=== PATIENT | male | born 1960 | race Caucasian/White ===

== ENCOUNTER 2020-09-06 15:07 | Outpatient (REF) | payer OTHER, SELFPAY ==
[2020-09-06 15:44] LABS: Imm Gran Abs Auto 0.02 X10*3/uL (0.00-0.03); MANUAL DIFF FLAG SCAN; PLT CLUMP 1; SCAN SMEAR FLAG 1
[2020-09-06 15:46] LABS: Basophils Absolute Auto 0.1 X10*3/uL (0.0-0.2); Eosinophils Absolute Auto 0.2 X10*3/uL (0.0-0.4); Eosinophils Percent Auto 3.1 % (0-4); Hematocrit 44.4 % (42-52); Imm Gran Pct Auto 0.3 % (0.0-0.4); Lymphocytes Absolute Auto 0.9 X10*3/uL (1.2-4.9); Lymphocytes Percent Auto 15.3 % (20-40); Mean Corpuscular HGB Conc 33.8 g/dl (31.0-36.0); Mean Corpuscular Hemoglobin 35.2 pg (27.0-33.0); Mean Corpuscular Volume 104.2 fL (80-98); Mean Platelet Volume 10.6 fL (9.4-12.4); Monocytes Absolute Auto 0.6 X10*3/uL (0.1-1.2); Monocytes Percent Auto 10.6 % (2-11); Neutrophils Percent Auto 69.7 % (45-73); Platelet Count 86 X10*3/uL (160-400); Red Blood Count 4.26 X10*6/uL (4.60-5.80); Red Cell Distribution Width 12.8 % (11.0-16.0); White Blood Count 5.8 X10*3/uL (4.8-10.8)
[2020-09-06 15:50] LABS: SLIDE REVIEW VERIFIED
[2020-09-06 15:51] LABS: Prothrombin Time 11.8 SEC (10.8-13.0)
[2020-09-06 16:16] LABS: Alanine Aminotransferase 42 U/L (0-40); Albumin Level 4.5 g/dL (3.5-5.0); Alkaline Phosphatase 78 U/L (39-117); Anion Gap 19 (12-20); Aspartate Amino Transferase 38 U/L (5-37); Bilirubin Total 2.2 mg/dL (0.0-1.0); Blood Urea Nitrogen 8 mg/dL (9-16); Calcium 9.1 mg/dL (8.4-10.2); Carbon Dioxide 27 mmol/L (22-29); Chloride 100 mmol/L (96-108); Estimated Glomerular Filt Rate > 60; Glucose Random 140 mg/dL (60-115); Potassium 4.8 mmol/l (3.3-5.1); Sodium 141 mmol/L (135-145); Total Protein 8.5 g/dL (6.5-8.0)
[2020-09-06 16:19] LABS: Gamma Glutamyl Transpeptidase 102 U/L (11-51)
[2020-09-07 03:27] LABS: Estimated Average Glucose 140 mg/dL; Hemoglobin A1c % 6.5 %
== END 2020-09-06 15:08 | disposition home or self-care (01) ==
LOC: HO.LAB 15:07
PROVIDERS: PCP Nurse Practitioner Family; Visit Provider Internal Medicine Gastroenterology
DX: K70.30 Alcoholic cirrhosis of liver without ascites (principal)
CPT/HCPCS: 36415; 80053; 82977; 83036; 85025; 85610

== ENCOUNTER → 2020-09-13 10:33 | Outpatient (BNVA) | payer OTHER, SELFPAY | PROVIDERS: PCP Nurse Practitioner Family; Referring Provider Nurse Practitioner Family; Visit Provider Internal Medicine Gastroenterology | DX: Z76.89 Persons encountering health services in other specified circumstances (principal) ==

== ENCOUNTER → 2020-09-15 09:55 | Outpatient (BNVA) | payer OTHER, SELFPAY | PROVIDERS: PCP Nurse Practitioner Family; Referring Provider Nurse Practitioner Family; Visit Provider Internal Medicine Gastroenterology | DX: K74.60 Unspecified cirrhosis of liver (principal); E13.9 Other specified diabetes mellitus without complications; D12.6 Benign neoplasm of colon, unspecified | CPT/HCPCS: 99212 ==

== ENCOUNTER 2020-09-29 10:22 | Outpatient (REF) | payer OTHER, SELFPAY ==
[2020-09-29 11:52] LABS: Estimated Average Glucose 131 mg/dL; Hemoglobin A1c % 6.2 %
[2020-09-29 11:59] LABS: Alanine Aminotransferase 61 U/L (0-40); Albumin Level 4.4 g/dL (3.5-5.0); Alkaline Phosphatase 83 U/L (39-117); Anion Gap 14 (12-20); Aspartate Amino Transferase 65 U/L (5-37); Bilirubin Total 1.2 mg/dL (0.0-1.0); Blood Urea Nitrogen 6 mg/dL (9-16); Calcium 9.6 mg/dL (8.4-10.2); Carbon Dioxide 30 mmol/L (22-29); Chloride 100 mmol/L (96-108); Cholesterol 193 mg/dL; Estimated Glomerular Filt Rate > 60; Glucose Fasting 133 mg/dL (60-99); HDL Cholesterol 92 mg/dL; LDL Cholesterol Calculated 90 mg/dl; Potassium 4.2 mmol/l (3.3-5.1); Sodium 140 mmol/L (135-145); Total Protein 8.2 g/dL (6.5-8.0); Triglycerides 56 mg/dL
[2020-09-29 14:30] LABS: Creatinine Urine 134.49 mg/dL; Microalbum/Creatinine Ratio Ur 32.7 ug/mg cr
== END 2020-09-29 10:23 | disposition home or self-care (01) ==
LOC: HO.HMGCLDS 10:22
PROVIDERS: PCP Nurse Practitioner Family; Visit Provider Nurse Practitioner Family
DX: E13.9 Other specified diabetes mellitus without complications (principal); L60.2 Onychogryphosis
CPT/HCPCS: 80053; 80061; 82043; 83036; 84443

== ENCOUNTER 2021-03-30 09:24 | Outpatient (REF) | payer OTHER, SELFPAY ==
[2021-03-30 12:01] LABS: Estimated Average Glucose 186 mg/dL; Hemoglobin A1c % 8.1 %
[2021-03-30 12:09] LABS: Alanine Aminotransferase 17 U/L (0-40); Alkaline Phosphatase 81 U/L (39-117); Anion Gap 16 (12-20); Aspartate Amino Transferase 15 U/L (5-37); Bilirubin Total 1.9 mg/dL (0.0-1.0); Blood Urea Nitrogen 10 mg/dL (9-16); Calcium 9.4 mg/dL (8.4-10.2); Carbon Dioxide 23 mmol/L (22-29); Chloride 103 mmol/L (96-108); Cholesterol 176 mg/dL; Estimated Glomerular Filt Rate > 60; Glucose Fasting 141 mg/dL (60-99); HDL Cholesterol 62 mg/dL; LDL Cholesterol Calculated 97 mg/dl; Potassium 3.8 mmol/L (3.3-5.1); Sodium 138 mmol/L (135-145); Total Protein 7.6 g/dL (6.5-8.0); Triglycerides 89 mg/dL
[2021-03-30 12:18] LABS: Prostate Specific Antigen Scr 3.15 ng/mL (<0.05-4.0); TSH reflex Free T4 2.57 uIU/mL (0.32-4.0)
[2021-03-30 12:48] LABS: Ferritin 239 ng/mL (20-250)
== END 2021-03-30 09:25 | disposition home or self-care (01) ==
LOC: HO.HMGCLDS 09:24
PROVIDERS: PCP Nurse Practitioner Family; Visit Provider Nurse Practitioner Family
DX: Z12.5 Encounter for screening for malignant neoplasm of prostate (principal); E13.9 Other specified diabetes mellitus without complications; R79.89 Other specified abnormal findings of blood chemistry
CPT/HCPCS: 36415; 80053; 80061; 82728; 83036; 84153; 84443

== ENCOUNTER 2021-05-30 09:28 | Outpatient (REF) | payer OTHER, SELFPAY ==
[2021-05-30 11:37] LABS: Creatinine Urine 90.91 mg/dL; Microalbumin Urine < 5.0 mg/L
[2021-05-30 11:38] LABS: Alanine Aminotransferase 23 U/L (0-40); Albumin Level 3.8 g/dL (3.5-5.0); Alkaline Phosphatase 95 U/L (39-117); Anion Gap 10 (12-20); Aspartate Amino Transferase 20 U/L (5-37); Bilirubin Total 1.6 mg/dL (0.0-1.0); Blood Urea Nitrogen 8 mg/dL (9-16); Calcium 9.6 mg/dL (8.4-10.2); Carbon Dioxide 26 mmol/L (22-29); Chloride 106 mmol/L (96-108); Cholesterol 150 mg/dL; Estimated Glomerular Filt Rate > 60; Glucose Fasting 169 mg/dL (60-99); HDL Cholesterol 57 mg/dL; LDL Cholesterol Calculated 82 mg/dl; Potassium 4.4 mmol/L (3.3-5.1); Sodium 138 mmol/L (135-145); Total Protein 7.2 g/dL (6.5-8.0); Triglycerides 55 mg/dL
[2021-05-30 11:46] LABS: Prostate Specific Antigen 3.05 ng/mL (<0.05-4.0)
== END 2021-05-30 09:29 | disposition home or self-care (01) ==
LOC: HO.HMGCLDS 09:28
PROVIDERS: PCP Nurse Practitioner Family; Visit Provider Nurse Practitioner Family
DX: Z12.5 Encounter for screening for malignant neoplasm of prostate (principal); E11.9 Type 2 diabetes mellitus without complications
CPT/HCPCS: 36415; 80053; 80061; 82043; 84153

== ENCOUNTER 2021-10-03 10:19 | Outpatient (REF) | payer MEDICARE, OTHER, SELFPAY ==
--- NOTE | ~2021-10-03 | XR_ITS ---
EXAMINATION: XR CERVICAL SPINE CLINICAL INFORMATION: Cervical disc disorder COMPARISON: None TECHNIQUE: 3 views of the cervical spine were obtained. FINDINGS: Bone alignment is normal. No fracture or dislocation is seen. There is degenerative spondylosis at C4-C5 and C5-C6. There is disc space narrowing at C5-C6. Prevertebral soft tissues are normal. There is bilateral carotid calcification. XR/XR cervical spine 3V IMPRESSION: Mild degenerative changes at C4-C5 and C5-C6.
[2021-10-03 12:12] LABS: Alanine Aminotransferase 36 U/L (0-40); Alkaline Phosphatase 94 U/L (39-117); Anion Gap 14 (12-20); Aspartate Amino Transferase 22 U/L (5-37); Bilirubin Total 2.3 mg/dL (0.0-1.0); Blood Urea Nitrogen 8 mg/dL (9-16); Calcium 9.7 mg/dL (8.4-10.2); Carbon Dioxide 24 mmol/L (22-29); Chloride 107 mmol/L (96-108); Cholesterol 144 mg/dL; Estimated Glomerular Filt Rate > 60; Glucose Fasting 161 mg/dL (60-99); HDL Cholesterol 59 mg/dL; LDL Cholesterol Calculated 75 mg/dl; Potassium 4.3 mmol/L (3.3-5.1); Sodium 141 mmol/L (135-145); Total Protein 7.6 g/dL (6.5-8.0); Triglycerides 54 mg/dL
[2021-10-03 12:50] LABS: Estimated Average Glucose 171 mg/dL; Hemoglobin A1c % 7.6 %
== END 2021-10-03 10:20 | disposition home or self-care (01) ==
LOC: HO.HMGCLDS 10:19
PROVIDERS: Visit Provider Nurse Practitioner Family
DX: M50.90 Cervical disc disorder, unspecified, unspecified cervical region (principal); E13.9 Other specified diabetes mellitus without complications
CPT/HCPCS: 36415; 72040; 80053; 80061; 83036

== ENCOUNTER 2021-10-21 10:38 | Outpatient (REF) | payer MEDICARE, OTHER, SELFPAY ==
[2021-10-21 14:36] LABS: Bilirubin Direct 0.5 mg/dL (0.0-0.5); Bilirubin Total 1.2 mg/dL (0.0-1.0)
== END 2021-10-21 10:39 | disposition home or self-care (01) ==
LOC: HO.HMGCLDS 10:38
PROVIDERS: PCP Nurse Practitioner Family; Visit Provider Nurse Practitioner Family
DX: R17 Unspecified jaundice (principal)
CPT/HCPCS: 36415; 82247; 82248

== ENCOUNTER 2022-01-02 10:32 | Outpatient (REF) | payer OTHER, SELFPAY ==
[2022-01-02 11:46] LABS: Estimated Average Glucose 180 mg/dL; Hemoglobin A1c % 7.9 %
[2022-01-02 12:14] LABS: Alanine Aminotransferase 40 U/L (0-40); Albumin Level 3.9 g/dL (3.5-5.0); Alkaline Phosphatase 105 U/L (39-117); Anion Gap 13 (12-20); Aspartate Amino Transferase 34 U/L (5-37); Blood Urea Nitrogen 6 mg/dL (9-16); Calcium 9.7 mg/dL (8.4-10.2); Carbon Dioxide 27 mmol/L (22-29); Chloride 104 mmol/L (96-108); Cholesterol 150 mg/dL; Estimated Glomerular Filt Rate > 60; Glucose Fasting 234 mg/dL (60-99); HDL Cholesterol 65 mg/dL; LDL Cholesterol Calculated 76 mg/dl; Potassium 3.6 mmol/L (3.3-5.1); Sodium 140 mmol/L (135-145); Total Protein 7.2 g/dL (6.5-8.0); Triglycerides 46 mg/dL
[2022-01-02 12:37] LABS: TSH reflex Free T4 1.54 uIU/mL (0.32-4.0)
[2022-01-02 14:04] LABS: Appearance Urine CLEAR; Color Urine YELLOW; Glucose Urine UA >=1000 MG/DL (NEG); Leukocyte Esterase Urine NEG (NEG); Nitrite Urine NEG (NEG); PH 5.5 (5.0-8.0); Urine Blood NEG (NEG); Urine Ketones NEG (NEG); Urine Protein NEG (NEG-TRACE)
[2022-01-02 14:34] LABS: RBC Urine 0 /HPF (0); Squamous Epithelial Cell Urine TRACE /LPF; WBC Urine 0-2 /HPF (0-4)
== END 2022-01-02 10:33 | disposition home or self-care (01) ==
LOC: HO.HMGCLDS 10:32
PROVIDERS: Visit Provider Nurse Practitioner Family
DX: E13.9 Other specified diabetes mellitus without complications (principal)
CPT/HCPCS: 36415; 80053; 80061; 81001; 81003; 83036; 84443

== ENCOUNTER 2022-02-24 11:21 | Outpatient (REF) | payer OTHER, SELFPAY ==
[2022-02-24 12:51] LABS: MANUAL DIFF FLAG NO
[2022-02-24 13:03] LABS: Prothrombin Time 11.8 SEC (9.9-13.0)
[2022-02-24 13:12] LABS: Alanine Aminotransferase 26 U/L (0-40); Alkaline Phosphatase 125 U/L (39-117); Anion Gap 12 (12-20); Aspartate Amino Transferase 23 U/L (5-37); Bilirubin Total 2.3 mg/dL (0.0-1.0); Blood Urea Nitrogen 8 mg/dL (9-16); Calcium 9.6 mg/dL (8.4-10.2); Carbon Dioxide 27 mmol/L (22-29); Chloride 102 mmol/L (96-108); Estimated Glomerular Filt Rate > 60; Glucose Random 185 mg/dL (60-115); Potassium 4.1 mmol/L (3.3-5.1); Sodium 137 mmol/L (135-145); Total Protein 7.7 g/dL (6.5-8.0)
[2022-02-24 13:21] LABS: Basophils Percent Auto 0.8 % (0-2); Eosinophils Absolute Auto 0.3 X10*3/uL (0.0-0.4); Eosinophils Percent Auto 6.1 % (0-4); Hematocrit 38.9 % (42.0-52.0); Imm Gran Abs Auto 0.02 X10*3/uL (0.00-0.03); Imm Gran Pct Auto 0.4 % (0.0-0.4); Lymphocytes Absolute Auto 0.9 X10*3/uL (1.2-4.9); Lymphocytes Percent Auto 17.1 % (20-40); Mean Corpuscular HGB Conc 33.4 g/dl (31.0-36.0); Mean Corpuscular Hemoglobin 33.7 pg (27.0-33.0); Mean Corpuscular Volume 100.8 fL (80.0-98.0); Mean Platelet Volume 9.8 fL (9.4-12.4); Monocytes Absolute Auto 0.5 X10*3/uL (0.1-1.2); Monocytes Percent Auto 8.8 % (2-11); Neutrophils Absolute Auto 3.4 x10*3/uL (2.0-8.3); Neutrophils Percent Auto 66.8 % (45-73); Red Blood Count 3.86 X10*6/uL (4.60-5.80); White Blood Count 5.1 X10*3/uL (4.8-10.8)
[2022-02-24 13:25] LABS: Platelet Count 68 X10*3/uL (160-400)
[2022-02-24 13:32] LABS: Ferritin 338 ng/mL (20-250); Vitamin D 25-OH Total 36.4 ng/mL (>30)
[2022-02-24 13:45] LABS: Folate 13.9 ng/mL (> or = 4.0); Vitamin B12 878 pg/mL (200-900)
[2022-02-27 04:54] LABS: HBS Num1 0.79 mIU/mL (0-7.99); HBc Num1 0.08 S/CO (0.00-0.79); HBsAGNum1 0.24 S/CO (0.00-0.99); Hepatitis B Core Antibody Nonreactive (Nonreactive); Hepatitis B Surface Antigen Negative (Negative); ~HepC Num1 0.13 S/CO (0.00-0.79); ~Hepatitis B Surface Antibody NONREACTIVE (Nonreactive); ~Hepatitis C Antibody Nonreactive (Nonreactive)
[2022-02-27 13:07] LABS: Anti Nuclear Antibody Screen NEGATIVE (NEGATIVE)
[2022-02-27 14:26] LABS: Alpha 1 Anti-trypsin 160 mg/dL (83-199)
[2022-02-28 15:02] LABS: Mitochondrial Antibodies NEGATIVE (NEGATIVE)
[2022-02-28 17:52] LABS: Zinc 55 mcg/dL (60-130)
[2022-03-01 00:07] LABS: Soluble Liver Ag Autoantibody <20.1 U (0.0-20.0)
[2022-03-01 00:35] LABS: Immunoglobulin G 1457 mg/dL (600-1540)
[2022-03-01 04:00] LABS: ~Hepatitis A Antibody IgM Nonreactive (Nonreactive)
[2022-03-01 16:06] LABS: Vitamin K1 754 pg/mL (130-1500)
[2022-03-01 23:12] LABS: Alpha-Tocopherol 7.9 mg/L (5.7-19.9); Beta-Gamma Tocopherol 2.8 mg/L (<=4.3)
[2022-03-02 00:32] LABS: Nicotinamide <20 ng/mL; Vit B3 - Nicotinic Acid <20 ng/mL
[2022-03-02 12:16] LABS: Vitamin C 0.6 mg/dL (0.2-2.1)
[2022-03-02 17:57] LABS: Vitamin B5 (Pantothenic Acid) 67 ng/mL (<275)
[2022-03-02 18:16] LABS: Transglutaminase Ab IgG <1.0 U/mL; Transglutaminase IgA <1.0 U/mL
[2022-03-03 01:21] LABS: Vitamin A 11 mcg/dL (38-98)
[2022-03-04 09:11] LABS: Vitamin B6 19.1 ng/mL (2.1-21.7)
[2022-03-05 13:57] LABS: Smooth Muscle Antibody <20 U (<20)
[2022-03-06 13:41] LABS: Liver Kidney Microsomal Ab <=20.0 U (<=20.0)
== END 2022-02-24 11:22 | disposition home or self-care (01) ==
LOC: HO.LAB 11:21
PROVIDERS: PCP Nurse Practitioner Family; Referring Provider Nurse Practitioner Family; Visit Provider Internal Medicine Gastroenterology
DX: D12.6 Benign neoplasm of colon, unspecified (principal); K74.60 Unspecified cirrhosis of liver; K75.81 Nonalcoholic steatohepatitis (NASH); R79.89 Other specified abnormal findings of blood chemistry; G89.29 Other chronic pain; R10.33 Periumbilical pain; K52.839 Microscopic colitis, unspecified; R79.82 Elevated C-reactive protein (CRP)
CPT/HCPCS: 36415; 80053; 82103; 82180; 82306; 82607; 82728; 82746; 82784; 83520; 84207; 84446; 84590; 84591; 84597; 84630; 85025; 85610; 86015; 86038; 86039; 86255; 86256; 86364; 86376; 86704; 86706; 86709; 86803; 87340; 99212

== ENCOUNTER 2022-03-27 10:31 | Outpatient (REF) | payer OTHER, SELFPAY ==
[2022-03-27 13:44] LABS: MANUAL DIFF FLAG NO
[2022-03-27 13:47] LABS: Basophils Absolute Auto 0.1 X10*3/uL (0.0-0.2); Basophils Percent Auto 0.9 % (0-2); Eosinophils Absolute Auto 0.4 X10*3/uL (0.0-0.4); Hematocrit 36.1 % (42.0-52.0); Hemoglobin 11.9 g/dl (14.0-18.0); Imm Gran Abs Auto 0.02 X10*3/uL (0.00-0.03); Imm Gran Pct Auto 0.4 % (0.0-0.4); Lymphocytes Absolute Auto 0.9 X10*3/uL (1.2-4.9); Mean Corpuscular Hemoglobin 33.2 pg (27.0-33.0); Mean Corpuscular Volume 100.8 fL (80.0-98.0); Mean Platelet Volume 10.9 fL (9.4-12.4); Monocytes Absolute Auto 0.5 X10*3/uL (0.1-1.2); Monocytes Percent Auto 8.5 % (2-11); Neutrophils Absolute Auto 3.7 x10*3/uL (2.0-8.3); Neutrophils Percent Auto 66.2 % (45-73); Red Blood Count 3.58 X10*6/uL (4.60-5.80); Red Cell Distribution Width 14.1 % (11.0-16.0); White Blood Count 5.5 X10*3/uL (4.8-10.8)
[2022-03-27 13:48] LABS: Platelet Count 78 X10*3/uL (160-400)
[2022-03-27 13:55] LABS: Appearance Urine CLOUDY; Color Urine YELLOW; Glucose Urine UA NEG (NEG); Leukocyte Esterase Urine NEG (NEG); Nitrite Urine NEG (NEG); PH 5.5 (5.0-8.0); Specific Gravity - Urine >= 1.030 (1.005-1.025); Urine Blood NEG (NEG); Urine Ketones NEG (NEG); Urine Protein NEG (NEG-TRACE)
[2022-03-27 13:59] LABS: Estimated Average Glucose 154 mg/dL
[2022-03-27 14:00] LABS: Alanine Aminotransferase 26 U/L (0-40); Albumin Level 3.6 g/dL (3.5-5.0); Alkaline Phosphatase 94 U/L (39-117); Anion Gap 13 (12-20); Aspartate Amino Transferase 21 U/L (5-37); Bilirubin Total 2.1 mg/dL (0.0-1.0); Blood Urea Nitrogen 10 mg/dL (9-16); Calcium 9.3 mg/dL (8.4-10.2); Carbon Dioxide 25 mmol/L (22-29); Chloride 105 mmol/L (96-108); Cholesterol 136 mg/dL; Estimated Glomerular Filt Rate > 60; Glucose Fasting 172 mg/dL (60-99); HDL Cholesterol 48 mg/dL; LDL Cholesterol Calculated 79 mg/dl; Potassium 3.8 mmol/L (3.3-5.1); Sodium 139 mmol/L (135-145); Total Protein 7.1 g/dL (6.5-8.0); Triglycerides 49 mg/dL
[2022-03-27 14:21] LABS: TSH reflex Free T4 1.79 uIU/mL (0.32-4.0)
== END 2022-03-27 10:32 | disposition home or self-care (01) ==
LOC: HO.HMGCLDS 10:31
PROVIDERS: Visit Provider Nurse Practitioner Family
DX: E13.9 Other specified diabetes mellitus without complications (principal)
CPT/HCPCS: 36415; 80053; 80061; 81003; 83036; 84443; 85025

== ENCOUNTER 2022-04-24 08:21 | Outpatient (REF) | payer OTHER, SELFPAY ==
--- NOTE | ~2022-04-24 | US_ITS ---
EXAMINATION: US COMPLETE ABDOMEN WITH LIVER ELASTOGRAPHY CLINICAL INFORMATION: Cirrhosis of liver. COMPARISON: MRI abdomen 05/29/2019. TECHNIQUE: Real-time imaging of the abdominal viscera. Noninvasive ultrasound liver fibrosis assessment is performed using Rama ElastPQ point quantification shear wave elastography (2D-SWE) with a C5-2 MHz transducer. Multiple elastography samples are obtained. FINDINGS: PANCREAS: Partially visualized pancreas is unremarkable. ABDOMINAL AORTA: The middle, and distal aortic segments are normal in caliber. The proximal abdominal aorta is not visualized. INFERIOR VENA CAVA: Visualized portions are normal. LIVER: There is a small amount of free fluid. The liver demonstrates normal size, contour and increased echogenicity. No focal lesion or intrahepatic biliary duct dilatation. The right lobe measures 14.3 cm in length. The left lobe measures 12.7 cm in length. Portal flow is hepatopedal. Shear wave liver elastography median stiffness is 1.78 m/s (reference: normal median stiffness is 1.3 m/s or less). IQR/median stiffness to assess sampling precision is 0.08 (reference: good quality data set is IQR/median stiffness of 0.15 or less). GALLBLADDER: Normal. The gallbladder is physiologically distended without evidence of stones, sludge, polyps, wall thickening or fluid. Previous exam the gallbladder was contracted. COMMON BILE DUCT: Normal in caliber measuring 0.4 cm in diameter. RIGHT KIDNEY: Normal. No hydronephrosis. No renal calculi or focal parenchymal lesions. The kidney measures 11.9 cm in maximum dimension. LEFT KIDNEY: There is an anechoic cyst in midpole measuring 1.2 x 1.4 x 1.7 cm. No hydronephrosis. No renal calculi or focal parenchymal lesions. The kidney measures 13.4 cm in maximum dimension. SPLEEN: Mildly enlarged. The spleen measures 16.2 cm in maximum dimension. FREE FLUID: None. US/US abdomen comp w elastography IMPRESSION: 1. Hepatic steatosis with heterogeneous texture and mild ascites. Left renal midpole 1.7 cm simple cyst. 2. Liver elastography: Median liver stiffness 1.78 m/s corresponds to cACLD (suggestive). REFERENCE: Society of Radiologists in Ultrasound Liver Stiffness Thresholds (2020): LIVER STIFFNESS THRESHOLDS: *Liver Stiffness equal or less than 1.3 m/s: High probability of being normal. *Liver Stiffness less than 1.7 m/s: In the absence of other known clinical signs, rules out compensated advanced chronic liver disease. *Liver Stiffness 1.7-2.1 m/s: Suggestive of compensated advanced chronic liver disease but need further test for confirmation. *Liver Stiffness over 2.1 m/s: Rules in compensated advanced chronic liver disease. *Liver Stiffness over 2.4 m/s: Suggestive of clinically significant portal hypertension. QUALITY OF DATA SET: *IQR/Median value equal or less than 0.15 implies a quality data set. *IQR/Median value over 0.15 implies a poor quality data set. SIGNIFICANT CHANGE FROM PRIOR EXAM: Significant change if liver stiffness measurement is 10% or greater from prior exam. OTHER CONSIDERATIONS: The stage of liver fibrosis may be overestimated in the setting of acute hepatitis, liver inflammation, elevated liver function tests, hepatic vascular congestion, obstructive cholestasis, non-fasting state, and infiltrative diseases such as amyloidosis and lymphoma. In some patients with NAFLD, the liver stiffness thresholds for compensated advanced chronic liver disease may be lower. In causes other than viral hepatitis and NAFLD, liver stiffness thresholds are not well established.
== END 2022-04-24 08:22 | disposition home or self-care (01) ==
LOC: HO.US 08:21
PROVIDERS: Visit Provider Internal Medicine Gastroenterology
DX: K74.60 Unspecified cirrhosis of liver (principal); D12.6 Benign neoplasm of colon, unspecified
CPT/HCPCS: 76705; 76981

== ENCOUNTER 2022-05-31 10:05 | Outpatient (REF) | payer OTHER, SELFPAY ==
[2022-05-31 11:10] LABS: MANUAL DIFF FLAG NO
[2022-05-31 11:45] LABS: Basophils Absolute Auto 0.1 X10*3/uL (0.0-0.2); Basophils Percent Auto 1.2 % (0-2); Eosinophils Absolute Auto 0.5 X10*3/uL (0.0-0.4); Hematocrit 36.9 % (42.0-52.0); Hemoglobin 12.3 g/dl (14.0-18.0); Imm Gran Abs Auto 0.02 X10*3/uL (0.00-0.03); Imm Gran Pct Auto 0.4 % (0.0-0.4); Immature Retic Fraction 13.7 % (2.3-13.4); Lymphocytes Absolute Auto 0.9 X10*3/uL (1.2-4.9); Lymphocytes Percent Auto 18.8 % (20-40); Mean Corpuscular HGB Conc 33.3 g/dl (31.0-36.0); Mean Corpuscular Hemoglobin 34.2 pg (27.0-33.0); Mean Corpuscular Volume 102.5 fL (80.0-98.0); Mean Platelet Volume 10.8 fL (9.4-12.4); Monocytes Absolute Auto 0.5 X10*3/uL (0.1-1.2); Monocytes Percent Auto 9.4 % (2-11); Neutrophils Percent Auto 60.2 % (45-73); Red Cell Distribution Width 15.2 % (11.0-16.0); Retic HGB Equivalent 38.9 pg (30.0-35.0); Reticulocyte Percent 1.8 % (0.5-1.8); Reticulocytes Absolute 0.064 X10*6/uL (0.026-0.095); White Blood Count 4.9 X10*3/uL (4.8-10.8)
[2022-05-31 11:50] LABS: Platelet Count 81 X10*3/uL (160-400)
[2022-05-31 12:20] LABS: Iron 66 mcg/dL (45-160); Percent Iron Saturation 25 % (15-50); Total Iron Binding Capacity 266 mcg/dL (228-428); Unsaturated Iron Binding 200 ug/dL
[2022-05-31 13:15] LABS: Folate > 20.0 ng/mL (> or = 4.0); Vitamin B12 943 pg/mL (200-900)
== END 2022-05-31 10:06 | disposition home or self-care (01) ==
LOC: HO.HMGCLDS 10:05
PROVIDERS: Visit Provider Nurse Practitioner Family
DX: D64.9 Anemia, unspecified (principal)
CPT/HCPCS: 36415; 82607; 82746; 83540; 85025; 85045

== ENCOUNTER → 2022-06-30 09:46 | Outpatient (BNVA) | payer OTHER, SELFPAY | PROVIDERS: PCP Nurse Practitioner Family; Visit Provider Internal Medicine Gastroenterology | DX: Z01.818 Encounter for other preprocedural examination (principal); Z23 Encounter for immunization; Z20.828 Contact with and (suspected) exposure to other viral communicable diseases | CPT/HCPCS: 90471; 90472; 90632; 90746; 99212 ==

== ENCOUNTER → 2022-07-27 09:22 | Outpatient (REF) | payer OTHER, SELFPAY ==
--- NOTE | 2022-07-27 09:26 | CA_ITS ---
Transthoracic Echocardiogram Patient (Last, First, Middle): Luther Alvares M Gender: Male Date of : 1960 Age: 62 Procedure Date: 07/27/2022 Procedure Type: Transthoracic Echocardiogram Location: OP Height: 170.18 cm Weight: 79.38 kg BSA: 1.91 m2 Heart Rate: 86 bpm BP: 134 / 61 mmHg Field Clerk: SB Referring MD: Mario Prince [facility] Symptoms: R01.1 - Cardiac murmur, unspecified Study Quality: Adequate ECG Rhythm: Sinus Conclusions: - The left ventricular systolic function is normal. The calculated ejection fraction is 63% by biplane method. - Evidence suggests grade II (moderate) diastolic dysfunction. - No obvious valvular pathology seen on this study. Findings Left Ventricle Normal left ventricular cavity size. There is mildly increased left ventricular wall thickness. The left ventricular systolic function is normal. The calculated ejection fraction is 63% by biplane method. There is no evidence of regional wall motion abnormalities. E/E prime ratio is >15, consistent with elevated filling pressures. Evidence suggests grade II (moderate) diastolic dysfunction. Diminished LV peak GLS at -14.8%. Right Ventricle Mildly increased right ventricular cavity size. There is normal right ventricular systolic function. Atria The left atrium is moderately dilated. The right atrium is mildly dilated. Aortic Valve There is a normal trileaflet aortic valve. There is no aortic valve stenosis. There is no aortic valve regurgitation. Mitral Valve There is mild anterior mitral leaflet thickening. There is no mitral valve regurgitation. There is no mitral valve stenosis. Pulmonic Valve The pulmonic valve is likely normal. Tricuspid Valve Normal tricuspid valve structure. There is trace tricuspid valve regurgitation. There is no evidence of pulmonary hypertension. Great Vessels The asc aorta is normal in size. Venous The inferior vena cava is normal in size and collapses greater than 50% with inspiration. Pericardium/Pleural There is a trivial pericardial effusion. Prior Study Comparison No prior study available for comparison. Recommendations, Care & Conclusions No obvious valvular pathology seen on this study. Measurements 2D Linear Measurements IVSd: 1.18 0.6-0.9/0.6-1.0 cm LVIDd: 4.99 3.9-5.3/4.2-5.9 cm LVIDd Index: 2.61 2.4-3.2/2.2-3.1 cm/m2 LVIDs: 3.38 2.0-3.6 cm LVPWd: 1.04 0.7-1.1 cm LA Diam: 4.30 2.7-3.8/3.0-4.0 cm LAIDs Index: 2.25 1.5-2.3 cm/m2 LV Mass: 260.58 67-162/88-224 g LV Mass Index: 136.43 43-95/49-115 g/m2 LVOT Diam: 2.30 3.0+(-)1.3 cm 2D Systolic Function EF 4C: 61.00 >55% EF 2C: 63.30 >55% EF BiP: 62.60 >55% Mitral Valve MV Pk E: 1.08 MV PK A: 0.78 MV Decel Time: 217.00 E/A: 1.40 E'Lateral: 6.81 E'Medial: 5.84 E/E' Med: 18.50 E/E' Lat: 15.90 PHT: 63.00 MVA PHT: 3.49 Decel Maury: 4.99 Aortic Valve AoV Pk Vinay: 1.66 AoV Mn Vinay: 1.12 AoV VTI: 0.36 AoV Pk Grad: 11.00 Aov Mn Grad: 6.00 GILDA Cont.VTI: 3.01 LVOT LVOT Pk Vinay: 1.13 LVOT Mn Vinay: 0.80 LVOT VTI: 0.26 LVOT Pk Grad: 5.00 LVOT Mn Grad: 3.00 LVOT Diam: 2.30 LVOT Area: 4.15 Diastolic Function MV Pk E: 1.08 MV Pk A: 0.78 E/A: 1.40 E'Medial: 5.84 E/E' Med: 18.50 E' Laterial: 6.81 E/E' Lat: 15.90 Right Ventricle TAPSE (mm): 24.40 TVS' Vinay: 12.70 Tricuspid Valve TR Pk Vinay: 2.45 TR Pk Grad: 24.00 RA Press: 3.00 RVSP: 27.00 Great Vessels Aorta Sinus of Valsalva: 3.40 2.0-3.5 cm Ao Asc: 3.80 2.1-3.4 cm Pulmonary Valve PV Pk Vinay: 1.21 Peak PV Grad: 6.00 Updated in Other Vendor System with Status of Final Manav Raza MD electronically signed on 07/28/2022 9:23:32 AM with status of Final
== END ==
LOC: HO.CARD 09:22
PROVIDERS: PCP Nurse Practitioner Family; Visit Provider Nurse Practitioner Family
DX: R01.1 Cardiac murmur, unspecified (principal)
CPT/HCPCS: 93306; 93356

== ENCOUNTER → 2022-07-28 10:02 | Outpatient (BNVA) | payer OTHER, SELFPAY | PROVIDERS: PCP Nurse Practitioner Family; Visit Provider Internal Medicine Gastroenterology | DX: Z23 Encounter for immunization (principal); K74.60 Unspecified cirrhosis of liver | CPT/HCPCS: 90471; 90746 ==

== ENCOUNTER 2022-09-04 11:06 | Outpatient (REF) | payer OTHER, SELFPAY ==
[2022-09-04 13:56] LABS: MANUAL DIFF FLAG NO
[2022-09-04 14:07] LABS: Basophils Absolute Auto 0.1 X10*3/uL (0.0-0.2); Basophils Percent Auto 1.2 % (0-2); Eosinophils Absolute Auto 0.4 X10*3/uL (0.0-0.4); Eosinophils Percent Auto 7.6 % (0-4); Hematocrit 36.5 % (42.0-52.0); Hemoglobin 12.3 g/dl (14.0-18.0); Imm Gran Abs Auto 0.01 X10*3/uL (0.00-0.03); Imm Gran Pct Auto 0.2 % (0.0-0.4); Lymphocytes Absolute Auto 0.9 X10*3/uL (1.2-4.9); Lymphocytes Percent Auto 18.9 % (20-40); Mean Corpuscular HGB Conc 33.7 g/dl (31.0-36.0); Mean Corpuscular Hemoglobin 34.5 pg (27.0-33.0); Mean Corpuscular Volume 102.2 fL (80.0-98.0); Mean Platelet Volume 11.8 fL (9.4-12.4); Monocytes Absolute Auto 0.4 X10*3/uL (0.1-1.2); Monocytes Percent Auto 8.2 % (2-11); Neutrophils Absolute Auto 3.1 x10*3/uL (2.0-8.3); Neutrophils Percent Auto 63.9 % (45-73); Red Blood Count 3.57 X10*6/uL (4.60-5.80); Red Cell Distribution Width 14.5 % (11.0-16.0); White Blood Count 4.9 X10*3/uL (4.8-10.8)
[2022-09-04 14:08] LABS: Platelet Count 66 X10*3/uL (160-400)
[2022-09-04 14:20] LABS: Estimated Average Glucose 157 mg/dL; Hemoglobin A1c % 7.1 %
[2022-09-04 14:20] LABS: Appearance Urine Clear; Color Urine Yellow; Glucose Urine UA 250 mg/dL (Negative); Leukocyte Esterase Urine Negative (Negative); Nitrite Urine Negative (Negative); Urine Blood Negative (Negative); Urine Ketones Negative (Negative); Urine Protein Negative (Neg-Trace)
[2022-09-04 14:23] LABS: Alanine Aminotransferase 32 U/L (0-40); Albumin Level 3.7 g/dL (3.5-5.0); Alkaline Phosphatase 141 U/L (39-117); Anion Gap 13 (12-20); Aspartate Amino Transferase 28 U/L (5-37); Bilirubin Total 2.1 mg/dL (0.0-1.0); Blood Urea Nitrogen 8 mg/dL (9-16); Calcium 9.7 mg/dL (8.4-10.2); Carbon Dioxide 26 mmol/L (22-29); Chloride 104 mmol/L (96-108); Estimated Glomerular Filt Rate > 60; Glucose Fasting 196 mg/dL (60-99); Sodium 139 mmol/L (135-145); Total Protein 7.1 g/dL (6.5-8.0)
[2022-09-04 14:45] LABS: Prostate Specific Antigen Scr 2.48 ng/mL (<0.05-4.0); TSH reflex Free T4 1.58 uIU/mL (0.32-4.0)
[2022-09-04 14:57] LABS: Creatinine Urine 118.15 mg/dL; Microalbum/Creatinine Ratio Ur 18.6 ug/mg cr
== END 2022-09-04 11:07 | disposition home or self-care (01) ==
LOC: HO.HMGCLDS 11:06
PROVIDERS: PCP Nurse Practitioner Family; Visit Provider Nurse Practitioner Family
DX: E13.9 Other specified diabetes mellitus without complications (principal); Z12.5 Encounter for screening for malignant neoplasm of prostate
CPT/HCPCS: 36415; 80053; 81003; 82043; 83036; 84153; 84443; 85025

== ENCOUNTER 2022-11-01 09:53 | Day surgery (SDC) | payer OTHER, SELFPAY ==
--- NOTE | 2022-11-01 10:03 | MHC.SHP ---
Pre-Procedural Eval Section A Date of Service: 11/01/22 Section B Chief Complaint: Benign neoplasm of colon,screening,benign neoplasm Details of Present Illness: hx of cirrhosis, needs variceal screening as well Relevant Family History (Specify if Yes): No Relevant Social History: Alcohol Use Present Medications: see Short Stay Collaborative assessment Medical History: Significant History (Alcoholism Anemia Cerebellar ataxia Cirrhosis of liver Compression fracture Diabetes 1.5, managed as type 2 Diabetic retinopathy Elevated ferritin Lung nodule Overgrown toenails Pancytopenia Peripheral polyneuropathy Venous insufficiency) History of Previous Operations: Relevant previous surgery/procedure and date(s) (History of umbilical hernia repair Hx of colonoscopy Hx of left knee surgery) Allergies: Allergies Allergy/AdvReac Type Severity Reaction Status Date / Time morphine [MORPHINE] Allergy Intermediate SEVERE Verified 10/25/22 14:50 VOMITING, vomiting, vomiting Review of Systems Sugical H&P ROS: Negative: Constitution, Cardiovascular, Respiratory, Neurological, Psychiatric, Hem-Onc, Allergic/Immunologic, Gastrointestinal, Genitourinary, Musculoskeletal, Integumentary, Endocrine and Eyes/Ears/Nose/Throat Exam Surgical H&P Exam: Normal: HEENT, Normal: Heart, Normal: Lungs, Normal: Extremities, Normal: Abdomen, Normal: Skin and Normal: Neurological Plan Diagnosis/Plan: Unchanged I have reviewed the history and physical and performed a pertinent physical examination on my patient. No changes have occurred unless specified. Time Spent With Patient Time: Total time managing care of this patient today ____ minutes.
--- NOTE | 2022-11-01 10:04 | HO.ANESPROP2 ---
[facility] Active Problems Active Problems: All Active Problems (Updated 06/27/22 @ 11:56 by Mario Prince, [facility]) Tubular adenoma of colon (Acute) Elevated ferritin (Acute) Cervical neck pain with evidence of disc disease (Acute) Elevated bilirubin (Acute) Low hemoglobin (Acute) Screening PSA (prostate specific antigen) (Acute) Systolic murmur (Acute) Screening for colon cancer (Acute) Overgrown toenails (Acute) Diabetes 1.5, managed as type 2 (Acute) Cirrhosis of liver (Acute) Past Medical History Medical History Alcoholism Anemia Cerebellar ataxia Cirrhosis of liver Compression fracture Diabetes 1.5, managed as type 2 Diabetic retinopathy Elevated ferritin Lung nodule Overgrown toenails Pancytopenia Peripheral polyneuropathy Venous insufficiency Family History Family History Father No problems noted. Mother Lung cancer Maternal Grandmother Cancer Paternal Uncle Diabetes Family history of problems with anesthesia: No Surgical History Surgical History (Updated 10/25/22 @ 15:02 by Delfina Garg RN) History of umbilical hernia repair Hx of colonoscopy Hx of left knee surgery History of Problems with Anesthesia: No Social History Social History Housing: House Alcohol intake: current Alcohol intake frequency: holidays/special occasions only Patient Tobacco Use Status: Never used Tobacco e-Cigarette/Vaping Use: Never Used Second Hand Smoke Exposure: No Substance Use Type: Marijuana Advance Directives: No Advance Directives Information Provided: Yes service: No Current occupational status: retired Cognitive needs: No Hearing needs: No Vision needs: No Meds Allergies Allergy/AdvReac Type Severity Reaction Status Date / Time morphine [MORPHINE] Allergy Intermediate SEVERE Verified 10/25/22 14:50 VOMITING, vomiting, vomiting Active Medications: Current Medications Lactated Ringer's (Lr) 1,000 mls @ 100 mls/hr IVCONT .Q10H [facility] Home Medications Medication Instructions Recorded Confirmed Last Taken Type cholecalciferol (vitamin D3) 10 10 mcg PO DAILY 09/15/20 10/25/22 Unknown History mcg (400 unit) capsule Exam Exam Date and Time: November 01, 2022 1004 Airway Mallampati Class: II TM Dist: >3cm Neck ROM: Full Assessment and Plan Assessment Anesthesia Assessment: Anesthesia Plan Discussed and Chart Reviewed Final Anesthetic Review Family History of Problems with Anesthesia: No History of Problems with Anesthesia: No NPO: Yes ASA Class: III Final Preanesthetic Review: No Changes in Pt Med Stat, Meds/Allgs Chart Reviewed, Consent Obtained/Reviewed and Anes Risks/Benef Reviewed Patient Risk: Intermediate Procedure Risk: Low Anesthetic Plan Anesthetic Plan: MAC: Disposition: Standard PACU
[2022-11-01 10:05] VITALS: BMI 26.9
[2022-11-01 10:40] VITALS: BP 138/63; PULSE 89; RESP 16; TEMP 36.8; O2SAT 99
[2022-11-01 10:41] LABS: Glucose, Whole Blood 153 mg/dL (60-115)
[2022-11-01] MEDS: Lactated Ringers 1,000 ML 100 ML IVCONT (10:42)
--- NOTE | 2022-11-01 10:46 | W.PM.OPN ---
Operative Note Operative Note Date of Service: 11/01/22 Narrative: Operative Information Procedure Description: EGD, Colonoscopy Indication: variceal screening, colon screening Anesthesia: MAC FLEXIBLE TRANSORAL UPPER GASTROINTESTINAL ENDOSCOPY AND COLONOSCOPY PROCEDURE NOTE UPPER ENDOSCOPY Consent: Indications for the procedure and potential complications of bleeding, perforation, reaction to medications and missed diagnosis were discussed with the patient and informed consent was obtained. Instrument: Olympus GIF H 190 J mid size upper endoscope Monitoring: Vital signs and clinical assessment, continuous EKG monitoring, Pulse oximetry, Carbon Dioxide monitoring and blood pressure monitoring were done throughout the procedure. Procedure: The patient was placed in the left lateral decubitis position and pre-procedure medications were administered and a bite block was placed. The endoscope was inserted into the mouth and advanced under direct vision to the third part of duodenum. A careful inspection was made as the upper endoscope was withdrawn including a retroflexed examination of the proximal stomach; Findings and interventions are described below. Findings: Larynx:normal Esophagus: GE junction at 40 cm, diaphragm hiatus at 40 cm, x 3 grade III esophageal varices seen without any high risk markings. x 3 variceal bands were applied with good collapse Stomach: diffuse mosaic pattern to mucosa consistent with portal hypertensive gastropathy. Grade 2 flap valve on retroflexed examination of the cardia. Duodenum: Normal bulb and descending duodenum, Intervention: Variceal banding COLONOSCOPY Instrument: Olympus variable stiffness ADULT scope 190L Colonoscopy Monitoring: Vital signs and clinical assessment, continuous EKG monitoring, Pulse oximetry, Carbon Dioxide monitoring and blood pressure monitoring were done throughout the procedure. Colon withdrawal time was 14 minutes. Procedure: The patient was placed in the left lateral decubitis position and pre-procedure medications were administered. After a digital rectal examination of the ano-rectum, the video colonoscope was inserted into the rectum and advanced through the colon to the cecum/TI. The colonoscope was slowly withdrawn in a retrograde panoramic fashion and the colon mucosa was carefully examined including a retroflexed view of the rectum. Findings and interventions are described below. Procedure Difficulty:moderate due to looping Findings: Terminal Ileum- unable to intubate due to looping mucosa diffusely edematous consistent with portal hypertensive colonopathy Cecum:normal Ascending Colon: 10 mm sessile polyp removed with cold snare and x 1 clip applied for hemostasis Transverse Colon -normal Descending Colon:normal Sigmoid Colon: 10 mm sessile polyp removed with cold snare, and x 1 clip applied for hemostasis. Rectum: Retroflexion with medium sized internal hemorrhoids, grade I Anorectum - normal Colon preparation: [place] Bowel Preparation Scale Right colon; 2 Transverse colon: 2 Left colon; 3 (0 = Unprepared colon segment with mucosa not seen due to solid stool that cannot be cleared. 1 = Portion of mucosa of the colon segment seen, but other areas of the colon segment not well seen due to staining, residual stool and/or opaque liquid. 2 = Minor amount of residual staining, small fragments of stool and/or opaque liquid, but mucosa of colon segment seen well. 3 = Entire mucosa of colon segment seen well with no residual staining, small fragments of stool or opaque liquid) Impression and Post Procedure Diagnosis: Endoscopy Findings: portal hypertensive gastropathy esophageal varices Colonoscopy Findings: portal hypertensive colonopathy polyps internal hemorrhoids Plan: Await Pathology results Repeat Colonoscopy in 3-5 years or earlier if clinically indicated High fiber diet leaflet avoid straining at stool, epsom salts and sitz bath, anusol supps or cream repeat EGD in about 4 weeks or so commence low dose carvedilol 3.125 mg Above findings were reviewed with the patient and relevant handouts were provided if indicated.
[2022-11-01 11:42] VITALS: BP 107/60; PULSE 84; RESP 18; TEMP 36.6; O2SAT 97
[2022-11-01 11:57] VITALS: BP 115/58; PULSE 78; RESP 18; TEMP 36.6; O2SAT 98
== END 2022-11-01 12:52 | disposition home or self-care (01) ==
PROVIDERS: PCP Nurse Practitioner Family; Visit Provider Internal Medicine Gastroenterology
PROC: (CPT 45380; principal; 2022-11-01 11:10)
DX: Z12.11 Encounter for screening for malignant neoplasm of colon (principal); Z86.010 Personal history of colon polyps; D12.2 Benign neoplasm of ascending colon; D12.5 Benign neoplasm of sigmoid colon; K64.0 First degree hemorrhoids; K76.6 Portal hypertension; K31.89 Other diseases of stomach and duodenum; I85.00 Esophageal varices without bleeding; K44.9 Diaphragmatic hernia without obstruction or gangrene
CPT/HCPCS: 45380; 43244; 82947; 88305

== ENCOUNTER 2022-11-13 10:35 | Outpatient (REF) | payer MEDICARE, SELFPAY ==
[2022-11-13 11:40] LABS: MANUAL DIFF FLAG NO
[2022-11-13 11:54] LABS: Hematocrit 39.9 % (42.0-52.0); Imm Gran Abs Auto 0.01 X10*3/uL (0.00-0.03); Imm Gran Pct Auto 0.2 % (0.0-0.4); Lymphocytes Percent Auto 15.2 % (20-40); Mean Corpuscular Volume 102.8 fL (80.0-98.0); PLT CLUMP 1; Red Blood Count 3.88 X10*6/uL (4.60-5.80); SCAN SMEAR FLAG 1
[2022-11-13 11:56] LABS: Basophils Absolute Auto 0.1 X10*3/uL (0.0-0.2); Basophils Percent Auto 1.3 % (0-2); Eosinophils Absolute Auto 0.5 X10*3/uL (0.0-0.4); Eosinophils Percent Auto 8.4 % (0-4); Hemoglobin 13.3 g/dl (14.0-18.0); Lymphocytes Absolute Auto 0.8 X10*3/uL (1.2-4.9); Mean Corpuscular HGB Conc 33.3 g/dl (31.0-36.0); Mean Corpuscular Hemoglobin 34.3 pg (27.0-33.0); Mean Platelet Volume 10.8 fL (9.4-12.4); Monocytes Absolute Auto 0.4 X10*3/uL (0.1-1.2); Monocytes Percent Auto 6.9 % (2-11); Neutrophils Absolute Auto 3.6 x10*3/uL (2.0-8.3)
[2022-11-13 11:58] LABS: White Blood Count 5.3 X10*3/uL (4.8-10.8)
[2022-11-13 12:17] LABS: INTERNATIONAL NORM RATIO 1.1 (0.9-1.1); Prothrombin Time 12.4 SEC (10.0-13.1)
[2022-11-13 12:22] LABS: Platelet Count 67 X10*3/uL (160-400)
[2022-11-13 12:27] LABS: Alanine Aminotransferase 32 U/L (0-40); Albumin Level 4.2 g/dL (3.5-5.0); Alkaline Phosphatase 138 U/L (39-117); Anion Gap 14 (12-20); Aspartate Amino Transferase 28 U/L (5-37); Bilirubin Total 2.9 mg/dL (0.0-1.0); Blood Urea Nitrogen 9 mg/dL (9-16); Carbon Dioxide 24 mmol/L (22-29); Chloride 106 mmol/L (96-108); Estimated Glomerular Filt Rate > 60; Glucose Random 177 mg/dL (60-115); Magnesium 1.9 mg/dL (1.6-2.6); Potassium 3.8 mmol/L (3.3-5.1); Sodium 140 mmol/L (135-145); Total Protein 8.3 g/dL (6.5-8.0)
[2022-11-13 12:43] LABS: Ferritin 385 ng/mL (20-250); Vitamin D 25-OH Total 29.5 ng/mL (>30)
[2022-11-13 13:02] LABS: Folate 15.8 ng/mL (> or = 4.0); Vitamin B12 1128 pg/mL (200-900)
[2022-11-17 17:43] LABS: Vitamin C 0.8 mg/dL (0.2-2.1)
[2022-11-17 20:29] LABS: Vitamin B5 (Pantothenic Acid) 90 ng/mL (<275)
[2022-11-17 20:39] LABS: Nicotinamide 25 ng/mL; Vit B3 - Nicotinic Acid <20 ng/mL
[2022-11-18 04:03] LABS: Zinc 78 mcg/dL (60-130)
[2022-11-18 13:09] LABS: Vitamin B1 18 nmol/L (8-30)
[2022-11-18 17:43] LABS: Alpha-Tocopherol 5.9 mg/L (5.7-19.9); Beta-Gamma Tocopherol 2.8 mg/L (<=4.3); Vitamin A 10 mcg/dL (38-98)
[2022-11-18 18:54] LABS: Vitamin K1 1460 pg/mL (130-1500)
== END 2022-11-13 10:36 | disposition home or self-care (01) ==
LOC: HO.LAB 10:35
PROVIDERS: PCP Nurse Practitioner Family; Visit Provider Internal Medicine Gastroenterology
DX: K74.60 Unspecified cirrhosis of liver (principal); K75.81 Nonalcoholic steatohepatitis (NASH)
CPT/HCPCS: 36415; 80053; 82180; 82306; 82607; 82728; 82746; 83735; 84207; 84425; 84446; 84590; 84591; 84597; 84630; 85025; 85610; 99212

== ENCOUNTER 2022-12-14 09:21 | Outpatient (REF) | payer MEDICARE, SELFPAY ==
--- NOTE | ~2022-12-14 | US_ITS ---
EXAMINATION: US ABDOMEN LIMITED WITH LIVER ELASTOGRAPHY CLINICAL INFORMATION: [place]. COMPARISON: None. TECHNIQUE: Real-time imaging of the abdominal viscera. Noninvasive ultrasound liver fibrosis assessment is performed using Rama ElastPQ point quantification shear wave elastography (2D-SWE) with a C5-2 MHz transducer. Multiple elastography samples are obtained. Patient return for an additional elastography images FINDINGS: PANCREAS: The head of the pancreas is normal. The body and tail are not well visualized. LIVER: Liver echotexture is slightly increased and heterogeneous. The contour of the liver is slightly irregular suggestive of mild cirrhotic change. There is a 1.9 x 2.2 x 1.5 cm hyperechoic lesion in the right lobe of the liver. This is not appreciated on prior exams. There is no intrahepatic or extrahepatic biliary duct dilatation. The right lobe measures 14 cm in length. The left lobe measures 11 cm in length. Portal flow is normal/hepatopedal. Shear wave liver elastography median stiffness is 2.18 m/s (reference: normal median stiffness is 1.3 m/s or less). IQR/median stiffness to assess sampling precision is 0.15 (reference: good quality data set is IQR/median stiffness of 0.15 or less). GALLBLADDER: Not seen COMMON BILE DUCT: Normal in caliber measuring 0.3 cm in diameter. RIGHT KIDNEY: Normal. No hydronephrosis. No renal calculi or focal parenchymal lesions. The kidney measures 11.5 cm in maximum dimension. FREE FLUID: None. US/US abdomen oropeza w elastography IMPRESSION: 1. Impression: Cirrhotic-appearing liver. Newly appreciated 2 cm hyperechoic lesion in the right lobe of liver. Follow-up liver MRI recommended. 2. Liver elastography: Increased liver stiffness suggestive of chronic liver disease. Adequate liver sampling. 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 REFERENCE: Society of Radiologists in Ultrasound Liver Stiffness Thresholds (2020): LIVER STIFFNESS THRESHOLDS: *Liver Stiffness equal or less than 1.3 m/s: High probability of being normal. *Liver Stiffness less than 1.7 m/s: In the absence of other known clinical signs, rules out compensated advanced chronic liver disease. *Liver Stiffness 1.7-2.1 m/s: Suggestive of compensated advanced chronic liver disease but need further test for confirmation. *Liver Stiffness over 2.1 m/s: Rules in compensated advanced chronic liver disease. *Liver Stiffness over 2.4 m/s: Suggestive of clinically significant portal hypertension. QUALITY OF DATA SET: *IQR/Median value equal or less than 0.15 implies a quality data set. *IQR/Median value over 0.15 implies a poor quality data set. SIGNIFICANT CHANGE FROM PRIOR EXAM: Significant change if liver stiffness measurement is 10% or greater from prior exam. OTHER CONSIDERATIONS: The stage of liver fibrosis may be overestimated in the setting of acute hepatitis, liver inflammation, elevated liver function tests, hepatic vascular congestion, obstructive cholestasis, non-fasting state, and infiltrative diseases such as amyloidosis and lymphoma. In some patients with NAFLD, the liver stiffness thresholds for compensated advanced chronic liver disease may be lower. In causes other than viral hepatitis and NAFLD, liver stiffness thresholds are not well established.
== END 2022-12-14 09:22 | disposition home or self-care (01) ==
LOC: HO.US 09:21
PROVIDERS: Visit Provider Internal Medicine Gastroenterology
DX: K75.81 Nonalcoholic steatohepatitis (NASH) (principal); K74.60 Unspecified cirrhosis of liver
CPT/HCPCS: 76705; 76981

== ENCOUNTER → 2022-12-15 11:50 | Outpatient (BNVA) | payer MEDICARE, SELFPAY | PROVIDERS: PCP Nurse Practitioner Family; Referring Provider Nurse Practitioner Family; Visit Provider Internal Medicine Gastroenterology | DX: K74.60 Unspecified cirrhosis of liver (principal); Z23 Encounter for immunization; Z20.828 Contact with and (suspected) exposure to other viral communicable diseases | CPT/HCPCS: 90471; 90632; 90746 ==

== ENCOUNTER 2022-12-20 09:24 | Day surgery (SDC) | payer MEDICARE, SELFPAY ==
[2022-12-15 16:15] VITALS: BMI 26.9
--- NOTE | 2022-12-20 08:58 | P.CONAN_ITS ---
[facility] Active Problems Active Problems: All Active Problems (Updated 06/27/22 @ 11:56 by Mario Prince, [facility]) Tubular adenoma of colon (Acute) Elevated ferritin (Acute) Cervical neck pain with evidence of disc disease (Acute) Elevated bilirubin (Acute) Low hemoglobin (Acute) Screening PSA (prostate specific antigen) (Acute) Systolic murmur (Acute) Screening for colon cancer (Acute) Overgrown toenails (Acute) Diabetes 1.5, managed as type 2 (Acute) Cirrhosis of liver (Acute) Past Medical History Medical History Alcoholism Anemia Cerebellar ataxia Cirrhosis of liver Compression fracture Diabetes 1.5, managed as type 2 Diabetic retinopathy Elevated ferritin Lung nodule Overgrown toenails Pancytopenia Peripheral polyneuropathy Venous insufficiency Family History Family History Father No problems noted. Mother Lung cancer Maternal Grandmother Cancer Paternal Uncle Diabetes Family history of problems with anesthesia: No Surgical History Surgical History (Updated 11/13/22 @ 10:40 by SERA Dickerson) History of esophagogastroduodenoscopy (EGD) History of umbilical hernia repair Hx of colonoscopy Hx of left knee surgery History of Problems with Anesthesia: No Social History Social History Housing: House Alcohol intake: current Alcohol intake frequency: does not drink Patient Tobacco Use Status: Never used Tobacco e-Cigarette/Vaping Use: Never Used Second Hand Smoke Exposure: No Use of substances other than those prescribed or required for medical reasons: Yes Substance Use Type: Marijuana Substance Use Type Other:: smokes Substance Use Frequency: Monthly Are you DNR?: No Advance Directives: No Advance Directives Information Provided: Yes service: No Current occupational status: retired Cognitive needs: No Hearing needs: No Vision needs: No Meds Allergies Allergy/AdvReac Type Severity Reaction Status Date / Time morphine [MORPHINE] Allergy Intermediate SEVERE Verified 12/15/22 11:54 VOMITING, vomiting, vomiting Home Medications Medication Instructions Recorded Confirmed Last Taken Type cholecalciferol (vitamin D3) 10 10 mcg PO DAILY 09/15/20 10/25/22 Unknown History mcg (400 unit) capsule Exam Exam Date and Time: December 20, 2022 0829 Height,Weight and Vital Signs: Height 5 ft 8 in Weight 80.286 kg Airway Mallampati Class: II TM Dist: >3cm Neck ROM: Full Heart: rrr Lungs: cta Assessment and Plan Assessment Anesthesia Assessment: Anesthesia Plan Discussed and Chart Reviewed Final Anesthetic Review Family History of Problems with Anesthesia: No History of Problems with Anesthesia: No NPO: Yes ASA Class: III Final Preanesthetic Review: No Changes in Pt Med Stat, Meds/Allgs Chart Reviewed and Consent Obtained/Reviewed Patient Risk: Intermediate Procedure Risk: Intermediate Anesthetic Plan Anesthetic Plan: MAC: Disposition: Standard PACU
[2022-12-20 10:27] LABS: Glucose, Whole Blood 149 mg/dL (60-115)
[2022-12-20 10:40] VITALS: BP 139/65; PULSE 77; RESP 16; TEMP 36.1; O2SAT 100
--- NOTE | 2022-12-20 11:04 | MHC.SHP ---
Pre-Procedural Eval Section A Date of Service: 12/20/22 Section B Chief Complaint: Esophageal varices without bleeding Relevant Family History (Specify if Yes): No Relevant Social History: None Present Medications: see Short Stay Collaborative assessment Medical History: Significant History (Alcoholism Anemia Cerebellar ataxia Cirrhosis of liver Compression fracture Diabetes 1.5, managed as type 2 Diabetic retinopathy Elevated ferritin Lung nodule Overgrown toenails Pancytopenia Peripheral polyneuropathy Venous insufficiency) History of Previous Operations: Relevant previous surgery/procedure and date(s) (History of esophagogastroduodenoscopy (EGD) History of umbilical hernia repair Hx of colonoscopy Hx of left knee surgery) Allergies: Allergies Allergy/AdvReac Type Severity Reaction Status Date / Time morphine [MORPHINE] Allergy Intermediate SEVERE Verified 12/15/22 11:54 VOMITING, vomiting, vomiting Review of Systems Sugical H&P ROS: Negative: Constitution, Cardiovascular, Respiratory, Neurological, Psychiatric, Hem-Onc, Allergic/Immunologic, Gastrointestinal, Genitourinary, Musculoskeletal, Integumentary, Endocrine and Eyes/Ears/Nose/Throat Exam Surgical H&P Exam: Normal: HEENT, Normal: Heart, Normal: Lungs, Normal: Extremities, Normal: Abdomen, Normal: Skin and Normal: Neurological Plan Diagnosis/Plan: Unchanged I have reviewed the history and physical and performed a pertinent physical examination on my patient. No changes have occurred unless specified. Time Spent With Patient Time: Total time managing care of this patient today ____ minutes.
--- NOTE | 2022-12-20 11:36 | W.PM.OPN ---
Operative Note Operative Note Date of Service: 12/20/22 Narrative: Procedure Description: EGD Indication: [] Anesthesia: MAC FLEXIBLE TRANSORAL UPPER GASTROINTESTINAL ENDOSCOPY UPPER ENDOSCOPY Consent: Indications for the procedure and potential complications of bleeding, perforation, reaction to medications and missed diagnosis were discussed with the patient and informed consent was obtained. Instrument: Olympus GIF H 190 J mid size upper endoscope Monitoring: Vital signs and clinical assessment, continuous EKG monitoring, Pulse oximetry, Carbon Dioxide monitoring and blood pressure monitoring were done throughout the procedure. Procedure: The patient was placed in the left lateral decubitis position and pre-procedure medications were administered and a bite block was placed. The endoscope was inserted into the mouth and advanced under direct vision to the third part of duodenum. A careful inspection was made as the upper endoscope was withdrawn including a retroflexed examination of the proximal stomach; Findings and interventions are described below. Findings: Findings: Larynx:normal Esophagus: GE junction at 40? cm, diaphragm hiatus at 40 cm, x 2 grade II esophageal varices seen without any high risk markings. x 3 variceal bands were applied with good collapse? Stomach: diffuse mosaic pattern to mucosa consistent with portal hypertensive gastropathy.? Grade 2 flap valve on retroflexed examination of the cardia. Duodenum: some congestion noted Intervention: Variceal banding Impression/Findings: portal hypertensive gastropathy and enteropathy esophageal varices PLAN: repeat EGD in about 4-8 weeks or so cont low dose carvedilol 3.125 mg bid, can increase as needed
[2022-12-20 11:44] VITALS: BP 130/70; PULSE 88; RESP 12; TEMP 36.6; O2SAT 98
[2022-12-20 11:59] VITALS: BP 148/77; PULSE 84; RESP 16; TEMP 36.6; O2SAT 98
== END 2022-12-20 13:01 | disposition home or self-care (01) ==
PROVIDERS: PCP Nurse Practitioner Family; Visit Provider Internal Medicine Gastroenterology
PROC: 0DJ08ZZ Inspection of Upper Intestinal Tract, Via Natural or Artificial Opening Endoscopic (ICD-10-PCS; CPT 43235; principal; 2022-12-20 12:00)
DX: I85.00 Esophageal varices without bleeding (principal); K44.9 Diaphragmatic hernia without obstruction or gangrene; K76.6 Portal hypertension; K31.89 Other diseases of stomach and duodenum; K63.9 Disease of intestine, unspecified; K70.30 Alcoholic cirrhosis of liver without ascites; K75.81 Nonalcoholic steatohepatitis (NASH); F10.20 Alcohol dependence, uncomplicated; E11.319 Type 2 diabetes mellitus with unspecified diabetic retinopathy without macular edema; Z79.84 Long term (current) use of oral hypoglycemic drugs; D61.818 Other pancytopenia; G62.9 Polyneuropathy, unspecified; I87.2 Venous insufficiency (chronic) (peripheral); F12.90 Cannabis use, unspecified, uncomplicated; Z88.8 Allergy status to other drugs, medicaments and biological substances
CPT/HCPCS: 43244; 82947

== ENCOUNTER 2023-01-12 09:09 | Outpatient (REF) | payer MEDICARE, SELFPAY ==
--- NOTE | ~2023-01-12 | MR_ITS ---
EXAMINATION: MR ABDOMEN WITHOUT AND WITH CONTRAST CLINICAL INFORMATION: Liver lesion on prior ultrasound. COMPARISON: Abdominal ultrasound 12/24/2022. Abdominal MRI 05/29/2019. TECHNIQUE: MR abdomen was performed without and with use of 8 mL intravenous Gadavist gadolinium contrast. Postcontrast images are performed in multiphase dynamic sequences. Imaging was performed in 3 planes. FINDINGS: LUNG BASES: No consolidation or pleural effusion. LIVER, GALLBLADDER, AND BILIARY TREE: Cirrhotic liver. Corresponding to the observation noted on the ultrasound, there is a 2.4 x 1.9 cm lesion with a somewhat targetoid appearance with peripheral arterial phase hyperenhancement that washes out and a central more T2 hyperintense less vascular component, possibly necrosis. The borders of the lesion are ill-defined and there is perilesional enhancement, for instance measuring 1.1 cm (100:29). In the out of phase dual echo images, there is loss of signal suggesting the presence of microscopic fat. There is a 0.9 cm arterially hyperenhancing observation in the posterior inferior right hepatic lobe (100:52), with no clear correlate in other sequences, no washout or pseudocapsule. PANCREAS: There is a new 2.2 x 2.3 cm mass inseparable from the anterior surface of the head of the pancreas (100:74). On T1 precontrast images, it demonstrates less signal intensity than when compared to the adjacent parenchyma, and on T2 images it is slightly brighter than the pancreatic parenchyma although predominantly T2 dark suggestive of some degree of desmoplastic reaction. On postcontrast images, there is heterogeneous hypoenhancement, predominantly along the periphery of the lesion, lesser than the pancreatic parenchyma. The main pancreatic duct is nondilated. SPLEEN: Splenomegaly measuring 15.7 cm craniocaudally. ADRENAL GLANDS: No nodule. KIDNEYS AND URETERS: Simple parapelvic cysts bilaterally, for which no imaging follow-up is recommended. GASTROINTESTINAL TRACT: Small volume of ascites. No abnormally dilated loops of bowel. ABDOMINAL WALL: Mild anasarca. No significant hernia. LYMPH NODES: A 2 x 2.1 cm periportal lymph node (100:59) is unchanged. VASCULAR: Abdominal aorta is normal in caliber. The main portal vein and SMV are patent. OSSEOUS STRUCTURES: Degenerative changes of the spine. No aggressive-appearing osseous findings. MR/MR abdomen wo/w con IMPRESSION: There is a 2.4 cm liver lesion in the periphery of segment 8 with imaging features suggestive of probably malignancy but not entirely specific for hepatocellular carcinoma, LR-M. Differential considerations include atypical HCC, combined tumor including cholangiocarcinoma and metastasis. There are high risk features associated with this lesion including ill-defined margins, peritumoral enhancement and central necrosis, suggestive of a more aggressive histologic type. There is a new hypoenhancing mass inseparable from the anterior surface of the head of the pancreas suspicious for a pancreatic neoplasm. There is a 0.9 cm arterially phased hyperenhancing only liver lesion in segment 6. An enlarged periportal lymph node is stable compared to 05/29/2019. The report will be called to the ordering clinician by a [facility] Physician Director [employer].
[2023-01-12 09:36] LABS: MANUAL DIFF FLAG NO
[2023-01-12 11:07] LABS: Appearance Urine Clear; Color Urine Yellow; Glucose Urine UA >=1000 mg/dL (Negative); Leukocyte Esterase Urine Negative (Negative); Nitrite Urine Negative (Negative); PH 6.5 (5.0-9.0); Specific Gravity - Urine >= 1.030 (1.005-1.025); UMIC TRIGGER UACC YES; Urine Blood Negative (Negative); Urine Ketones Trace mg/dL (Negative); Urine Protein Negative (Neg-Trace)
[2023-01-12 11:10] LABS: Basophils Absolute Auto 0.1 X10*3/uL (0.0-0.2); Basophils Percent Auto 1.3 % (0-2); Eosinophils Absolute Auto 0.5 X10*3/uL (0.0-0.4); Eosinophils Percent Auto 9.2 % (0-4); Hematocrit 36.1 % (42.0-52.0); Hemoglobin 12.1 g/dl (14.0-18.0); Imm Gran Abs Auto 0.04 X10*3/uL (0.00-0.03); Imm Gran Pct Auto 0.8 % (0.0-0.4); Lymphocytes Absolute Auto 0.8 X10*3/uL (1.2-4.9); Lymphocytes Percent Auto 14.7 % (20-40); Mean Corpuscular HGB Conc 33.5 g/dl (31.0-36.0); Mean Corpuscular Hemoglobin 34.7 pg (27.0-33.0); Mean Corpuscular Volume 103.4 fL (80.0-98.0); Mean Platelet Volume 10.6 fL (9.4-12.4); Monocytes Absolute Auto 0.5 X10*3/uL (0.1-1.2); Neutrophils Absolute Auto 3.4 x10*3/uL (2.0-8.3); Red Blood Count 3.49 X10*6/uL (4.60-5.80); Red Cell Distribution Width 14.8 % (11.0-16.0); White Blood Count 5.2 X10*3/uL (4.8-10.8)
[2023-01-12 11:11] LABS: Platelet Count 66 X10*3/uL (160-400)
[2023-01-12 11:12] LABS: Bacteria Urine None Seen (None Seen); Hyaline Casts Urine 0-2 /LPF (0-2); RBC Urine 0-2 /HPF (0-2); Squamous Epithelial Cell Urine 0-2 /HPF (0-2); WBC Urine 0-5 /HPF (0-5)
[2023-01-12 12:49] LABS: Anion Gap 14 (12-20); Blood Urea Nitrogen 8 mg/dL (9-16); Carbon Dioxide 24 mmol/L (22-29); Chloride 104 mmol/L (96-108); Estimated Glomerular Filt Rate > 60; Potassium 4.2 mmol/L (3.3-5.1); Sodium 138 mmol/L (135-145); TSH reflex Free T4 1.81 uIU/mL (0.32-4.0)
[2023-01-12 12:50] LABS: Alanine Aminotransferase 32 U/L (0-40); Albumin Level 3.4 g/dL (3.5-5.0); Alkaline Phosphatase 174 U/L (39-117); Aspartate Amino Transferase 33 U/L (5-37); Bilirubin Total 2.2 mg/dL (0.0-1.0); Calcium 8.8 mg/dL (8.4-10.2); Cholesterol 125 mg/dL; Glucose Fasting 172 mg/dL (60-99); HDL Cholesterol 57 mg/dL; LDL Cholesterol Calculated 57 mg/dl; Total Protein 6.8 g/dL (6.5-8.0); Triglycerides 57 mg/dL
== END 2023-01-12 09:10 | disposition home or self-care (01) ==
LOC: HO.MRI 09:09
PROVIDERS: Absent Provider Nurse Practitioner Family; PCP Nurse Practitioner Family; Visit Provider Internal Medicine Gastroenterology
DX: K74.60 Unspecified cirrhosis of liver (principal); K76.9 Liver disease, unspecified; E13.9 Other specified diabetes mellitus without complications
CPT/HCPCS: 36415; 74183; 80053; 80061; 81001; 84443; 85025; A9585

== ENCOUNTER 2023-03-08 07:05 | Day surgery (SDC) | payer MEDICARE, MEDICAID, SELFPAY ==
[2023-03-05 14:03] VITALS: BMI 27.2
--- NOTE | 2023-03-07 09:39 | HO.ANESPROP2 ---
HPI - Anesthesia Eval Consult details Narrative: 63yo M for Upper Endoscopy with banding s/p same 12/2022 with MAC ETOH cirrhosis. Low platelets. No ascites on imaging. PMFSH Active Problems Active Problems: All Active Problems (Updated 02/16/23 @ 14:10 by Karie Butt MD) Tubular adenoma of colon (Acute) Elevated ferritin (Acute) Cervical neck pain with evidence of disc disease (Acute) Elevated bilirubin (Acute) Low hemoglobin (Acute) Screening PSA (prostate specific antigen) (Acute) Systolic murmur (Acute) Screening for colon cancer (Acute) Liver lesion (Acute) Mass of head of pancreas (Acute) Pancreatic adenocarcinoma (Acute) Overgrown toenails (Acute) Diabetes 1.5, managed as type 2 (Acute) Cirrhosis of liver (Acute) Past Medical History Medical History Alcoholism Anemia Cerebellar ataxia Cirrhosis of liver Compression fracture Diabetes 1.5, managed as type 2 Diabetic retinopathy Elevated ferritin Lung nodule Overgrown toenails Pancreatic adenocarcinoma Pancytopenia Peripheral polyneuropathy Venous insufficiency Family History Family History Father No problems noted. Mother Lung cancer Maternal Grandmother Cancer Paternal Uncle Diabetes Family history of problems with anesthesia: No Surgical History Surgical History History of esophagogastroduodenoscopy (EGD) History of umbilical hernia repair Hx of colonoscopy Hx of left knee surgery History of Problems with Anesthesia: No Social History Social History Household Members: Friend(s) Housing: House Do you presently have visiting nurse or other home services: No Alcohol intake: former Patient Tobacco Use Status: Tobacco use Unknown Smoked in Last 30 Days: Yes e-Cigarette/Vaping Use: Never Used Second Hand Smoke Exposure: No Use of substances other than those prescribed or required for medical reasons: No Substance Use Type: Marijuana Substance Use Frequency: Occasionally Currently Displaying Signs/Symptoms of Drug Intoxication Withdrawal: No Have you been hit, kicked, punched, or otherwise hurt by someone within the past year? If so, by whom?: No Do you feel safe in your current relationship?: No Current Relationship Is there a partner from a previous relationship who is making you feel unsafe now?: No Are you made to feel afraid or neglected: No Advance Directives: No Advance Directives Information Provided: No Do you have thoughts of harming others: None Do you have a plan to hurt others: No Plan Recently lost weight without trying: No Nutrition Risks: No Nutritional Risk Poor oral hygiene: No service: No Current occupational status: retired Cognitive needs: No Hearing needs: No Vision needs: No Meds Allergies Allergy/AdvReac Type Severity Reaction Status Date / Time morphine [MORPHINE] Allergy Intermediate SEVERE Verified 03/13/23 05:16 VOMITING, vomiting, vomiting Home Medications Medication Instructions Recorded Confirmed Last Taken Type cholecalciferol (vitamin D3) 10 10 mcg PO DAILY 09/15/20 03/12/23 03/11/23 History mcg (400 unit) capsule Exam Exam Date and Time: March 07, 2023 0939 Height,Weight and Vital Signs: Height 5 ft 8 in Weight 81.193 kg Pertinent Lab Results Pertinent Lab Results: Laboratory Tests 02/16/23 02/16/23 12:21 12:21 WBC 6.3 Hgb 13.7 L Hct 40.8 L Plt Count 70 L Sodium 140 Potassium 4.2 Chloride 105 Carbon Dioxide 25 BUN 10 Creatinine 0.85 Narrative Narrative: ECHO 2021 Conclusions: - The left ventricular systolic function is normal.? The ? calculated ejection fraction is 63% by biplane method. ? - Evidence suggests grade II (moderate) diastolic dysfunction. ? - No obvious valvular pathology seen on this study.? ? MR/MR abdomen wo/w con 01/2023 IMPRESSION: ? There is a 2.4 cm liver lesion in the periphery of segment 8 with imaging features suggestive of probably malignancy but not entirely specific for hepatocellular carcinoma, LR-M. Differential considerations include atypical HCC, combined tumor including cholangiocarcinoma and metastasis. There are high risk features associated with this lesion including ill-defined margins, peritumoral enhancement and central necrosis, suggestive of a more aggressive histologic type. ? There is a new hypoenhancing mass inseparable from the anterior surface of the head of the pancreas suspicious for a pancreatic neoplasm. ? There is a 0.9 cm arterially phased hyperenhancing only liver lesion in segment 6. ? An enlarged periportal lymph node is stable compared to 05/29/2019. Assessment and Plan Assessment Anesthesia Assessment: Chart Reviewed Final Anesthetic Review Family History of Problems with Anesthesia: No History of Problems with Anesthesia: No
[2023-03-08 07:58] LABS: Glucose, Whole Blood 296 mg/dL (60-115)
[2023-03-08 07:59] VITALS: BMI 26.9
[2023-03-08 08:03] VITALS: BP 113/67; PULSE 88; RESP 18; TEMP 36.3; O2SAT 99
--- NOTE | 2023-03-08 08:05 | P.CONAN_ITS ---
[facility] Active Problems Active Problems: All Active Problems (Updated 02/16/23 @ 14:10 by Karie Butt MD) Tubular adenoma of colon (Acute) Elevated ferritin (Acute) Cervical neck pain with evidence of disc disease (Acute) Elevated bilirubin (Acute) Low hemoglobin (Acute) Screening PSA (prostate specific antigen) (Acute) Systolic murmur (Acute) Screening for colon cancer (Acute) Liver lesion (Acute) Mass of head of pancreas (Acute) Pancreatic adenocarcinoma (Acute) Overgrown toenails (Acute) Diabetes 1.5, managed as type 2 (Acute) Cirrhosis of liver (Acute) Past Medical History Medical History Alcoholism Anemia Cerebellar ataxia Cirrhosis of liver Compression fracture Diabetes 1.5, managed as type 2 Diabetic retinopathy Elevated ferritin Lung nodule Overgrown toenails Pancreatic adenocarcinoma Pancytopenia Peripheral polyneuropathy Venous insufficiency Family History Family History Father No problems noted. Mother Lung cancer Maternal Grandmother Cancer Paternal Uncle Diabetes Family history of problems with anesthesia: No Surgical History Surgical History History of esophagogastroduodenoscopy (EGD) History of umbilical hernia repair Hx of colonoscopy Hx of left knee surgery History of Problems with Anesthesia: No Social History Social History Household Members: Friend(s) Housing: House Alcohol intake: current Alcohol intake frequency: does not drink Patient Tobacco Use Status: Never used Tobacco e-Cigarette/Vaping Use: Never Used Second Hand Smoke Exposure: No Use of substances other than those prescribed or required for medical reasons: Yes Substance Use Type: Marijuana Substance Use Frequency: Occasionally Are you DNR?: No Advance Directives: No Advance Directives Information Provided: Yes service: No Current occupational status: retired Cognitive needs: No Hearing needs: No Vision needs: No Meds Allergies Allergy/AdvReac Type Severity Reaction Status Date / Time morphine [MORPHINE] Allergy Intermediate SEVERE Verified 01/08/23 13:29 VOMITING, vomiting, vomiting Active Medications: Current Medications Lactated Ringer's (Lr) 1,000 mls @ 100 mls/hr IVCONT .Q10H COUNT INCLUDES THE [facility] Home Medications Medication Instructions Recorded Confirmed Last Taken Type cholecalciferol (vitamin D3) 10 10 mcg PO DAILY 09/15/20 03/05/23 Unknown History mcg (400 unit) capsule Exam Exam Date and Time: March 08, 2023 0805 Height,Weight and Vital Signs: Height 5 ft 8 in Weight 80.286 kg Pertinent Lab Results Pertinent Lab Results: Laboratory Tests 03/08/23 07:54 POC Glucose 296 H Airway Mallampati Class: III TM Dist: >3cm Neck ROM: Full Heart: RRR Lungs: CTA Assessment and Plan Final Anesthetic Review Family History of Problems with Anesthesia: No History of Problems with Anesthesia: No ASA Class: III Final Preanesthetic Review: Meds/Allgs Chart Reviewed, Consent Obtained/Reviewed and Anes Risks/Benef Reviewed Patient Risk: Intermediate Procedure Risk: Low Anesthetic Plan Anesthetic Plan: MAC: Disposition: Standard PACU
[2023-03-08] MEDS: Lactated Ringers 1,000 ML 100 ML IVCONT (08:06)
--- NOTE | 2023-03-08 08:16 | MHC.SHP ---
Pre-Procedural Eval Section A Date of Service: 03/08/23 Section B Chief Complaint: Varicose veins of other specified sites Relevant Family History (Specify if Yes): No Relevant Social History: Other (specify) (THC) Present Medications: see Short Stay Collaborative assessment Medical History: Significant History (Alcoholism Anemia Cerebellar ataxia Cirrhosis of liver Compression fracture Diabetes 1.5, managed as type 2 Diabetic retinopathy Elevated ferritin Lung nodule Overgrown toenails Pancreatic adenocarcinoma Pancytopenia Peripheral polyneuropathy Venous insufficiency) History of Previous Operations: Relevant previous surgery/procedure and date(s) (History of esophagogastroduodenoscopy (EGD) History of umbilical hernia repair Hx of colonoscopy Hx of left knee surgery) Allergies: Allergies Allergy/AdvReac Type Severity Reaction Status Date / Time morphine [MORPHINE] Allergy Intermediate SEVERE Verified 01/08/23 13:29 VOMITING, vomiting, vomiting Review of Systems Sugical H&P ROS: Negative: Constitution, Cardiovascular, Respiratory, Neurological, Psychiatric, Hem-Onc, Allergic/Immunologic, Gastrointestinal, Genitourinary, Musculoskeletal, Integumentary, Endocrine and Eyes/Ears/Nose/Throat Exam Surgical H&P Exam: Normal: HEENT, Normal: Heart, Normal: Lungs, Normal: Extremities, Normal: Abdomen, Normal: Skin and Normal: Neurological Plan Diagnosis/Plan: Unchanged I have reviewed the history and physical and performed a pertinent physical examination on my patient. No changes have occurred unless specified. Time Spent With Patient Time: Total time managing care of this patient today ____ minutes.
--- NOTE | 2023-03-08 08:19 | W.PM.OPN ---
Operative Note Operative Note Date of Service: 03/08/23 Narrative: Procedure Description: EGD Indication: hx of varices Anesthesia: MAC FLEXIBLE TRANSORAL UPPER GASTROINTESTINAL ENDOSCOPY UPPER ENDOSCOPY Consent: Indications for the procedure and potential complications of bleeding, perforation, reaction to medications and missed diagnosis were discussed with the patient and informed consent was obtained. Instrument: Olympus GIF H 190 J mid size upper endoscope Monitoring: Vital signs and clinical assessment, continuous EKG monitoring, Pulse oximetry, Carbon Dioxide monitoring and blood pressure monitoring were done throughout the procedure. Procedure: The patient was placed in the left lateral decubitis position and pre-procedure medications were administered and a bite block was placed. The endoscope was inserted into the mouth and advanced under direct vision to the third part of duodenum. A careful inspection was made as the upper endoscope was withdrawn including a retroflexed examination of the proximal stomach; Findings and interventions are described below. Findings: Larynx:normal Esophagus: GE junction at 40? cm, diaphragm hiatus at 40 cm, x 1 grade II esophageal varix seen with some red markings. x 3 variceal bands were applied with good collapse? Stomach: diffuse mosaic pattern to mucosa consistent with portal hypertensive gastropathy.? Grade 2 flap valve on retroflexed examination of the cardia. Duodenum: some congestion noted, otherwise normal Intervention: Variceal banding Impression/Findings: portal hypertensive gastropathy esophageal varices PLAN: repeat EGD in about 4-8 weeks or so cont low dose carvedilol 3.125 mg bid, might add statin, will see at f/u
[2023-03-08] MEDS: Insulin Lispro 100 UNIT/ML 3 ML VIAL 8 UNIT SUBCUT (08:31)
[2023-03-08 08:54] VITALS: BP 114/65; PULSE 86; RESP 16; TEMP 37.2; O2SAT 99
[2023-03-08 09:08] VITALS: BP 120/62; PULSE 81; RESP 16; O2SAT 99
[2023-03-08] MEDS: Mag&Al/Sim/Diphenhyd/Lidocaine 10 ML ORAL.SUSP PO (09:15)
--- NOTE | 2023-03-08 09:18 | HO.ANESPROP2 ---
[facility] Active Problems Active Problems: All Active Problems (Updated 02/16/23 @ 14:10 by Karie uBtt MD) Tubular adenoma of colon (Acute) Elevated ferritin (Acute) Cervical neck pain with evidence of disc disease (Acute) Elevated bilirubin (Acute) Low hemoglobin (Acute) Screening PSA (prostate specific antigen) (Acute) Systolic murmur (Acute) Screening for colon cancer (Acute) Liver lesion (Acute) Mass of head of pancreas (Acute) Pancreatic adenocarcinoma (Acute) Overgrown toenails (Acute) Diabetes 1.5, managed as type 2 (Acute) Cirrhosis of liver (Acute) Past Medical History Medical History Alcoholism Anemia Cerebellar ataxia Cirrhosis of liver Compression fracture Diabetes 1.5, managed as type 2 Diabetic retinopathy Elevated ferritin Lung nodule Overgrown toenails Pancreatic adenocarcinoma Pancytopenia Peripheral polyneuropathy Venous insufficiency Family History Family History Father No problems noted. Mother Lung cancer Maternal Grandmother Cancer Paternal Uncle Diabetes Family history of problems with anesthesia: No Surgical History Surgical History History of esophagogastroduodenoscopy (EGD) History of umbilical hernia repair Hx of colonoscopy Hx of left knee surgery History of Problems with Anesthesia: No Social History Social History Household Members: Friend(s) Housing: House Alcohol intake: current Alcohol intake frequency: does not drink Patient Tobacco Use Status: Never used Tobacco e-Cigarette/Vaping Use: Never Used Second Hand Smoke Exposure: No Use of substances other than those prescribed or required for medical reasons: Yes Substance Use Type: Marijuana Substance Use Frequency: Occasionally Are you DNR?: No Advance Directives: No Advance Directives Information Provided: Yes service: No Current occupational status: retired Cognitive needs: No Hearing needs: No Vision needs: No Meds Allergies Allergy/AdvReac Type Severity Reaction Status Date / Time morphine [MORPHINE] Allergy Intermediate SEVERE Verified 01/08/23 13:29 VOMITING, vomiting, vomiting Active Medications: Current Medications Lactated Ringer's (Lr) 1,000 mls @ 100 mls/hr IVCONT .Q10H ENDY Last Admin: 03/08/23 08:06 Dose: 100 mls/hr Home Medications Medication Instructions Recorded Confirmed Last Taken Type cholecalciferol (vitamin D3) 10 10 mcg PO DAILY 09/15/20 03/05/23 Unknown History mcg (400 unit) capsule Exam Exam Date and Time: March 08, 2023 0918 Height,Weight and Vital Signs: Height 5 ft 8 in Weight 80.286 kg Last Vital Signs Temp 98.9 F 03/08/23 08:54 Pulse 81 03/08/23 09:08 Resp 16 03/08/23 09:08 BP 120/62 03/08/23 09:08 Pulse Ox 99 03/08/23 09:08 O2 Del Method Room Air 03/08/23 09:08 Pertinent Lab Results Pertinent Lab Results: Laboratory Tests 03/08/23 07:54 POC Glucose 296 H Assessment and Plan Final Anesthetic Review Family History of Problems with Anesthesia: No History of Problems with Anesthesia: No
--- NOTE | 2023-03-08 09:19 | HO.POSTANES ---
Post Anesthesia Evaluation Post Anesthesia Evaluation Vital Signs: Vital Signs Temp Pulse Resp BP Pulse Ox O2 Del Method 03/08/23 09:08 81 16 120/62 99 Room Air 03/08/23 08:54 98.9 F 86 16 114/65 99 Room Air 03/08/23 08:03 97.4 F 88 18 113/67 99 Room Air Anesthesia: Monitored Mental Status: Awake Pain Control: Satisfactory Nausea/Vomiting: None Hydration: Adequate Anesthesia-Related Issues: No Anes. Related Issues
[2023-03-08 09:23] VITALS: BP 120/66; PULSE 79; RESP 16; TEMP 36.6; O2SAT 97
== END 2023-03-08 10:34 | disposition home or self-care (01) ==
PROVIDERS: PCP Nurse Practitioner Family; Visit Provider Internal Medicine Gastroenterology
PROC: 0DJ08ZZ Inspection of Upper Intestinal Tract, Via Natural or Artificial Opening Endoscopic (ICD-10-PCS; CPT 43235; principal; 2023-03-08 08:30)
DX: I85.01 Esophageal varices with bleeding (principal); K76.6 Portal hypertension; K31.89 Other diseases of stomach and duodenum; K44.9 Diaphragmatic hernia without obstruction or gangrene; F10.20 Alcohol dependence, uncomplicated; K74.60 Unspecified cirrhosis of liver; C25.9 Malignant neoplasm of pancreas, unspecified; D64.9 Anemia, unspecified; G11.9 Hereditary ataxia, unspecified; I87.2 Venous insufficiency (chronic) (peripheral); G62.9 Polyneuropathy, unspecified; E13.319 Other specified diabetes mellitus with unspecified diabetic retinopathy without macular edema; D61.818 Other pancytopenia; R91.1 Solitary pulmonary nodule; R79.89 Other specified abnormal findings of blood chemistry; Z79.4 Long term (current) use of insulin; F12.90 Cannabis use, unspecified, uncomplicated; Z88.8 Allergy status to other drugs, medicaments and biological substances
CPT/HCPCS: 43244; 82947

== ENCOUNTER 2023-03-12 17:44 | Inpatient (IN) | payer MEDICARE, SELFPAY ==
--- NOTE | ~2023-03-12 | CT_ITS ---
EXAMINATION: CT ABDOMEN AND PELVIS WITH CONTRAST CLINICAL INFORMATION: Pancreatic cancer with worsening of LFT COMPARISON: 01/12/2023 MRI TECHNIQUE: Multidetector volumetric imaging was performed from the superior aspect of the liver through the pubic symphysis following administration of 85 mL Omnipaque 300 intravenous contrast. Sagittal and coronal reformatted images were obtained on the technologist workstation.. This CT examination was performed using dose optimization techniques as appropriate, variously including the following: *Automated exposure control *Adjustment of mA and/or kV according to patient size (this includes techniques or standardized protocols for targeted exams where dose is matched to indication/reason for exam; i.e. extremities or head) *Use of iterative reconstruction technique DLP: 508 mGy-cm FINDINGS: LUNG BASES: Minimal dependent atelectasis. PERITONEAL SPACE: Small volume of abdominal ascites is seen, similar to the prior MRI LIVER, GALLBLADDER, AND BILIARY TREE: There is diffuse heterogeneity within the liver. The known hepatic lesions were better demonstrated on the prior MRI. The lesion in the lateral segment 8 currently measures 1.5 cm in maximal diameter and previously measured 2.4 cm in similar orientation. There is ill-defined soft tissue hypodensity centrally within the liver in segments 4 and 8. This area was not as an abnormal-appearing on the prior MRI. I do not appreciate any significant intrahepatic biliary ductal dilatation. The gallbladder is presumably surgically absent PANCREAS: Hypovascular 3.2 cm mass lesion in the pancreatic head measured approximately 2.2 cm in size on the prior MRI. There is additional subtle hypoattenuation of the pancreatic neck which had a more normal appearance on the prior MRI as well. I do not appreciate any pancreatic ductal dilatation or peripancreatic inflammatory change at this time. There is new low attenuation seen within the superior mesenteric vein and portal confluence directly abutting the abnormal signal in the adjacent pancreas. The vein had a more normal appearance on the prior MRI. SPLEEN: Enlarged measuring 16 cm in length. ADRENAL GLANDS: Unremarkable. KIDNEYS AND URETERS: The kidneys are normal in size, shape, and attenuation. Parapelvic cysts in the left kidney. No hydronephrosis, hydroureter, or calculi seen. No perinephric stranding. BLADDER: Unremarkable. GASTROINTESTINAL TRACT: Scattered colonic diverticulosis. I do not appreciate any colonic wall thickening or pericolonic inflammatory change to suggest diverticulitis. Normal-appearing appendix in the right lower quadrant. Visualized small bowel grossly unremarkable ABDOMINAL WALL: No significant hernia is appreciated. LYMPHOVASCULAR STRUCTURES: Vascular calcification within the aorta iliac system. Again there is irregularity seen along the superior mesenteric vein and region of the portal confluence as described above. The vein had a more normal appearance on the prior MRI PELVIC VISCERA: Unremarkable. OSSEOUS STRUCTURES: Extensive multilevel degenerative changes in the spine with bridging osteophytosis. CT/CT abdomen pelvis w IV con IMPRESSION: 1. The known pancreatic head mass lesion has increased in size from the 01/12/2023 MRI study. There is new irregularity seen along the superior mesenteric vein and region of the portal confluence. The vein had a more normal appearance on the prior MRI as well. Uncertain if this is related to tumor thrombus or bland thrombus or mixture of both now present within the vein. The density is similar to the density in the adjacent pancreatic parenchyma. 2. The known hepatic lesions were better demonstrated on the prior MRI. The lesion in the lateral segment 8 appears to have decreased in size from the prior MRI. There is diffuse heterogeneity within the liver. There is ill-defined soft tissue hypodensity centrally within segments 4 and 8 of the liver which was not as abnormal on the prior MRI. Etiology of this is uncertain. I do not appreciate any intrahepatic biliary ductal dilatation. 3. Small volume of abdominal ascites is again seen. 4. Diverticulosis but no obvious diverticulitis. 5. Chronic appearing changes otherwise as described above.
--- NOTE | ~2023-03-12 | US_ITS ---
EXAMINATION: US ABDOMEN LIMITED CLINICAL INFORMATION: Hyperbilirubinemia. COMPARISON: MR abdomen 01/12/2023. CT abdomen pelvis 01/10/2023. Ultrasound abdomen 12/20/2022 TECHNIQUE: Real-time imaging of the right upper quadrant abdominal viscera. Color Doppler exam used. FINDINGS: PANCREAS: Obscured by bowel gas LIVER: Echotexture is heterogeneous. Lobular contour of liver surface consistent with cirrhosis. No intrahepatic bile duct dilatation. 1 x 1.5 x 0.7 cm echogenic lesion right lobe of liver. This measures 1.9 x 2.2 x 1.5 cm on abdominal ultrasound 12/14/2022. Lesion was further characterized on MR study of 01/12/2023. See separate report. Vascular flow in the portal vein is hepatopedal. GALLBLADDER: Nonvisualized COMMON BILE DUCT: Normal in caliber measuring 0.5 cm in diameter. RIGHT KIDNEY: Normal. No hydronephrosis. No renal calculi or focal parenchymal lesions. The kidney measures 12.5 cm in maximum dimension. FREE FLUID: None. US/US abdomen limited IMPRESSION: 1. Heterogeneous echotexture of liver with lobular contour of liver surface consistent with cirrhosis. 2. Echogenic lesion right lobe of liver. Lesion was characterized on MR study 01/12/2023. See separate report. 3. Gallbladder not visualized. No bile duct dilatation.
[2023-03-12 18:08] VITALS: BP 139/64; PULSE 92; RESP 18; TEMP 36.8; O2SAT 99; BMI 24.9
--- NOTE | 2023-03-12 18:15 | ED.GENADULT ---
HPI - General Adult General Chief complaint: Recheck/Abnormal Lab/Rx <Raghu Alford - Last Filed: 03/12/23 18:16> Stated complaint: abnormal labs <Raghu Alford - Last Filed: 03/12/23 18:16> Time Seen by Provider: 03/12/23 18:29 <Raghu Alford - Last Filed: 03/12/23 18:16> Source: patient <Blake Licona MD - Last Filed: 03/13/23 01:50> Mode of arrival: ambulatory <Blake Licona MD - Last Filed: 03/13/23 01:50> Limitations: no limitations <Blake Licona MD - Last Filed: 03/13/23 01:50> History of Present Illness HPI narrative: Patient history of alcoholic cirrhosis quit drinking 2-1/2 years ago, diagnosed with metastatic pancreatic cancer in 02/25 comes here for increased nausea unable to hold any liquids or solids down with frequent vomiting, increased weakness and diffuse abdominal discomfort since been diagnosed with pancreatic cancer patient had labs done earlier today which showed elevated total bilirubin of 5.8 from 2.5 last month. Patient was sent by oncologist for further evaluation patient has not been started treatment cancer <Blake Licona MD - Last Filed: 03/13/23 01:50> Related Data Home medications: Home Medications Medication Instructions Recorded Confirmed cholecalciferol (vitamin D3) 10 10 mcg PO DAILY 09/15/20 03/12/23 mcg (400 unit) capsule Previous Rx's Medication Instructions Recorded vitamin B complex 1 tab PO DAILY #90 tabs 05/13/21 blood-glucose meter (OneTouch #1 ea 01/06/22 Ultra2 Meter) lancets 30 gauge (OneTouch Delica #100 ea 01/06/22 Lancets) blood sugar diagnostic (OneTouch #100 ea 04/03/22 Ultra Test strips) metformin 1,000 mg tablet 1,000 mg PO BID #180 tabs 05/09/22 magnesium oxide 400 mg (241.3 mg 400 mg PO BID #180 tabs 06/30/22 magnesium) tablet atorvastatin 10 mg tablet 10 mg PO BEDTIME 90 days #90 tabs 12/25/22 pioglitazone 30 mg tablet (Actos) 30 mg PO DAILY 90 days #90 tabs 12/25/22 <Raghu Alford - Last Filed: 03/12/23 18:16> Allergies/adverse reactions: Allergies Allergy/AdvReac Type Severity Reaction Status Date / Time morphine [MORPHINE] Allergy Intermediate SEVERE Verified 01/08/23 13:29 VOMITING, vomiting, vomiting <Raghu Alford - Last Filed: 03/12/23 18:16> Review of Systems Review of Systems: Yes all other systems are reviewed and are negative <Blake Licona MD - Last Filed: 03/13/23 01:50> [facility] Past Medical History Medical History: Medical History Alcoholism Anemia Cerebellar ataxia Cirrhosis of liver Compression fracture Diabetes 1.5, managed as type 2 Diabetic retinopathy Elevated ferritin Lung nodule Overgrown toenails Pancreatic adenocarcinoma Pancytopenia Peripheral polyneuropathy Venous insufficiency <Raghu Alford - Last Filed: 03/12/23 18:16> Surgical History: Surgical History History of esophagogastroduodenoscopy (EGD) History of umbilical hernia repair Hx of colonoscopy Hx of left knee surgery <Raghu Alford - Last Filed: 03/12/23 18:16> Family History Family History: Family History Father No problems noted. Mother Lung cancer Maternal Grandmother Cancer Paternal Uncle Diabetes <Raghu Alford - Last Filed: 03/12/23 18:16> Social History Social History: Social History Household Members: Friend(s) Housing: House Alcohol intake: former Patient Tobacco Use Status: Tobacco use Unknown Smoked in Last 30 Days: Yes e-Cigarette/Vaping Use: Never Used Second Hand Smoke Exposure: No Use of substances other than those prescribed or required for medical reasons: Yes Substance Use Type: Marijuana Advance Directives: No Advance Directives Information Provided: No Nutrition Risks: Acute nausea or vomiting x1 week service: No Current occupational status: retired Cognitive needs: No Hearing needs: No Vision needs: No <Raghu Alford - Last Filed: 03/12/23 18:16> Physical Exam ED Vital Signs: Vital Signs - 24 hr 03/12/23 18:08 03/12/23 19:14 03/12/23 21:00 Temperature 98.3 F 97.9 F 98.4 F Pulse Rate 92 88 93 Respiratory Rate 18 15 16 Blood Pressure 139/64 144/59 H 165/81 H Pulse Oximetry 99 99 97 Oxygen Delivery Method Room Air Room Air 03/12/23 22:15 Temperature 98.1 F Pulse Rate 87 Respiratory Rate 16 Blood Pressure 162/85 H Pulse Oximetry 97 Oxygen Delivery Method BMI result Body Mass Index 24.9 <Raghu Alford - Last Filed: 03/12/23 18:16> Vital Signs - 24 hr 03/12/23 18:08 03/12/23 19:14 03/12/23 21:00 Temperature 98.3 F 97.9 F 98.4 F Pulse Rate 92 88 93 Respiratory Rate 18 15 16 Blood Pressure 139/64 144/59 H 165/81 H Pulse Oximetry 99 99 97 Oxygen Delivery Method Room Air Room Air 03/12/23 22:15 Temperature 98.1 F Pulse Rate 87 Respiratory Rate 16 Blood Pressure 162/85 H Pulse Oximetry 97 Oxygen Delivery Method BMI result Body Mass Index 24.9 <Blake Licona MD - Last Filed: 03/13/23 01:50> Appearance: Alert. Oriented X3. No acute distress. Eyes: PERRLA, No Nystagmus icterus+ ENT: Pharynx normal. Oral Mucosa moist Neck: Normal inspection. Neck supple. CVS: Normal heart rate and rhythm. Pulses normal. Respiratory: No respiratory distress. Equal air entry bilateral, no wheezing/rales/rhonchi Abdomen: Soft mild diffuse tenderness Bowel sounds are present, no mass palpable, no CVA tenderness Skin: Skin warm and dry. Normal skin color. Normal skin turgor. Extremities: No lower extremity edema. No calf tenderness Neuro: Oriented X 3. No motor deficit. No sensory deficit.No cerebellar signs , cranial nerves II-XII intact <Blake Licona MD - Last Filed: 03/13/23 01:50> Course Course Course Narrative: 63-year-old male with past medical history significant for pancreatic adenocarcinoma presents for evaluation from Oncology for ?abnormal liver labs. ? Per Dr. Dulula, the patient needs a CT scan of the abdomen pelvis with IV contrast. This was ordered. From labs at 315 p.m. today, the patient's renal function is within normal limits <Raghu Alford - Last Filed: 03/12/23 18:16> Medications Administered Generic Name Dose Route Start Last Admin Trade Name Freq PRN Reason Stop Dose Admin Enoxaparin Sodium 75 mg 03/12/23 22:00 03/12/23 22:59 Enoxaparin Sodium 80 Mg/0.8 Ml Syringe SUBCUT 75 mg Q12H ENDY Administration Lactated Ringer's 1,000 mls @ 80 mls/hr 03/12/23 22:00 03/12/23 22:59 Lr IVCONT 80 mls/hr .[id number] ENDY Administration Sodium Chloride 3 ml 03/13/23 00:00 03/13/23 00:36 0.9 % Sodium Chloride Flush 3 Ml Syringe IVFLUSH Not Given QSHIFT ENDY Discontinued Medications Generic Name Dose Route Start Last Admin Trade Name Freq PRN Reason Stop Dose Admin Sodium Chloride 1,000 mls @ 999 mls/hr 03/12/23 18:46 03/12/23 20:42 Ns IV 03/12/23 19:46 Infused .Q1H1M ONE Infusion Iohexol 100 ml 03/12/23 19:00 03/12/23 19:01 Iohexol 350 Mg/Ml 100 Ml Infus..Btl IV 03/12/23 19:01 85 ml ONCE ONE Administration <Raghu Alford - Last Filed: 03/12/23 18:16> Medications Administered Generic Name Dose Route Start Last Admin Trade Name Freq PRN Reason Stop Dose Admin Enoxaparin Sodium 75 mg 03/12/23 22:00 03/12/23 22:59 Enoxaparin Sodium 80 Mg/0.8 Ml Syringe SUBCUT 75 mg Q12H ENDY Administration Lactated Ringer's 1,000 mls @ 80 mls/hr 03/12/23 22:00 03/12/23 22:59 Lr IVCONT 80 mls/hr .[id number] ENDY Administration Sodium Chloride 3 ml 03/13/23 00:00 03/13/23 00:36 0.9 % Sodium Chloride Flush 3 Ml Syringe IVFLUSH Not Given QSHIFT ENDY Discontinued Medications Generic Name Dose Route Start Last Admin Trade Name Ezekiel PRN Reason Stop Dose Admin Sodium Chloride 1,000 mls @ 999 mls/hr 03/12/23 18:46 03/12/23 20:42 Ns IV 03/12/23 19:46 Infused .Q1H1M ONE Infusion Iohexol 100 ml 03/12/23 19:00 03/12/23 19:01 Iohexol 350 Mg/Ml 100 Ml Infus..Btl IV 03/12/23 19:01 85 ml ONCE ONE Administration <Blake Licona MD - Last Filed: 03/13/23 01:50> Medical Decision Making Medical Decision Making [facility] Narrative: Patient with pancreatic cancer with worsening of pain in LFTs as part of progression of the disease CT scan showed showed questionable with superior mesenteric vein thrombosis will start on Lovenox as patient high risk thrombosis with pancreatic cancer admit to hospitalist service <Blake Licona MD - Last Filed: 03/13/23 01:50> Consult Healthcare Provider Management of the patient was discussed with: Hospitalist <Blake Licona MD - Last Filed: 03/13/23 01:50> Lab Data [facility] Lab Attestation statement: I reviewed the patient's lab results. <Blake Licona MD - Last Filed: 03/13/23 01:50> Radiology Impression Discussion of test interpretation with radiology: I have reviewed the radiologist's reading. <Blake Licona MD - Last Filed: 03/13/23 01:50> Radiologist Impression: CT/CT abdomen pelvis w IV con IMPRESSION: 1.? The known pancreatic head mass lesion has increased in size from the 01/12/2023 MRI study. There is new irregularity seen along the superior mesenteric vein and region of the portal confluence. The vein had a more normal appearance on the prior MRI as well. Uncertain if this is related to tumor thrombus or bland thrombus or mixture of both now present within the vein. The density is similar to the density in the adjacent pancreatic parenchyma. 2.? The known hepatic lesions were better demonstrated on the prior MRI. The lesion in the lateral segment 8 appears to have decreased in size from the prior MRI. There is diffuse heterogeneity within the liver. There is ill-defined soft tissue hypodensity centrally within segments 4 and 8 of the liver which was not as abnormal on the prior MRI. Etiology of this is uncertain. I do not appreciate any intrahepatic biliary ductal dilatation. 3.? Small volume of abdominal ascites is again seen. 4.? Diverticulosis but no obvious diverticulitis. 5.? Chronic appearing changes otherwise as described above. <Blake Licona MD - Last Filed: 03/13/23 01:50> Discharge Plan Discharge Clinical Impression: Pancreatic adenocarcinoma, Portal vein thrombosis <Raghu Alford - Last Filed: 03/12/23 18:16> Patient Disposition: Admitted As Inpatient <Raghu Alford - Last Filed: 03/12/23 18:16>
[2023-03-12] MEDS: iohexoL 350 MG/ML 100 ML INFUS..BTL IV (19:01)
[2023-03-12] MEDS: 0.9 % Sodium Chloride 1,000 ML 999 ML IV (19:10)
--- NOTE | 2023-03-12 19:12 | PC.NURSE ---
assumed care of pt aox4 no apparent distress pt requests evan
--- NOTE | 2023-03-12 19:13 | PC.NURSE ---
pt denies pain at this time
[2023-03-12 19:14] VITALS: BP 144/59; PULSE 88; RESP 15; TEMP 36.6; O2SAT 99
--- NOTE | 2023-03-12 20:52 | MHC.EDTECH ---
i took over this assignment vitals taken and entered
[2023-03-12 21:00] VITALS: BP 165/81; PULSE 93; RESP 16; TEMP 36.9; O2SAT 97
--- NOTE | 2023-03-12 21:31 | PM.IMHP ---
History of Present Illness Date of Service: 03/12/23 Attending physician on admission: Mark Palumbo Chief Complaint: abd pain, nausea 63 year old male with history noninsulin dependent type 2 diabetes, alcoholic cirrhosis of the liver with hx alcoholism (quit 2+ years ago), diabetic polyneuropathy, venous insuffiency, and metastatic adenocarcinoma pancreas presenting to ED earlier today from oncology for evaluation of p.o. intolerance from oncology office. The patient has had longstanding abdominal pain, worst in the epigastric area, but has had worsening diffuse abdominal discomfort over the last few days associated with nausea and vomiting. Denies any anorexia but states any time he tries to eat or drink anything, he has been vomiting. Also has diarrhea but this has been longstanding and relates this to metformin use. Denies any fevers, chills, melena, hematochezia, constipation, lightheadedness, shortness of breath, cough, chest pain. On arrival, vital stable. Hematology studies performed earlier today at oncology visit were baseline and renal function and electrolyte levels were normal. There was an increase in LFTs with AST 63, ALT 85, total bilirubin 5.8 (was 2.5 on 02/16), alkaline phosphatase 228. CT of the abdomen/pelvis shows increase in size of the mass on the pancreatic head compared to MRI from 01/12/2023 with new irregularity along the superior mesenteric vein and region of the portal confluence which could possibly be related to tumor thrombosis or bland thrombosis or mixture of both now present within the vein. It is similar in density to the adjacent pancreatic parenchyma. There is also evidence of liver metastasis but no intrahepatic biliary ductal dilatation. In the ED, treated with IV NS. Review of Systems Review of Systems: General: No fevers, malaise, unintentional weight loss HEENT: No blurred vision, diplopia. No sore throat, nasal congestion, rhinorrhea, sinus pain, ear pain Cardiovascular: No chest pain, palpitations, or leg edema Respiratory: No shortness of breath, wheezing, cough GI: +abd pain, n/v, diarrhea. No constipation, melena, hematochezia : No dysuria, hematuria, increased urinary frequency, decreased urinary output MSK: No myalgia, back pain Neuro: No headaches, weakness, paresthesias Skin: No rashes or lesions [facility] Medical History Alcoholism Anemia Cerebellar ataxia Cirrhosis of liver Compression fracture Diabetes 1.5, managed as type 2 Diabetic retinopathy Elevated ferritin Lung nodule Overgrown toenails Pancreatic adenocarcinoma Pancytopenia Peripheral polyneuropathy Venous insufficiency Family History Father No problems noted. Mother Lung cancer Maternal Grandmother Cancer Paternal Uncle Diabetes Surgical History History of esophagogastroduodenoscopy (EGD) History of umbilical hernia repair Hx of colonoscopy Hx of left knee surgery Social History Household Members: Friend(s) Housing: House Alcohol intake: former Patient Tobacco Use Status: Never used Tobacco Smoked in Last 30 Days: Yes e-Cigarette/Vaping Use: Never Used Second Hand Smoke Exposure: No Use of substances other than those prescribed or required for medical reasons: Yes Substance Use Type: Marijuana Advance Directives: No Advance Directives Information Provided: No service: No Current occupational status: retired Cognitive needs: No Hearing needs: No Vision needs: No Meds Allergies Allergy/AdvReac Type Severity Reaction Status Date / Time morphine [MORPHINE] Allergy Intermediate SEVERE Verified 01/08/23 13:29 VOMITING, vomiting, vomiting Active Medications: Current Medications Pharmacy Consult (Consult Rx Perform Med Rec) 1 each MISCELLANE ONCE PRN PRN Reason: Consult order Home Medications Medication Instructions Recorded Confirmed Last Taken Type cholecalciferol (vitamin D3) 10 10 mcg PO DAILY 09/15/20 03/12/23 03/11/23 History mcg (400 unit) capsule Physical Exam Vital Signs and Narrative: Vital Signs: Last Vital Signs Temp 98.4 F 03/12/23 21:00 Pulse 93 03/12/23 21:00 Resp 16 03/12/23 21:00 BP 165/81 H 03/12/23 21:00 Pulse Ox 97 03/12/23 21:00 O2 Del Method Room Air 03/12/23 21:00 BMI result Body Mass Index 24.9 Constitutional - Awake and Alert, No apparent distress Eyes - PERRLA, EOMI. Mild scleral icterus Cardiovascular - S1S2, RRR, No edema Respiratory - Normal lung expansion, Normal respiratory effort, No respiratory distress, CTA bilaterally Gastrointestinal - mild diffuse ttp without guarding or rebound. ND; +BS Extremities - no calf tenderness bilaterally, no swelling Skin - Warm/Dry Neurological - Alert & oriented x3, CN II-XII in tact, 5/5 strength BUE and BLE Psychological - Appropriate affect Results Imaging Radiologist's Impressions: Impressions Abdomen/Pelvis CT 03/12/23 19:03 IMPRESSION: 1. The known pancreatic head mass lesion has increased in size from the 01/12/2023 MRI study. There is new irregularity seen along the superior mesenteric vein and region of the portal confluence. The vein had a more normal appearance on the prior MRI as well. Uncertain if this is related to tumor thrombus or bland thrombus or mixture of both now present within the vein. The density is similar to the density in the adjacent pancreatic parenchyma. 2. The known hepatic lesions were better demonstrated on the prior MRI. The lesion in the lateral segment 8 appears to have decreased in size from the prior MRI. There is diffuse heterogeneity within the liver. There is ill-defined soft tissue hypodensity centrally within segments 4 and 8 of the liver which was not as abnormal on the prior MRI. Etiology of this is uncertain. I do not appreciate any intrahepatic biliary ductal dilatation. 3. Small volume of abdominal ascites is again seen. 4. Diverticulosis but no obvious diverticulitis. 5. Chronic appearing changes otherwise as described above. 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 It is similar in density to the adjacent pancreatic parenchyma.? -MR angio abd ordered to further eval -Initiate therpeutic lovenox. Monitor platelets closely and adjust dose as appropriate -Appreciate oncology input #N/V/PO intolerance -Likely 2/2 pancreatic cancer -clear liquid diet, advanced as tolerated -ondansetron p.r.n. -continue gentle IVF -appreciate oncology input # hyperbilirubinemia -likely obstructive related to pancreatic cancer with increased size pancreatic mass -will evaluate for any additional obstruction with abdominal ultrasound # [id number] type 2 diabetes -hold metformin and Actos -POC glucose -advance to diabetic diet -Humalog on sliding scale DVT prophylaxis-on therapeutic Lovenox DNR/DNI Patient requires inpatient stay of at least 2 midnights for PO intolerance requiring diet advancement and management of superior mesenteric vein thrombosis requiring parental anticoagulation and further evaluation with MR angiogram as well as close monitoring an expert consultation which cannot be achieved in lower level of care Time Spent With Patient Time: Total time managing care of this patient today ____ minutes. Quality Stroke Does the patient have a stroke diagnosis?: No VTE Prior VTE?: No VTE Risk Level:: Medical - moderate - high VTE Device Contraindication: Treatment Not Indicated VTE Drug Contraindication: N/A - Med Ordered
--- NOTE | 2023-03-12 21:44 | PHA.MEDREC ---
Pharmacy Consult ? Medication Reconciliation Pharmacy has completed the medication reconciliation. Pt poor historian, getting frustrated when I questioned him about specific medications and he was trying to explain them to me by size. Used claim history
--- NOTE | 2023-03-12 22:12 | MHC.EDTECH ---
pt feels weak and nauseated
[2023-03-12 22:15] VITALS: BP 162/85; PULSE 87; RESP 16; TEMP 36.7; O2SAT 97
[2023-03-12] MEDS: Lactated Ringers 1,000 ML 80 ML IVCONT (22:59)
[2023-03-12] MEDS: Enoxaparin Sodium 80 MG/0.8 ML SYRINGE 75 MG SUBCUT (22:59)
--- NOTE | 2023-03-12 23:37 | PC.NURSE ---
med rec done by pharm- checked in summary
--- NOTE | 2023-03-13 00:16 | MHC.EDTECH ---
pt was incontinent, a [place] cath was applied
--- NOTE | 2023-03-13 00:37 | PC.NURSE ---
[place] cath fell off pt cleaned with bath wipes and dried linens changed, hospital attire changed pt resting comfortably at this time Christie, PCT aware and to reapply [place] cath
--- NOTE | 2023-03-13 02:06 | PC.NURSE ---
respirations even and unlabored no apparent distress pt sleeping
--- NOTE | 2023-03-13 04:17 | PC.NURSE ---
respirations even and unlabored no apparent distress pt sleeping
[2023-03-13 04:47] LABS: MANUAL DIFF FLAG NO
[2023-03-13 04:50] LABS: Mean Corpuscular Volume 100.3 fL (80.0-98.0); PLT CLUMP 1; SCAN SMEAR FLAG 1
[2023-03-13 04:51] LABS: Basophils Absolute Auto 0.1 X10*3/uL (0.0-0.2); Basophils Percent Auto 0.5 % (0-2); Eosinophils Absolute Auto 0.2 X10*3/uL (0.0-0.4); Eosinophils Percent Auto 1.7 % (0-4); Hematocrit 36.4 % (42.0-52.0); Hemoglobin 12.6 g/dl (14.0-18.0); Imm Gran Abs Auto 0.06 X10*3/uL (0.00-0.03); Imm Gran Pct Auto 0.6 % (0.0-0.4); Lymphocytes Absolute Auto 0.5 X10*3/uL (1.2-4.9); Lymphocytes Percent Auto 5.2 % (20-40); Mean Corpuscular HGB Conc 34.6 g/dl (31.0-36.0); Mean Corpuscular Hemoglobin 34.7 pg (27.0-33.0); Mean Platelet Volume 10.5 fL (9.4-12.4); Monocytes Absolute Auto 0.9 X10*3/uL (0.1-1.2); Monocytes Percent Auto 9.1 % (2-11); Neutrophils Absolute Auto 8.4 x10*3/uL (2.0-8.3); Neutrophils Percent Auto 82.9 % (45-73); Red Blood Count 3.63 X10*6/uL (4.60-5.80); Red Cell Distribution Width 13.8 % (11.0-16.0)
[2023-03-13 04:52] LABS: Platelet Count 71 X10*3/uL (160-400); White Blood Count 10.1 X10*3/uL (4.8-10.8)
[2023-03-13 05:05] LABS: Alanine Aminotransferase 76 U/L (0-40); Albumin Level 2.9 g/dL (3.5-5.0); Alkaline Phosphatase 184 U/L (39-117); Anion Gap 13 (12-20); Aspartate Amino Transferase 54 U/L (5-37); Blood Urea Nitrogen 8 mg/dL (9-16); Calcium 9.9 mg/dL (8.4-10.2); Carbon Dioxide 25 mmol/L (22-29); Chloride 103 mmol/L (96-108); Creatinine Clr Calc Pharmacy 116.8; Estimated Glomerular Filt Rate > 60; Glucose Random 237 mg/dL (60-115); Potassium 3.9 mmol/L (3.3-5.1); Sodium 137 mmol/L (135-145)
--- NOTE | 2023-03-13 05:20 | PC.NURSE ---
N2N report given to ARCENIO Chacon LR 1L running at 80 mls/hr transported via stretcher by MARCELA Cain No apparent distress alert and oriented
--- NOTE | 2023-03-13 05:29 | PC.NURSE ---
standby assist when ambulating to restroom incontinent of urine
[2023-03-13 07:16] VITALS: BP 159/75; PULSE 96; RESP 18; TEMP 36.8; O2SAT 97
[2023-03-13 07:23] LABS: Glucose, Whole Blood 225 mg/dL (60-115)
--- NOTE | 2023-03-13 07:34 | P.PNIM_ITS ---
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 Poor p.o. intake, nausea but no vomiting at this time. Physical Exam Vital Signs: Vital Signs: Last Vital Signs Temp 98.3 F 03/13/23 07:16 Pulse 96 03/13/23 07:16 Resp 18 03/13/23 07:16 BP 159/75 H 03/13/23 07:16 Pulse Ox 97 03/13/23 07:16 O2 Del Method Room Air 03/13/23 07:16 BMI result Body Mass Index 24.9 Const: Other: General: AO X 3, no acute distress Resp: CTA bilateral CVS: S1,S2,RRR GI: +BS, NT, mild tenderness, soft Skin: No rash Neuro: motor grossly intact Psych: appropriate affect Objective Data Active Medications Acetaminophen (Acetaminophen 325 Mg Tablet) 650 mg PO Q6H PRN PRN Reason: Pain, Mild (Pain Scale 1-3) Atorvastatin Calcium (Atorvastatin Calcium 10 Mg Tablet) 10 mg PO BEDTIME [facility] Docusate Sodium (Docusate Sodium 100 Mg Capsule) 100 mg PO DAILY PRN PRN Reason: Constipation Enoxaparin Sodium (Enoxaparin Sodium 80 Mg/0.8 Ml Syringe) 75 mg SUBCUT Q12H [facility] Last Admin: 03/12/23 22:59 Dose: 75 mg Documented By: SIN Glucose (Glucose Gel 15 Gm Gel..Gram.) 15 gm PO Q15M PRN; Protocol PRN Reason: per Hypoglycemia Standing Ord. Lactated Ringer's (Lr) 1,000 mls @ 80 mls/hr IVCONT .[id number] [facility] Last Admin: 03/12/23 22:59 Dose: 80 mls/hr Documented By: SIN Dextrose (D10) 250 mls @ 750 mls/hr IV Q15M PRN; Protocol PRN Reason: per Hypoglycemia Standing Ord. Insulin Human Lispro (Insulin Lispro 100 Unit/Ml 3 Ml Vial) 0 unit SUBCUT QIDACHS [facility]; Protocol Magnesium Oxide (Magnesium Oxide 400 Mg Tablet) 400 mg PO BID [facility] Multivitamins/Vitamin C (Multivitamin Tablet) 1 tab PO DAILY [facility] Ondansetron HCl (Ondansetron Hcl 4 Mg/2 Ml Vial) 4 mg IVPUSH Q8H PRN PRN Reason: Nausea and Vomiting Pharmacy Consult (Consult Rx Perform Med Rec) 1 each MISCELLANE ONCE PRN PRN Reason: Consult order Sodium Chloride (0.9 % Sodium Chloride Flush 3 Ml Syringe) 3 ml IVFLUSH QSHIFT [facility] Last Admin: 03/13/23 06:34 Dose: Not Given Documented By: ALISHA Non-Admin Reason: IV Running Vitamin D (Cholecalciferol (Vitamin D3) 10 Mcg Tablet) 10 mcg PO DAILY [facility] Labs 03/13/23 04:40 03/13/23 04:40 Labs: Laboratory Results - last 24 hr 03/13/23 03/13/23 03/13/23 04:40 04:40 07:15 MCV 100.3 H MCH 34.7 H MCHC 34.6 RDW 13.8 Plt Count 71 L MPV 10.5 Immature Gran % (Auto) 0.6 H Neut % (Auto) 82.9 H Lymph % (Auto) 5.2 L [place] % (Auto) 9.1 Eos % (Auto) 1.7 Baso % (Auto) 0.5 Lymph # (Auto) 0.5 L [place] # (Auto) 0.9 Eos # (Auto) 0.2 Baso # (Auto) 0.1 Abs Immat Gran (auto) 0.06 H Absolute Neuts (auto) 8.4 H Absolute Nucleated RBC 0.000 Nucleated RBC % (auto) 0.0 Anion Gap 13 Estim Creat Clear Calc 116.8 Estimated GFR > 60 POC Glucose 225 H Random Glucose 237 H Calcium 9.9 Total Bilirubin 5.0 H AST 54 H ALT 76 H Alkaline Phosphatase 184 H Total Protein 6.0 L Albumin 2.9 L Assessment and Plan (1) Portal vein thrombosis: Status: Acute (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 #Superior mesenteric vein thombosis- 2/2 pancreatic cancer as seen on CT, radiology does not think that MRI will offer any additional benefit. -continue anticoagulation with Lovenox and probably change to direct anti thrombin inhibitors before discharge. Oncology consult #N/V/PO intolerance -Likely 2/2 pancreatic cancer -clear liquid diet, advanced as tolerated -ondansetron p.r.n. -continue gentle IVF # hyperbilirubinemia -likely obstructive related to pancreatic cancer with increased size pancreatic mass -will evaluate for any additional obstruction with abdominal ultrasound # [id number] type 2 diabetes -hold metformin and Actos -POC glucose -advance to diabetic diet -Humalog on sliding scale DVT prophylaxis-on therapeutic Lovenox DNR/DNI Inpatient need: PO intolerance requiring diet advancement and management of superior mesenteric vein thrombosis requiring parental anticoagulation and further work up Time Spent With Patient Time: Total time managing care of this patient today ____ minutes. Quality Stroke Does the patient have a stroke diagnosis?: No VTE Prior VTE?: No VTE Risk Level:: Medical - moderate - high VTE Device Contraindication: Treatment Not Indicated VTE Drug Contraindication: N/A - Med Ordered
[2023-03-13] MEDS: Magnesium Oxide 400 MG TABLET PO (07:35)
[2023-03-13] MEDS: Insulin Lispro 100 UNIT/ML 3 ML VIAL SUBCUT ×4 (07:35→20:59)
[2023-03-13] MEDS: Cholecalciferol (Vitamin D3) 10 MCG TABLET PO (07:36)
[2023-03-13] MEDS: Multivitamin TABLET 1 TAB PO (07:36)
[2023-03-13] MEDS: Enoxaparin Sodium 80 MG/0.8 ML SYRINGE 75 MG SUBCUT ×2 (09:35→20:59)
--- NOTE | 2023-03-13 10:40 | P.CNHO_ITS ---
Subjective - Subjective Chief complaint: Abdominal pain Patient: known to practice within the last 3 years Consult date: 03/13/23 Primary Care Provider: YUSEF Larson Medical Summary: Diagnosis: Advanced pancreatic cancer HPI - Consult Narrative Reason for consult: Superior mesenteric vein/portal vein thrombosis Narrative: Luther Alvares is a 63 year old male with recently diagnosed pancreatic cancer presenting with abdominal pain, nausea and emesis. He has had poor appetite for the last 2 weeks and reports worsening abdominal pain. His past medical history significant for type 2 diabetes, liver cirrhosis secondary to alcoholism and polyneuropathy. There was an increase in LFTs with AST 63, ALT 85, total bilirubin 5.8 (was 2.5 on 02/16), alkaline phosphatase 228. CT of the abdomen/pelvis shows increase in size of the mass on the pancreatic head compared to MRI from 01/12/2023 with new irregularity along the superior mesenteric vein and region of the portal confluence which could possibly be related to tumor thrombosis or bland thrombosis or mixture of both now present within the vein. It is similar in density to the adjacent pancreatic parenchyma. There is also evidence of liver metastasis but no intrahepatic biliary ductal dilatation. Review of Systems - Constitutional Reports as per HPI, Reports lack of energy, Reports malaise, Reports weight loss - Cardiovascular Reports no additional cardiovascular complaints - Respiratory Reports no additional respiratory complaints - Gastrointestinal Reports no additional gastrointestinal complaints, Reports abdominal pain, Denies bright, red blood in stools PMFSH Medical History: Medical History (Last Reviewed 03/12/23 @ 22:01 by BRENT Medina) Alcoholism Anemia Cerebellar ataxia Cirrhosis of liver Compression fracture Diabetes 1.5, managed as type 2 Diabetic retinopathy Elevated ferritin Lung nodule Overgrown toenails Pancreatic adenocarcinoma Pancytopenia Peripheral polyneuropathy Venous insufficiency Family History: Family History (Last Reviewed 03/12/23 @ 22:01 by BRENT Medina) Father No problems noted. Mother Lung cancer Maternal Grandmother Cancer Paternal Uncle Diabetes Surgical History: Surgical History (Last Reviewed 03/12/23 @ 22:01 by BRENT Medina) History of esophagogastroduodenoscopy (EGD) History of umbilical hernia repair Hx of colonoscopy Hx of left knee surgery Social History: Social History (Last Reviewed 03/12/23 @ 22:01 by BRENT Medina) Living Situation History: Household Members: Friend(s) Housing: House Do you presently have visiting nurse or other home services: No Alcohol History Details: 1. How often do you have a drink containing alcohol?: a. Never AUDIT-C Alcohol total score: 0 Currently Displaying Signs/Symptoms of Alcohol Withdrawal: No Tobacco History: Patient Tobacco Use Status: Tobacco use Unknown Smoked in Last 30 Days: Yes e-Cigarette/Vaping Use: Never Used Second Hand Smoke Exposure: No Substance Use History: Use of substances other than those prescribed or required for medical reasons : No Substance Use Type: Marijuana Substance Use Frequency: Occasionally Currently Displaying Signs/Symptoms of Drug Intoxication Withdrawal: No Domestic Abuse History: Have you been hit, kicked, punched, or otherwise hurt by someone within the past year? If so, by whom?: No Do you feel safe in your current relationship?: No Current Relationship Is there a partner from a previous relationship who is making you feel unsafe now?: No Are you made to feel afraid or neglected: No Advance Directives: Advance Directives: No Advance Directives Information Provided: No Homicidal Assessment: Do you have thoughts of harming others: None Do you have a plan to hurt others: No Plan Nutrition Assessment: Recently lost weight without trying: No Nutrition Risks: No Nutritional Risk Poor oral hygiene: No Occupation Assessmet: service: No Current occupational status: retired Home Medications and Allergies Current Medications: Current Medications Acetaminophen (Acetaminophen 325 Mg Tablet) 650 mg PO Q6H PRN PRN Reason: Pain, Mild (Pain Scale 1-3) Atorvastatin Calcium (Atorvastatin Calcium 10 Mg Tablet) 10 mg PO BEDTIME [facility] Docusate Sodium (Docusate Sodium 100 Mg Capsule) 100 mg PO DAILY PRN PRN Reason: Constipation Enoxaparin Sodium (Enoxaparin Sodium 80 Mg/0.8 Ml Syringe) 75 mg SUBCUT Q12H [facility] Last Admin: 03/13/23 09:35 Dose: 75 mg Glucose (Glucose Gel 15 Gm Gel..Gram.) 15 gm PO Q15M PRN; Protocol PRN Reason: per Hypoglycemia Standing Ord. Lactated Ringer's (Lr) 1,000 mls @ 80 mls/hr IVCONT .[id number] [facility] Last Admin: 03/12/23 22:59 Dose: 80 mls/hr Dextrose (D10) 250 mls @ 750 mls/hr IV Q15M PRN; Protocol PRN Reason: per Hypoglycemia Standing Ord. Insulin Human Lispro (Insulin Lispro 100 Unit/Ml 3 Ml Vial) 0 unit SUBCUT QIDACHS [facility]; Protocol Last Admin: 03/13/23 07:35 Dose: 4 unit Magnesium Oxide (Magnesium Oxide 400 Mg Tablet) 400 mg PO BID [facility] Last Admin: 03/13/23 07:35 Dose: 400 mg Multivitamins/Vitamin C (Multivitamin Tablet) 1 tab PO DAILY [facility] Last Admin: 03/13/23 07:36 Dose: 1 tab Ondansetron HCl (Ondansetron Hcl 4 Mg/2 Ml Vial) 4 mg IVPUSH Q8H PRN PRN Reason: Nausea and Vomiting Pharmacy Consult (Consult Rx Perform Med Rec) 1 each MISCELLANE ONCE PRN PRN Reason: Consult order Sodium Chloride (0.9 % Sodium Chloride Flush 3 Ml Syringe) 3 ml IVFLUSH QSHIFT [facility] Last Admin: 03/13/23 06:34 Dose: Not Given Vitamin D (Cholecalciferol (Vitamin D3) 10 Mcg Tablet) 10 mcg PO DAILY [facility] Last Admin: 03/13/23 07:36 Dose: 10 mcg Home Medications Medication Instructions Recorded Confirmed Type cholecalciferol (vitamin D3) 10 10 mcg PO DAILY 09/15/20 03/12/23 History mcg (400 unit) capsule Allergies Allergy/AdvReac Type Severity Reaction Status Date / Time morphine [MORPHINE] Allergy Intermediate SEVERE Verified 03/13/23 05:16 VOMITING, vomiting, vomiting Physical Exam Vital signs: Vital Signs Temp 98.3 F 03/13/23 07:16 Pulse 96 03/13/23 07:16 Resp 18 03/13/23 07:16 BP 159/75 H 03/13/23 07:16 Pulse Ox 97 03/13/23 07:16 O2 Del Method Room Air 03/13/23 07:16 Intake & Output 03/12/23 03/13/23 03/13/23 18:59 06:59 18:59 Intake Total 1240 / 1240 Balance 1240 / 1240 Intake: Intake, Oral Amount 240 / 240 Intake, IV Amount 1000 / 1000 0.9 % Sodium Chloride 1,000 ml 1000 / 1000 @ 999 mls/hr IV .Q1H1M ONE Rx#: [id number] Other: Last Bowel Movement 03/12/23 Weight 74.389 kg Weight 74.389 kg - Constitutional Present: no acute distress - Routine HEENT Exam Head: Present: normal inspection - Routine Neck Exam Present: supple - Routine Respiratory Exam Present: CTAB - Routine Cardiovascular Exam Cardiovascular: Present: S1, S2 - Routine Abdominal Exam Present: soft Hem/Onc Consult Result - Labs CBC & Chem 7: 03/13/23 04:40 03/13/23 04:40 Labs: Short CBC 03/13/23 Range/Units 04:40 WBC 10.1 (4.8-10.8) X10*3/uL Hgb 12.6 L (14.0-18.0) g/dl Hct 36.4 L (42.0-52.0) % Plt Count 71 L (160-400) X10*3/uL BMP 03/13/23 04:40 Sodium 137 Potassium 3.9 Chloride 103 Carbon Dioxide 25 BUN 8 L Creatinine 0.61 Calcium 9.9 Liver Function 03/13/23 Range/Units 04:40 Total Bilirubin 5.0 H (0.0-1.0) mg/dL AST 54 H (5-37) U/L ALT 76 H (0-40) U/L Alkaline Phosphatase 184 H (39-117) U/L Albumin 2.9 L (3.5-5.0) g/dL Assessment and Plan Patient Active problem list reviewed?: Yes (1) Pancreatic adenocarcinoma Status: Acute Assessment and plan: 1. This is a 63-year-old male with pancreatic adenocarcinoma diagnosed in February 2023. He underwent MRI abdomen with and without contrast on 01/12/2023 which revealed a 2.4 X 1.9 cm lesion with ill-defined margins and peripheral enhancement in right lobe of liver which is suspicious for malignancy. Differential diagnosis includes atypical HCC, cholangiocarcinoma and metastasis. There was peritumoral enhancement in central necrosis suggestive of her more aggressive histologic type. There was also new hypoenhancing mass inseparable from anterior surface of head of pancreas suspicious for pancreatic neoplasm. There was a separate 0.9 cm lesion in the liver in segment 6 and an enlarged periportal lymph node which is stable compared to 2019. Patient underwent EUS/biopsy of pancreatic lesion at [facility], revealed abnormal echogenicity and nodularity of liver consistent with known cirrhosis. Liver lesion could not be visualized. Mass was seen in the pancreatic head, measuring 2.9 x 2.7cm.FNA, Pathology revealed adenocarcinoma. He presented with hyperbilirubinemia and worsening abdominal pain, nausea and emesis. Further evaluation with CT abdomen and pelvis with contrast showed increase in size of pancreatic head mass along with superior mesenteric vein/po rtal vein thrombosis. Ill-defined soft tissue hypodensity centrally within segments 4 and 8 of liver seem to have increased, unclear etiology. No intrahepatic biliary ductal dilatation. Small volume of abdominal ascites seen. Patient has been started on Lovenox 1 mg/kilos b.i.d.. His abdominal pain is somewhat better. Because of significant LFT abnormalities and underlying malignancy, it would be better to continue low-molecular weight heparin for anticoagulation. Depending on his performance status and liver functions, further recommendations about chemotherapy will be made upon discharge. I thank you for this consultation. - Time Spent With Patient Time Spent with Patient (in minutes): 15
[2023-03-13 11:14] LABS: Glucose, Whole Blood 292 mg/dL (60-115)
--- NOTE | 2023-03-13 12:35 | MHC.CM.PN ---
PATIENT IS IN FROM HOME. NO CANE OR WALKER RECENT PANCREATIC CANCER DX. [facility] IN CHART PATIENT STATES THAT HE WANTS TO BE A FULL-CODE. [facility] GIVEN FOR REVIEW PER HIS REQUEST NO PLAN FOR DC TODAY IMM 03/13 IN CHART
[2023-03-13] MEDS: 0.9 % Sodium Chloride Flush 3 ML SYRINGE IVFLUSH ×2 (14:47→19:18)
[2023-03-13 15:17] VITALS: BP 156/72; PULSE 89; RESP 20; TEMP 36.6; O2SAT 96
[2023-03-13] MEDS: Lactated Ringers 1,000 ML 80 ML IVCONT (15:36)
[2023-03-13 16:34] LABS: Glucose, Whole Blood 244 mg/dL (60-115)
[2023-03-13 19:16] VITALS: BP 154/80; PULSE 95; RESP 18; TEMP 36.4; O2SAT 95
[2023-03-13] MEDS: ondansetron HCL 4 MG/2 ML VIAL IVPUSH (19:18)
[2023-03-13 20:42] LABS: Glucose, Whole Blood 229 mg/dL (60-115)
--- NOTE | 2023-03-13 22:41 | PM.GICN ---
History of Present Illness Data of Consult Service Date: 03/13/23 Requesting physician: Radha Acosta Primary Care Provider: Mario Prince [facility] HPI Reason for consult: jaundice 63 year old male with history noninsulin dependent type 2 diabetes, alcoholic cirrhosis of the liver with hx alcoholism (quit 2+ years ago), diabetic polyneuropathy, venous insuffiency, and metastatic adenocarcinoma pancreas who i am seeing for worsening jaundice in setting of recent dx panc ca. Pt was sent to ED from the onc clinic due to poor PO intake and acute on chronic epigastric pain with nausea and vomiting. He has chronic diarrhea 2/2 metformin use. Denies any fevers, chills, melena, hematochezia, constipation, lightheadedness, shortness of breath, cough, chest pain. He had an EGD 03/08/23 with variceal banding and note made of congestion in duodenum and stomach. He had recent EUS at [facility] confirmed pancreatic ca in head of pancreas. Labs: LFTs with AST 63, ALT 85, total bilirubin 5.8 (was 2.5 on 02/16), alkaline phosphatase 228 Imaging: CT of the abdomen/pelvis: increase in size of the mass on the pancreatic head compared to MRI from 01/12/2023 with new irregularity along the superior mesenteric vein and region of the portal confluence? PVT? There is also evidence of liver metastasis but no intrahepatic biliary ductal dilatation. US: Liver lesion, no bile duct dilation Review of Systems Review of Systems: Constitutional : + Weight loss, No Fever, No Chills ENT/Mouth : No sore throat, No Rhinorrhea Eyes: No Swelling, No Redness Cardiovascular : No Chest Pain, No SOB, No Edema Respiratory : No Cough, No Sputum, No Wheezing Gastrointestinal : see HPI Genitourinary : NO Dysuria, No Urinary Frequency, No Hematuria, No Urgency Musculoskeletal : No joint pain, No Myalgias, No Joint Swelling Skin : No Skin Lesions, No rash Neuro : + Weakness, No Numbness, No Dizziness, No Headache Psych : No Anxiety/Panic, No Depression Heme/Lymph: No Bruising, No Lymphadenopathy Endocrine : No Polyuria, No Polydipsia All other systems reviewed and are negative. [facility] Past Medical History Medical History Alcoholism Anemia Cerebellar ataxia Cirrhosis of liver Compression fracture Diabetes 1.5, managed as type 2 Diabetic retinopathy Elevated ferritin Lung nodule Overgrown toenails Pancreatic adenocarcinoma Pancytopenia Peripheral polyneuropathy Venous insufficiency Family History Family History Father No problems noted. Mother Lung cancer Maternal Grandmother Cancer Paternal Uncle Diabetes Surgical History Surgical History History of esophagogastroduodenoscopy (EGD) History of umbilical hernia repair Hx of colonoscopy Hx of left knee surgery Social History Social History Household Members: Friend(s) Housing: House Do you presently have visiting nurse or other home services: No Alcohol intake: former Patient Tobacco Use Status: Tobacco use Unknown Smoked in Last 30 Days: Yes e-Cigarette/Vaping Use: Never Used Second Hand Smoke Exposure: No Use of substances other than those prescribed or required for medical reasons: No Substance Use Type: Marijuana Substance Use Frequency: Occasionally Currently Displaying Signs/Symptoms of Drug Intoxication Withdrawal: No Have you been hit, kicked, punched, or otherwise hurt by someone within the past year? If so, by whom?: No Do you feel safe in your current relationship?: No Current Relationship Is there a partner from a previous relationship who is making you feel unsafe now?: No Are you made to feel afraid or neglected: No Advance Directives: No Advance Directives Information Provided: No Do you have thoughts of harming others: None Do you have a plan to hurt others: No Plan Recently lost weight without trying: No Nutrition Risks: No Nutritional Risk Poor oral hygiene: No service: No Current occupational status: retired Cognitive needs: No Hearing needs: No Vision needs: No Meds Allergies Allergy/AdvReac Type Severity Reaction Status Date / Time morphine [MORPHINE] Allergy Intermediate SEVERE Verified 03/13/23 05:16 VOMITING, vomiting, vomiting Active Medications: Current Medications Acetaminophen (Acetaminophen 325 Mg Tablet) 650 mg PO Q6H PRN PRN Reason: Pain, Mild (Pain Scale 1-3) Atorvastatin Calcium (Atorvastatin Calcium 10 Mg Tablet) 10 mg PO BEDTIME ENDY Last Admin: 03/13/23 20:35 Dose: Not Given Docusate Sodium (Docusate Sodium 100 Mg Capsule) 100 mg PO DAILY PRN PRN Reason: Constipation Enoxaparin Sodium (Enoxaparin Sodium 80 Mg/0.8 Ml Syringe) 75 mg SUBCUT Q12H [facility] Last Admin: 03/13/23 20:59 Dose: 75 mg Glucose (Glucose Gel 15 Gm Gel..Gram.) 15 gm PO Q15M PRN; Protocol PRN Reason: per Hypoglycemia Standing Ord. Lactated Ringer's (Lr) 1,000 mls @ 80 mls/hr IVCONT .[id number] [facility] Last Admin: 03/13/23 15:36 Dose: 80 mls/hr Dextrose (D10) 250 mls @ 750 mls/hr IV Q15M PRN; Protocol PRN Reason: per Hypoglycemia Standing Ord. Insulin Human Lispro (Insulin Lispro 100 Unit/Ml 3 Ml Vial) 0 unit SUBCUT QIDACHS [facility]; Protocol Last Admin: 03/13/23 20:59 Dose: 4 unit Magnesium Oxide (Magnesium Oxide 400 Mg Tablet) 400 mg PO BID [facility] Last Admin: 03/13/23 20:35 Dose: Not Given Multivitamins/Vitamin C (Multivitamin Tablet) 1 tab PO DAILY [facility] Last Admin: 03/13/23 07:36 Dose: 1 tab Ondansetron HCl (Ondansetron Hcl 4 Mg/2 Ml Vial) 4 mg IVPUSH Q8H PRN PRN Reason: Nausea and Vomiting Last Admin: 03/13/23 19:18 Dose: 4 mg Pharmacy Consult (Consult Rx Perform Med Rec) 1 each MISCELLANE ONCE PRN PRN Reason: Consult order Sodium Chloride (0.9 % Sodium Chloride Flush 3 Ml Syringe) 3 ml IVFLUSH QSHIFT [facility] Last Admin: 03/13/23 19:18 Dose: 3 ml Vitamin D (Cholecalciferol (Vitamin D3) 10 Mcg Tablet) 10 mcg PO DAILY [facility] Last Admin: 03/13/23 07:36 Dose: 10 mcg Home Medications Medication Instructions Recorded Confirmed Last Taken Type cholecalciferol (vitamin D3) 10 10 mcg PO DAILY 09/15/20 03/12/23 03/11/23 History mcg (400 unit) capsule Physical Exam Vital Signs: Vital Signs: Last Vital Signs Temp 97.5 F 03/13/23 19:16 Pulse 95 03/13/23 19:16 Resp 18 03/13/23 19:16 BP 154/80 H 03/13/23 19:16 Pulse Ox 95 03/13/23 19:16 O2 Del Method Room Air 03/13/23 19:16 BMI result Body Mass Index 24.9 EXAM: GENERAL: The patient is frail and dishevelled, mild jaundice VITAL SIGNS:see workflow HEENT: +icteric sclerae, PERRLA, EOMI. Oropharynx clear. Moist mucous membranes. Conjunctivae appear well perfused. No thyroid mass. CHEST: Chest wall is nontender. HEART: Regular rate and rhythm without murmurs. LUNGS: Clear to auscultation bilaterally. ABDOMEN: Soft, positive bowel sounds, mildly tender epigastrium , no organomegaly.no flank tenderness SKIN: No rash, no excessive bruising, petechiae, or purpura. NEUROLOGIC: Cranial nerves II-XII intact without motor/sensory deficit. Psych: nml affect Results Labs 03/13/23 04:40 03/13/23 04:40 Labs: Short CBC 03/13/23 Range/Units 04:40 WBC 10.1 (4.8-10.8) X10*3/uL Hgb 12.6 L (14.0-18.0) g/dl Hct 36.4 L (42.0-52.0) % Plt Count 71 L (160-400) X10*3/uL BMP 03/13/23 04:40 Sodium 137 Potassium 3.9 Chloride 103 Carbon Dioxide 25 BUN 8 L Creatinine 0.61 Calcium 9.9 Liver Function 03/13/23 Range/Units 04:40 Total Bilirubin 5.0 H (0.0-1.0) mg/dL AST 54 H (5-37) U/L ALT 76 H (0-40) U/L Alkaline Phosphatase 184 H (39-117) U/L Albumin 2.9 L (3.5-5.0) g/dL Imaging CT scan - abdomen: Attestation: I personally reviewed and interpreted this imaging study as follows: (nodular liver, pancreatic mass, thickened bowel and stomach ) Assessment and Plan (1) Mass of head of pancreas: Status: Acute (2) Liver lesion: Status: Acute (3) Elevated bilirubin: Status: Acute (4) Portal vein thrombosis: Status: Acute Plan 1/ Worsening LFT with abdominal pain with suspicion of PVT, now just commenced anticoagulation. Imaging has not revealed CBd obstruction so the worsened LFt most likely due to the PVT PLAN: 1/ Continue with anticoagulation 2/ Would hold on ERCP at this time, as no obstruction --but if subsequent follow up imaging does confirm obstruction can reconsider ERCP Time Spent With Patient Time: Total time managing care of this patient today ____ minutes. Procedures Date of Service Date of Service: 03/14/23
[2023-03-14 03:38] VITALS: BP 164/77; PULSE 105; RESP 16; TEMP 36.8; O2SAT 96
[2023-03-14] MEDS: Lactated Ringers 1,000 ML 80 ML IVCONT (05:38)
[2023-03-14 07:15] VITALS: BP 158/75; PULSE 105; RESP 17; TEMP 36.7; O2SAT 95
[2023-03-14 07:26] LABS: Glucose, Whole Blood 229 mg/dL (60-115)
[2023-03-14] MEDS: Insulin Lispro 100 UNIT/ML 3 ML VIAL SUBCUT ×4 (07:44→20:58)
[2023-03-14] MEDS: Magnesium Oxide 400 MG TABLET PO ×2 (07:44→20:59)
[2023-03-14] MEDS: Cholecalciferol (Vitamin D3) 10 MCG TABLET PO (07:44)
[2023-03-14] MEDS: Multivitamin TABLET 1 TAB PO (07:44)
[2023-03-14] MEDS: Enoxaparin Sodium 80 MG/0.8 ML SYRINGE 75 MG SUBCUT ×2 (10:11→20:59)
--- NOTE | 2023-03-14 10:40 | P.PNIM_ITS ---
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 pain is generally well controlled, Physical Exam Vital Signs: Vital Signs: Last Vital Signs Temp 98.1 F 03/14/23 07:15 Pulse 105 H 03/14/23 07:15 Resp 17 03/14/23 07:15 BP 158/75 H 03/14/23 07:15 Pulse Ox 95 03/14/23 07:15 O2 Del Method Room Air 03/14/23 07:15 BMI result Body Mass Index 24.9 Const: Other: General: AO X 3, no acute distress Resp: CTA bilateral CVS: S1,S2,RRR GI: +BS, NT, mild tenderness, soft Skin: No rash Neuro: motor grossly intact Psych: appropriate affect Objective Data Active Medications Acetaminophen (Acetaminophen 325 Mg Tablet) 650 mg PO Q6H PRN PRN Reason: Pain, Mild (Pain Scale 1-3) Atorvastatin Calcium (Atorvastatin Calcium 10 Mg Tablet) 10 mg PO BEDTIME ON [facility] OF [facility] Last Admin: 03/13/23 20:35 Dose: Not Given Documented By: OSCAR Non-Admin Reason: Patient Refused Docusate Sodium (Docusate Sodium 100 Mg Capsule) 100 mg PO DAILY PRN PRN Reason: Constipation Enoxaparin Sodium (Enoxaparin Sodium 80 Mg/0.8 Ml Syringe) 75 mg SUBCUT Q12H ON [facility] OF [facility] Last Admin: 03/14/23 10:11 Dose: 75 mg Documented By: ALISHA Glucose (Glucose Gel 15 Gm Gel..Gram.) 15 gm PO Q15M PRN; Protocol PRN Reason: per Hypoglycemia Standing Ord. Lactated Ringer's (Lr) 1,000 mls @ 80 mls/hr IVCONT .[id number] ON [facility] OF [facility] Last Admin: 03/14/23 05:38 Dose: 80 mls/hr Documented By: OSCAR Dextrose (D10) 250 mls @ 750 mls/hr IV Q15M PRN; Protocol PRN Reason: per Hypoglycemia Standing Ord. Insulin Human Lispro (Insulin Lispro 100 Unit/Ml 3 Ml Vial) 0 unit SUBCUT QIDACHS ON LICENSE OF [facility]; Protocol Last Admin: 03/14/23 07:44 Dose: 4 unit Documented By: ALISHA Magnesium Oxide (Magnesium Oxide 400 Mg Tablet) 400 mg PO BID ON LICENSE OF [facility] Last Admin: 03/14/23 07:44 Dose: 400 mg Documented By: ALISHA Multivitamins/Vitamin C (Multivitamin Tablet) 1 tab PO DAILY ON LICENSE OF [facility] Last Admin: 03/14/23 07:44 Dose: 1 tab Documented By: ALISHA Ondansetron HCl (Ondansetron Hcl 4 Mg/2 Ml Vial) 4 mg IVPUSH Q8H PRN PRN Reason: Nausea and Vomiting Last Admin: 03/13/23 19:18 Dose: 4 mg Documented By: OSCAR Pharmacy Consult (Consult Rx Perform Med Rec) 1 each MISCELLANE ONCE PRN PRN Reason: Consult order Sodium Chloride (0.9 % Sodium Chloride Flush 3 Ml Syringe) 3 ml IVFLUSH QSHIFT ON LICENSE OF [facility] Last Admin: 03/14/23 07:45 Dose: Not Given Documented By: ALISHA Non-Admin Reason: IV Running Vitamin D (Cholecalciferol (Vitamin D3) 10 Mcg Tablet) 10 mcg PO DAILY ON LICENSE OF [facility] Last Admin: 03/14/23 07:44 Dose: 10 mcg Documented By: ALISHA Labs 03/13/23 04:40 03/13/23 04:40 Labs: Laboratory Results - last 24 hr 03/13/23 03/13/23 03/13/23 11:08 16:25 20:38 POC Glucose 292 H 244 H 229 H 03/14/23 07:19 POC Glucose 229 H Assessment and Plan (1) Portal vein thrombosis: Status: Acute Plan 63 year old male with history noninsulin dependent type 2 diabetes, alcoholic cirrhosis of the liver, hx alcoholism, diabetic polyneuropathy, venous insuffiency, and metastatic adenocarcinoma pancreas admitted for 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 Oncology recommending lovenox or coumadin #N/V/PO intolerance -Likely 2/2 pancreatic cancer -clear liquid diet, advanced as tolerated -ondansetron p.r.n. -continue gentle IVF # hyperbilirubinemia -likely obstructive related to pancreatic cancer with increased size pancreatic mass -will evaluate for any additional obstruction with abdominal ultrasound # [id number] type 2 diabetes -hold metformin and Actos -POC glucose -advance to diabetic diet -Humalog on sliding scale DVT prophylaxis-on therapeutic Lovenox DNR/DNI Inpatient need: PO intolerance requiring diet advancement and management of superior mesenteric vein thrombosis requiring parental anticoagulation and further work up Home once able to self inject lovenox safely Time Spent With Patient Time: Total time managing care of this patient today ____ minutes. Quality Stroke Does the patient have a stroke diagnosis?: No VTE Prior VTE?: No VTE Risk Level:: Medical - moderate - high VTE Device Contraindication: Treatment Not Indicated VTE Drug Contraindication: N/A - Med Ordered
[2023-03-14 11:37] LABS: Glucose, Whole Blood 230 mg/dL (60-115)
--- NOTE | 2023-03-14 12:04 | P.CDIM_ITS ---
PROVIDER RESPONSE TEXT: To clarify, the appropriate diagnosis supported by the clinical indicators: Other (explain): unable to further categorized QUERY TEXT: PHYSICIAN'S DOCUMENTATION REQUEST Date of Query: 03/14/2023 07:36 AM EDT Patient Name: Luther Alvares Admit Date: 03/13/2023 Dear Jorge De La Fuente, A review of the medical record indicates additional documentation may be needed. Please review below and update the documentation accordingly. 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 Based on the above, could you clarify the appropriate location of the mesenteric vein thrombosis that supports the above abnormalities and additional evaluation, monitoring, and/or treatment rendered: Small intestine Large intestine Other, please specify Other (explain) Clinically unable to determine (explain) Thank you, Tamiko Cleveland RN Use of terms such as suspected, likely, concern for, or probable (associated with a specific diagnosi s that is being evaluated, monitored, or treated as if it exists) are acceptable and can be coded in the inpatient se tting, when documented at the time of discharge. Please use your independent medical judgment in providing your response. THIS QUERY IS PART OF THE PERMANENT MEDICAL RECORD
--- NOTE | 2023-03-14 12:31 | MHC.CM.PN ---
PATIENT TO DC HOME ON LOVENOX. [facility] IS WILLING TO OFFER RN SERVICES. CASE MANAGEMENT FOLLOWING FOR DC
[2023-03-14 15:56] VITALS: BP 133/61; PULSE 105; RESP 18; TEMP 36.7; O2SAT 97
[2023-03-14 16:28] LABS: Glucose, Whole Blood 254 mg/dL (60-115)
[2023-03-14] MEDS: 0.9 % Sodium Chloride Flush 3 ML SYRINGE IVFLUSH ×2 (16:50→20:59)
[2023-03-14] MEDS: oxyCODONE HCl Immed Release 5 MG TABLET PO (17:28)
[2023-03-14 19:57] VITALS: BP 147/73; PULSE 111; RESP 18; TEMP 37.2; O2SAT 96
[2023-03-14 20:41] LABS: Glucose, Whole Blood 243 mg/dL (60-115)
[2023-03-14] MEDS: Atorvastatin Calcium 10 MG TABLET PO (20:59)
[2023-03-14] MEDS: ondansetron HCL 4 MG/2 ML VIAL IVPUSH (21:05)
[2023-03-15 03:17] VITALS: BP 160/77; PULSE 105; RESP 18; TEMP 36.9; O2SAT 96
[2023-03-15 07:04] LABS: Alanine Aminotransferase 100 U/L (0-40); Albumin Level 2.7 g/dL (3.5-5.0); Alkaline Phosphatase 183 U/L (39-117); Anion Gap 14 (12-20); Aspartate Amino Transferase 101 U/L (5-37); Bilirubin Total 4.8 mg/dL (0.0-1.0); Blood Urea Nitrogen 7 mg/dL (9-16); Calcium 9.3 mg/dL (8.4-10.2); Carbon Dioxide 26 mmol/L (22-29); Chloride 100 mmol/L (96-108); Creatinine Clr Calc Pharmacy 122.8; Estimated Glomerular Filt Rate > 60; Glucose Random 248 mg/dL (60-115); Potassium 3.8 mmol/L (3.3-5.1); Sodium 136 mmol/L (135-145); Total Protein 5.9 g/dL (6.5-8.0)
[2023-03-15 07:47] LABS: Glucose, Whole Blood 253 mg/dL (60-115)
[2023-03-15 08:00] VITALS: BP 144/68; PULSE 102; RESP 18; TEMP 36.9; O2SAT 96
[2023-03-15] MEDS: Insulin Lispro 100 UNIT/ML 3 ML VIAL SUBCUT ×2 (08:00→12:04)
[2023-03-15] MEDS: Magnesium Oxide 400 MG TABLET PO (08:01)
[2023-03-15] MEDS: Cholecalciferol (Vitamin D3) 10 MCG TABLET PO (08:01)
[2023-03-15] MEDS: Multivitamin TABLET 1 TAB PO (08:01)
[2023-03-15] MEDS: 0.9 % Sodium Chloride Flush 3 ML SYRINGE IVFLUSH (08:01)
--- NOTE | 2023-03-15 08:07 | P.PNHO-ONC_ITS ---
Medical Summary - Medical Summary Date of Service: 03/14/23 Chief complaint: Abdominal pain Primary Care Provider: Mario Prince [facility] Medical Summary: Diagnosis: Advanced pancreatic cancer Interval History Interval history: He is feeling somewhat better. He is aware that he is on blood thinner, Lovenox. [facility] Medical History: Medical History (Last Reviewed 03/12/23 @ 22:01 by BRENT Medina) Alcoholism Anemia Cerebellar ataxia Cirrhosis of liver Compression fracture Diabetes 1.5, managed as type 2 Diabetic retinopathy Elevated ferritin Lung nodule Overgrown toenails Pancreatic adenocarcinoma Pancytopenia Peripheral polyneuropathy Venous insufficiency Family History: Family History (Last Reviewed 03/12/23 @ 22:01 by BRENT Medina) Father No problems noted. Mother Lung cancer Maternal Grandmother Cancer Paternal Uncle Diabetes Surgical History: Surgical History (Last Reviewed 03/12/23 @ 22:01 by BRENT Medina) History of esophagogastroduodenoscopy (EGD) History of umbilical hernia repair Hx of colonoscopy Hx of left knee surgery Social History: Social History (Last Reviewed 03/12/23 @ 22:01 by BRENT Medina) Living Situation History: Household Members: Friend(s) Housing: House Do you presently have visiting nurse or other home services: No Tobacco History: Patient Tobacco Use Status: Tobacco use Unknown e-Cigarette/Vaping Use: Never Used Second Hand Smoke Exposure: No Substance Use History: Substance Use Type: Marijuana Occupation Assessmet: service: No Current occupational status: retired Home Medications and Allergies Current Medications: Current Medications Acetaminophen (Acetaminophen 325 Mg Tablet) 650 mg PO Q6H PRN PRN Reason: Pain, Mild (Pain Scale 1-3) Atorvastatin Calcium (Atorvastatin Calcium 10 Mg Tablet) 10 mg PO BEDTIME [facility] Last Admin: 03/14/23 20:59 Dose: 10 mg Docusate Sodium (Docusate Sodium 100 Mg Capsule) 100 mg PO DAILY PRN PRN Reason: Constipation Enoxaparin Sodium (Enoxaparin Sodium 80 Mg/0.8 Ml Syringe) 75 mg SUBCUT Q12H [facility] Last Admin: 03/14/23 20:59 Dose: 75 mg Glucose (Glucose Gel 15 Gm Gel..Gram.) 15 gm PO Q15M PRN; Protocol PRN Reason: per Hypoglycemia Standing Ord. Dextrose (D10) 250 mls @ 750 mls/hr IV Q15M PRN; Protocol PRN Reason: per Hypoglycemia Standing Ord. Insulin Human Lispro (Insulin Lispro 100 Unit/Ml 3 Ml Vial) 0 unit SUBCUT QIDACHS [facility]; Protocol Last Admin: 03/15/23 08:00 Dose: 6 unit Magnesium Oxide (Magnesium Oxide 400 Mg Tablet) 400 mg PO BID [facility] Last Admin: 03/15/23 08:01 Dose: 400 mg Multivitamins/Vitamin C (Multivitamin Tablet) 1 tab PO DAILY [facility] Last Admin: 03/15/23 08:01 Dose: 1 tab Ondansetron HCl (Ondansetron Hcl 4 Mg/2 Ml Vial) 4 mg IVPUSH Q8H PRN PRN Reason: Nausea and Vomiting Last Admin: 03/14/23 21:05 Dose: 4 mg Oxycodone HCl (Oxycodone Hcl Immed Release 5 Mg Tablet) 5 mg PO Q6H PRN PRN Reason: Pain, Severe (Pain Scale 7-10) Last Admin: 03/14/23 17:28 Dose: 5 mg Pharmacy Consult (Consult Rx Perform Med Rec) 1 each MISCELLANE ONCE PRN PRN Reason: Consult order Sodium Chloride (0.9 % Sodium Chloride Flush 3 Ml Syringe) 3 ml IVFLUSH QSHIFT [facility] Last Admin: 03/15/23 08:01 Dose: 3 ml Vitamin D (Cholecalciferol (Vitamin D3) 10 Mcg Tablet) 10 mcg PO DAILY [facility] Last Admin: 03/15/23 08:01 Dose: 10 mcg Home Medications Medication Instructions Recorded Confirmed Type cholecalciferol (vitamin D3) 10 10 mcg PO DAILY 09/15/20 03/12/23 History mcg (400 unit) capsule Allergies Allergy/AdvReac Type Severity Reaction Status Date / Time morphine [MORPHINE] Allergy Intermediate SEVERE Verified 03/13/23 05:16 VOMITING, vomiting, vomiting Exam Vital signs: Vital Signs Temp 98.4 F 03/15/23 08:00 Pulse 102 H 03/15/23 08:00 Resp 18 03/15/23 08:00 BP 144/68 H 03/15/23 08:00 Pulse Ox 96 03/15/23 08:00 O2 Del Method Room Air 03/15/23 08:00 Intake & Output 03/14/23 03/15/23 03/15/23 18:59 06:59 18:59 Intake Total 770.667 / 770.667 Output Total Balance 770.667 / 769.667 - 769.667 Intake: Intake, Oral Amount 240 / 240 Intake, IV Amount 530.667 / 530.667 Lactated Ringers 1,000 ml @ 80 530.667 / 530.667 mls/hr IVCONT .[id number] [facility] Rx#: [id number] Output: Output, Stool Amount Other: Meal Refused No NPO Yes Breakfast % Eaten NPO Lunch % Eaten <25 Dinner % Eaten <25 Number of Incontinent Voids 1 Number of Unmeasured Voids 2 4 Number of Bowel Movements 1 Urine Bathroom Bathroom Urine Color Yellow Yellow Last Bowel Movement 03/14/23 03/15/23 Stool Bathroom Bathroom Stool Amount Small Small Stool Color Brown Stool Consistency Soft Weight 74.389 kg BMI result Body Mass Index 24.9 - Constitutional Present: no acute distress - Routine HEENT Exam Head: Present: normal inspection - Routine Respiratory Exam Present: CTAB - Routine Cardiovascular Exam Cardiovascular: Present: S1, S2 - Routine Abdominal Exam Present: soft Data - Labs CBC & Chem 7: 03/15/23 11:32 03/15/23 06:00 Labs: 03/12/23 US abdomen limited Stat 03/12/23 18:46 CT abdomen pelvis w IV con Stat 0.9 % Sodium Chloride [Ns] 1,000 ml IV 999 mls/hr 03/12/23 19:00 iohexoL 350 MG/ML [Omnipaque 350 MG/ML] 100 ml IV ONCE ONE 03/12/23 21:51 Admission Assessment - Modified NOW Intake and Output Q8HR 03/12/23 21:53 Clear Liquid Diet 03/12/23 22:00 Lactated Ringers [Lr] 1,000 ml IVCONT 80 mls/hr 03/13/23 04:24 Admission Assessment - Modified NOW 03/13/23 04:40 CMP [Comprehensive Met. Panel] DAILY@0600 Complete Blood Count Auto Diff DAILY@0600 03/13/23 07:15 Glucose, Whole Blood Routine 03/13/23 11:08 Glucose, Whole Blood Routine 03/13/23 16:25 Glucose, Whole Blood Routine 03/13/23 20:38 Glucose, Whole Blood Routine 03/14/23 07:19 Glucose, Whole Blood Routine 03/14/23 11:32 Glucose, Whole Blood Routine 03/14/23 16:14 Glucose, Whole Blood Routine 03/14/23 20:32 Glucose, Whole Blood Routine 03/15/23 06:00 CMP [Comprehensive Met. Panel] Routine 03/15/23 07:22 Glucose, Whole Blood Routine Laboratory Last Values WBC 10.1 X10*3/uL (4.8-10.8) 03/13/23 04:40 RBC 3.63 X10*6/uL (4.60-5.80) L 03/13/23 04:40 Hgb 12.6 g/dl (14.0-18.0) L 03/13/23 04:40 Hct 36.4 % (42.0-52.0) L 03/13/23 04:40 MCV 100.3 fL (80.0-98.0) H 03/13/23 04:40 MCH 34.7 pg (27.0-33.0) H 03/13/23 04:40 MCHC 34.6 g/dl (31.0-36.0) 03/13/23 04:40 RDW 13.8 % (11.0-16.0) 03/13/23 04:40 Plt Count 71 X10*3/uL (160-400) L 03/13/23 04:40 MPV 10.5 fL (9.4-12.4) 03/13/23 04:40 Immature Gran % (Auto) 0.6 % (0.0-0.4) H 03/13/23 04:40 Neut % (Auto) 82.9 % (45-73) H 03/13/23 04:40 Lymph % (Auto) 5.2 % (20-40) L 03/13/23 04:40 [place] % (Auto) 9.1 % (2-11) 03/13/23 04:40 Eos % (Auto) 1.7 % (0-4) 03/13/23 04:40 Baso % (Auto) 0.5 % (0-2) 03/13/23 04:40 Lymph # (Auto) 0.5 X10*3/uL (1.2-4.9) L 03/13/23 04:40 [place] # (Auto) 0.9 X10*3/uL (0.1-1.2) 03/13/23 04:40 Eos # (Auto) 0.2 X10*3/uL (0.0-0.4) 03/13/23 04:40 Baso # (Auto) 0.1 X10*3/uL (0.0-0.2) 03/13/23 04:40 Abs Immat Gran (auto) 0.06 X10*3/uL (0.00-0.03) H 03/13/23 04:40 Absolute Neuts (auto) 8.4 x10*3/uL (2.0-8.3) H 03/13/23 04:40 Absolute Nucleated RBC 0.000 X10*3/uL (0.0-0.012) 03/13/23 04:40 Nucleated RBC % (auto) 0.0 /100WBC (0.0-0.2) 03/13/23 04:40 Sodium 136 mmol/L (135-145) 03/15/23 06:00 Potassium 3.8 mmol/L (3.3-5.1) 03/15/23 06:00 Chloride 100 mmol/L (96-108) 03/15/23 06:00 Carbon Dioxide 26 mmol/L (22-29) 03/15/23 06:00 Anion Gap 14 (12-20) 03/15/23 06:00 BUN 7 mg/dL (9-16) L 03/15/23 06:00 Creatinine 0.58 mg/dL (0.5-1.4) 03/15/23 06:00 Estim Creat Clear Calc 122.8 03/15/23 06:00 Estimated GFR > 60 03/15/23 06:00 POC Glucose 253 mg/dL (60-115) H 03/15/23 07:22 Random Glucose 248 mg/dL (60-115) H 03/15/23 06:00 Calcium 9.3 mg/dL (8.4-10.2) D 03/15/23 06:00 Total Bilirubin 4.8 mg/dL (0.0-1.0) H 03/15/23 06:00 AST 101 U/L (5-37) H 03/15/23 06:00 ALT 100 U/L (0-40) H 03/15/23 06:00 Alkaline Phosphatase 183 U/L (39-117) H 03/15/23 06:00 Total Protein 5.9 g/dL (6.5-8.0) L 03/15/23 06:00 Albumin 2.7 g/dL (3.5-5.0) L 03/15/23 06:00 - Imaging Radiologist's impression: ITS Impressions Abdomen/Pelvis CT 03/12/23 19:03 IMPRESSION: 1. The known pancreatic head mass lesion has increased in size from the 01/12/2023 MRI study. There is new irregularity seen along the superior mesenteric vein and region of the portal confluence. The vein had a more normal appearance on the prior MRI as well. Uncertain if this is related to tumor thrombus or bland thrombus or mixture of both now present within the vein. The density is similar to the density in the adjacent pancreatic parenchyma. 2. The known hepatic lesions were better demonstrated on the prior MRI. The lesion in the lateral segment 8 appears to have decreased in size from the prior MRI. There is diffuse heterogeneity within the liver. There is ill-defined soft tissue hypodensity centrally within segments 4 and 8 of the liver which was not as abnormal on the prior MRI. Etiology of this is uncertain. I do not appreciate any intrahepatic biliary ductal dilatation. 3. Small volume of abdominal ascites is again seen. 4. Diverticulosis but no obvious diverticulitis. 5. Chronic appearing changes otherwise as described above. Abdomen Ultrasound 03/12/23 22:40 IMPRESSION: 1. Heterogeneous echotexture of liver with lobular contour of liver surface consistent with cirrhosis. 2. Echogenic lesion right lobe of liver. Lesion was characterized on MR study 01/12/2023. See separate report. 3. Gallbladder not visualized. No bile duct dilatation. Assessment and Plan Patient Active problem list reviewed?: Yes (1) Pancreatic adenocarcinoma Status: Acute Assessment and plan: 1. This is a 63-year-old male with pancreatic adenocarcinoma diagnosed in February 2023. He underwent MRI abdomen with and without contrast on 01/12/2023 which revealed a 2.4 X 1.9 cm lesion with ill-defined margins and peripheral enhancement in right lobe of liver which is suspicious for malignancy. Differential diagnosis includes atypical HCC, cholangiocarcinoma and metastasis. There was peritumoral enhancement in central necrosis suggestive of her more aggressive histologic type. There was also new hypoenhancing mass inseparable from anterior surface of head of pancreas suspicious for pancreatic neoplasm. There was a separate 0.9 cm les ion in the liver in segment 6 and an enlarged periportal lymph node which is stable compared to 2019. Patient underwent EUS/biopsy of pancreatic lesion at [facility], revealed abnormal echogenicity and nodularity of liver consistent with known cirrhosis. Liver lesion could not be visualized. Mass was seen in the pancreatic head, measuring 2.9 x 2.7cm.FNA, Pathology revealed adenocarcinoma. He presented with hyperbilirubinemia and worsening abdominal pain, nausea and emesis. Further evaluation with CT abdomen and pelvis with contrast showed increase in size of pancreatic head mass along with superior mesenteric vein/portal vein thrombosis. Ill-defined soft tissue hypodensity centrally within segments 4 and 8 of liver seem to have increased, unclear etiology. No intrahepatic biliary ductal dilatation. Small volume of abdominal ascites seen. Patient has been started on Lovenox 1 mg/kilos b.i.d.. For ease of administration and convenience, he could be discharged on once a day dosing, 100 mg subQ daily. - Time Spent With Patient Time Spent with Patient (in minutes): 15
[2023-03-15] MEDS: oxyCODONE HCl Immed Release 5 MG TABLET PO (08:45)
[2023-03-15] MEDS: Enoxaparin Sodium 80 MG/0.8 ML SYRINGE 75 MG SUBCUT (08:46)
--- NOTE | 2023-03-15 09:09 | MHC.CM.PN ---
POSSIBLE DC TODAY HCP COPY UPLOADED INTO [facility] TODAY (03/15/23) CASE MANAGEMENT FOLLOWING FOR POTENTIAL DC
--- NOTE | 2023-03-15 10:44 | PM.DS ---
DS: Providers Provider Date of Service: 04/29/23 Date of admission: 03/12/23 21:51 Primary care physician: ZACHARY Larson Consults: 03/12/23 21:51 Consult to Hematology / Oncology Routine Consulting Provider: Karie Butt Reason for consultation: metastatic pancreatic cancer 03/13/23 10:34 Consult to Gastroenterology Routine Consulting Provider: Jenna Tucker Reason for consultation: Pancreatic mass, jaundice DS: Diagnosis Discharge Diagnosis (1) Mass of head of pancreas: Status: Acute (2) Liver lesion: Status: Acute (3) Elevated bilirubin: Status: Acute (4) Portal vein thrombosis: Status: Acute DS: Summary Hospital Course Hospital Course: Chief Complaint: abd pain, nausea 63 year old male with history noninsulin dependent type 2 diabetes, alcoholic cirrhosis of the liver with hx alcoholism (quit 2+ years ago), diabetic polyneuropathy, venous insuffiency, and metastatic adenocarcinoma pancreas presenting to ED earlier today from oncology for evaluation of p.o. intolerance from oncology office.? The patient has had longstanding abdominal pain, worst in the epigastric area, but has had worsening diffuse abdominal discomfort over the last few days associated with nausea and vomiting.? Denies any anorexia but states any time he tries to eat or drink anything, he has been vomiting.? Also has diarrhea but this has been longstanding and relates this to metformin use.? Denies any fevers, chills, melena, hematochezia, constipation, lightheadedness, shortness of breath, cough, chest pain.? On arrival, vital stable.? Hematology studies performed earlier today at oncology visit were baseline and renal function and electrolyte levels were normal.? There was an increase in LFTs with AST 63, ALT 85, total bilirubin 5.8 (was 2.5 on 02/16), alkaline phosphatase 228.? CT of the abdomen/pelvis shows increase in size of the mass on the pancreatic head compared to MRI from 01/12/2023 with new irregularity along the superior mesenteric vein and region of the portal confluence which could possibly be related to tumor thrombosis or bland thrombosis or mixture of both now present within the vein.? It is similar in density to the adjacent pancreatic parenchyma.? There is also evidence of liver metastasis but no intrahepatic biliary ductal dilatation.? In the ED, treated with IV NS. Hospital course: This patient with known adenocarcinoma of the pancreas presented with abdominal pain nausea and workup revealed increase in the size of the pancreatic mass and superior mesenteric and portal vein thrombosis. He has been initiated on Lovenox and is recommended to stay this by Oncology. Eliquis or Xarelto or other similar product is to be avoided given his high LFTs. Overall his abdominal pain is resolved all well controlled with oxycodone he, he has no nausea vomiting and is tolerating diet. Plan is for him to go home with the Lovenox family would assist him with the injection. The Lovenox doses been changed to once daily injection for ease of administration Elevated LFTs and bilirubin is likely related to a liver mass which is probably of metastatic in origin and cirrhotic cap p.r.n. liver. Overall LFTs are stable and the bilirubin is slightly lower currently at around 4.8. And has been as high as 5. As far as adenocarcinoma of the pancreas, he will follow up with Dr. 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 Nausea vomiting that has resolved Time Spent with Patient Time attestation: Total time managing care of this patient today ____ minutes. Discharge coordination time: Greater than 30 minutes Quality: Safe Use of Opioids Does Pt have an Active Cancer Diagnosis on the Problem List?: No Quality: Stroke Does the patient have a stroke diagnosis?: No Physical Exam Vital Signs: Vital Signs: Last Vital Signs Temp 98.4 F 03/15/23 08:00 Pulse 102 H 03/15/23 08:00 Resp 18 03/15/23 08:00 BP 144/68 H 03/15/23 08:00 Pulse Ox 96 03/15/23 08:00 O2 Del Method Room Air 03/15/23 08:00 BMI result Body Mass Index 24.9 DS: Data Data Completed and Pending Labs on day of discharge: Laboratory Results - last 24 hr 03/14/23 03/14/23 03/14/23 11:32 16:14 20:32 Sodium Potassium Chloride Carbon Dioxide Anion Gap BUN Creatinine Estim Creat Clear Calc Estimated GFR POC Glucose 230 H 254 H 243 H Random Glucose Calcium Total Bilirubin AST ALT Alkaline Phosphatase Total Protein Albumin 03/15/23 03/15/23 06:00 07:22 Sodium 136 Potassium 3.8 Chloride 100 Carbon Dioxide 26 Anion Gap 14 BUN 7 L Creatinine 0.58 Estim Creat Clear Calc 122.8 Estimated GFR > 60 POC Glucose 253 H Random Glucose 248 H Calcium 9.3 D Total Bilirubin 4.8 H AST 101 H ALT 100 H Alkaline Phosphatase 183 H Total Protein 5.9 L Albumin 2.7 L Discharge Plan Discharge Anticipated Discharge Date/Time: 03/15/23 10:40 Patient Disposition: Home Health Service Discharge Diagnosis: Portal vein and mesenteric and vein thrombosis. Referrals: [facility] [Outside] - 1 Week Karie Butt MD [Physician] - 1 Week Mario Prince FNP- [Primary Care Provider] - 1 Week Discharge Medications: No Action scopolamine base 1 mg over 3 days patch 3 day 1 patch transdermal Q72H 12 Days Qty: 4 0RF Rx Instructions: 1 patch behind ear Q72H for secretions lorazepam [Lorazepam Intensol] 2 mg/mL concentrate 0.5 mg PO Q4H PRN (Reason: anxiety/restlessness) Qty: 30 0RF hydromorphone [Dilaudid] 1 mg/mL liquid 2 mg PO Q2H PRN (Reason: pain and comffort) Qty: 473 0RF Rx Instructions: Partial Fill upon patient request. Discharge Orders: Discharge Order (Routine); Ordered 03/15/23 Ordered By: Jorge De La Fuente Diet: Advance to usual diet Activity on Discharge: As tolerated Stand Alone Forms: Patient Portal Discharge page Care Plan Goals: Treatment of a mesenteric and portal vein thrombosis Health Concerns: Pancreatic cancer Liver lesions likely from metastasis High bili rule Abdominal pain due to pancreatic cancer Plan of Treatment: To take Lovenox injection as recommended (90 mg ) Oxycodone for pain Follow-up with Dr. Butt Assessment: As above Discharge Date/Time: 03/15/23 14:40
[2023-03-15 11:24] LABS: Glucose, Whole Blood 236 mg/dL (60-115)
[2023-03-15 11:59] LABS: Hematocrit 35.7 % (42.0-52.0); Hemoglobin 12.2 g/dl (14.0-18.0); Mean Corpuscular HGB Conc 34.2 g/dl (31.0-36.0); Mean Corpuscular Hemoglobin 34.7 pg (27.0-33.0); Mean Corpuscular Volume 101.4 fL (80.0-98.0); Mean Platelet Volume 10.6 fL (9.4-12.4); Red Blood Count 3.52 X10*6/uL (4.60-5.80); Red Cell Distribution Width 14.3 % (11.0-16.0); White Blood Count 11.1 X10*3/uL (4.8-10.8)
[2023-03-15 12:01] LABS: Platelet Count 70 X10*3/uL (160-400)
[2023-03-15] MEDS: Enoxaparin Sodium 30 MG/0.3 ML SYRINGE SUBCUT (12:05)
--- NOTE | 2023-03-15 14:55 | MHC.CM.PN ---
PATIENT DC HOME WITH NEW [facility] SERVICES. F2F NOT IN YET. T/W REACHED OUT TO AGENCY TO ASK IF THEY CAN RETRIEVE IT, PATIENT IS DC FROM [facility]
== END 2023-03-15 14:40 | disposition home health service (06) | DRG 441 ==
LOC: HO.ED 03-13 01:49 → HO.EDOVER 03-13 04:28 → HO.S3 03-13 05:02
PROVIDERS: Internal Medicine; Admitting Provider Physician Assistant; Emergency Provider Internal Medicine; PCP Nurse Practitioner Family; Visit Provider Internal Medicine
DX: I81 Portal vein thrombosis (principal); K55.059 Acute (reversible) ischemia of intestine, part and extent unspecified; C25.0 Malignant neoplasm of head of pancreas; C78.7 Secondary malignant neoplasm of liver and intrahepatic bile duct; Z66 Do not resuscitate; F10.21 Alcohol dependence, in remission; K70.30 Alcoholic cirrhosis of liver without ascites; E11.42 Type 2 diabetes mellitus with diabetic polyneuropathy; Z88.0 Allergy status to penicillin; Z79.84 Long term (current) use of oral hypoglycemic drugs; Z79.899 Other long term (current) drug therapy
CPT/HCPCS: 36415; 49083; 71046; 74018; 74176; 74177; 74181; 76705; 80048; 80053; 80076; 82042; 82140; 82248; 82945; 82947; 83615; 83690; 83735; 84157; 85025; 85027; 85610; 85730; 86015; 86021; 86038; 86704; 86706; 86709; 86803; 86850; 86880; 86900; 86901; 87070; 87073; 87205; 87340; 88112; 88305; 88341; 88342; 89051; 94640; 99284; 99285; C1726; C1769; C2617; J0690; J0696; J1100; J1170; J1610; J1650; J2060; J2250; J2405; J2543; J3010; J3430; P9047; Q9967

== ENCOUNTER 2023-03-17 11:16 | Inpatient (IN) | payer MEDICARE, SELFPAY ==
--- NOTE | ~2023-03-17 | US_ITS ---
PROCEDURE: US-GUIDED PARACENTESIS CLINICAL INFORMATION: Ascites. COMPARISON: None available. TECHNIQUE: Following explaining ultrasound-guided paracentesis procedure, benefits and risk, a written consent was obtained. Patient was placed supine on ultrasound stretcher and preliminary ultrasound imaging was obtained. An optimal site was selected along the right lower quadrant and marked. The marked site was cleaned and draped in usual sterile manner with 2% chlorhexidine solution. Through a small skin incision, a 4-Italian Signix catheter was advanced into the peritoneal space. After observing fluid return, stylet was withdrawn and catheter connected to vacuum bottle via connecting cannula. After obtaining all fluid and observing normal fluid return, the catheter was withdrawn and complete hemostasis at puncture site. Sterile Band-Aid applied post procedure. Patient tolerated the procedure extremely well. FINDINGS: On pulmonary ultrasound imaging, there is [id number] amount of fluid most localized in the right lower quadrant. Approximately 4.4 L of howie color fluid was drained. Part of this fluid was sent to the lab. US/US paracentesis abd w/image IMPRESSION: Successful ultrasound-guided diagnostic and therapeutic paracentesis performed.
--- NOTE | ~2023-03-17 | CT_ITS ---
EXAMINATION: CT ABDOMEN AND PELVIS WITH CONTRAST CLINICAL INFORMATION: Biliary obstruction COMPARISON: Previous CT scans of the abdomen and pelvis and MRCP from earlier this month TECHNIQUE: Multidetector volumetric images were obtained from the superior aspect of the liver through the pubic symphysis following administration 85 mL of Omnipaque 350 intravenous contrast. Sagittal and coronal reformatted images were obtained on the technologist's workstation. Oral contrast: Yes This CT examination was performed using dose optimization techniques as appropriate, variously including the following: *Automated exposure control *Adjustment of mA and/or kV according to patient size (this includes techniques or standardized protocols for targeted exams where dose is matched to indication/reason for exam; i.e. extremities or head) *Use of iterative reconstruction technique DLP: 664 mGy-cm FINDINGS: LUNG BASES: There is bibasilar atelectasis/pneumonia. There also appear to be new small bilateral lower lobe pulmonary nodules. For example there is a new 3 mm right lower lobe nodule axial image 4 series. The heart is enlarged. LIVER, GALLBLADDER, AND BILIARY TREE: There are cirrhotic changes of the liver. There are increasing small low-attenuation lesion lesions seen throughout the liver. Largest measures 1.5 cm in the anterior segment of the right lobe. There is low-attenuation seen centrally in the liver. Appearance is questionable for a mass versus periportal edema versus postprocedural changes from ERCP. There is new linear branching high attenuation seen centrally in the liver questionable for retained contrast from the ERCP. There is a new plastic stent in the common bile duct. No other evidence of biliary duct dilatation is seen. The gallbladder is not seen. There is a large amount of ascites. PANCREAS: There is low attenuation seen in the head of the pancreas. This appears increased from previous exam measuring approximately 3.6 x 4.6 cm in AP and transverse dimension compared to 2.7 x 2.2 cm on prior contrast-enhanced CT 03/12/2023. There is thrombus seen in the SMV adjacent to the head of the pancreas.. SPLEEN: The spleen is enlarged. ADRENAL GLANDS: Unremarkable. KIDNEYS AND URETERS: The kidneys are normal in size, shape, and attenuation. No hydronephrosis, hydroureter, or calculi seen. No perinephric stranding. BLADDER: Not optimally distended. GASTROINTESTINAL TRACT: Diffuse wall thickening of the colon questionable for colitis. Small bowel is unremarkable. The stomach is unremarkable. There may be wall thickening of the distal thoracic esophagus. The appendix is normal. ABDOMINAL WALL: Left inguinal hernia containing fat. LYMPH NODES: There are prominent periportal peripancreatic upper abdominal retroperitoneal and cardiophrenic angle or anterior diaphragmatic lymph nodes. VASCULAR: Thrombus in the SMV. The splenic vein is patent. The main portal vein is patent. Right and left portal veins and hepatic veins are difficult to evaluate. There are varices. The aorta is normal in caliber. PELVIC VISCERA: Unremarkable. OSSEOUS STRUCTURES: Osteopenia. Severe degenerative spondylosis of the spine and ossification of the anterior longitudinal ligament. Degenerative disc disease at L5-S1. CT/CT abdomen pelvis w IV con IMPRESSION: Cirrhosis and evidence of portal hypertension with varices, enlarged spleen and large amount of ascites. New plastic internal biliary stent in the common bile duct. There is linear branching high attenuation seen centrally in the liver questionable for retained contrast in bile ducts from recent ERCP. No other evidence of biliary duct dilatation. Low-attenuation seen centrally in the liver, question representing mass periportal edema or postprocedure changes from ERCP. Increasing small low-attenuation lesions throughout the liver. Rapid change favors an infectious or inflammatory process/liver abscesses over neoplastic process. Continued interval increase in low-attenuation lesion in the head of the pancreas. Pseudocyst or infection versus neoplasm should be considered. Thrombus in the SMV. Diffuse wall thickening of the colon suggestive of colitis. Increasing bibasilar atelectasis/consolidation. New small pulmonary nodules. No significant abnormality. Fleischner guidelines were followed.
--- NOTE | ~2023-03-17 | FL_ITS ---
EXAMINATION: XR FLUOROSCOPY WITH IMAGES CLINICAL INFORMATION: ERCP. COMPARISON: None available. TECHNIQUE: Fluoroscopy Supervised By: Dr. Jenna Tucker. Fluoroscopy Time: 89.4 seconds. Cumulative Dose: 40.39 mGy. Images: 13. FINDINGS: Fluoroscopy and spot films provided during ERCP. Please see Dr. Jenna Tucker's report for full details. FL/FL guidance in OR IMPRESSION: Fluoroscopy and spot films provided during ERCP.
--- NOTE | ~2023-03-17 | FL_ITS ---
EXAMINATION: XR FLUOROSCOPY WITH IMAGES CLINICAL INFORMATION: ERCP. Ascites. COMPARISON: ERCP 03/20/2023. TECHNIQUE: Fluoroscopy Supervised By: Dr. Tucker. Fluoroscopy Time: 3.5 minutes. Cumulative Dose: 105 mGy-cm DAP: 25.8 uGy-cm2 Images: 13. FINDINGS: There are multiple images obtained during ERCP revealing contrast opacifying the CBD and intrahepatic ducts. The pancreatic duct is not visualized. A small filling defect is suspected in the proximal mid CBD. Subsequent images reveal a CBD stent in place. FL/FL guidance in OR IMPRESSION: Fluoroscopy guidance was provided to referring physician during ERCP. The last image reveals a CBD stent in place.
--- NOTE | ~2023-03-17 | XR_ITS ---
EXAMINATION: XR ABDOMEN KUB CLINICAL INDICATION: Evaluate position of biliary stent COMPARISON: Selected portions of endoscopic exam 03/20/23 TECHNIQUE: AP view of the abdomen. FINDINGS: There is a partially opaque stent in the right upper abdomen with flanges superiorly and inferiorly. This appears appropriately position 2 traverse the region of the extrahepatic biliary tree. This is a similar appearance at the conclusion of the endoscopic study 03/20/23. Moderate gaseous distention within small and large bowel. Relative paucity of rectal gas. There is extensive calcification of the vas deferens. There are osteophytes or bridging syndesmophytes in the visualized lower spine. XR/XR KUB IMPRESSION: There is a biliary stent which appears appropriately positioned. Nonspecific gaseous distention
--- NOTE | ~2023-03-17 | US_ITS ---
EXAMINATION: Ultrasound-guided paracentesis CLINICAL INFORMATION: Ascites COMPARISON: Previous CT from yesterday and paracentesis 03/22/2023 TECHNIQUE: Procedure and risks and benefits including bleeding, infection and low blood pressure were discussed with the patient's healthcare proxy, his daughter by telephone, and informed consent was obtained. The right lower quadrant was prepped and draped in the usual sterile fashion. The skin and soft tissues were anesthetized with 1% lidocaine plain. Using ultrasound guidance and a 5 [place] one-step system, access to the ascitic fluid was obtained. 3.6 L of serosanguineous fluid was removed. Specimen was sent for Gram stain and culture and cell count and cytology studies. FINDINGS: There is a moderate amount of ascites. US/US paracentesis abd w/image IMPRESSION: Ultrasound-guided paracentesis.
--- NOTE | ~2023-03-17 | MR_ITS ---
EXAMINATION: MR ABDOMEN WITHOUT CONTRAST CLINICAL INFORMATION: Obstructive jaundice. COMPARISON: Previous CT and ultrasound of the abdomen from earlier this month and MRI of the abdomen, most recent January 2023. Exam is significantly limited due to motion. TECHNIQUE: MR abdomen is performed without gadolinium contrast. MRCP sequences were also performed. FINDINGS: LUNG BASES: Small bilateral pleural effusions. LIVER, GALLBLADDER, AND BILIARY TREE: The liver appears cirrhotic. There is increased central increased T2 signal seen in the liver questionable for periportal edema. Previously identified liver lesion in the anterior segment of the right lobe of the liver not well appreciated without contrast. MRCP sequences are nondiagnostic. No intra or extrahepatic biliary duct dilatation. The gallbladder is not seen. Small amount of ascites. PANCREAS: Slightly bright T2 cystic area in the uncinate process of the head of the pancreas appears increased in size. This measures 2.9 x 3.3 cm compared to 2.2 x 2.3 cm 01/25/2010. There is question of a new cystic area in the more superior head of the pancreas measuring 1.6 x 1.9 cm. Rapid change in appearance raises the question of possible infectious or inflammatory process in the pancreas. The remainder the pancreas is unremarkable. The main pancreatic duct does not appear dilated. SPLEEN: The spleen is enlarged measuring 16 cm in length. ADRENAL GLANDS: Unremarkable. KIDNEYS AND URETERS: The kidneys are normal in size and shape. Small peripelvic cysts. No imaging follow-up recommended. No hydronephrosis. No perinephric stranding. GASTROINTESTINAL TRACT: No bowel obstruction. No ascites or fluid collection. ABDOMINAL WALL: No significant hernia is appreciated. LYMPH NODES: Previously identified enlarged periportal lymph node not appreciated. VASCULAR: Unremarkable. OSSEOUS STRUCTURES: Marrow signal normal. Degenerative changes of the spine. MR/MR MRCP IMPRESSION: Very limited exam. No biliary duct dilatation. Nondiagnostic MRCP. Cirrhotic-appearing liver. Increased central bright T2 signal in the liver, question representing periportal edema. Previously identified lesion in the anterior segment of the right lobe of the liver not appreciated. Suspect increase in size in the cystic lesion in the head of the pancreas now measuring 2.9 x 3 cm and question of a new more superior cystic area. Splenomegaly and ascites.
--- NOTE | ~2023-03-17 | CT_ITS ---
EXAMINATION: CT ABDOMEN AND PELVIS WITHOUT CONTRAST CLINICAL INFORMATION: Increased abdominal pain check for ascites. COMPARISON: Previous ultrasound and CT March 2023 and MR of the abdomen January 2023 TECHNIQUE: Multidetector volumetric imaging was performed from the superior aspect of the liver through the pubic symphysis. Sagittal and coronal reformatted images were obtained on the technologist's workstation. This CT examination was performed using dose optimization techniques as appropriate, variously including the following: *Automated exposure control *Adjustment of mA and/or kV according to patient size (this includes techniques or standardized protocols for targeted exams where dose is matched to indication/reason for exam; i.e. extremities or head) *Use of iterative reconstruction technique DLP: 551 mGy-cm FINDINGS: LUNG BASES: Left lower lobe nodules largest measuring 7 mm. Atelectasis in the inferior lingula. LIVER, GALLBLADDER, AND BILIARY TREE: Cirrhotic-appearing liver. Stable 1.5 cm low-attenuation lesion in the anterior segment of the right lobe of the liver. Other liver lesions not appreciated without IV contrast. Gallbladder not seen. No biliary duct dilatation. Small amount of ascites. PANCREAS: The head of the pancreas appears enlarged. No pancreatic mass is not well appreciated without IV contrast. SPLEEN: Enlarged measuring 16 cm in length. ADRENAL GLANDS: Unremarkable. KIDNEYS AND URETERS: The kidneys are normal in size, shape, and attenuation. No hydronephrosis, hydroureter, or calculi seen. No perinephric stranding. Bilateral small peripelvic cysts, left greater than right. No imaging follow-up recommended. BLADDER: Unremarkable. GASTROINTESTINAL TRACT: Diverticulosis of the colon. Stool throughout the colon questionable for constipation. No evidence of obstruction. Question mild wall thickening of the right colon and hepatic flexure. The stomach and duodenum are fluid-filled and is slightly dilated. Note transition zone to suggest mechanical obstruction.. There may be wall thickening of the distal esophagus. The appendix is unremarkable. ABDOMINAL WALL: No significant hernia is appreciated. LYMPH NODES: Prominent periportal lymph nodes. Small retroperitoneal lymph nodes. VASCULAR: Atherosclerotic disease. PELVIC VISCERA: Unremarkable. OSSEOUS STRUCTURES: Severe degenerative changes of the spine with bridging vertebral body bony osteophytes. Degenerative disc disease at L5 S1. CT/CT abdomen pelvis wo IV con IMPRESSION: Cirrhotic-appearing liver. Stable 1.5 cm liver lesion in the anterior segment of the right lobe. Splenomegaly. Small amount of ascites. Enlarged head of the pancreas. Known pancreatic mass is not identified without IV contrast. Left lower lobe pulmonary nodules. Mild wall thickening of the right colon and hepatic flexure. Appearance is questionable for colitis versus changes related to liver disease/low albumin. Distended fluid-filled stomach and proximal small bowel. No evidence of mechanical obstruction. There may be wall thickening of the distal thoracic esophagus as well. Severe atherosclerotic disease. Fleischner guidelines were followed.
--- NOTE | ~2023-03-17 | XR_ITS ---
EXAMINATION: XR CHEST CLINICAL INFORMATION: Elevated leukocytosis COMPARISON: CT chest 04/26/2017 TECHNIQUE: 2 views of the chest were obtained. FINDINGS: The lungs are hypoexpanded with dense opacity left lung base likely atelectasis/infiltrate. Linear strands are seen in the right middle lobe and the lingular segments likely platelike or heart size and progress clarities normal. XR/XR chest 2V IMPRESSION: Hypovolemia left lung base with dense opacity likely atelectasis/infiltrate. There is minimal atelectatic changes right middle lobe and lingula.
[2023-03-17 11:21] VITALS: BP 148/67; PULSE 118; RESP 18; TEMP 37; O2SAT 98; BMI 24.9
--- NOTE | 2023-03-17 11:21 | ED.GENADULT ---
HPI - General Adult General Chief complaint: Abdominal Pain Stated complaint: clots in liver Time Seen by Provider: 03/17/23 11:35 Source: patient Mode of arrival: ambulatory Limitations: no limitations History of Present Illness HPI narrative: A 63-year-old male with history of non insulin-dependent DM, alcoholics liver cirrhosis, former alcoholism, venous insufficiency, metastatic adenocarcinoma of the pancreas, patient also is on Lovenox for superior mesenteric/portal vein thrombosis the patient was instructed to return to the ED after found increased swelling of the abdomen and the scrotum. Also been having decreased p.o. intake and increases pain. Related Data Home Medications Medication Instructions Recorded Confirmed cholecalciferol (vitamin D3) 10 10 mcg PO DAILY 09/15/20 03/12/23 mcg (400 unit) capsule Previous Rx's Medication Instructions Recorded vitamin B complex 1 tab PO DAILY #90 tabs 05/13/21 blood-glucose meter (OneTouch #1 ea 01/06/22 Ultra2 Meter) lancets 30 gauge (OneTouch Delica #100 ea 01/06/22 Lancets) blood sugar diagnostic (OneTouch #100 ea 04/03/22 Ultra Test strips) metformin 1,000 mg tablet 1,000 mg PO BID #180 tabs 05/09/22 magnesium oxide 400 mg (241.3 mg 400 mg PO BID #180 tabs 06/30/22 magnesium) tablet atorvastatin 10 mg tablet 10 mg PO BEDTIME 90 days #90 tabs 12/25/22 pioglitazone 30 mg tablet (Actos) 30 mg PO DAILY 90 days #90 tabs 12/25/22 enoxaparin 100 mg/mL subcutaneous 90 mg (0.9 mL) subcut DAILY #90 mL 03/15/23 syringe (Lovenox) oxycodone 5 mg tablet 5 mg PO Q6H PRN Pain, Severe (Pain 03/15/23 Scale 7-10) #20 tabs Allergies Allergy/AdvReac Type Severity Reaction Status Date / Time morphine [MORPHINE] Allergy Intermediate SEVERE Verified 03/13/23 05:16 VOMITING, vomiting, vomiting Review of Systems Review of Systems: All other systems are reviewed and are negative Constitutional: Reports as per HPI and Reports no additional constitutional complaints Eyes: Reports as per HPI and Reports no additional eye complaints Reports system reviewed and no additional complaints, except as documented Cardiovascular: Reports as per HPI and Reports no additional cardiovascular complaints Respiratory: Reports as per HPI and Reports no additional respiratory complaints Gastrointestinal: Reports as per HPI and Reports no additional gastrointestinal complaints Genitourinary: Reports no additional female genitourinary complaints Musculoskeletal: Reports no additional musculoskeletal complaints Skin/Breast: Reports system reviewed and no additional complaints, except as docu Psychiatric: Reports no additional psychiatric complaints Endocrine: Reports no additional endocrine complaints Hematologic/Lymphatic: Reports no additional hematologic/lymphatic complaints Allergic/Immunologic: Reports no additional allergic/immunologic complaints Reports system reviewed and no additional complaints, except as documented and Reports Abnormal speech present [facility] Past Medical History Medical History Alcoholism Anemia Cerebellar ataxia Cirrhosis of liver Compression fracture Diabetes 1.5, managed as type 2 Diabetic retinopathy Elevated ferritin Lung nodule Overgrown toenails Pancreatic adenocarcinoma Pancytopenia Peripheral polyneuropathy Venous insufficiency Surgical History History of esophagogastroduodenoscopy (EGD) History of umbilical hernia repair Hx of colonoscopy Hx of left knee surgery Family History Family History Father No problems noted. Mother Lung cancer Maternal Grandmother Cancer Paternal Uncle Diabetes Social History Social History Household Members: Friend(s) Housing: House Do you presently have visiting nurse or other home services: No Alcohol intake: never Patient Tobacco Use Status: Tobacco use Unknown Smoked in Last 30 Days: No e-Cigarette/Vaping Use: Never Used Second Hand Smoke Exposure: No Use of substances other than those prescribed or required for medical reasons: No Substance Use Type: Marijuana Advance Directives: Yes Advance Directives on File: Yes Advance Directives Date on File: 03/13/23 service: No Current occupational status: retired Cognitive needs: No Hearing needs: No Vision needs: No Physical Exam ED Vital Signs: Vital Signs - 24 hr 03/17/23 11:21 03/17/23 13:27 03/17/23 14:45 Temperature 98.6 F 98.7 F 98.1 F Pulse Rate 118 H 111 H 101 H Respiratory Rate 18 17 15 Blood Pressure 148/67 H 151/69 H 142/63 H Pulse Oximetry 98 99 96 Oxygen Delivery Method Room Air Room Air Room Air BMI result Body Mass Index 24.9 Vital signs have been reviewed as appeared to be correct. Blood pressure normal. Heart rate elevated. Respiration rate normal. Temperature normal. Oxygen saturation normal. Appearance: Alert. Oriented X3. No acute distress. Head: Normal external exam. Normocephalic. Atraumatic. No Mann signs noted. No raccoon eyes noted Eyes: PERRLA. EOMI. Conjunctiva and sclera normal. Eyelids normal. ENT: TM's Normal. Pharynx normal. Uvula midline. Moist mucous membranes. No trismus noted. No drooling noted. No muffled voice noted. Neck: Normal inspection. Neck supple. FROM. No adenopathy. Thyroid Normal. No meningeal signs. No neck mass noted. CVS: Normal heart rate and rhythm. Heart sound normal. No murmurs noted. Pulses normal throughout. Respiratory: No respiratory distress. Painless inspiration. Breath sounds normal. No wheezes/rales/rhonchi noted. Chest nontender. No accessory muscle usage noted or decreased air movement noted. Abdomen: Distended diffusely tender, no rebound tenderness, no guarding. Bowel sounds normal in all 4 quadrants. No distention noted. No organomegaly noted. No visible injury noted. Back: No CVA tenderness. Full range of motion noted. Skin: Skin warm and dry. Normal skin color. Normal skin turgor. No rashes/lesions/lacerations noted. Extremities: No lower extremity edema. Extremities exhibit normal range of motion. Extremities nontender. Neuro: Oriented X 3. Cranial nerve exam: II-XII are grossly intact No motor deficit. No sensory deficit. Reflexes normal. Course Course Course Narrative: RME- 63-year-old male with past medical history significant for pancreatic adenocarcinoma was discharged here 2 days ago. He was found to have superior mesenteric and portal vein thrombosis. He was started on Lovenox which she has been taking per his report. He follows with Dr Butt who called the patient and advised him to return to the ER, but he does not know why. He reports his abdomen is distended and he feels constipated has not had a bowel movement in 5 days. Plan for labs including coags to start. Further workup including images will be deferred to primary provider Reevaluation(s) Reevaluation #1: metastatic adenocarcinoma of the pancreas, came in for intractable abdominal pain, will admit for pain control. Time: 15:00 Medications Administered Discontinued Medications Generic Name Dose Route Start Last Admin Trade Name Ezekiel PRN Reason Stop Dose Admin Hydromorphone HCl 1 mg 03/17/23 13:33 03/17/23 13:47 Hydromorphone Hcl 1 Mg/Ml Syringe IVPUSH 03/17/23 13:34 1 mg ONCE ONE Administration Protocol Hydromorphone HCl 1 mg 03/17/23 14:06 03/17/23 14:48 Hydromorphone Hcl 1 Mg/Ml Syringe IVPUSH 03/17/23 14:07 1 mg ONCE ONE Administration Protocol Medical Decision Making Differential Diagnosis Differential Diagnoses: The differential diagnosis associated with the presentation includes (Intractable abdominal pain secondary to metastatic adenocarcinoma of the pancreas, colitis, diverticulitis, perforated viscus, electrolyte abnormalities, severe anemia.) Admission/Observation Consideration of admission/observation: Escalation of care including admission/observation considered Consult Healthcare Provider Management of the patient was discussed with: Hospitalist (Dr. De La Fuente) Lab Data MDM Lab Attestation statement: I reviewed the patient's lab results. 03/17/23 12:29 03/17/23 12:29 Labs: Lab Results 03/17/23 03/17/23 03/17/23 Range/Units 12:29 12:29 12:29 WBC 11.3 H (4.8-10.8) X10*3/uL RBC 3.31 L (4.60-5.80) X10*6/uL Hgb 11.6 L (14.0-18.0) g/dl Hct 33.9 L (42.0-52.0) % MCV 102.4 H (80.0-98.0) fL MCH 35.0 H (27.0-33.0) pg MCHC 34.2 (31.0-36.0) g/dl RDW 14.6 (11.0-16.0) % Plt Count 81 L (160-400) X10*3/uL MPV 10.1 (9.4-12.4) fL Immature Gran % (Auto) 0.5 H (0.0-0.4) % Neut % (Auto) 83.5 H (45-73) % Lymph % (Auto) 4.6 L (20-40) % [place] % (Auto) 9.2 (2-11) % Eos % (Auto) 1.9 (0-4) % Baso % (Auto) 0.3 (0-2) % Lymph # (Auto) 0.5 L (1.2-4.9) X10*3/uL [place] # (Auto) 1.0 (0.1-1.2) X10*3/uL Eos # (Auto) 0.2 (0.0-0.4) X10*3/uL Baso # (Auto) 0.0 (0.0-0.2) X10*3/uL Abs Immat Gran (auto) 0.06 H (0.00-0.03) X10*3/uL Absolute Neuts (auto) 9.5 H (2.0-8.3) x10*3/uL Absolute Nucleated RBC 0.000 (0.0-0.012) X10*3/uL Nucleated RBC % (auto) 0.0 (0.0-0.2) /100WBC PT 13.9 H (10.0-13.1) SEC INR 1.2 H (0.9-1.1) APTT 32.0 (26.0-36.4) SEC Sodium 140 (135-145) mmol/L Potassium 3.7 (3.3-5.1) mmol/L Chloride 102 (96-108) mmol/L Carbon Dioxide 20 L (22-29) mmol/L Anion Gap 22 H (12-20) BUN 11 (9-16) mg/dL Creatinine 0.77 (0.5-1.4) mg/dL Estim Creat Clear Calc 92.5 Estimated GFR > 60 Random Glucose 233 H (60-115) mg/dL Calcium 9.4 (8.4-10.2) mg/dL Magnesium 2.0 (1.6-2.6) mg/dL Total Bilirubin 6.7 H (0.0-1.0) mg/dL AST 63 H (5-37) U/L ALT 87 H (0-40) U/L Alkaline Phosphatase 213 H (39-117) U/L Total Protein 5.9 L (6.5-8.0) g/dL Albumin 2.7 L (3.5-5.0) g/dL Lipase 100 H (8-78) U/L Independent Interpretation I performed an independent interpretation of an: CT Scan (Abdomen pelvis:Cirrhotic-appearing liver. Stable 1.5 cm liver lesion in the anterior segment of the right lobe. Splenomegaly. Small amount of ascites. Enlarged head of the pancreas. Known pancreatic mass is not identified without IV contrast. Left lower lobe pulmonary nodules. Mild wall thickening) Radiology Impression Discussion of test interpretation with radiology: I have reviewed the radiologist's reading. Discharge Plan Discharge Clinical Impression: Intractable abdominal pain, Pancreatic adenocarcinoma, Superior mesenteric vein thrombosis, Portal vein thrombosis Patient Disposition: Admitted As Inpatient
[2023-03-17 12:34] LABS: MANUAL DIFF FLAG NO
[2023-03-17 12:35] LABS: Basophils Percent Auto 0.3 % (0-2); Eosinophils Absolute Auto 0.2 X10*3/uL (0.0-0.4); Eosinophils Percent Auto 1.9 % (0-4); Hematocrit 33.9 % (42.0-52.0); Hemoglobin 11.6 g/dl (14.0-18.0); Imm Gran Abs Auto 0.06 X10*3/uL (0.00-0.03); Imm Gran Pct Auto 0.5 % (0.0-0.4); Lymphocytes Absolute Auto 0.5 X10*3/uL (1.2-4.9); Lymphocytes Percent Auto 4.6 % (20-40); Mean Corpuscular HGB Conc 34.2 g/dl (31.0-36.0); Mean Corpuscular Volume 102.4 fL (80.0-98.0); Mean Platelet Volume 10.1 fL (9.4-12.4); Monocytes Percent Auto 9.2 % (2-11); Neutrophils Absolute Auto 9.5 x10*3/uL (2.0-8.3); Neutrophils Percent Auto 83.5 % (45-73); Red Blood Count 3.31 X10*6/uL (4.60-5.80); Red Cell Distribution Width 14.6 % (11.0-16.0); White Blood Count 11.3 X10*3/uL (4.8-10.8)
[2023-03-17 12:36] LABS: Platelet Count 81 X10*3/uL (160-400)
[2023-03-17 12:42] LABS: INTERNATIONAL NORM RATIO 1.2 (0.9-1.1); Prothrombin Time 13.9 SEC (10.0-13.1)
[2023-03-17 13:03] LABS: Alanine Aminotransferase 87 U/L (0-40); Albumin Level 2.7 g/dL (3.5-5.0); Alkaline Phosphatase 213 U/L (39-117); Anion Gap 22 (12-20); Aspartate Amino Transferase 63 U/L (5-37); Bilirubin Total 6.7 mg/dL (0.0-1.0); Blood Urea Nitrogen 11 mg/dL (9-16); Calcium 9.4 mg/dL (8.4-10.2); Carbon Dioxide 20 mmol/L (22-29); Chloride 102 mmol/L (96-108); Creatinine Clr Calc Pharmacy 92.5; Estimated Glomerular Filt Rate > 60; Glucose Random 233 mg/dL (60-115); Lipase 100 U/L (8-78); Potassium 3.7 mmol/L (3.3-5.1); Sodium 140 mmol/L (135-145); Total Protein 5.9 g/dL (6.5-8.0)
[2023-03-17 13:27] VITALS: BP 151/69; PULSE 111; RESP 17; TEMP 37.1; O2SAT 99
[2023-03-17] MEDS: HYDROmorphone HCl 1 MG/ML SYRINGE IVPUSH ×2 (13:47→14:48)
--- NOTE | 2023-03-17 14:41 | P.HPHOSP_ITS ---
History of Present Illness Date of Service: 03/17/23 Chief Complaint: Abdominal pain 63 year old male with history noninsulin dependent type 2 diabetes, alcoholic cirrhosis of the liver with hx alcoholism (quit 2+ years ago), diabetic polyneuropathy, venous insuffiency, and metastatic adenocarcinoma pancreas pres ents with abdominal pain. He was recently admitted with similar from 03/12 to 03/15 and was found to have portal vein thrombosis and superior mesenteric vein thrombosis. He anticoagulated with lovenox. He comes back today with persistent pain abdominal and feels constipated. No nausea. Another CT of abdomen is done and shows Mild wall thickening of the right colon and hepatic flexure qu estionable for colitis and is being admitted for pain control. WBC is 11, Review of Systems Review of Systems: Gen: no fever Resp: no sob, no cough CV: no chest, no ABDALLA, no leg edema GI: No n/v, +abd pain, constipation Neuro: No confusion Yes all other systems are reviewed and are negative [facility] Medical History Alcoholism Anemia Cerebellar ataxia Cirrhosis of liver Compression fracture Diabetes 1.5, managed as type 2 Diabetic retinopathy Elevated ferritin Lung nodule Overgrown toenails Pancreatic adenocarcinoma Pancytopenia Peripheral polyneuropathy Venous insufficiency Family History Father No problems noted. 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 If so, by whom?: No Do you feel safe in your current relationship?: Yes Is there a partner from a previous relationship who is making you feel unsafe now?: No Are you made to feel afraid or neglected: No Advance Directives: Yes Advance Directives on File: Yes Advance Directives Date on File: 03/13/23 Do you have thoughts of harming others: None Do you have a plan to hurt others: No Plan Recently lost weight without trying: No Eating poorly because of decreased appetite: No Nutrition Risks: No Nutritional Risk Poor oral hygiene: No service: No Current occupational status: retired Cognitive needs: No Hearing needs: No Vision needs: No Meds Allergies Allergy/AdvReac Type Severity Reaction Status Date / Time morphine [MORPHINE] Allergy Intermediate SEVERE Verified 03/13/23 05:16 VOMITING, vomiting, vomiting Active Medications: Current Medications Pharmacy Consult (Consult Rx Perform Med Rec) 1 each MISCELLANE ONCE PRN PRN Reason: Consult order Home Medications Medication Instructions Recorded Confirmed Last Taken Type cholecalciferol (vitamin D3) 10 10 mcg PO DAILY 09/15/20 03/17/23 03/17/23 History mcg (400 unit) capsule sucralfate 100 mg/mL oral 10 ml PO BID 03/17/23 03/17/23 03/17/23 History suspension Physical Exam Vital Signs and Narrative: Vital Signs: Last Vital Signs Temp 98.7 F 03/17/23 13:27 Pulse 111 H 03/17/23 13:27 Resp 17 03/17/23 13:27 BP 151/69 H 03/17/23 13:27 Pulse Ox 99 03/17/23 13:27 O2 Del Method Room Air 03/17/23 13:27 BMI result Body Mass Index 24.9 Constitutional: Alert, in no distress Mental Status: Oriented to person, place and time. Eyes: Pupils are equal, round and reactive to light. Ear, Nose and Throat: Oropharynx clear, mucous membranes moist. Ears and nose without eformities. Trachea midline. Respiratory: Clear to auscultation. No wheezing, rales or rhonchi. Cardiovascular: S1 S2 regular. No murmurs, rubs or gallops. Gastrointestinal: Abdomen soft, non-tender, non-distended. Normal bowel sounds.? Neurologic: Cranial nerves II-XII grossly intact. No focal neurological deficits. Moves all extremities spontaneously.? Skin: No rashes or lesions.? Musculoskeletal: No cyanosis or clubbing. Psychiatric: Normal mood and affect? Results Labs 03/17/23 12:29 03/17/23 12:29 Labs: Laboratory Results - last 24 hr 03/17/23 03/17/23 03/17/23 12:29 12:29 12:29 MCV 102.4 H MCH 35.0 H MCHC 34.2 RDW 14.6 Plt Count 81 L MPV 10.1 Immature Gran % (Auto) 0.5 H Neut % (Auto) 83.5 H Lymph % (Auto) 4.6 L [place] % (Auto) 9.2 Eos % (Auto) 1.9 Baso % (Auto) 0.3 Lymph # (Auto) 0.5 L [place] # (Auto) 1.0 Eos # (Auto) 0.2 Baso # (Auto) 0.0 Abs Immat Gran (auto) 0.06 H Absolute Neuts (auto) 9.5 H Absolute Nucleated RBC 0.000 Nucleated RBC % (auto) 0.0 PT 13.9 H INR 1.2 H APTT 32.0 Anion Gap 22 H Estim Creat Clear Calc 92.5 Estimated GFR > 60 Random Glucose 233 H Calcium 9.4 Magnesium 2.0 Total Bilirubin 6.7 H AST 63 H ALT 87 H Alkaline Phosphatase 213 H Total Protein 5.9 L Albumin 2.7 L Lipase 100 H Imaging Radiologist's Impressions: Impressions Abdomen/Pelvis CT 03/17/23 12:03 IMPRESSION: Cirrhotic-appearing liver. Stable 1.5 cm liver lesion in the anterior segment of the right lobe. Splenomegaly. Small amount of ascites. Enlarged head of the pancreas. Known pancreatic mass is not identified without IV contrast. Left lower lobe pulmonary nodules. Mild wall thickening of the right colon and hepatic flexure. Appearance is questionable for colitis versus changes related to liver disease/low albumin. Distended fluid-filled stomach and proximal small bowel. No evidence of mechanical obstruction. There may be wall thickening of the distal thoracic esophagus as well. Severe atherosclerotic disease. Fleischner guidelines were followed. Assessment and Plan (1) Portal vein thrombosis: Status: Acute (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 (3) Pancreatic adenocarcinoma: Status: Acute Plan 63 year old male with history noninsulin dependent type 2 diabetes, alcoholic cirrhosis of the liver, hx alcoholism, diabetic polyneuropathy, venous insuffiency, and 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 here with peristent abd pain and questionable colitis #Abdominal pain--likely related to pancreatitic cancer, superior mesanteric veint thrombosis -pain control with morphine or Dilaudid, oxy codone #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 need for MR which did not think would change analyst the last time. # [id number] type 2 diabetes -hold metformin and Actos -POC glucose -advance to diabetic diet -Humalog on sliding scale DVT prophylaxis-on therapeutic Lovenox DNR/DNI Patient requires inpatient stay of at least 2 midnight d/t uncontrolled pain from pancreaticc cancer and colitis being treated with iv antibiotics Time Spent With Patient Time: Total time managing care of this patient today ____ minutes. Quality Stroke Does the patient have a stroke diagnosis?: No VTE Prior VTE?: Yes VTE Risk Level:: Medical - moderate - high VTE Device Contraindication: Treatment Not Indicated VTE Drug Contraindication: N/A - Med Ordered
[2023-03-17 14:45] VITALS: BP 142/63; PULSE 101; RESP 15; TEMP 36.7; O2SAT 96
--- NOTE | 2023-03-17 14:47 | PC.NURSE ---
pt states bm x 1 (in the er) first time in 5 days.
--- NOTE | 2023-03-17 15:14 | PHA.MEDREC ---
Pharmacy Consult ? Medication Reconciliation Pharmacy has completed the medication reconciliation.
[2023-03-17] MEDS: Sodium Chloride 0.45 % 1,000 ML 100 ML IVCONT (15:39)
[2023-03-17 18:23] VITALS: BMI 25.1
[2023-03-17 18:39] LABS: Glucose, Whole Blood 216 mg/dL (60-115)
[2023-03-17 18:44] VITALS: BP 144/64; PULSE 100; RESP 20; TEMP 36.9; O2SAT 96; BMI 25.1
[2023-03-17] MEDS: Insulin Lispro 100 UNIT/ML 3 ML VIAL SUBCUT (19:20)
[2023-03-17] MEDS: Sucralfate Oral Suspension 1 GM/10 ML ORAL.SUSP PO (19:20)
[2023-03-17] MEDS: Magnesium Oxide 400 MG TABLET PO (19:20)
[2023-03-17] MEDS: Melatonin 3 MG TABLET 6 MG PO (19:21)
[2023-03-18] MEDS: Sodium Chloride 0.45 % 1,000 ML 100 ML IVCONT ×3 (00:43→20:49)
[2023-03-18 03:28] VITALS: BP 144/65; PULSE 97; RESP 16; TEMP 36.1; O2SAT 97
[2023-03-18 07:04] LABS: Anion Gap 16 (12-20); Blood Urea Nitrogen 8 mg/dL (9-16); Calcium 8.8 mg/dL (8.4-10.2); Carbon Dioxide 24 mmol/L (22-29); Chloride 99 mmol/L (96-108); Estimated Glomerular Filt Rate > 60; Glucose Random 176 mg/dL (60-115); Potassium 3.4 mmol/L (3.3-5.1); Sodium 136 mmol/L (135-145)
[2023-03-18 07:34] LABS: Glucose, Whole Blood 191 mg/dL (60-115)
[2023-03-18] MEDS: Insulin Lispro 100 UNIT/ML 3 ML VIAL SUBCUT ×4 (07:52→20:45)
[2023-03-18] MEDS: Pioglitazone HCL 30 MG TABLET PO (07:53)
[2023-03-18] MEDS: Multivitamin TABLET 1 TAB PO (07:53)
[2023-03-18] MEDS: Cholecalciferol (Vitamin D3) 10 MCG TABLET PO (07:53)
[2023-03-18] MEDS: Sucralfate Oral Suspension 1 GM/10 ML ORAL.SUSP PO ×2 (07:53→20:45)
[2023-03-18] MEDS: Magnesium Oxide 400 MG TABLET PO ×2 (07:53→20:45)
[2023-03-18 08:06] VITALS: BP 122/60; PULSE 96; RESP 20; TEMP 36.6; O2SAT 96
--- NOTE | 2023-03-18 08:07 | HO.PM.IMPN ---
Subjective Subjective Date of Service: 03/18/23 Interval History: f/u on abdominal pain interval history: pain is better Physical Exam Vital Signs: Vital Signs: Last Vital Signs Temp 98 F 03/18/23 08:06 Pulse 96 03/18/23 08:06 Resp 20 03/18/23 08:06 BP 122/60 03/18/23 08:06 Pulse Ox 96 03/18/23 08:06 O2 Del Method Room Air 03/18/23 08:06 BMI result Body Mass Index 25.1 Const: Other: General: AO X 3, no acute distress Resp: CTA bilateral CVS: S1,S2,RRR GI: +mild tenderness, some distention, +BS Skin: No rash Neuro: motor grossly intact Psych: appropriate affect Objective Data Active Medications Enoxaparin Sodium (Enoxaparin Sodium 100 Mg/Ml Syringe) 100 mg SUBCUT DAILY [facility] Last Admin: 03/18/23 07:52 Dose: 100 mg Documented By: CELESTE Glucose (Glucose Gel 15 Gm Gel..Gram.) 15 gm PO Q15M PRN; Protocol PRN Reason: per Hypoglycemia Standing Ord. Hydromorphone HCl (Hydromorphone Hcl 0.5 Mg/0.5 Ml Syringe) 0.5 mg IVPUSH Q4H PRN; Protocol PRN Reason: Pain, Severe (Pain Scale 7-10) Sodium Chloride (Sodium Chloride 0.45 %) 1,000 mls @ 100 mls/hr IVCONT .Q10H [facility] Last Admin: 03/18/23 00:43 Dose: 100 mls/hr Documented By: OSCAR Dextrose (D10) 250 mls @ 750 mls/hr IV Q15M PRN; Protocol PRN Reason: per Hypoglycemia Standing Ord. Ceftriaxone Sodium 1 gm/ (Sodium Chloride) 50 mls @ 100 mls/hr IV Q24H [facility] Insulin Human Lispro (Insulin Lispro 100 Unit/Ml 3 Ml Vial) 0 unit SUBCUT QIDACHS [facility]; Protocol Last Admin: 03/18/23 07:52 Dose: 2 unit Documented By: CELESTE Magnesium Hydroxide (Milk Of Magnesia 30 Ml Oral.Susp) 30 ml PO DAILY PRN PRN Reason: Constipation Magnesium Oxide (Magnesium Oxide 400 Mg Tablet) 400 mg PO BID [facility] Last Admin: 03/18/23 07:53 Dose: 400 mg Documented By: CELESTE Melatonin (Melatonin 3 Mg Tablet) 6 mg PO BEDTIME PRN PRN Reason: Insomnia Last Admin: 03/17/23 19:21 Dose: 6 mg Documented By: OSCAR Metronidazole (Metronidazole 500 Mg Tablet) 500 mg PO Q12H [facility] Multivitamins/Vitamin C (Multivitamin Tablet) 1 tab PO DAILY [facility] Last Admin: 03/18/23 07:53 Dose: 1 tab Documented By: CELESTE Ondansetron HCl (Ondansetron Hcl 4 Mg/2 Ml Vial) 4 mg IVPUSH Q8H PRN PRN Reason: Nausea and Vomiting Pharmacy Consult (Consult Rx Perform Med Rec) 1 each MISCELLANE ONCE PRN PRN Reason: Consult order Pioglitazone HCl (Pioglitazone Hcl 30 Mg Tablet) 30 mg PO DAILY [facility] Last Admin: 03/18/23 07:53 Dose: 30 mg Documented By: CELESTE Sodium Chloride (0.9 % Sodium Chloride Flush 3 Ml Syringe) 3 ml IVFLUSH QSHIFT [facility] Last Admin: 03/18/23 06:52 Dose: Not Given Documented By: CELESTE Non-Admin Reason: IV Running Sucralfate (Sucralfate Oral Suspension 1 Gm/10 Ml Oral.Susp) 1 gm PO BID [facility] Last Admin: 03/18/23 07:53 Dose: 1 gm Documented By: CELESTE Vitamin D (Cholecalciferol (Vitamin D3) 10 Mcg Tablet) 10 mcg PO DAILY [facility] Last Admin: 03/18/23 07:53 Dose: 10 mcg Documented By: CELESTE Labs 03/17/23 12:29 03/18/23 05:53 Labs: Laboratory Results - last 24 hr 03/17/23 03/17/23 03/17/23 12:29 12:29 12:29 MCV 102.4 H MCH 35.0 H MCHC 34.2 RDW 14.6 Plt Count 81 L MPV 10.1 Immature Gran % (Auto) 0.5 H Neut % (Auto) 83.5 H Lymph % (Auto) 4.6 L Mills % (Auto) 9.2 Eos % (Auto) 1.9 Baso % (Auto) 0.3 Lymph # (Auto) 0.5 L Mills # (Auto) 1.0 Eos # (Auto) 0.2 Baso # (Auto) 0.0 Abs Immat Gran (auto) 0.06 H Absolute Neuts (auto) 9.5 H Absolute Nucleated RBC 0.000 Nucleated RBC % (auto) 0.0 PT 13.9 H INR 1.2 H APTT 32.0 Anion Gap 22 H Estim Creat Clear Calc 92.5 Estimated GFR > 60 POC Glucose Random Glucose 233 H Calcium 9.4 Magnesium 2.0 Total Bilirubin 6.7 H AST 63 H ALT 87 H Alkaline Phosphatase 213 H Total Protein 5.9 L Albumin 2.7 L Lipase 100 H 03/17/23 03/18/23 03/18/23 18:35 05:53 07:31 MCV MCH MCHC RDW Plt Count MPV Immature Gran % (Auto) Neut % (Auto) Lymph % (Auto) Mills % (Auto) Eos % (Auto) Baso % (Auto) Lymph # (Auto) Mills # (Auto) Eos # (Auto) Baso # (Auto) Abs Immat Gran (auto) Absolute Neuts (auto) Absolute Nucleated RBC Nucleated RBC % (auto) PT INR APTT Anion Gap 16 Estim Creat Clear Calc 113.0 Estimated GFR > 60 POC Glucose 216 H 191 H Random Glucose 176 H Calcium 8.8 D Magnesium Total Bilirubin AST ALT Alkaline Phosphatase Total Protein Albumin Lipase Assessment and Plan (1) Portal vein thrombosis: Status: Acute (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 (3) Mass of head of pancreas: Status: Acute (4) Colitis: Status: Acute Plan 63 year old male with history noninsulin dependent type 2 diabetes, alcoholic cirrhosis of the liver, hx alcoholism, diabetic polyneuropathy, venous insuffiency, and 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 here with peristent abd pain and questionable colitis #Abdominal pain--likely related to pancreatitic cancer, superior mesanteric veint thrombosis and portal vein thrombosis, and doubt colitis -pain control with morphine or Dilaudid, oxycodone #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 # [id number] type 2 diabetes -hold metformin and Actos -Lispor SSI, DVT prophylaxis-on therapeutic Lovenox DNR/DNI Need for inpatient: pain control from pancreatitic cancer, Abx for colitis Time Spent With Patient Time: Total time managing care of this patient today ____ minutes. Quality Stroke Does the patient have a stroke diagnosis?: No VTE Prior VTE?: Yes VTE Risk Level:: Medical - moderate - high VTE Device Contraindication: Treatment Not Indicated VTE Drug Contraindication: N/A - Med Ordered
[2023-03-18] MEDS: metroNIDAZOLE 500 MG TABLET PO ×2 (08:40→20:45)
[2023-03-18] MEDS: cefTRIAXone sodium 1 GM in 0.9 % Sodium Chloride 50 ML IV (08:41)
[2023-03-18] MEDS: Milk of Magnesia 30 ML ORAL.SUSP PO (09:01)
[2023-03-18] MEDS: Enoxaparin Sodium 100 MG/ML SYRINGE SUBCUT (10:30)
[2023-03-18 11:32] LABS: Glucose, Whole Blood 177 mg/dL (60-115)
[2023-03-18 12:47] LABS: Bilirubin Direct 4.3 mg/dL (0.0-0.5)
[2023-03-18] MEDS: HYDROmorphone HCl 0.5 MG/0.5 ML SYRINGE IVPUSH ×2 (15:15→21:57)
[2023-03-18] MEDS: 0.9 % Sodium Chloride Flush 3 ML SYRINGE IVFLUSH (15:15)
[2023-03-18 15:30] VITALS: BP 117/56; PULSE 90; RESP 20; TEMP 36.5; O2SAT 97
[2023-03-18 16:22] LABS: Glucose, Whole Blood 217 mg/dL (60-115)
[2023-03-18 19:26] VITALS: BP 135/62; PULSE 99; RESP 18; TEMP 36.6; O2SAT 96
[2023-03-18 20:37] LABS: Glucose, Whole Blood 237 mg/dL (60-115)
[2023-03-18] MEDS: Melatonin 3 MG TABLET 6 MG PO (20:45)
[2023-03-19 03:58] VITALS: BP 143/67; PULSE 98; RESP 18; TEMP 36.7; O2SAT 96
[2023-03-19] MEDS: HYDROmorphone HCl 0.5 MG/0.5 ML SYRINGE IVPUSH ×2 (05:56→20:08)
[2023-03-19] MEDS: Sodium Chloride 0.45 % 1,000 ML 100 ML IVCONT ×2 (05:57→19:50)
[2023-03-19 06:50] LABS: Alanine Aminotransferase 95 U/L (0-40); Albumin Level 2.4 g/dL (3.5-5.0); Alkaline Phosphatase 208 U/L (39-117); Anion Gap 10 (12-20); Aspartate Amino Transferase 100 U/L (5-37); Bilirubin Total 7.1 mg/dL (0.0-1.0); Blood Urea Nitrogen 6 mg/dL (9-16); Calcium 8.4 mg/dL (8.4-10.2); Carbon Dioxide 27 mmol/L (22-29); Chloride 98 mmol/L (96-108); Estimated Glomerular Filt Rate > 60; Glucose Random 225 mg/dL (60-115); Potassium 3.3 mmol/L (3.3-5.1); Sodium 132 mmol/L (135-145); Total Protein 5.4 g/dL (6.5-8.0)
--- NOTE | 2023-03-19 07:21 | P.PNIM_ITS ---
Subjective Subjective Date of Service: 03/19/23 Interval History: f/u on abdominal pain interval history: pain is better Physical Exam Vital Signs: Vital Signs: Last Vital Signs Temp 98.1 F 03/19/23 03:58 Pulse 98 03/19/23 03:58 Resp 18 03/19/23 03:58 BP 143/67 H 03/19/23 03:58 Pulse Ox 96 03/19/23 03:58 O2 Del Method Room Air 03/19/23 03:58 BMI result Body Mass Index 25.1 Const: Other: General: AO X 3, no acute distress Resp: CTA bilateral CVS: S1,S2,RRR GI: +BS, NT, no distention Skin: No rash Neuro: motor grossly intact Psych: appropriate affect Objective Data Active Medications Enoxaparin Sodium (Enoxaparin Sodium 100 Mg/Ml Syringe) 100 mg SUBCUT DAILY [facility] Last Admin: 03/18/23 10:30 Dose: 100 mg Documented By: CELESTE Glucose (Glucose Gel 15 Gm Gel..Gram.) 15 gm PO Q15M PRN; Protocol PRN Reason: per Hypoglycemia Standing Ord. Hydromorphone HCl (Hydromorphone Hcl 0.5 Mg/0.5 Ml Syringe) 0.5 mg IVPUSH Q4H PRN; Protocol PRN Reason: Pain, Severe (Pain Scale 7-10) Last Admin: 03/19/23 05:56 Dose: 0.5 mg Documented By: OSCAR Sodium Chloride (Sodium Chloride 0.45 %) 1,000 mls @ 100 mls/hr IVCONT .Q10H [facility] Last Admin: 03/19/23 05:57 Dose: 100 mls/hr Documented By: OSCAR Dextrose (D10) 250 mls @ 750 mls/hr IV Q15M PRN; Protocol PRN Reason: per Hypoglycemia Standing Ord. Ceftriaxone Sodium 1 gm/ (Sodium Chloride) 50 mls @ 100 mls/hr IV Q24H [facility] Last Infusion: 03/18/23 09:35 Dose: 0 mls/hr Documented By: CELESTE Insulin Human Lispro (Insulin Lispro 100 Unit/Ml 3 Ml Vial) 0 unit SUBCUT QIDACHS [facility]; Protocol Last Admin: 03/18/23 20:45 Dose: 4 unit Documented By: OSCAR Magnesium Hydroxide (Milk Of Magnesia 30 Ml Oral.Susp) 30 ml PO DAILY PRN PRN Reason: Constipation Last Admin: 03/18/23 09:01 Dose: 30 ml Documented By: CELESTE Magnesium Oxide (Magnesium Oxide 400 Mg Tablet) 400 mg PO BID [facility] Last Admin: 03/18/23 20:45 Dose: 400 mg Documented By: OSCAR Melatonin (Melatonin 3 Mg Tablet) 6 mg PO BEDTIME PRN PRN Reason: Insomnia Last Admin: 03/18/23 20:45 Dose: 6 mg Documented By: OSCAR Metronidazole (Metronidazole 500 Mg Tablet) 500 mg PO Q12H [facility] Last Admin: 03/18/23 20:45 Dose: 500 mg Documented By: OSCAR Multivitamins/Vitamin C (Multivitamin Tablet) 1 tab PO DAILY [facility] Last Admin: 03/18/23 07:53 Dose: 1 tab Documented By: CELESTE Ondansetron HCl (Ondansetron Hcl 4 Mg/2 Ml Vial) 4 mg IVPUSH Q8H PRN PRN Reason: Nausea and Vomiting Pharmacy Consult (Consult Rx Perform Med Rec) 1 each MISCELLANE ONCE PRN PRN Reason: Consult order Sodium Chloride (0.9 % Sodium Chloride Flush 3 Ml Syringe) 3 ml IVFLUSH QSHIFT [facility] Last Admin: 03/19/23 07:02 Dose: Not Given Documented By: ANGELES Non-Admin Reason: IV Running Sucralfate (Sucralfate Oral Suspension 1 Gm/10 Ml Oral.Susp) 1 gm PO BID [facility] Last Admin: 03/18/23 20:45 Dose: 1 gm Documented By: OSCAR Vitamin D (Cholecalciferol (Vitamin D3) 10 Mcg Tablet) 10 mcg PO DAILY [facility] Last Admin: 03/18/23 07:53 Dose: 10 mcg Documented By: CELESTE Labs 03/17/23 12:29 03/19/23 05:52 Labs: Laboratory Results - last 24 hr 03/18/23 03/18/23 03/18/23 05:53 07:31 11:29 Anion Gap Estim Creat Clear Calc Estimated GFR POC Glucose 191 H 177 H Random Glucose Calcium Total Bilirubin Direct Bilirubin 4.3 H AST ALT Alkaline Phosphatase Total Protein Albumin 03/18/23 03/18/23 03/19/23 16:16 20:19 05:52 Anion Gap 10 L Estim Creat Clear Calc 125.0 Estimated GFR > 60 POC Glucose 217 H 237 H Random Glucose 225 H Calcium 8.4 Total Bilirubin 7.1 H Direct Bilirubin AST 100 H ALT 95 H Alkaline Phosphatase 208 H Total Protein 5.4 L Albumin 2.4 L Assessment and Plan (1) Portal vein thrombosis: Status: Acute (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 (3) Mass of head of pancreas: Status: Acute (4) Colitis: Status: Acute Plan 63 year old male with history noninsulin dependent type 2 diabetes, alcoholic cirrhosis of the liver, hx alcoholism, diabetic polyneuropathy, venous insuffiency, and 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 here with peristent abd pain and questionable colitis #Abdominal pain--likely related to pancreatitic cancer, superior mesanteric vein thrombosis and portal vein thrombosis, and doubt colitis -pain control with morphine or Dilaudid, oxycodone #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 Quality Stroke Does the patient have a stroke diagnosis?: No VTE Prior VTE?: Yes VTE Risk Level:: Medical - moderate - high VTE Device Contraindication: Treatment Not Indicated VTE Drug Contraindication: N/A - Med Ordered
[2023-03-19 07:50] LABS: Glucose, Whole Blood 251 mg/dL (60-115)
[2023-03-19] MEDS: Enoxaparin Sodium 100 MG/ML SYRINGE SUBCUT (07:58)
[2023-03-19] MEDS: Sucralfate Oral Suspension 1 GM/10 ML ORAL.SUSP PO ×2 (07:58→20:08)
[2023-03-19] MEDS: metroNIDAZOLE 500 MG TABLET PO ×2 (07:58→20:06)
[2023-03-19] MEDS: Insulin Lispro 100 UNIT/ML 3 ML VIAL SUBCUT ×2 (07:58→21:26)
[2023-03-19] MEDS: Magnesium Oxide 400 MG TABLET PO ×2 (07:59→20:17)
[2023-03-19] MEDS: Multivitamin TABLET 1 TAB PO (07:59)
[2023-03-19] MEDS: Cholecalciferol (Vitamin D3) 10 MCG TABLET PO (07:59)
[2023-03-19 08:18] VITALS: BP 115/65; PULSE 94; RESP 20; TEMP 36.6; O2SAT 95
[2023-03-19] MEDS: cefTRIAXone sodium 1 GM in 0.9 % Sodium Chloride 50 ML IV (08:55)
[2023-03-19 11:07] LABS: Glucose, Whole Blood 202 mg/dL (60-115)
[2023-03-19 13:51] VITALS: BMI 25.1
--- NOTE | 2023-03-19 14:04 | MHC.CM.PN ---
Per discussion with provider at rounds: pt to have MRCP today and is not medically ready for d/c. D/C plan is for a return to home w/family and existing [facility] services - family to transport.
[2023-03-19 16:00] VITALS: BP 122/70; PULSE 98; RESP 20; TEMP 36.2; O2SAT 100
[2023-03-19 16:06] LABS: Glucose, Whole Blood 237 mg/dL (60-115)
[2023-03-19 19:28] VITALS: BP 136/69; PULSE 102; RESP 18; TEMP 36.3; O2SAT 98
[2023-03-19 20:35] LABS: Glucose, Whole Blood 239 mg/dL (60-115)
[2023-03-20] VITALS (10 sets, daily range): BP systolic 129–167; BP diastolic 61–82; PULSE 92–100; RESP 17–18; TEMP 36.1–36.9; O2SAT 94–99
[2023-03-20] MEDS: Sodium Chloride 0.45 % 1,000 ML 100 ML IVCONT ×2 (05:52→17:27)
--- NOTE | 2023-03-20 05:54 | P.CNGI_ITS ---
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 He was readmitted with persistent pain epigastric abdominal and constipation. Denies any nausea, fevers, chills, melena, hematochezia, lightheadedness, shortness of breath, cough, chest pain. He had an EGD 03/08/23 with variceal banding and note made of congestion in duodenum and stomach. He had recent EUS at [facility] confirmed pancreatic ca in head of pancreas. Labs: LFTs with AST 100, ALT 90, total bilirubin 7.1 (was 2.5 on 02/16), alkaline phosphatase 208 Imaging: CT of the abdomen/pelvis: w/o contrast--limited- atherosclerosis, degen spine disease, liver lesion, enlarged head of panc Review of Systems Review of Systems: Constitutional : + Weight loss, No Fever, No Chills ENT/Mouth : No sore throat, No Rhinorrhea Eyes: No Swelling, No Redness Cardiovascular : No Chest Pain, No SOB, No Edema Respiratory : No Cough, No Sputum, No Wheezing Gastrointestinal : see HPI Genitourinary : NO Dysuria, No Urinary Frequency, No Hematuria, No Urgency Musculoskeletal : No joint pain, No Myalgias, No Joint Swelling Skin : No Skin Lesions, No rash Neuro : No Weakness, + Numbness, No Dizziness, No Headache Psych : No Anxiety/Panic, No Depression Heme/Lymph: No Bruising, No Lymphadenopathy Endocrine : No Polyuria, No Polydipsia All other systems reviewed and are negative. [facility] Past Medical History Medical History Alcoholism Anemia Cerebellar ataxia Cirrhosis of liver Compression fracture Diabetes 1.5, managed as type 2 Diabetic retinopathy Elevated ferritin Lung nodule Overgrown toenails Pancreatic adenocarcinoma Pancytopenia Peripheral polyneuropathy Venous insufficiency Family History Family History Father No problems noted. 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 Housing: House Do you presently have visiting nurse or other home services: Yes Alcohol intake: never Patient Tobacco Use Status: Never used Tobacco e-Cigarette/Vaping Use: Never Used Second Hand Smoke Exposure: No Substance Use Type: Marijuana Advance Directives Date on File: 03/13/23 service: No Current occupational status: retired Cognitive needs: No Hearing needs: No Vision needs: No Meds Allergies Allergy/AdvReac Type Severity Reaction Status Date / Time morphine [MORPHINE] Allergy Intermediate SEVERE Verified 03/13/23 05:16 VOMITING, vomiting, vomiting Active Medications: Current Medications Enoxaparin Sodium (Enoxaparin Sodium 100 Mg/Ml Syringe) 100 mg SUBCUT DAILY [facility] Last Admin: 03/19/23 07:58 Dose: 100 mg Glucose (Glucose Gel 15 Gm Gel..Gram.) 15 gm PO Q15M PRN; Protocol PRN Reason: per Hypoglycemia Standing Ord. Hydromorphone HCl (Hydromorphone Hcl 0.5 Mg/0.5 Ml Syringe) 0.5 mg IVPUSH Q4H PRN; Protocol PRN Reason: Pain, Severe (Pain Scale 7-10) Last Admin: 03/19/23 20:08 Dose: 0.5 mg Dextrose (D10) 250 mls @ 750 mls/hr IV Q15M PRN; Protocol PRN Reason: per Hypoglycemia Standing Ord. Ceftriaxone Sodium 1 gm/ (Sodium Chloride) 50 mls @ 100 mls/hr IV Q24H [facility] Last Infusion: 03/19/23 09:46 Dose: Infused Sodium Chloride (Sodium Chloride 0.45 %) 1,000 mls @ 100 mls/hr IVCONT .Q10H [facility] Last Admin: 03/20/23 05:52 Dose: 100 mls/hr Insulin Human Lispro (Insulin Lispro 100 Unit/Ml 3 Ml Vial) 0 unit SUBCUT QIDACHS [facility]; Protocol Last Admin: 03/19/23 21:26 Dose: 4 unit Magnesium Hydroxide (Milk Of Magnesia 30 Ml Oral.Susp) 30 ml PO DAILY PRN PRN Reason: Constipation Last Admin: 03/18/23 09:01 Dose: 30 ml Magnesium Oxide (Magnesium Oxide 400 Mg Tablet) 400 mg PO BID [facility] Last Admin: 03/19/23 20:17 Dose: 400 mg Melatonin (Melatonin 3 Mg Tablet) 6 mg PO BEDTIME PRN PRN Reason: Insomnia Last Admin: 03/18/23 20:45 Dose: 6 mg Metronidazole (Metronidazole 500 Mg Tablet) 500 mg PO Q12H [facility] Last Admin: 03/19/23 20:06 Dose: 500 mg Multivitamins/Vitamin C (Multivitamin Tablet) 1 tab PO DAILY [facility] Last Admin: 03/19/23 07:59 Dose: 1 tab Ondansetron HCl (Ondansetron Hcl 4 Mg/2 Ml Vial) 4 mg IVPUSH Q8H PRN PRN Reason: Nausea and Vomiting Pharmacy Consult (Consult Rx Perform Med Rec) 1 each MISCELLANE ONCE PRN PRN Reason: Consult order Sodium Chloride (0.9 % Sodium Chloride Flush 3 Ml Syringe) 3 ml IVFLUSH QSHIFT [facility] Last Admin: 03/20/23 00:36 Dose: Not Given Sucralfate (Sucralfate Oral Suspension 1 Gm/10 Ml Oral.Susp) 1 gm PO BID [facility] Last Admin: 03/19/23 20:08 Dose: 1 gm Vitamin D (Cholecalciferol (Vitamin D3) 10 Mcg Tablet) 10 mcg PO DAILY [facility] Last Admin: 03/19/23 07:59 Dose: 10 mcg Home Medications Medication Instructions Recorded Confirmed Last Taken Type cholecalciferol (vitamin D3) 10 10 mcg PO DAILY 09/15/20 03/17/23 03/17/23 History mcg (400 unit) capsule sucralfate 100 mg/mL oral 10 ml PO BID 03/17/23 03/17/23 03/17/23 History suspension Physical Exam Vital Signs: Vital Signs: Last Vital Signs Temp 97 F 03/20/23 04:00 Pulse 100 03/20/23 04:00 Resp 17 03/20/23 04:00 BP 137/65 03/20/23 04:00 Pulse Ox 94 03/20/23 04:00 O2 Del Method Room Air 03/20/23 04:00 BMI result Body Mass Index 25.1 EXAM: GENERAL: The patient is jaundiced VITAL SIGNS:see workflow HEENT: +icteric sclerae, PERRLA, EOMI. Oropharynx clear. Moist mucous membranes. Conjunctivae appear well perfused. No thyroid mass. CHEST: Chest wall is nontender. HEART: Regular rate and rhythm without murmurs. LUNGS: Clear to auscultation bilaterally. ABDOMEN: Soft, positive bowel sounds, nontender, no organomegaly.no flank tenderness--mildly distended SKIN: No rash, no excessive bruising, petechiae, or purpura. NEUROLOGIC: Cranial nerves II-XII intact without motor/sensory deficit. psych--nml affect Results Labs 03/17/23 12:29 03/19/23 05:52 Labs: BMP 03/19/23 05:52 Sodium 132 L Potassium 3.3 Chloride 98 Carbon Dioxide 27 BUN 6 L Creatinine 0.57 Calcium 8.4 Liver Function 03/19/23 Range/Units 05:52 Total Bilirubin 7.1 H (0.0-1.0) mg/dL AST 100 H (5-37) U/L ALT 95 H (0-40) U/L Alkaline Phosphatase 208 H (39-117) U/L Albumin 2.4 L (3.5-5.0) g/dL Imaging CT scan - abdomen: Attestation: I personally reviewed and interpreted this imaging study as follows: (panc head swelling, small ascites, irregular liver, atherosclerosis, spinla degen) Assessment and Plan (1) Mass of head of pancreas: Status: Acute (2) Obstructive jaundice due to cancer: Status: Acute Plan 1/ rising bili, mostly direct --concern is for obstructive jaundice from panc head mass--less liekly ischemia from PVT-as already on lovenox and bili still going up PLAN: 1/ ERCP for further assessment and stent placement Time Spent With Patient Time: Total time managing care of this patient today ____ minutes. Procedures Date of Service Date of Service: 03/20/23
[2023-03-20 06:41] LABS: Hemoglobin 11.8 g/dl (14.0-18.0); PLT CLUMP 1
[2023-03-20 06:43] LABS: Hematocrit 32.7 % (42.0-52.0); Mean Corpuscular HGB Conc 36.1 g/dl (31.0-36.0); Mean Corpuscular Hemoglobin 35.2 pg (27.0-33.0); Mean Corpuscular Volume 97.6 fL (80.0-98.0); Mean Platelet Volume 10.2 fL (9.4-12.4); Red Blood Count 3.35 X10*6/uL (4.60-5.80); Red Cell Distribution Width 14.9 % (11.0-16.0)
[2023-03-20 06:47] LABS: Platelet Count 94 X10*3/uL (160-400); White Blood Count 11.7 X10*3/uL (4.8-10.8)
[2023-03-20 06:48] LABS: INTERNATIONAL NORM RATIO 1.4 (0.9-1.1); Prothrombin Time 15.7 SEC (10.0-13.1)
[2023-03-20 07:00] LABS: Alanine Aminotransferase 105 U/L (0-40); Albumin Level 2.4 g/dL (3.5-5.0); Alkaline Phosphatase 213 U/L (39-117); Anion Gap 13 (12-20); Aspartate Amino Transferase 119 U/L (5-37); Blood Urea Nitrogen 8 mg/dL (9-16); Calcium 8.3 mg/dL (8.4-10.2); Carbon Dioxide 24 mmol/L (22-29); Chloride 98 mmol/L (96-108); Creatinine Clr Calc Pharmacy 120.7; Estimated Glomerular Filt Rate > 60; Glucose Random 253 mg/dL (60-115); Potassium 3.5 mmol/L (3.3-5.1); Sodium 131 mmol/L (135-145); Total Protein 5.5 g/dL (6.5-8.0)
[2023-03-20 07:27] LABS: Glucose, Whole Blood 243 mg/dL (60-115)
[2023-03-20] MEDS: Sucralfate Oral Suspension 1 GM/10 ML ORAL.SUSP PO ×2 (08:38→20:55)
[2023-03-20] MEDS: metroNIDAZOLE 500 MG TABLET PO ×2 (08:38→20:54)
[2023-03-20] MEDS: Magnesium Oxide 400 MG TABLET PO ×2 (08:38→20:54)
[2023-03-20] MEDS: Multivitamin TABLET 1 TAB PO (08:38)
[2023-03-20] MEDS: Cholecalciferol (Vitamin D3) 10 MCG TABLET PO (08:38)
[2023-03-20] MEDS: cefTRIAXone sodium 1 GM in 0.9 % Sodium Chloride 50 ML IV (08:38)
[2023-03-20] MEDS: Phytonadione (Vit K1) 2.5 MG in 0.9 % Sodium Chloride 50 ML 50.25 MG IV (09:30)
--- NOTE | 2023-03-20 10:31 | MHC.SHP ---
Pre-Procedural Eval Section A Date of Service: 03/20/23 The patient is an INPATIENT: Yes The History & Physical has been completed within 30 days and I have reviewed it.: Yes Section B Chief Complaint: abdominal pain, colitis Allergies: Allergies Allergy/AdvReac Type Severity Reaction Status Date / Time morphine [MORPHINE] Allergy Intermediate SEVERE Verified 03/13/23 05:16 VOMITING, vomiting, vomiting Plan Diagnosis/Plan: Unchanged I have reviewed the history and physical and performed a pertinent physical examination on my patient. No changes have occurred unless specified. Time Spent With Patient Time: Total time managing care of this patient today ____ minutes.
[2023-03-20 11:20] LABS: Glucose, Whole Blood 239 mg/dL (60-115)
--- NOTE | 2023-03-20 12:33 | P.PNIM_ITS ---
Subjective Subjective Date of Service: 03/21/23 Interval History: f/u on abdominal pain Review of Systems still has abd pain , no nausea or vomiting Physical Exam Vital Signs: Vital Signs: Last Vital Signs Temp 97.6 F 03/20/23 07:44 Pulse 100 03/20/23 07:44 Resp 18 03/20/23 07:44 BP 142/70 H 03/20/23 07:44 Pulse Ox 97 03/20/23 07:44 O2 Del Method Room Air 03/20/23 07:44 BMI result Body Mass Index 25.1 General: AO X 3, no acute distress Resp:? CTA bilateral CVS: S1,S2,RRR GI: +BS, NT, no distention Skin: No rash Neuro:? motor grossly intact Psych: appropriate affect Objective Data Active Medications Enoxaparin Sodium (Enoxaparin Sodium 100 Mg/Ml Syringe) 100 mg SUBCUT DAILY [facility] Last Admin: 03/19/23 07:58 Dose: 100 mg Documented By: ANGELES Glucose (Glucose Gel 15 Gm Gel..Gram.) 15 gm PO Q15M PRN; Protocol PRN Reason: per Hypoglycemia Standing Ord. Hydromorphone HCl (Hydromorphone Hcl 0.5 Mg/0.5 Ml Syringe) 0.5 mg IVPUSH Q4H PRN; Protocol PRN Reason: Pain, Severe (Pain Scale 7-10) Last Admin: 03/19/23 20:08 Dose: 0.5 mg Documented By: JAVAD Dextrose (D10) 250 mls @ 750 mls/hr IV Q15M PRN; Protocol PRN Reason: per Hypoglycemia Standing Ord. Ceftriaxone Sodium 1 gm/ (Sodium Chloride) 50 mls @ 100 mls/hr IV Q24H [facility] Last Infusion: 03/20/23 09:36 Dose: 0 mls/hr Documented By: ANGELES Sodium Chloride (Sodium Chloride 0.45 %) 1,000 mls @ 100 mls/hr IVCONT .Q10H [facility] Last Infusion: 03/20/23 11:47 Dose: 100 mls/hr Documented By: ANGELES Insulin Human Lispro (Insulin Lispro 100 Unit/Ml 3 Ml Vial) 0 unit SUBCUT QIDACHS [facility]; Protocol Last Admin: 03/20/23 11:47 Dose: Not Given Documented By: ANGELES Non-Admin Reason: NPO Magnesium Hydroxide (Milk Of Magnesia 30 Ml Oral.Susp) 30 ml PO DAILY PRN PRN Reason: Constipation Last Admin: 03/18/23 09:01 Dose: 30 ml Documented By: CELESTE Magnesium Oxide (Magnesium Oxide 400 Mg Tablet) 400 mg PO BID [facility] Last Admin: 03/20/23 08:38 Dose: 400 mg Documented By: ANGELES Melatonin (Melatonin 3 Mg Tablet) 6 mg PO BEDTIME PRN PRN Reason: Insomnia Last Admin: 03/18/23 20:45 Dose: 6 mg Documented By: OSCAR Metronidazole (Metronidazole 500 Mg Tablet) 500 mg PO Q12H [facility] Last Admin: 03/20/23 08:38 Dose: 500 mg Documented By: ANGELES Multivitamins/Vitamin C (Multivitamin Tablet) 1 tab PO DAILY [facility] Last Admin: 03/20/23 08:38 Dose: 1 tab Documented By: ANGELES Ondansetron HCl (Ondansetron Hcl 4 Mg/2 Ml Vial) 4 mg IVPUSH Q8H PRN PRN Reason: Nausea and Vomiting Pharmacy Consult (Consult Rx Perform Med Rec) 1 each MISCELLANE ONCE PRN PRN Reason: Consult order Sodium Chloride (0.9 % Sodium Chloride Flush 3 Ml Syringe) 3 ml IVFLUSH QSHIFT [facility] Last Admin: 03/20/23 07:15 Dose: Not Given Documented By: ANGELES Non-Admin Reason: IV Running Sucralfate (Sucralfate Oral Suspension 1 Gm/10 Ml Oral.Susp) 1 gm PO BID [facility] Last Admin: 03/20/23 08:38 Dose: 1 gm Documented By: ANGELES Vitamin D (Cholecalciferol (Vitamin D3) 10 Mcg Tablet) 10 mcg PO DAILY [facility] Last Admin: 03/20/23 08:38 Dose: 10 mcg Documented By: ANGELES Labs 03/20/23 06:20 03/20/23 06:20 Labs: Laboratory Results - last 24 hr 03/19/23 03/19/23 03/20/23 16:02 20:32 06:20 MCV 97.6 MCH 35.2 H MCHC 36.1 H RDW 14.9 Plt Count 94 L MPV 10.2 Absolute Nucleated RBC 0.000 Nucleated RBC % (auto) 0.0 PT INR Anion Gap Estim Creat Clear Calc Estimated GFR POC Glucose 237 H 239 H Random Glucose Calcium Total Bilirubin AST ALT Alkaline Phosphatase Total Protein Albumin Blood Type Antibody Screen MASON, Polyspecific Positive MASON Work-up 03/20/23 03/20/23 03/20/23 06:20 06:20 06:20 MCV MCH MCHC RDW Plt Count MPV Absolute Nucleated RBC Nucleated RBC % (auto) PT 15.7 H INR 1.4 H Anion Gap 13 Estim Creat Clear Calc 120.7 Estimated GFR > 60 POC Glucose Random Glucose 253 H Calcium 8.3 L Total Bilirubin 9.0 H AST 119 H ALT 105 H Alkaline Phosphatase 213 H Total Protein 5.5 L Albumin 2.4 L Blood Type AB Positive Antibody Screen NEGATIVE MASON, Polyspecific NEGATIVE Positive MASON Work-up TNP 03/20/23 03/20/23 07:24 11:16 MCV MCH MCHC RDW Plt Count MPV Absolute Nucleated RBC Nucleated RBC % (auto) PT INR Anion Gap Estim Creat Clear Calc Estimated GFR POC Glucose 243 H 239 H Random Glucose Calcium Total Bilirubin AST ALT Alkaline Phosphatase Total Protein Albumin Blood Type Antibody Screen MASON, Polyspecific Positive MASON Work-up Assessment and Plan (1) Portal vein thrombosis: Status: Acute (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 (3) Mass of head of pancreas: Status: Acute (4) Colitis: Status: Acute Plan 63 year old male with history noninsulin dependent type 2 diabetes, alcoholic cirrhosis of the liver, hx alcoholism, diabetic polyneuropathy, venous insuffiency, and 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 here with peristent abd pain and questionable colitis #Abdominal pain--likely related to pancreatitic cancer, superior mesanteric vein thrombosis and portal vein thrombosis, and doubt colitis -pain control with morphine or Dilaudid, oxycodone #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 Time Spent With Patient Time: Total time managing care of this patient today ____ minutes. Quality Stroke Does the patient have a stroke diagnosis?: No VTE Prior VTE?: Yes VTE Risk Level:: Medical - moderate - high VTE Device Contraindication: Treatment Not Indicated VTE Drug Contraindication: N/A - Med Ordered
[2023-03-20 14:11] LABS: Glucose, Whole Blood 258 mg/dL (60-115)
--- NOTE | 2023-03-20 15:54 | HO.ANESPROP2 ---
HPI - Anesthesia Eval Consult details Narrative: ercp PMF Active Problems Active Problems: All Active Problems (Updated 03/20/23 @ 10:29 by Jenna Tucker MD) Obstructive jaundice due to cancer (Acute) Colitis (Acute) Portal vein thrombosis (Acute) Superior mesenteric vein thrombosis (Acute) Tubular adenoma of colon (Acute) Elevated ferritin (Acute) Cervical neck pain with evidence of disc disease (Acute) Elevated bilirubin (Acute) Low hemoglobin (Acute) Screening PSA (prostate specific antigen) (Acute) Systolic murmur (Acute) Screening for colon cancer (Acute) Liver lesion (Acute) Mass of head of pancreas (Acute) Pancreatic adenocarcinoma (Acute) Overgrown toenails (Acute) Diabetes 1.5, managed as type 2 (Acute) Cirrhosis of liver (Acute) Past Medical History Medical History Alcoholism Anemia Cerebellar ataxia Cirrhosis of liver Compression fracture Diabetes 1.5, managed as type 2 Diabetic retinopathy Elevated ferritin Lung nodule Overgrown toenails Pancreatic adenocarcinoma Pancytopenia Peripheral polyneuropathy Venous insufficiency Family History Family History Father No problems noted. 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 If so, by whom?: No Do you feel safe in your current relationship?: Yes Is there a partner from a previous relationship who is making you feel unsafe now?: No Are you made to feel afraid or neglected: No Are you DNR?: Yes Advance Directives: Yes Advance Directives on File: Yes Advance Directives Date on File: 03/13/23 Do you have thoughts of harming others: None Do you have a plan to hurt others: No Plan Recently lost weight without trying: No Eating poorly because of decreased appetite: No Nutrition Risks: No Nutritional Risk Poor oral hygiene: No service: No Current occupational status: retired Cognitive needs: No Hearing needs: No Vision needs: No Meds Allergies Allergy/AdvReac Type Severity Reaction Status Date / Time morphine [MORPHINE] Allergy Intermediate SEVERE Verified 03/13/23 05:16 VOMITING, vomiting, vomiting Active Medications: Current Medications Enoxaparin Sodium (Enoxaparin Sodium 100 Mg/Ml Syringe) 100 mg SUBCUT DAILY ON LICENSE OF [facility] Last Admin: 03/19/23 07:58 Dose: 100 mg Glucose (Glucose Gel 15 Gm Gel..Gram.) 15 gm PO Q15M PRN; Protocol PRN Reason: per Hypoglycemia Standing Ord. Hydromorphone HCl (Hydromorphone Hcl 0.5 Mg/0.5 Ml Syringe) 0.5 mg IVPUSH Q4H PRN; Protocol PRN Reason: Pain, Severe (Pain Scale 7-10) Last Admin: 03/19/23 20:08 Dose: 0.5 mg Dextrose (D10) 250 mls @ 750 mls/hr IV Q15M PRN; Protocol PRN Reason: per Hypoglycemia Standing Ord. Ceftriaxone Sodium 1 gm/ (Sodium Chloride) 50 mls @ 100 mls/hr IV Q24H ON LICENSE OF [facility] Last Infusion: 03/20/23 09:36 Dose: Infused Sodium Chloride (Sodium Chloride 0.45 %) 1,000 mls @ 100 mls/hr IVCONT .Q10H ON LICENSE OF [facility] Last Infusion: 03/20/23 15:00 Dose: 0 mls/hr Insulin Human Lispro (Insulin Lispro 100 Unit/Ml 3 Ml Vial) 0 unit SUBCUT QIDACHS ON LICENSE OF [facility]; Protocol Last Admin: 03/20/23 11:47 Dose: Not Given Magnesium Hydroxide (Milk Of Magnesia 30 Ml Oral.Susp) 30 ml PO DAILY PRN PRN Reason: Constipation Last Admin: 03/18/23 09:01 Dose: 30 ml Magnesium Oxide (Magnesium Oxide 400 Mg Tablet) 400 mg PO BID ON LICENSE OF [facility] Last Admin: 03/20/23 08:38 Dose: 400 mg Melatonin (Melatonin 3 Mg Tablet) 6 mg PO BEDTIME PRN PRN Reason: Insomnia Last Admin: 03/18/23 20:45 Dose: 6 mg Metronidazole (Metronidazole 500 Mg Tablet) 500 mg PO Q12H ON LICENSE OF [facility] Last Admin: 03/20/23 08:38 Dose: 500 mg Multivitamins/Vitamin C (Multivitamin Tablet) 1 tab PO DAILY ON LICENSE OF [facility] Last Admin: 03/20/23 08:38 Dose: 1 tab Ondansetron HCl (Ondansetron Hcl 4 Mg/2 Ml Vial) 4 mg IVPUSH Q8H PRN PRN Reason: Nausea and Vomiting Pharmacy Consult (Consult Rx Perform Med Rec) 1 each MISCELLANE ONCE PRN PRN Reason: Consult order Sodium Chloride (0.9 % Sodium Chloride Flush 3 Ml Syringe) 3 ml IVFLUSH QSHIFT ON LICENSE OF [facility] Last Admin: 03/20/23 07:15 Dose: Not Given Sucralfate (Sucralfate Oral Suspension 1 Gm/10 Ml Oral.Susp) 1 gm PO BID ON LICENSE OF [facility] Last Admin: 03/20/23 08:38 Dose: 1 gm Vitamin D (Cholecalciferol (Vitamin D3) 10 Mcg Tablet) 10 mcg PO DAILY ON LICENSE OF [facility] Last Admin: 03/20/23 08:38 Dose: 10 mcg Home Medications Medication Instructions Recorded Confirmed Last Taken Type cholecalciferol (vitamin D3) 10 10 mcg PO DAILY 09/15/20 03/17/23 03/17/23 History mcg (400 unit) capsule sucralfate 100 mg/mL oral 10 ml PO BID 03/17/23 03/17/23 03/17/23 History suspension Exam Exam Date and Time: March 20, 2023 [id number] Height,Weight and Vital Signs: Height 5 ft 8 in Weight 75 kg Last Vital Signs Temp 97.0 F 03/20/23 13:57 Pulse 98 03/20/23 13:57 Resp 18 03/20/23 13:57 BP 143/69 H 03/20/23 13:57 Pulse Ox 95 03/20/23 13:57 O2 Del Method Room Air 03/20/23 13:57 Pertinent Lab Results Pertinent Lab Results: Laboratory Tests 03/17/23 03/17/23 03/17/23 12:29 12:29 12:29 WBC 11.3 H RBC 3.31 L Hgb 11.6 L Hct 33.9 L MCV 102.4 H MCH 35.0 H MCHC 34.2 RDW 14.6 Plt Count 81 L MPV 10.1 Immature Gran % (Auto) 0.5 H Neut % (Auto) 83.5 H Lymph % (Auto) 4.6 L [place] % (Auto) 9.2 Eos % (Auto) 1.9 Baso % (Auto) 0.3 Lymph # (Auto) 0.5 L [place] # (Auto) 1.0 Eos # (Auto) 0.2 Baso # (Auto) 0.0 Abs Immat Gran (auto) 0.06 H Absolute Neuts (auto) 9.5 H Absolute Nucleated RBC 0.000 Nucleated RBC % (auto) 0.0 PT 13.9 H INR 1.2 H APTT 32.0 Sodium 140 Potassium 3.7 Chloride 102 Carbon Dioxide 20 L Anion Gap 22 H BUN 11 Creatinine 0.77 Estim Creat Clear Calc 92.5 Estimated GFR > 60 POC Glucose Random Glucose 233 H Calcium 9.4 Magnesium 2.0 Total Bilirubin 6.7 H Direct Bilirubin AST 63 H ALT 87 H Alkaline Phosphatase 213 H Total Protein 5.9 L Albumin 2.7 L Lipase 100 H Blood Type Antibody Screen MASON, Polyspecific Positive MASON Work-up 03/17/23 03/18/23 03/18/23 18:35 05:53 07:31 WBC RBC Hgb Hct MCV MCH MCHC RDW Plt Count MPV Immature Gran % (Auto) Neut % (Auto) Lymph % (Auto) [place] % (Auto) Eos % (Auto) Baso % (Auto) Lymph # (Auto) [place] # (Auto) Eos # (Auto) Baso # (Auto) Abs Immat Gran (auto) Absolute Neuts (auto) Absolute Nucleated RBC Nucleated RBC % (auto) PT INR APTT Sodium 136 Potassium 3.4 Chloride 99 Carbon Dioxide 24 Anion Gap 16 BUN 8 L Creatinine 0.63 Estim Creat Clear Calc 113.0 Estimated GFR > 60 POC Glucose 216 H 191 H Random Glucose 176 H Calcium 8.8 D Magnesium Total Bilirubin Direct Bilirubin 4.3 H AST ALT Alkaline Phosphatase Total Protein Albumin Lipase Blood Type Antibody Screen MASON, Polyspecific Positive MASON Work-up 03/18/23 03/18/23 03/18/23 11:29 16:16 20:19 WBC RBC Hgb Hct MCV MCH MCHC RDW Plt Count MPV Immature Gran % (Auto) Neut % (Auto) Lymph % (Auto) [place] % (Auto) Eos % (Auto) Baso % (Auto) Lymph # (Auto) [place] # (Auto) Eos # (Auto) Baso # (Auto) Abs Immat Gran (auto) Absolute Neuts (auto) Absolute Nucleated RBC Nucleated RBC % (auto) PT INR APTT Sodium Potassium Chloride Carbon Dioxide Anion Gap BUN Creatinine Estim Creat Clear Calc Estimated GFR POC Glucose 177 H 217 H 237 H Random Glucose Calcium Magnesium Total Bilirubin Direct Bilirubin AST ALT Alkaline Phosphatase Total Protein Albumin Lipase Blood Type Antibody Screen MASON, Polyspecific Positive MASON Work-up 03/19/23 03/19/23 03/19/23 05:52 07:47 11:03 WBC RBC Hgb Hct MCV MCH MCHC RDW Plt Count MPV Immature Gran % (Auto) Neut % (Auto) Lymph % (Auto) [place] % (Auto) Eos % (Auto) Baso % (Auto) Lymph # (Auto) [place] # (Auto) Eos # (Auto) Baso # (Auto) Abs Immat Gran (auto) Absolute Neuts (auto) Absolute Nucleated RBC Nucleated RBC % (auto) PT INR APTT Sodium 132 L Potassium 3.3 Chloride 98 Carbon Dioxide 27 Anion Gap 10 L BUN 6 L Creatinine 0.57 Estim Creat Clear Calc 125.0 Estimated GFR > 60 POC Glucose 251 H 202 H Random Glucose 225 H Calcium 8.4 Magnesium Total Bilirubin 7.1 H Direct Bilirubin AST 100 H ALT 95 H Alkaline Phosphatase 208 H Total Protein 5.4 L Albumin 2.4 L Lipase Blood Type Antibody Screen MASON, Polyspecific Positive MASON Work-up 03/19/23 03/19/23 03/20/23 16:02 20:32 06:20 WBC 11.7 H RBC 3.35 L Hgb 11.8 L Hct 32.7 L MCV 97.6 MCH 35.2 H MCHC 36.1 H RDW 14.9 Plt Count 94 L MPV 10.2 Immature Gran % (Auto) Neut % (Auto) Lymph % (Auto) [place] % (Auto) Eos % (Auto) Baso % (Auto) Lymph # (Auto) [place] # (Auto) Eos # (Auto) Baso # (Auto) Abs Immat Gran (auto) Absolute Neuts (auto) Absolute Nucleated RBC 0.000 Nucleated RBC % (auto) 0.0 PT INR APTT Sodium Potassium Chloride Carbon Dioxide Anion Gap BUN Creatinine Estim Creat Clear Calc Estimated GFR POC Glucose 237 H 239 H Random Glucose Calcium Magnesium Total Bilirubin Direct Bilirubin AST ALT Alkaline Phosphatase Total Protein Albumin Lipase Blood Type Antibody Screen MASON, Polyspecific Positive MASON Work-up 03/20/23 03/20/23 03/20/23 06:20 06:20 06:20 WBC RBC Hgb Hct MCV MCH MCHC RDW Plt Count MPV Immature Gran % (Auto) Neut % (Auto) Lymph % (Auto) [place] % (Auto) Eos % (Auto) Baso % (Auto) Lymph # (Auto) [place] # (Auto) Eos # (Auto) Baso # (Auto) Abs Immat Gran (auto) Absolute Neuts (auto) Absolute Nucleated RBC Nucleated RBC % (auto) PT 15.7 H INR 1.4 H APTT Sodium 131 L Potassium 3.5 Chloride 98 Carbon Dioxide 24 Anion Gap 13 BUN 8 L Creatinine 0.59 Estim Creat Clear Calc 120.7 Estimated GFR > 60 POC Glucose Random Glucose 253 H Calcium 8.3 L Magnesium Total Bilirubin 9.0 H Direct Bilirubin AST 119 H ALT 105 H Alkaline Phosphatase 213 H Total Protein 5.5 L Albumin 2.4 L Lipase Blood Type AB Positive Antibody Screen NEGATIVE MASON, Polyspecific NEGATIVE Positive MASON Work-up TNP 03/20/23 03/20/23 03/20/23 07:24 11:16 14:08 WBC RBC Hgb Hct MCV MCH MCHC RDW Plt Count MPV Immature Gran % (Auto) Neut % (Auto) Lymph % (Auto) [place] % (Auto) Eos % (Auto) Baso % (Auto) Lymph # (Auto) [place] # (Auto) Eos # (Auto) Baso # (Auto) Abs Immat Gran (auto) Absolute Neuts (auto) Absolute Nucleated RBC Nucleated RBC % (auto) PT INR APTT Sodium Potassium Chloride Carbon Dioxide Anion Gap BUN Creatinine Estim Creat Clear Calc Estimated GFR POC Glucose 243 H 239 H 258 H Random Glucose Calcium Magnesium Total Bilirubin Direct Bilirubin AST ALT Alkaline Phosphatase Total Protein Albumin Lipase Blood Type Antibody Screen MASON, Polyspecific Positive MASON Work-up Airway Mallampati Class: I TM Dist: >3cm Neck ROM: Full (ho cervical disease urt from and denies pain today) Loose/Missing/Broken Teeth: Yes (broken) Heart: rr Lungs: cta Assessment and Plan Assessment Anesthesia Assessment: Anesthesia Plan Discussed and Chart Reviewed Final Anesthetic Review Family History of Problems with Anesthesia: No History of Problems with Anesthesia: No ASA Class: III and Emergency Final Preanesthetic Review: No Changes in Pt Med Stat, Meds/Allgs Chart Reviewed, Consent Obtained/Reviewed and DNR Form (If Appl.) (Fll code in OR) Patient Risk: Intermediate Procedure Risk: Low Anesthetic Plan Anesthetic Plan: GA and MAC: Disposition: Standard PACU
--- NOTE | 2023-03-20 16:25 | W.PM.OPN ---
Operative Note Operative Note Date of Service: 03/20/23 Narrative: Description: Endoscopic retrograde cholangiopancreatography (ERCP) PROCEDURE: Endoscopic retrograde cholangiopancreatography with sphincterotomy, cholangiogram and interpretation, with balloon dilation and stent placement INDICATION FOR THE PROCEDURE: Patient with a history of pancreatic ca and increasingly abnormal LFT MEDICATIONS: General anesthesia, The risks of the procedure were made aware to the patient and consisted of medication reaction, bleeding, perforation, aspiration, and post ERCP pancreatitis. DESCRIPTION OF PROCEDURE: After informed consent and appropriate sedation, an EGD scope was first placed due to hx of varices, and no bleeding or high risk varices were noted, some superificially uclerated areas noted from prior banding recently The duodenoscope was then inserted into the oropharynx, down the esophagus, and into the stomach. The scope was then advanced through the pylorus to the ampulla. The ampulla was atrophied with a v small trickle of bile noted coming out. Positioning was difficult due to an unstable scope angle, but eventually the CBD was entered with wire guidance and confirmed with cholangiogram. The duct was small but there may have been possible extrinsic compression at the distal CBD. A sphincterotomy was performed and then the ampulla was dilated using a 10 Fr hurricane balloon. A 10Fr x 7 cm plastic stent was then advanced and put into position under fluorscopy and direct visualization. There was some minor oozing which had ceased by the end of the procedure. The stomach was then decompressed and the endoscope was withdrawn. FINDINGS: 1. atrophied papilla, possible extrinsic compression of the distal CBD with stent placement RECOMMENDATIONS: 1. NPO except ice chips for next 4-6 hrs then clears as tolerated, can advance diet tomorrow if feels well 2. Restart lovenox tomorrow. 3. Watch out for obstructed stent, if no issues beforehand then can replace in 3 months
[2023-03-20 16:43] LABS: Glucose, Whole Blood 235 mg/dL (60-115)
[2023-03-20 17:29] LABS: Glucose, Whole Blood 238 mg/dL (60-115)
[2023-03-20] MEDS: Insulin Lispro 100 UNIT/ML 3 ML VIAL SUBCUT ×2 (17:31→20:54)
[2023-03-20] MEDS: 0.9 % Sodium Chloride Flush 3 ML SYRINGE IVFLUSH (17:31)
[2023-03-20 20:44] LABS: Glucose, Whole Blood 227 mg/dL (60-115)
[2023-03-21] VITALS: RESP 20
[2023-03-21] MEDS: Sodium Chloride 0.45 % 1,000 ML 100 ML IVCONT (03:22)
[2023-03-21 04:00] VITALS: BP 132/69; PULSE 96; RESP 18; TEMP 36.7; O2SAT 97
[2023-03-21 07:14] VITALS: BP 152/70; PULSE 103; RESP 18; TEMP 36.8; O2SAT 92
[2023-03-21 07:36] LABS: Glucose, Whole Blood 239 mg/dL (60-115)
[2023-03-21 07:49] LABS: Hemoglobin 12.1 g/dl (14.0-18.0); Mean Corpuscular HGB Conc 35.6 g/dl (31.0-36.0); Mean Corpuscular Hemoglobin 34.9 pg (27.0-33.0); Mean Platelet Volume 10.2 fL (9.4-12.4); Platelet Count 100 X10*3/uL (160-400); Red Blood Count 3.47 X10*6/uL (4.60-5.80); Red Cell Distribution Width 15.3 % (11.0-16.0); White Blood Count 12.8 X10*3/uL (4.8-10.8)
[2023-03-21] MEDS: HYDROmorphone HCl 0.5 MG/0.5 ML SYRINGE IVPUSH ×2 (07:50→18:32)
[2023-03-21 07:51] LABS: Alanine Aminotransferase 99 U/L (0-40); Albumin Level 2.3 g/dL (3.5-5.0); Alkaline Phosphatase 221 U/L (39-117); Anion Gap 14 (12-20); Aspartate Amino Transferase 98 U/L (5-37); Blood Urea Nitrogen 8 mg/dL (9-16); Calcium 8.4 mg/dL (8.4-10.2); Carbon Dioxide 24 mmol/L (22-29); Chloride 100 mmol/L (96-108); Estimated Glomerular Filt Rate > 60; Glucose Random 244 mg/dL (60-115); Potassium 3.8 mmol/L (3.3-5.1); Sodium 134 mmol/L (135-145); Total Protein 5.4 g/dL (6.5-8.0)
[2023-03-21] MEDS: Sucralfate Oral Suspension 1 GM/10 ML ORAL.SUSP PO ×2 (07:51→22:25)
[2023-03-21] MEDS: Magnesium Oxide 400 MG TABLET PO ×2 (07:52→22:24)
[2023-03-21] MEDS: metroNIDAZOLE 500 MG TABLET PO ×2 (07:52→22:25)
[2023-03-21] MEDS: Multivitamin TABLET 1 TAB PO (07:52)
[2023-03-21] MEDS: Cholecalciferol (Vitamin D3) 10 MCG TABLET PO (07:52)
[2023-03-21] MEDS: Insulin Lispro 100 UNIT/ML 3 ML VIAL SUBCUT ×4 (07:55→22:24)
--- NOTE | 2023-03-21 07:57 | HO.POSTANES ---
Post Anesthesia Evaluation Post Anesthesia Evaluation Vital Signs: Vital Signs Temp Pulse Resp BP Pulse Ox O2 Del Method 03/21/23 07:14 98.2 F 103 H 18 152/70 H 92 Room Air 03/21/23 04:00 98.1 F 96 18 132/69 97 Room Air 03/21/23 00:00 20 Anesthesia: General Endotracheal-GETA Mental Status: Awake Pain Control: Satisfactory Nausea/Vomiting: None Hydration: Adequate Anesthesia-Related Issues: No Anes. Related Issues
[2023-03-21] MEDS: cefTRIAXone sodium 1 GM in 0.9 % Sodium Chloride 50 ML IV (08:00)
--- NOTE | 2023-03-21 09:18 | MHC.CLN ---
NUTRITION TODAY IS DAY 5 OF DIET=CLEAR LIQUIDS OR NPO. CURRENTLY WITH CLEAR LIQUID DIET. ADDING ENSURE CLEAR TID TO IMPROVE NUTRITIONAL INTAKE. SUPPLEMENT PROVIDES ADDITIONAL 720 KCALS, 40 G PROTEIN. FOLLOW FOR DIET ADVANCEMENT AND INTAKE.
[2023-03-21 11:29] LABS: Glucose, Whole Blood 240 mg/dL (60-115)
[2023-03-21 11:40] VITALS: BP 143/68; PULSE 104; RESP 18; TEMP 37.1; O2SAT 92
--- NOTE | 2023-03-21 11:54 | PC.NURSE ---
AP HR 106, no c/o chest pain, pressure or MD FALGUNI notified.
--- NOTE | 2023-03-21 12:00 | MHC.CM.PN ---
per rounds pts dante is going up pt is not ready for dc
[2023-03-21 15:27] VITALS: BP 143/69; PULSE 111; RESP 20; TEMP 36.7; O2SAT 95
[2023-03-21 16:13] LABS: Glucose, Whole Blood 242 mg/dL (60-115)
[2023-03-21] MEDS: 0.9 % Sodium Chloride Flush 3 ML SYRINGE IVFLUSH ×2 (16:20→22:25)
[2023-03-21 19:06] VITALS: BP 136/76; PULSE 114; RESP 18; TEMP 37.3; O2SAT 91
[2023-03-21 20:29] LABS: Glucose, Whole Blood 257 mg/dL (60-115)
[2023-03-22] VITALS: BP 137/64; PULSE 112; RESP 18; TEMP 37.4; O2SAT 93
[2023-03-22] MEDS: HYDROmorphone HCl 0.5 MG/0.5 ML SYRINGE IVPUSH ×2 (01:53→12:45)
[2023-03-22 03:57] VITALS: RESP 19; TEMP 36.4
[2023-03-22 07:03] LABS: Hematocrit 34.1 % (42.0-52.0); Hemoglobin 12.4 g/dl (14.0-18.0); INTERNATIONAL NORM RATIO 1.4 (0.9-1.1); Mean Corpuscular HGB Conc 36.4 g/dl (31.0-36.0); Mean Corpuscular Hemoglobin 35.1 pg (27.0-33.0); Mean Corpuscular Volume 96.6 fL (80.0-98.0); Mean Platelet Volume 10.3 fL (9.4-12.4); Platelet Count 110 X10*3/uL (160-400); Prothrombin Time 16.5 SEC (10.0-13.1); Red Blood Count 3.53 X10*6/uL (4.60-5.80); Red Cell Distribution Width 15.8 % (11.0-16.0); White Blood Count 15.4 X10*3/uL (4.8-10.8)
[2023-03-22 07:23] LABS: Alanine Aminotransferase 94 U/L (0-40); Albumin Level 2.3 g/dL (3.5-5.0); Alkaline Phosphatase 230 U/L (39-117); Anion Gap 12 (12-20); Aspartate Amino Transferase 84 U/L (5-37); Bilirubin Direct 8.9 mg/dL (0.0-0.5); Bilirubin Total 12.8 mg/dL (0.0-1.0); Blood Urea Nitrogen 9 mg/dL (9-16); Calcium 9.1 mg/dL (8.4-10.2); Carbon Dioxide 26 mmol/L (22-29); Chloride 100 mmol/L (96-108); Creatinine Clr Calc Pharmacy 111.3; Estimated Glomerular Filt Rate > 60; Glucose Random 277 mg/dL (60-115); Potassium 3.6 mmol/L (3.3-5.1); Sodium 134 mmol/L (135-145); Total Protein 5.6 g/dL (6.5-8.0)
[2023-03-22] MEDS: cefTRIAXone sodium 1 GM in 0.9 % Sodium Chloride 50 ML IV (07:23)
[2023-03-22] MEDS: Enoxaparin Sodium 100 MG/ML SYRINGE SUBCUT (07:24)
[2023-03-22] MEDS: Sucralfate Oral Suspension 1 GM/10 ML ORAL.SUSP PO ×2 (07:24→20:23)
[2023-03-22] MEDS: 0.9 % Sodium Chloride Flush 3 ML SYRINGE IVFLUSH ×2 (07:24→20:31)
[2023-03-22] MEDS: Multivitamin TABLET 1 TAB PO (07:24)
[2023-03-22] MEDS: Magnesium Oxide 400 MG TABLET PO ×2 (07:24→20:22)
[2023-03-22] MEDS: metroNIDAZOLE 500 MG TABLET PO (07:24)
[2023-03-22] MEDS: Cholecalciferol (Vitamin D3) 10 MCG TABLET PO (07:25)
[2023-03-22 07:28] VITALS: BP 132/70; PULSE 114; RESP 18; TEMP 36.6; O2SAT 92
[2023-03-22] MEDS: Insulin Lispro 100 UNIT/ML 3 ML VIAL SUBCUT ×4 (07:33→20:31)
[2023-03-22 07:40] LABS: Glucose, Whole Blood 275 mg/dL (60-115)
[2023-03-22 10:27] VITALS: BP 144/66; PULSE 114; RESP 18; TEMP 36.8; O2SAT 95
[2023-03-22] MEDS: Docusate Sodium 100 MG/10 ML LIQUID PO (10:42)
[2023-03-22] MEDS: polyethylene glycoL 3350 17 GM POWD.PACK PO (10:42)
[2023-03-22] MEDS: Piperacillin Sodium/Tazobactam 3.375 GM in 0.9 % Sodium Chloride 50 ML IV ×3 (10:49→22:08)
[2023-03-22 11:23] LABS: Alanine Aminotransferase 94 U/L (0-40); Albumin Level 2.4 g/dL (3.5-5.0); Alkaline Phosphatase 237 U/L (39-117); Aspartate Amino Transferase 84 U/L (5-37); Bilirubin Direct 9.3 mg/dL (0.0-0.5); Bilirubin Total 13.3 mg/dL (0.0-1.0); Lactate Dehydrogenase 208 U/L (118-273); Total Protein 5.8 g/dL (6.5-8.0)
--- NOTE | 2023-03-22 11:29 | PM.GIPN ---
Subjective Subjective Date of Service: 03/22/23 Interval History: he has noted worsening abdominal distention appetite is good, no nausea and eating food without issue urine is yellow lower abdominal pain, no pain in upper abdomen, he attributes this to the distention Critical Care Time (minutes): 0 Physical Exam Vital Signs: Vital Signs: Last Vital Signs Temp 98.2 F 03/22/23 10:27 Pulse 114 H 03/22/23 10:27 Resp 18 03/22/23 10:27 BP 144/66 H 03/22/23 10:27 Pulse Ox 95 03/22/23 10:27 O2 Del Method Room Air 03/22/23 10:27 O2 Flow Rate 2 03/20/23 17:07 BMI result Body Mass Index 25.1 EXAM: GENERAL: The patient is relaxed VITAL SIGNS:see workflow HEENT: icteric sclerae, PERRLA, EOMI. Oropharynx clear. Moist mucous membranes. Conjunctivae appear well perfused. No thyroid mass. CHEST: Chest wall is nontender. HEART: Regular rate and rhythm without murmurs. LUNGS: Clear to auscultation bilaterally. ABDOMEN: tense with pos shifting dullness, positive bowel sounds, mildly tender lower abdomen, no organomegaly.no flank tenderness SKIN: No rash, no excessive bruising, petechiae, or purpura. NEUROLOGIC: Cranial nerves II-XII intact without motor/sensory deficit. Psych--nml affect Objective Data Labs 03/22/23 06:10 03/22/23 06:10 Labs: Laboratory Results - last 24 hr 03/21/23 03/21/23 03/21/23 11:23 16:06 20:22 WBC RBC Hgb Hct MCV MCH MCHC RDW Plt Count MPV Absolute Nucleated RBC Nucleated RBC % (auto) PT INR Sodium Potassium Chloride Carbon Dioxide Anion Gap BUN Creatinine Estim Creat Clear Calc Estimated GFR POC Glucose 240 H 242 H 257 H Random Glucose Calcium Total Bilirubin Direct Bilirubin AST ALT Alkaline Phosphatase Lactate Dehydrogenase Total Protein Albumin 03/22/23 03/22/23 03/22/23 06:10 06:10 06:10 WBC 15.4 H RBC 3.53 L Hgb 12.4 L Hct 34.1 L MCV 96.6 MCH 35.1 H MCHC 36.4 H RDW 15.8 Plt Count 110 L MPV 10.3 Absolute Nucleated RBC 0.000 Nucleated RBC % (auto) 0.0 PT 16.5 H INR 1.4 H Sodium 134 L Potassium 3.6 Chloride 100 Carbon Dioxide 26 Anion Gap 12 BUN 9 Creatinine 0.64 Estim Creat Clear Calc 111.3 Estimated GFR > 60 POC Glucose Random Glucose 277 H Calcium 9.1 D Total Bilirubin 12.8 H Direct Bilirubin 8.9 H AST 84 H ALT 94 H Alkaline Phosphatase 230 H Lactate Dehydrogenase Total Protein 5.6 L Albumin 2.3 L 03/22/23 03/22/23 03/22/23 07:26 10:48 10:48 WBC RBC Hgb Hct MCV MCH MCHC RDW Plt Count MPV Absolute Nucleated RBC Nucleated RBC % (auto) PT INR Sodium Potassium Chloride Carbon Dioxide Anion Gap BUN Creatinine Estim Creat Clear Calc Estimated GFR POC Glucose 275 H Random Glucose Calcium Total Bilirubin 13.3 H Direct Bilirubin 9.3 H AST 84 H ALT 94 H Alkaline Phosphatase 237 H Lactate Dehydrogenase 208 Total Protein 5.8 L Albumin 2.4 L Procedures Date of Service Date of Service: 03/22/23 Progress Note: A&P Assessment and plan (1) Obstructive jaundice due to cancer: Status: Acute (2) Elevated bilirubin: Status: Acute Plan 1/ Rising bili and WCC with distended abdomen, need to r/o SBP and other sources of infection causing intrahepatic cholestasis, less likely to be an occluded stent as no upper abdo pain DDX: toxic or metabolic, infectious causes of rising bili, DILI, small duct PBC related to neoplasia, reduced blood and ischemia from PVT PLAN: 1/ tap ascites for diagnostic and therapeutic needs 2/ CXR and KUB to assess for penumonia and make sure stent still in place 3/ commence antibiotics e.g zosyn 4/ check hep serologies, RAAD, SMA, UA, 5/ might need repeat ERCP and replacement of stent will follow clinically. 6/ might need to repeat imaging to r/o budd chairi 7/ may have to consider liver bx Time Spent With Patient Time: Total time managing care of this patient today ____ minutes. Quality Stroke Does the patient have a stroke diagnosis?: No VTE Prior VTE?: Yes VTE Risk Level:: Medical - moderate - high VTE Device Contraindication: Treatment Not Indicated VTE Drug Contraindication: N/A - Med Ordered
[2023-03-22 11:31] LABS: Glucose, Whole Blood 288 mg/dL (60-115)
--- NOTE | 2023-03-22 12:24 | MHC.CM.PN ---
EMR REVIEWED AND PER MD ROUNDS, PT IS NOT MEDICALLY CLEARED FOR DC (ABDOMINAL DISTENTION, INCREASE IN BILI) [facility] WAS NOT ABLE TO SIGN ON AFTER LAST HOSPITAL ADMISSION PCP WOULD NOT SIGN THEIR ORDERS DUE TO PCP NOT FEELING HE WAS SAFE AT HOME PER [facility]. MD MADE AWARE. CM WILL CONTINUE TO FOLLOW
--- NOTE | 2023-03-22 13:56 | P.PNIM_ITS ---
Subjective Subjective Date of Service: 03/23/23 Interval History: more awake ,denies much and pain, but feels some what distended Review of Systems denies any nausea or vomting abd pain seems improving passing gases and passed bm this mornin Physical Exam Vital Signs: Vital Signs: Last Vital Signs Temp 98.2 F 03/22/23 10:27 Pulse 114 H 03/22/23 10:27 Resp 18 03/22/23 10:27 BP 144/66 H 03/22/23 10:27 Pulse Ox 95 03/22/23 10:27 O2 Del Method Room Air 03/22/23 10:27 O2 Flow Rate 2 03/20/23 17:07 BMI result Body Mass Index 25.1 General: AO X 3, no acute distress Resp:? CTA bilateral CVS: S1,S2,RRR GI: +BS, mild distention, minimum tenderness Skin: No rash Neuro:? motor grossly intact Psych: appropriate affect Objective Data Active Medications Enoxaparin Sodium (Enoxaparin Sodium 100 Mg/Ml Syringe) 100 mg SUBCUT DAILY [facility] Last Admin: 03/22/23 07:24 Dose: 100 mg Documented By: KLAUS Glucose (Glucose Gel 15 Gm Gel..Gram.) 15 gm PO Q15M PRN; Protocol PRN Reason: per Hypoglycemia Standing Ord. Hydromorphone HCl (Hydromorphone Hcl 0.5 Mg/0.5 Ml Syringe) 0.5 mg IVPUSH Q4H PRN; Protocol PRN Reason: Pain, Severe (Pain Scale 7-10) Last Admin: 03/22/23 12:45 Dose: 0.5 mg Documented By: KLAUS Hydromorphone HCl (Hydromorphone Hcl 0.5 Mg/0.5 Ml Syringe) 0.5 mg IVPUSH Q5M PRN; Protocol PRN Reason: Pain, Severe (Pain Scale 7-10) Dextrose (D10) 250 mls @ 750 mls/hr IV Q15M PRN; Protocol PRN Reason: per Hypoglycemia Standing Ord. Piperacillin Sod/Tazobactam (Sod 3.375 gm/ Sodium Chloride) 50 mls @ 100 mls/hr IV Q6H [facility] Last Infusion: 03/22/23 11:22 Dose: 0 mls/hr Documented By: KLAUS Insulin Human Lispro (Insulin Lispro 100 Unit/Ml 3 Ml Vial) 0 unit SUBCUT QIDACHS [facility]; Protocol Last Admin: 03/22/23 11:55 Dose: 6 unit Documented By: KLAUS Magnesium Hydroxide (Milk Of Magnesia 30 Ml Oral.Susp) 30 ml PO DAILY PRN PRN Reason: Constipation Last Admin: 03/18/23 09:01 Dose: 30 ml Documented By: CELESTE Magnesium Oxide (Magnesium Oxide 400 Mg Tablet) 400 mg PO BID [facility] Last Admin: 03/22/23 07:24 Dose: 400 mg Documented By: KLAUS Melatonin (Melatonin 3 Mg Tablet) 6 mg PO BEDTIME PRN PRN Reason: Insomnia Last Admin: 03/18/23 20:45 Dose: 6 mg Documented By: OSCAR Multivitamins/Vitamin C (Multivitamin Tablet) 1 tab PO DAILY [facility] Last Admin: 03/22/23 07:24 Dose: 1 tab Documented By: KLAUS Ondansetron HCl (Ondansetron Hcl 4 Mg/2 Ml Vial) 4 mg IVPUSH Q8H PRN PRN Reason: Nausea and Vomiting Pharmacy Consult (Consult Rx Perform Med Rec) 1 each MISCELLANE ONCE PRN PRN Reason: Consult order Sodium Chloride (0.9 % Sodium Chloride Flush 3 Ml Syringe) [facility] Admin: 03/22/23 13:22 Dose: Not Given Documented By: KLAUS Non-Admin Reason: flushed after pain meds Sucralfate (Sucralfate Oral Suspension 1 Gm/10 Ml Oral.Susp) 1 gm PO BID [facility] Last Admin: 03/22/23 07:24 Dose: 1 gm Documented By: KLAUS Vitamin D (Cholecalciferol (Vitamin D3) 10 Mcg Tablet) 10 mcg PO DAILY [facility] Last Admin: 03/22/23 07:25 Dose: 10 mcg Documented By: KLAUS Labs 03/22/23 06:10 03/22/23 06:10 Labs: Laboratory Results - last 24 hr 03/21/23 03/21/23 03/22/23 16:06 20:22 06:10 MCV 96.6 MCH 35.1 H MCHC 36.4 H RDW 15.8 Plt Count 110 L MPV 10.3 Absolute Nucleated RBC 0.000 Nucleated RBC % (auto) 0.0 PT INR Anion Gap Estim Creat Clear Calc Estimated GFR POC Glucose 242 H 257 H Random Glucose Calcium Total Bilirubin Direct Bilirubin AST ALT Alkaline Phosphatase Lactate Dehydrogenase Total Protein Albumin 03/22/23 03/22/23 03/22/23 06:10 06:10 07:26 MCV MCH MCHC RDW Plt Count MPV Absolute Nucleated RBC Nucleated RBC % (auto) PT 16.5 H INR 1.4 H Anion Gap 12 Estim Creat Clear Calc 111.3 Estimated GFR > 60 POC Glucose 275 H Random Glucose 277 H Calcium 9.1 D Total Bilirubin 12.8 H Direct Bilirubin 8.9 H AST 84 H ALT 94 H Alkaline Phosphatase 230 H Lactate Dehydrogenase Total Protein 5.6 L Albumin 2.3 L 03/22/23 03/22/23 03/22/23 10:48 10:48 11:27 MCV MCH MCHC RDW Plt Count MPV Absolute Nucleated RBC Nucleated RBC % (auto) PT INR Anion Gap Estim Creat Clear Calc Estimated GFR POC Glucose 288 H Random Glucose Calcium Total Bilirubin 13.3 H Direct Bilirubin 9.3 H AST 84 H ALT 94 H Alkaline Phosphatase 237 H Lactate Dehydrogenase 208 Total Protein 5.8 L Albumin 2.4 L Assessment and Plan (1) Obstructive jaundice due to cancer: Status: Acute (2) Colitis: Status: Acute (3) Ascitic fluid: Status: Acute Plan 63 year old male with history noninsulin dependent type 2 diabetes, alcoholic cirrhosis of the liver, hx alcoholism, diabetic polyneuropathy, venous insuffiency, and 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 possible infiltrate,abd us ,kub, may need us guided paracentesis added zosyn she now chest-to cover cxr? i there is for typingnfiltrat his chest xray added nebs, incentive spirometry and chest physiotherapy for question of atelectasis Says in addition added albumin since the patient is going to get abdominal paracentesis. 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 [id number] type 2 diabetes -hold metformin and Actos HLD--hold statin d/t high lfts hypontaremia : when corrected for hyperglycemia ,sodium around 133 mild low due to low po intake DVT prophylaxis-on therapeutic Lovenox DNR/DNI Need for inpatient: pain control from pancreatitic cancer, Abx for colitis, elevated Lft's . Time Spent With Patient Time: Total time managing care of this patient today ____ minutes. Quality Stroke Does the patient have a stroke diagnosis?: No VTE Prior VTE?: Yes VTE Risk Level:: Medical - moderate - high VTE Device Contraindication: Treatment Not Indicated VTE Drug Contraindication: N/A - Med Ordered
[2023-03-22] MEDS: Lactulose 20 GM/30 ML SOLUTION PO (14:23)
[2023-03-22] MEDS: Albumin Human 25 % 100 ML IV ×2 (14:33→15:28)
[2023-03-22] MEDS: Lidocaine HCl 1 % MPF 5 ML VIAL SUBCUT (16:38)
[2023-03-22 17:01] VITALS: BP 150/79; PULSE 114; RESP 20; TEMP 36.4; O2SAT 97
[2023-03-22 17:14] LABS: Glucose, Whole Blood 359 mg/dL (60-115)
[2023-03-22 17:16] LABS: RBC Peritoneal Fluid 0.002 X10*6/uL; WBC Peritoneal Fluid 0.234 X10*3/uL
[2023-03-22] MEDS: ondansetron HCL 4 MG/2 ML VIAL IVPUSH (17:19)
[2023-03-22 17:44] LABS: BF Shift QC OK YES; Lymphocyte Peritoneal Fl 32 %; Monocytes Peritoneal Fl 31 %; Neutrophils Peritoneal Fluid 25 %; Other Peritioneal Fl 12 %
[2023-03-22 19:11] VITALS: BP 135/63; PULSE 115; RESP 20; TEMP 36.6; O2SAT 93
[2023-03-22 20:19] LABS: Glucose, Whole Blood 289 mg/dL (60-115)
[2023-03-22 20:29] LABS: Albumin Peritoneal Fluid 0.3 GM/DL; Glucose Peritoneal Fluid 342 MG/DL; Total Protein Peritoneal Fluid 0.7 GM/DL
[2023-03-22] MEDS: oxyCODONE HCl Immed Release 5 MG TABLET PO (22:05)
[2023-03-22] MEDS: Melatonin 3 MG TABLET 6 MG PO (22:05)
[2023-03-23] VITALS (9 sets, daily range): BP systolic 124–151; BP diastolic 58–80; PULSE 81–113; RESP 16–20; TEMP 36.2–37; O2SAT 92–98
[2023-03-23 03:57] LABS: HBS Num1 315.99 mIU/mL (0-7.99); Hepatitis A Antibody IgM 0.21 Index (0-0.79); Hepatitis B Core Antibody Nonreactive (Nonreactive); ~HepC Num1 0.18 S/CO (0.00-0.79); ~Hepatitis A Antibody IgM Nonreactive (Nonreactive); ~Hepatitis B Surface Antibody REACTIVE (Nonreactive); ~Hepatitis C Antibody Nonreactive (Nonreactive)
[2023-03-23] MEDS: Piperacillin Sodium/Tazobactam 3.375 GM in 0.9 % Sodium Chloride 50 ML IV ×4 (04:20→22:08)
[2023-03-23 05:09] LABS: HBsAGNum1 0.27 S/CO (0.00-0.99)
[2023-03-23 07:31] LABS: Glucose, Whole Blood 276 mg/dL (60-115)
[2023-03-23] MEDS: Albuterol/Iprat 2.5/0.5MG 3 ML AMPUL.NEB INHALE ×2 (08:11→11:33)
[2023-03-23 08:20] LABS: Alanine Aminotransferase 89 U/L (0-40); Albumin Level 2.6 g/dL (3.5-5.0); Alkaline Phosphatase 194 U/L (39-117); Aspartate Amino Transferase 137 U/L (5-37); Bilirubin Direct 9.1 mg/dL (0.0-0.5); Bilirubin Total 14.3 mg/dL (0.0-1.0); Total Protein 5.3 g/dL (6.5-8.0)
[2023-03-23] MEDS: Multivitamin TABLET 1 TAB PO (08:20)
[2023-03-23] MEDS: 0.9 % Sodium Chloride Flush 3 ML SYRINGE IVFLUSH ×3 (08:20→19:44)
[2023-03-23] MEDS: Magnesium Oxide 400 MG TABLET PO ×2 (08:20→19:43)
[2023-03-23] MEDS: Cholecalciferol (Vitamin D3) 10 MCG TABLET PO (08:20)
[2023-03-23] MEDS: Sucralfate Oral Suspension 1 GM/10 ML ORAL.SUSP PO ×2 (08:20→19:43)
--- NOTE | 2023-03-23 08:54 | PM.GIPN ---
Subjective Subjective Date of Service: 03/23/23 Interval History: Patient feels better after ascites driained, no SBP CXR with possible infiltrate or atelectasis left lower lobe appetite fair stent still in place in CBD on KUB Critical Care Time (minutes): 0 Physical Exam Vital Signs: Vital Signs: Last Vital Signs Temp 98.6 F 03/23/23 08:44 Pulse 109 H 03/23/23 08:44 Resp 18 03/23/23 08:44 BP 147/68 H 03/23/23 08:44 Pulse Ox 93 03/23/23 08:44 O2 Del Method Room Air 03/23/23 08:44 O2 Flow Rate 2 03/20/23 17:07 BMI result Body Mass Index 25.1 EXAM: GENERAL: The patient is jaundiced VITAL SIGNS:see workflow HEENT: icteric sclerae, PERRLA, EOMI. Oropharynx clear. Moist mucous membranes. Conjunctivae appear well perfused. No thyroid mass. CHEST: Chest wall is nontender. HEART: Regular rate and rhythm without murmurs. LUNGS: Clear to auscultation bilaterally. ABDOMEN: Soft, positive bowel sounds, nontender, no organomegaly.no flank tenderness SKIN: No rash, no excessive bruising, petechiae, or purpura. NEUROLOGIC: Cranial nerves II-XII intact without motor/sensory deficit. Objective Data Labs 03/22/23 06:10 03/22/23 06:10 Labs: Laboratory Results - last 24 hr 03/22/23 03/22/23 03/22/23 10:48 10:48 11:27 POC Glucose 288 H Total Bilirubin 13.3 H Direct Bilirubin 9.3 H AST 84 H ALT 94 H Alkaline Phosphatase 237 H Lactate Dehydrogenase 208 Total Protein 5.8 L Albumin 2.4 L Peritoneal WBC Peritoneal RBC Periton Neutrophils Periton Lymphocytes Peritoneal Monocytes Peritoneal Other Cells Peritoneal Tot Protein Peritoneal Albumin Peritoneal Glucose Hepatitis A IgM Ab Hep Bs Antigen Hep Bs Antibody Hep B Core Total Ab Hepatitis C Ab (EIA) HCV RNA Genotype LiPA HCV RNA (PCR) IUs/ml HCV RNA PCR log IUs/ml Hepatitis C RNA Comment 03/22/23 03/22/23 03/22/23 12:51 12:51 15:58 POC Glucose Total Bilirubin Direct Bilirubin AST ALT Alkaline Phosphatase Lactate Dehydrogenase Total Protein Albumin Peritoneal WBC 0.234 Peritoneal RBC 0.002 Periton Neutrophils 25 Periton Lymphocytes 32 Peritoneal Monocytes 31 Peritoneal Other Cells 12 Peritoneal Tot Protein Peritoneal Albumin Peritoneal Glucose Hepatitis A IgM Ab Nonreactive Hep Bs Antigen Not Reportable Hep Bs Antibody REACTIVE Hep B Core Total Ab Nonreactive Hepatitis C Ab (EIA) Nonreactive HCV RNA Genotype LiPA Cancelled HCV RNA (PCR) IUs/ml Cancelled HCV RNA PCR log IUs/ml Cancelled Hepatitis C RNA Comment Cancelled 03/22/23 03/22/23 03/22/23 15:58 17:04 20:11 POC Glucose 359 H* 289 H Total Bilirubin Direct Bilirubin AST ALT Alkaline Phosphatase Lactate Dehydrogenase Total Protein Albumin Peritoneal WBC Peritoneal RBC Periton Neutrophils Periton Lymphocytes Peritoneal Monocytes Peritoneal Other Cells Peritoneal Tot Protein 0.7 Peritoneal Albumin 0.3 Peritoneal Glucose 342 Hepatitis A IgM Ab Hep Bs Antigen Hep Bs Antibody Hep B Core Total Ab Hepatitis C Ab (EIA) HCV RNA Genotype LiPA HCV RNA (PCR) IUs/ml HCV RNA PCR log IUs/ml Hepatitis C RNA Comment 03/23/23 03/23/23 07:17 07:55 POC Glucose 276 H Total Bilirubin 14.3 H Direct Bilirubin 9.1 H AST 137 H ALT 89 H Alkaline Phosphatase 194 H Lactate Dehydrogenase Total Protein 5.3 L Albumin 2.6 L Peritoneal WBC Peritoneal RBC Periton Neutrophils Periton Lymphocytes Peritoneal Monocytes Peritoneal Other Cells Peritoneal Tot Protein Peritoneal Albumin Peritoneal Glucose Hepatitis A IgM Ab Hep Bs Antigen Hep Bs Antibody Hep B Core Total Ab Hepatitis C Ab (EIA) HCV RNA Genotype LiPA HCV RNA (PCR) IUs/ml HCV RNA PCR log IUs/ml Hepatitis C RNA Comment Microbiology Microbiology Results: Microbiology 03/22/23 15:58 Abdominal Fluid Gram Stain - Final Procedures Date of Service Date of Service: 03/23/23 Progress Note: A&P Assessment and plan (1) Obstructive jaundice due to cancer: Status: Acute Plan 1/ Jaundice -maybe plateauing -no evidence of cholangitis at this time, maybe due to disruption and instrumentation with recent ERCP Plan 1 cont with abx for possile pneumonia 2/ if ongoing jaudince then repet ERCP sunday and change stent 3/ hep screen neg Time Spent With Patient Time: Total time managing care of this patient today ____ minutes. Quality Stroke Does the patient have a stroke diagnosis?: No VTE Prior VTE?: Yes VTE Risk Level:: Medical - moderate - high VTE Device Contraindication: Treatment Not Indicated VTE Drug Contraindication: N/A - Med Ordered
[2023-03-23] MEDS: Enoxaparin Sodium 100 MG/ML SYRINGE SUBCUT (10:47)
--- NOTE | 2023-03-23 11:17 | MHC.CLN ---
F/U DIET ADVANCED 03/23 TO DIABETIC 1800 [address]. ENSURE CLEAR SUPPLEMENT DISCONTINUED DUE TO ELEVATED BLOOD GLUCOSE. RECENT PARACENTESIS. FOLLOW FOR DIET TOLERANCE AND INTAKE.
[2023-03-23 11:36] LABS: Glucose, Whole Blood 298 mg/dL (60-115)
--- NOTE | 2023-03-23 12:00 | MHC.CM.PN ---
perr rounds pt to have an ercp sunday no plans for dc
[2023-03-23] MEDS: Insulin Lispro 100 UNIT/ML 3 ML VIAL SUBCUT ×3 (12:07→19:47)
--- NOTE | 2023-03-23 13:51 | P.PNIM_ITS ---
Subjective Subjective Date of Service: 03/24/23 Interval History: f/u on abdominal pain,Ascitis Review of Systems denies any nausea or vomting abd pain seems improving passing gases Physical Exam Vital Signs: Vital Signs: Last Vital Signs Temp 98.1 F 03/23/23 13:00 Pulse 108 H 03/23/23 13:00 Resp 18 03/23/23 13:00 BP 134/61 03/23/23 13:00 Pulse Ox 92 03/23/23 13:00 O2 Del Method Room Air 03/23/23 13:00 O2 Flow Rate 2 03/20/23 17:07 BMI result Body Mass Index 25.1 General: AO X 3, no acute distress Resp:? CTA bilateral CVS: S1,S2,RRR GI: +BS,? mild? distention, minimum tenderness Skin: No rash Neuro:? motor grossly intact Psych: appropriate affect Objective Data Active Medications Albuterol/Ipratropium (Albuterol/Iprat 2.5/0.5mg 3 Ml Ampul.Neb) 3 ml INHALE RQ4H WHILE AWAKE [facility] Last Admin: 03/23/23 11:33 Dose: 3 ml Documented By: NAT Enoxaparin Sodium (Enoxaparin Sodium 100 Mg/Ml Syringe) 100 mg SUBCUT DAILY [facility] Last Admin: 03/23/23 10:47 Dose: 100 mg Documented By: ANGELES Glucose (Glucose Gel 15 Gm Gel..Gram.) 15 gm PO Q15M PRN; Protocol PRN Reason: per Hypoglycemia Standing Ord. Dextrose (D10) 250 mls @ 750 mls/hr IV Q15M PRN; Protocol PRN Reason: per Hypoglycemia Standing Ord. Piperacillin Sod/Tazobactam (Sod 3.375 gm/ Sodium Chloride) 50 mls @ 100 mls/hr IV Q6H [facility] Last Infusion: 03/23/23 10:48 Dose: 0 mls/hr Documented By: ANGELES Insulin Human Lispro (Insulin Lispro 100 Unit/Ml 3 Ml Vial) 0 unit SUBCUT QIDACHS [facility]; Protocol Last Admin: 03/23/23 12:07 Dose: 6 unit Documented By: ANGELES Magnesium Hydroxide (Milk Of Magnesia 30 Ml Oral.Susp) 30 ml PO DAILY PRN PRN Reason: Constipation Last Admin: 03/18/23 09:01 Dose: 30 ml Documented By: CELESTE Magnesium Oxide (Magnesium Oxide 400 Mg Tablet) 400 mg PO BID [facility] Last Admin: 03/23/23 08:20 Dose: 400 mg Documented By: ANGELES Melatonin (Melatonin 3 Mg Tablet) 6 mg PO BEDTIME PRN PRN Reason: Insomnia Last Admin: 03/22/23 22:05 Dose: 6 mg Documented By: NOEL Multivitamins/Vitamin C (Multivitamin Tablet) 1 tab PO DAILY [facility] Last Admin: 03/23/23 08:20 Dose: 1 tab Documented By: ANGELES Ondansetron HCl (Ondansetron Hcl 4 Mg/2 Ml Vial) 4 mg IVPUSH Q8H PRN PRN Reason: Nausea and Vomiting Last Admin: 03/22/23 17:19 Dose: 4 mg Documented By: KLAUS Oxycodone HCl (Oxycodone Hcl Immed Release 5 Mg Tablet) 5 mg PO Q4H PRN PRN Reason: Pain, Severe (Pain Scale 7-10) Last Admin: 03/22/23 22:05 Dose: 5 mg Documented By: NOEL Pharmacy Consult (Consult Rx Perform Med Rec) 1 each MISCELLANE ONCE PRN PRN Reason: Consult order Sodium Chloride (0.9 % Sodium Chloride Flush 3 Ml Syringe) 3 ml IVFLUSH QSHIFT [facility] Last Admin: 03/23/23 08:20 Dose: 3 ml Documented By: ANGELES Sucralfate (Sucralfate Oral Suspension 1 Gm/10 Ml Oral.Susp) 1 gm PO BID [facility] Last Admin: 03/23/23 08:20 Dose: 1 gm Documented By: ANGELES Vitamin D (Cholecalciferol (Vitamin D3) 10 Mcg Tablet) 10 mcg PO DAILY [facility] Last Admin: 03/23/23 08:20 Dose: 10 mcg Documented By: ANGELES Labs 03/22/23 06:10 03/22/23 06:10 Labs: Laboratory Results - last 24 hr 03/22/23 03/22/23 03/22/23 12:51 12:51 15:58 POC Glucose Total Bilirubin Direct Bilirubin AST ALT Alkaline Phosphatase Total Protein Albumin Peritoneal WBC 0.234 Peritoneal RBC 0.002 Periton Neutrophils 25 Periton Lymphocytes 32 Peritoneal Monocytes 31 Peritoneal Other Cells 12 Peritoneal Tot Protein Peritoneal Albumin Peritoneal Glucose Hepatitis A IgM Ab Nonreactive Hep Bs Antigen Not Reportable Hep Bs Antibody REACTIVE Hep B Core Total Ab Nonreactive Hepatitis C Ab (EIA) Nonreactive HCV RNA Genotype LiPA Cancelled HCV RNA (PCR) IUs/ml Cancelled HCV RNA PCR log IUs/ml Cancelled Hepatitis C RNA Comment Cancelled 03/22/23 03/22/23 03/22/23 15:58 17:04 20:11 POC Glucose 359 H* 289 H Total Bilirubin Direct Bilirubin AST ALT Alkaline Phosphatase Total Protein Albumin Peritoneal WBC Peritoneal RBC Periton Neutrophils Periton Lymphocytes Peritoneal Monocytes Peritoneal Other Cells Peritoneal Tot Protein 0.7 Peritoneal Albumin 0.3 Peritoneal Glucose 342 Hepatitis A IgM Ab Hep Bs Antigen Hep Bs Antibody Hep B Core Total Ab Hepatitis C Ab (EIA) HCV RNA Genotype LiPA HCV RNA (PCR) IUs/ml HCV RNA PCR log IUs/ml Hepatitis C RNA Comment 03/23/23 03/23/23 03/23/23 07:17 07:55 11:28 POC Glucose 276 H 298 H Total Bilirubin 14.3 H Direct Bilirubin 9.1 H AST 137 H ALT 89 H Alkaline Phosphatase 194 H Total Protein 5.3 L Albumin 2.6 L Peritoneal WBC Peritoneal RBC Periton Neutrophils Periton Lymphocytes Peritoneal Monocytes Peritoneal Other Cells Peritoneal Tot Protein Peritoneal Albumin Peritoneal Glucose Hepatitis A IgM Ab Hep Bs Antigen Hep Bs Antibody Hep B Core Total Ab Hepatitis C Ab (EIA) HCV RNA Genotype LiPA HCV RNA (PCR) IUs/ml HCV RNA PCR log IUs/ml Hepatitis C RNA Comment Microbiology Microbiology Results: Microbiology 03/22/23 15:58 Gram Stain - Final Abdominal Fluid Routine Culture - Preliminary No growth to date. Anaerobic Culture - Preliminary No growth to date. 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 possible infiltrate,abd us ,kub, may need us guided paracentesis added zosyn she now chest-to cover cxr? i there is for typingnfiltrat his chest xray KUB -some stools /gas added nebs, incentive spirometry and chest physiotherapy for question of atelectasis Says in addition added albumin since the patient is going to get abdominal paracentesis. 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 ?[id number] type 2 diabetes -hold metformin and Actos HLD--hold statin d/t high lfts hypontaremia : when corrected for hyperglycemia ,sodium around 133 mild low due to low po intake DVT prophylaxis-on therapeutic Lovenox DNR/DNI Need for inpatient: pain control from pancreatitic cancer, Abx for colitis, elevated Lft's worsenin -need mrcp. Time Spent With Patient Time: Total time managing care of this patient today ____ minutes. Quality Stroke Does the patient have a stroke diagnosis?: No VTE Prior VTE?: Yes VTE Risk Level:: Medical - moderate - high VTE Device Contraindication: Treatment Not Indicated VTE Drug Contraindication: N/A - Med Ordered
[2023-03-23 16:10] LABS: Glucose, Whole Blood 285 mg/dL (60-115)
[2023-03-23] MEDS: ondansetron HCL 4 MG/2 ML VIAL IVPUSH (18:32)
[2023-03-23] MEDS: oxyCODONE HCl Immed Release 5 MG TABLET PO (19:43)
[2023-03-23] MEDS: Melatonin 3 MG TABLET 6 MG PO (19:48)
[2023-03-23 19:51] LABS: Glucose, Whole Blood 259 mg/dL (60-115)
[2023-03-24 03:00] VITALS: BP 133/76; PULSE 112; RESP 14; TEMP 36.9; O2SAT 93
[2023-03-24] MEDS: Piperacillin Sodium/Tazobactam 3.375 GM in 0.9 % Sodium Chloride 50 ML IV ×4 (04:33→21:42)
[2023-03-24 07:22] VITALS: BP 136/67; PULSE 105; RESP 20; TEMP 36.4; O2SAT 93
[2023-03-24 08:11] LABS: Glucose, Whole Blood 257 mg/dL (60-115)
[2023-03-24] MEDS: Lidocaine 4 % Patch ADH..PATCH 1 PATCH TRANSDERMA (08:17)
[2023-03-24] MEDS: Sucralfate Oral Suspension 1 GM/10 ML ORAL.SUSP PO ×2 (08:18→20:57)
[2023-03-24] MEDS: Enoxaparin Sodium 100 MG/ML SYRINGE SUBCUT (08:18)
[2023-03-24] MEDS: polyethylene glycoL 3350 17 GM POWD.PACK PO (08:18)
[2023-03-24] MEDS: Simethicone 80 MG TAB.CHEW PO (08:19)
[2023-03-24] MEDS: Magnesium Oxide 400 MG TABLET PO ×2 (08:19→20:56)
[2023-03-24] MEDS: Multivitamin TABLET 1 TAB PO (08:19)
[2023-03-24] MEDS: 0.9 % Sodium Chloride Flush 3 ML SYRINGE IVFLUSH ×3 (08:19→21:04)
[2023-03-24] MEDS: Insulin Lispro 100 UNIT/ML 3 ML VIAL SUBCUT ×4 (08:19→20:57)
[2023-03-24] MEDS: Docusate Sodium 100 MG CAPSULE PO ×2 (08:19→20:56)
[2023-03-24] MEDS: Cholecalciferol (Vitamin D3) 10 MCG TABLET PO (08:19)
[2023-03-24] MEDS: oxyCODONE HCl Immed Release 5 MG TABLET PO ×2 (10:19→20:56)
--- NOTE | 2023-03-24 10:21 | HO.PM.IMPN ---
Subjective Subjective Date of Service: 03/25/23 Interval History: f/u on abdominal pain,Ascitis Review of Systems denies any nausea or vomting abd pain seems improving passing gases Physical Exam Vital Signs: Vital Signs: Last Vital Signs Temp 97.6 F 03/24/23 07:22 Pulse 105 H 03/24/23 07:22 Resp 20 03/24/23 07:22 BP 136/67 03/24/23 07:22 Pulse Ox 93 03/24/23 07:22 O2 Del Method Room Air 03/24/23 07:22 O2 Flow Rate 2 03/20/23 17:07 BMI result Body Mass Index 25.1 General: AO X 3, no acute distress Resp:? CTA bilateral CVS: S1,S2,RRR GI: +BS,? mild? distention, minimum tenderness Skin: No rash Neuro:? motor grossly intact Psych: appropriate affect Objective Data Active Medications Albuterol/Ipratropium (Albuterol/Iprat 2.5/0.5mg 3 Ml Ampul.Neb) 3 ml INHALE RQ4H WHILE AWAKE [facility] Last Admin: 03/24/23 08:44 Dose: Not Given Documented By: QUINTEN Non-Admin Reason: Patient Refused Docusate Sodium (Docusate Sodium 100 Mg Capsule) 100 mg PO BID [facility] Last Admin: 03/24/23 08:19 Dose: 100 mg Documented By: MODESTO Enoxaparin Sodium (Enoxaparin Sodium 100 Mg/Ml Syringe) 100 mg SUBCUT DAILY [facility] Last Admin: 03/24/23 08:18 Dose: 100 mg Documented By: MODESTO Glucose (Glucose Gel 15 Gm Gel..Gram.) 15 gm PO Q15M PRN; Protocol PRN Reason: per Hypoglycemia Standing Ord. Dextrose (D10) 250 mls @ 750 mls/hr IV Q15M PRN; Protocol PRN Reason: per Hypoglycemia Standing Ord. Piperacillin Sod/Tazobactam (Sod 3.375 gm/ Sodium Chloride) 50 mls @ 100 mls/hr IV Q6H [facility] Last Admin: 03/24/23 10:19 Dose: 100 mls/hr Documented By: MODESTO Insulin Human Lispro (Insulin Lispro 100 Unit/Ml 3 Ml Vial) 0 unit SUBCUT QIDACHS [facility]; Protocol Last Admin: 03/24/23 08:19 Dose: 6 unit Documented By: MODESTO Lidocaine (Lidocaine 4 % Patch Adh..Patch) 1 patch TRANSDERMA DAILY [facility]; Protocol Last Admin: 03/24/23 08:17 Dose: 1 patch Documented By: MODESTO Magnesium Hydroxide (Milk Of Magnesia 30 Ml Oral.Susp) 30 ml PO DAILY PRN PRN Reason: Constipation Last Admin: 03/18/23 09:01 Dose: 30 ml Documented By: CELESTE Magnesium Oxide (Magnesium Oxide 400 Mg Tablet) 400 mg PO BID [facility] Last Admin: 03/24/23 08:19 Dose: 400 mg Documented By: MODESTO Melatonin (Melatonin 3 Mg Tablet) 6 mg PO BEDTIME PRN PRN Reason: Insomnia Last Admin: 03/23/23 19:48 Dose: 6 mg Documented By: ZHOU Multivitamins/Vitamin C (Multivitamin Tablet) 1 tab PO DAILY [facility] Last Admin: 03/24/23 08:19 Dose: 1 tab Documented By: MODESTO Ondansetron HCl (Ondansetron Hcl 4 Mg/2 Ml Vial) 4 mg IVPUSH Q8H PRN PRN Reason: Nausea and Vomiting Last Admin: 03/23/23 18:32 Dose: 4 mg Documented By: ANGELES Oxycodone HCl (Oxycodone Hcl Immed Release 5 Mg Tablet) 5 mg PO Q4H PRN PRN Reason: Pain, Severe (Pain Scale 7-10) Last Admin: 03/24/23 10:19 Dose: 5 mg Documented By: MODESTO Pharmacy Consult (Consult Rx Perform Med Rec) 1 each MISCELLANE ONCE PRN PRN Reason: Consult order Polyethylene Glycol (Polyethylene Glycol 3350 17 Gm Powd.Pack) 17 gm PO DAILY [facility] Last Admin: 03/24/23 08:18 Dose: 17 gm Documented By: MODESTO Sodium Chloride (0.9 % Sodium Chloride Flush 3 Ml Syringe) 3 ml IVFLUSH QSHIFT [facility] Last Admin: 03/24/23 08:19 Dose: 3 ml Documented By: MODESTO Sucralfate (Sucralfate Oral Suspension 1 Gm/10 Ml Oral.Susp) 1 gm PO BID [facility] Last Admin: 03/24/23 08:18 Dose: 1 gm Documented By: MODESTO Vitamin D (Cholecalciferol (Vitamin D3) 10 Mcg Tablet) 10 mcg PO DAILY [facility] Last Admin: 03/24/23 08:19 Dose: 10 mcg Documented By: MODESTO Labs 03/22/23 06:10 03/22/23 06:10 Labs: Laboratory Results - last 24 hr 03/23/23 03/23/23 03/23/23 11:28 16:06 19:42 POC Glucose 298 H 285 H 259 H 03/24/23 07:50 POC Glucose 257 H Microbiology Microbiology Results: Microbiology 03/22/23 15:58 Gram Stain - Final Abdominal Fluid Routine Culture - Preliminary No growth to date. Anaerobic Culture - Preliminary No growth to date. 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 possible infiltrate,abd us ,kub, may need us guided paracentesis KUB -some stools /gas. chest xray - possible mild pneumonia, no fevers incentive spirometry and chest physiotherapy ,oob Says in addition added albumin since the patient is going to get abdominal paracentesis. 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 has possible mild ascitis mental status at baseline also eating better Gi recomendation-moniter for any signs of cholangitis if develops -we will call Gi and patient may need transfer for emergent ercp, otherwise will repeat ercp on sunday continue zosyn ascitis /liver cirrosis : s/p 4.4 liter abd fluid removal on 03/22 , fluid analysis-no SBP, fluid cultures negative preliminaries. received albumin,added lasix, small dose lactulose, potassium due to boderline postassium ?zjp-zlnnfiu-mguqlqhet type 2 diabetes-hold metformin and Actos,fs sliding scale coverage . HLD--hold statin d/t high lfts hypontaremia : when corrected for hyperglycemia ,sodium improved. mild low due to low po intake DVT prophylaxis-on therapeutic Lovenox DNR/DNI Need for inpatient: pain control from pancreatitic cancer, Abx for colitis, elevated Lft's worsenin -needs repeat ercp to see if stent obstruction above management d/w patient and his brother odalys in detail. Time Spent With Patient Time: Total time managing care of this patient today ____ minutes. Quality Stroke Does the patient have a stroke diagnosis?: No VTE Prior VTE?: Yes VTE Risk Level:: Medical - moderate - high VTE Device Contraindication: Treatment Not Indicated VTE Drug Contraindication: N/A - Med Ordered
[2023-03-24 11:19] LABS: Glucose, Whole Blood 284 mg/dL (60-115)
[2023-03-24 11:31] LABS: Anion Gap 13 (12-20); Blood Urea Nitrogen 12 mg/dL (9-16); Calcium 9.1 mg/dL (8.4-10.2); Carbon Dioxide 25 mmol/L (22-29); Chloride 102 mmol/L (96-108); Creatinine Clr Calc Pharmacy 98.9; Estimated Glomerular Filt Rate > 60; Glucose Random 308 mg/dL (60-115); Potassium 3.5 mmol/L (3.3-5.1); Sodium 136 mmol/L (135-145)
[2023-03-24] MEDS: Albuterol/Iprat 2.5/0.5MG 3 ML AMPUL.NEB INHALE (11:32)
[2023-03-24 11:34] VITALS: PULSE 98; RESP 16; O2SAT 97
[2023-03-24] MEDS: Albumin Human 25 % 100 ML IV ×2 (11:45→12:58)
[2023-03-24 12:32] LABS: Alanine Aminotransferase 95 U/L (0-40); Albumin Level 2.6 g/dL (3.5-5.0); Alkaline Phosphatase 214 U/L (39-117); Aspartate Amino Transferase 117 U/L (5-37); Bilirubin Direct 11.4 mg/dL (0.0-0.5); Bilirubin Total 18.6 mg/dL (0.0-1.0); Total Protein 5.6 g/dL (6.5-8.0)
[2023-03-24] MEDS: Potassium Chloride Packet 20 MEQ PACKET PO (12:57)
[2023-03-24] MEDS: Furosemide 20 MG TABLET PO (12:57)
[2023-03-24] MEDS: Lactulose 20 GM/30 ML SOLUTION PO (13:36)
[2023-03-24 15:13] VITALS: BP 139/62; PULSE 100; RESP 20; TEMP 36.4; O2SAT 96
[2023-03-24 16:17] LABS: Glucose, Whole Blood 339 mg/dL (60-115)
[2023-03-24 19:36] VITALS: BP 122/60; PULSE 98; RESP 17; TEMP 36.7; O2SAT 97
[2023-03-24 20:19] LABS: Glucose, Whole Blood 300 mg/dL (60-115)
[2023-03-24] MEDS: Melatonin 3 MG TABLET 6 MG PO (20:56)
[2023-03-25 03:28] VITALS: BP 133/67; PULSE 102; RESP 16; TEMP 36.3; O2SAT 95
[2023-03-25] MEDS: Piperacillin Sodium/Tazobactam 3.375 GM in 0.9 % Sodium Chloride 50 ML IV ×4 (04:38→21:44)
[2023-03-25] MEDS: oxyCODONE HCl Immed Release 5 MG TABLET PO ×3 (05:17→21:38)
[2023-03-25 06:25] LABS: Alanine Aminotransferase 78 U/L (0-40); Albumin Level 2.8 g/dL (3.5-5.0); Alkaline Phosphatase 191 U/L (39-117); Anion Gap 10 (12-20); Aspartate Amino Transferase 74 U/L (5-37); Bilirubin Total 19.6 mg/dL (0.0-1.0); Blood Urea Nitrogen 11 mg/dL (9-16); Calcium 9.2 mg/dL (8.4-10.2); Carbon Dioxide 29 mmol/L (22-29); Chloride 100 mmol/L (96-108); Estimated Glomerular Filt Rate > 60; Glucose Random 287 mg/dL (60-115); Potassium 3.3 mmol/L (3.3-5.1); Sodium 136 mmol/L (135-145); Total Protein 5.6 g/dL (6.5-8.0)
[2023-03-25 07:18] VITALS: BP 146/70; PULSE 98; RESP 20; TEMP 36.6; O2SAT 92
[2023-03-25 07:40] LABS: Glucose, Whole Blood 288 mg/dL (60-115)
[2023-03-25] MEDS: Lidocaine 4 % Patch ADH..PATCH 1 PATCH TRANSDERMA (07:42)
[2023-03-25] MEDS: polyethylene glycoL 3350 17 GM POWD.PACK PO (07:42)
[2023-03-25] MEDS: Lactulose 20 GM/30 ML SOLUTION PO (07:43)
[2023-03-25] MEDS: Cholecalciferol (Vitamin D3) 10 MCG TABLET PO (07:43)
[2023-03-25] MEDS: Sucralfate Oral Suspension 1 GM/10 ML ORAL.SUSP PO ×2 (07:43→21:39)
[2023-03-25] MEDS: Furosemide 20 MG TABLET PO (07:43)
[2023-03-25] MEDS: Magnesium Oxide 400 MG TABLET PO ×2 (07:43→21:38)
[2023-03-25] MEDS: Enoxaparin Sodium 100 MG/ML SYRINGE SUBCUT (07:43)
[2023-03-25] MEDS: Docusate Sodium 100 MG CAPSULE PO (07:44)
[2023-03-25] MEDS: 0.9 % Sodium Chloride Flush 3 ML SYRINGE IVFLUSH ×3 (07:44→21:38)
[2023-03-25] MEDS: Insulin Lispro 100 UNIT/ML 3 ML VIAL SUBCUT ×4 (07:44→21:39)
[2023-03-25] MEDS: Multivitamin TABLET 1 TAB PO (07:44)
--- NOTE | 2023-03-25 11:04 | HO.PM.IMPN ---
Subjective Subjective Date of Service: 03/25/23 Interval History: f/u on abdominal pain,Ascitis Review of Systems abd pain seems improving in comparison to yesterday Denies any nausea vomiting or fever Passing bowels Physical Exam Vital Signs: Vital Signs: Last Vital Signs Temp 97.9 F 03/25/23 07:18 Pulse 98 03/25/23 07:18 Resp 20 03/25/23 07:18 BP 146/70 H 03/25/23 07:18 Pulse Ox 92 03/25/23 07:18 O2 Del Method Room Air 03/25/23 07:18 O2 Flow Rate 2 03/20/23 17:07 BMI result Body Mass Index 25.1 General: AO X 3, no acute distress Resp:? CTA bilateral CVS: S1,S2,RRR GI: +BS, minimum tenderness, still has mild ascitis Skin: No rash Neuro:? motor grossly intact Psych: appropriate affect Objective Data Active Medications Albuterol/Ipratropium (Albuterol/Iprat 2.5/0.5mg 3 Ml Ampul.Neb) 3 ml INHALE RQ4H WHILE AWAKE [facility] Last Admin: 03/25/23 07:45 Dose: Not Given Documented By: QUINTEN Non-Admin Reason: Patient Refused Docusate Sodium (Docusate Sodium 100 Mg Capsule) 100 mg PO BID [facility] BY [facility] Last Admin: 03/25/23 07:44 Dose: 100 mg Documented By: MODESTO Enoxaparin Sodium (Enoxaparin Sodium 100 Mg/Ml Syringe) 100 mg SUBCUT DAILY [facility] Last Admin: 03/25/23 07:43 Dose: 100 mg Documented By: MODESTO Furosemide (Furosemide 20 Mg Tablet) 20 mg PO DAILY [facility]; Protocol Last Admin: 03/25/23 07:43 Dose: 20 mg Documented By: MODESTO Glucose (Glucose Gel 15 Gm Gel..Gram.) 15 gm PO Q15M PRN; Protocol PRN Reason: per Hypoglycemia Standing Ord. Dextrose (D10) 250 mls @ 750 mls/hr IV Q15M PRN; Protocol PRN Reason: per Hypoglycemia Standing Ord. Piperacillin Sod/Tazobactam (Sod 3.375 gm/ Sodium Chloride) 50 mls @ 100 mls/hr IV Q6H [facility] BY [facility] Last Infusion: 03/25/23 10:38 Dose: 0 mls/hr Documented By: MODESTO Insulin Human Lispro (Insulin Lispro 100 Unit/Ml 3 Ml Vial) 0 unit SUBCUT QIDACHS [facility] BY [facility]; Protocol Last Admin: 03/25/23 07:44 Dose: 6 unit Documented By: MODESTO Lactulose (Lactulose 20 Gm/30 Ml Solution) 20 gm PO DAILY [facility] Last Admin: 03/25/23 07:43 Dose: 20 gm Documented By: MODESTO Lidocaine (Lidocaine 4 % Patch Adh..Patch) 1 patch TRANSDERMA DAILY [facility]; Protocol Last Admin: 03/25/23 07:42 Dose: 1 patch Documented By: MODESTO Magnesium Hydroxide (Milk Of Magnesia 30 Ml Oral.Susp) 30 ml PO DAILY PRN PRN Reason: Constipation Last Admin: 03/18/23 09:01 Dose: 30 ml Documented By: CELESTE Magnesium Oxide (Magnesium Oxide 400 Mg Tablet) 400 mg PO BID [facility]PLACED BY [facility] Last Admin: 03/25/23 07:43 Dose: 400 mg Documented By: MODESTO Melatonin (Melatonin 3 Mg Tablet) 6 mg PO BEDTIME PRN PRN Reason: Insomnia Last Admin: 03/24/23 20:56 Dose: 6 mg Documented By: ZHOU Multivitamins/Vitamin C (Multivitamin Tablet) 1 tab PO DAILY [facility] Last Admin: 03/25/23 07:44 Dose: 1 tab Documented By: MODESTO Ondansetron HCl (Ondansetron Hcl 4 Mg/2 Ml Vial) 4 mg IVPUSH Q8H PRN PRN Reason: Nausea and Vomiting Last Admin: 03/23/23 18:32 Dose: 4 mg Documented By: ANGELES Oxycodone HCl (Oxycodone Hcl Immed Release 5 Mg Tablet) 5 mg PO Q4H PRN PRN Reason: Pain, Severe (Pain Scale 7-10) Last Admin: 03/25/23 05:17 Dose: 5 mg Documented By: ZHOU Pharmacy Consult (Consult Rx Perform Med Rec) 1 each MISCELLANE ONCE PRN PRN Reason: Consult order Polyethylene Glycol (Polyethylene Glycol 3350 17 Gm Powd.Pack) 17 gm PO DAILY [facility] BY [facility] Last Admin: 03/25/23 07:42 Dose: 17 gm Documented By: MODESTO Sodium Chloride (0.9 % Sodium Chloride Flush 3 Ml Syringe) 3 ml IVFLUSH QSHIFT REPLACED BY [facility] Last Admin: 03/25/23 07:44 Dose: 3 ml Documented By: MODESTO Sucralfate (Sucralfate Oral Suspension 1 Gm/10 Ml Oral.Susp) 1 gm PO BID REPLACED BY [facility] Last Admin: 03/25/23 07:43 Dose: 1 gm Documented By: MODESTO Vitamin D (Cholecalciferol (Vitamin D3) 10 Mcg Tablet) 10 mcg PO DAILY [facility] Last Admin: 03/25/23 07:43 Dose: 10 mcg Documented By: MODESTO Labs 03/22/23 06:10 03/25/23 05:11 Labs: Laboratory Results - last 24 hr 03/24/23 03/24/23 03/24/23 10:34 11:05 15:58 Anion Gap 13 Estim Creat Clear Calc 98.9 Estimated GFR > 60 POC Glucose 284 H 339 H Random Glucose 308 H Calcium 9.1 Total Bilirubin 18.6 H Direct Bilirubin 11.4 H AST 117 H ALT 95 H Alkaline Phosphatase 214 H Total Protein 5.6 L Albumin 2.6 L 03/24/23 03/25/23 03/25/23 19:39 05:11 07:22 Anion Gap 10 L Estim Creat Clear Calc 113.0 Estimated GFR > 60 POC Glucose 300 H 288 H Random Glucose 287 H Calcium 9.2 Total Bilirubin 19.6 H Direct Bilirubin AST 74 H ALT 78 H Alkaline Phosphatase 191 H Total Protein 5.6 L Albumin 2.8 L Microbiology Microbiology Results: Microbiology 03/22/23 15:58 Gram Stain - Final Abdominal Fluid Routine Culture - Final No growth after 2 days Anaerobic Culture - Preliminary No growth to date. 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 possible infiltrate,abd us ,kub, may need us guided paracentesis KUB -some stools /gas. chest xray - possible mild pneumonia, no fevers incentive spirometry and chest physiotherapy ,oob Says in addition added albumin since the patient is going to get abdominal paracentesis. 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 has possible mild ascitis mental status at baseline also eating better Gi recomendation-moniter for any signs of cholangitis if develops -we will call Gi and patient may need transfer for emergent ercp, otherwise will repeat ercp on sunday continue zosyn ascitis /liver cirrosis : s/p 4.4 liter abd fluid removal on 03/22 , fluid analysis-no SBP, fluid cultures negative preliminaries. received albumin,added lasix, small dose lactulose, potassium due to boderline postassium ?gdl-uewshuc-udqotvewd type 2 diabetes-hold metformin and Actos,fs sliding scale coverage . HLD--hold statin d/t high lfts hypontaremia : when corrected for hyperglycemia ,sodium improved. mild low due to low po intake DVT prophylaxis-on therapeutic Lovenox DNR/DNI Need for inpatient: pain control from pancreatitic cancer, Abx for colitis, elevated Lft's worsenin -needs repeat ercp to see if stent obstruction above management d/w patient and his brother odalys in detail. Time Spent With Patient Time: Total time managing care of this patient today ____ minutes. Quality Stroke Does the patient have a stroke diagnosis?: No VTE Prior VTE?: Yes VTE Risk Level:: Medical - moderate - high VTE Device Contraindication: Treatment Not Indicated VTE Drug Contraindication: N/A - Med Ordered
[2023-03-25 11:15] LABS: Glucose, Whole Blood 278 mg/dL (60-115)
[2023-03-25] MEDS: Potassium Chloride Packet 20 MEQ PACKET PO (11:49)
[2023-03-25 11:54] LABS: Magnesium 2.1 mg/dL (1.6-2.6)
[2023-03-25 15:06] VITALS: BP 125/58; PULSE 100; RESP 20; TEMP 36.7; O2SAT 97
[2023-03-25 16:32] LABS: Glucose, Whole Blood 250 mg/dL (60-115)
[2023-03-25] MEDS: Spironolactone 25 MG TABLET 12.5 MG PO (16:57)
[2023-03-25 19:52] VITALS: BP 129/63; PULSE 97; RESP 15; TEMP 36.9; O2SAT 98
[2023-03-25 20:30] LABS: Glucose, Whole Blood 268 mg/dL (60-115)
[2023-03-26] VITALS (10 sets, daily range): BP systolic 124–152; BP diastolic 59–76; PULSE 100–118; RESP 16–22; TEMP 36.5–37.2; O2SAT 94–98
[2023-03-26] MEDS: Piperacillin Sodium/Tazobactam 3.375 GM in 0.9 % Sodium Chloride 50 ML IV ×4 (04:24→22:44)
[2023-03-26 05:59] LABS: Alanine Aminotransferase 78 U/L (0-40); Albumin Level 2.7 g/dL (3.5-5.0); Alkaline Phosphatase 189 U/L (39-117); Anion Gap 15 (12-20); Aspartate Amino Transferase 84 U/L (5-37); Blood Urea Nitrogen 17 mg/dL (9-16); Calcium 9.1 mg/dL (8.4-10.2); Carbon Dioxide 25 mmol/L (22-29); Chloride 100 mmol/L (96-108); Creatinine Clr Calc Pharmacy 100.3; Estimated Glomerular Filt Rate > 60; Glucose Random 268 mg/dL (60-115); Potassium 3.6 mmol/L (3.3-5.1); Sodium 136 mmol/L (135-145); Total Protein 5.6 g/dL (6.5-8.0)
[2023-03-26 07:25] LABS: Glucose, Whole Blood 285 mg/dL (60-115)
[2023-03-26] MEDS: Lactated Ringers 1,000 ML 80 ML IVCONT (08:16)
[2023-03-26] MEDS: 0.9 % Sodium Chloride Flush 3 ML SYRINGE IVFLUSH ×2 (08:17→16:28)
[2023-03-26] MEDS: Sucralfate Oral Suspension 1 GM/10 ML ORAL.SUSP PO ×2 (08:19→22:09)
[2023-03-26] MEDS: Lidocaine 4 % Patch ADH..PATCH 1 PATCH TRANSDERMA (08:19)
[2023-03-26] MEDS: Multivitamin TABLET 1 TAB PO (08:20)
[2023-03-26] MEDS: Cholecalciferol (Vitamin D3) 10 MCG TABLET PO (08:20)
[2023-03-26] MEDS: Docusate Sodium 100 MG CAPSULE PO ×2 (08:20→22:09)
[2023-03-26] MEDS: Magnesium Oxide 400 MG TABLET PO ×2 (08:20→22:09)
--- NOTE | 2023-03-26 10:27 | MHC.CLN ---
F/U CURRENTLY NPO FOR PROCEDURE. DIET 03/23-03/25 DIABETIC 1800 KCALS. GOOD INTAKE NOTED DURING THAT PERIOD. FOLLOW FOR DIET ADVANCEMENT/TOLERANCE AND INTAKE.
[2023-03-26 11:18] LABS: Ammonia 47 umol/L (13-55)
[2023-03-26 11:21] LABS: Glucose, Whole Blood 315 mg/dL (60-115)
[2023-03-26] MEDS: oxyCODONE HCl Immed Release 5 MG TABLET PO (11:45)
[2023-03-26 12:18] LABS: Glucose, Whole Blood 337 mg/dL (60-115)
--- NOTE | 2023-03-26 12:25 | HO.PM.IMPN ---
Subjective Subjective Date of Service: 03/26/23 Interval History: f/u on abdominal pain,Ascitis Review of Systems abd pain seems improving Denies any nausea vomiting or fever Passing bowel Physical Exam Vital Signs: Vital Signs: Last Vital Signs Temp 98.6 F 03/26/23 12:07 Pulse 111 H 03/26/23 12:07 Resp 16 03/26/23 12:07 BP 133/71 03/26/23 12:07 Pulse Ox 95 03/26/23 12:07 O2 Del Method Room Air 03/26/23 12:07 O2 Flow Rate 2 03/20/23 17:07 BMI result Body Mass Index 25.1 General: AO X 3, no acute distress Resp:? CTA bilateral CVS: S1,S2,RRR GI: +BS, minimum tenderness, still has mild ascitis Skin: No rash Neuro:? motor grossly intact Psych: appropriate affect Objective Data Active Medications Albuterol/Ipratropium (Albuterol/Iprat 2.5/0.5mg 3 Ml Ampul.Neb) 3 ml INHALE RQ4H WHILE AWAKE [facility] Last Admin: 03/26/23 11:31 Dose: Not Given Documented By: NAT Non-Admin Reason: Patient Asleep Docusate Sodium (Docusate Sodium 100 Mg Capsule) 100 mg PO BID [facility] Last Admin: 03/26/23 08:20 Dose: 100 mg Documented By: MODESTO Enoxaparin Sodium (Enoxaparin Sodium 100 Mg/Ml Syringe) 100 mg SUBCUT DAILY [facility] Last Admin: 03/25/23 07:43 Dose: 100 mg Documented By: MODESTO Furosemide (Furosemide 20 Mg Tablet) 20 mg PO DAILY [facility]; Protocol Last Admin: 03/25/23 07:43 Dose: 20 mg Documented By: MODESTO Glucose (Glucose Gel 15 Gm Gel..Gram.) 15 gm PO Q15M PRN; Protocol PRN Reason: per Hypoglycemia Standing Ord. Dextrose (D10) 250 mls @ 750 mls/hr IV Q15M PRN; Protocol PRN Reason: per Hypoglycemia Standing Ord. Piperacillin Sod/Tazobactam (Sod 3.375 gm/ Sodium Chloride) 50 mls @ 100 mls/hr IV Q6H [facility] Last Infusion: 03/26/23 11:34 Dose: 0 mls/hr Documented By: MODESTO Lactated Ringer's (Lr) 1,000 mls @ 80 mls/hr IVCONT .[id number] [facility] Last Infusion: 03/26/23 11:51 Dose: 0 mls/hr Documented By: MODESTO Potassium Chloride (Potassium Chloride/H20) 10 meq in 100 mls @ 100 mls/hr IV Q1H [facility] Stop: 03/26/23 12:59 Insulin Human Lispro (Insulin Lispro 100 Unit/Ml 3 Ml Vial) 0 unit SUBCUT QIDACHS [facility]; Protocol Last Admin: 03/26/23 11:51 Dose: Not Given Documented By: MODESTO Non-Admin Reason: NPO Lactulose (Lactulose 20 Gm/30 Ml Solution) 20 gm PO DAILY [facility] Last Admin: 03/25/23 07:43 Dose: 20 gm Documented By: MODESTO Lidocaine (Lidocaine 4 % Patch Adh..Patch) 1 patch TRANSDERMA DAILY [facility]; Protocol Last Admin: 03/26/23 08:19 Dose: 1 patch Documented By: MODESTO Magnesium Hydroxide (Milk Of Magnesia 30 Ml Oral.Susp) 30 ml PO DAILY PRN PRN Reason: Constipation Last Admin: 03/18/23 09:01 Dose: 30 ml Documented By: CELESTE Magnesium Oxide (Magnesium Oxide 400 Mg Tablet) 400 mg PO BID [facility] Last Admin: 03/26/23 08:20 Dose: 400 mg Documented By: MODESTO Melatonin (Melatonin 3 Mg Tablet) 6 mg PO BEDTIME PRN PRN Reason: Insomnia Last Admin: 03/24/23 20:56 Dose: 6 mg Documented By: ZHOU Multivitamins/Vitamin C (Multivitamin Tablet) 1 tab PO DAILY [facility] Last Admin: 03/26/23 08:20 Dose: 1 tab Documented By: MODESTO Ondansetron HCl (Ondansetron Hcl 4 Mg/2 Ml Vial) 4 mg IVPUSH Q8H PRN PRN Reason: Nausea and Vomiting Last Admin: 03/23/23 18:32 Dose: 4 mg Documented By: ANGELES Oxycodone HCl (Oxycodone Hcl Immed Release 5 Mg Tablet) 5 mg PO Q4H PRN PRN Reason: Pain, Severe (Pain Scale 7-10) Last Admin: 03/26/23 11:45 Dose: 5 mg Documented By: MODESTO Pharmacy Consult (Consult Rx Perform Med Rec) 1 each MISCELLANE ONCE PRN PRN Reason: Consult order Polyethylene Glycol (Polyethylene Glycol 3350 17 Gm Powd.Pack) 17 gm PO DAILY [facility] Last Admin: 03/26/23 08:13 Dose: Not Given Documented By: MODESTO Non-Admin Reason: NPO Sodium Chloride (0.9 % Sodium Chloride Flush 3 Ml Syringe) 3 ml IVFLUSH QSHIFT [facility] Last Admin: 03/26/23 08:17 Dose: 3 ml Documented By: MODESTO Spironolactone (Spironolactone 25 Mg Tablet) 12.5 mg PO BID@0900,1800 [facility]; Protocol Last Admin: 03/25/23 16:57 Dose: 12.5 mg Documented By: MODESTO Sucralfate (Sucralfate Oral Suspension 1 Gm/10 Ml Oral.Susp) 1 gm PO BID [facility] Last Admin: 03/26/23 08:19 Dose: 1 gm Documented By: MODESTO Vitamin D (Cholecalciferol (Vitamin D3) 10 Mcg Tablet) 10 mcg PO DAILY [facility] Last Admin: 03/26/23 08:20 Dose: 10 mcg Documented By: MODESTO Labs 03/22/23 06:10 03/26/23 05:12 Labs: Laboratory Results - last 24 hr 03/25/23 03/25/23 03/26/23 16:28 20:18 05:12 Anion Gap 15 Estim Creat Clear Calc 100.3 Estimated GFR > 60 POC Glucose 250 H 268 H Random Glucose 268 H Calcium 9.1 Total Bilirubin 22.0 H AST 84 H ALT 78 H Alkaline Phosphatase 189 H Ammonia Total Protein 5.6 L Albumin 2.7 L 03/26/23 03/26/23 03/26/23 07:06 11:06 11:11 Anion Gap Estim Creat Clear Calc Estimated GFR POC Glucose 285 H 315 H Random Glucose Calcium Total Bilirubin AST ALT Alkaline Phosphatase Ammonia 47 Total Protein Albumin 03/26/23 12:15 Anion Gap Estim Creat Clear Calc Estimated GFR POC Glucose 337 H Random Glucose Calcium Total Bilirubin AST ALT Alkaline Phosphatase Ammonia Total Protein Albumin Microbiology Microbiology Results: Microbiology 03/22/23 15:58 Gram Stain - Final Abdominal Fluid Routine Culture - Final No growth after 2 days Anaerobic Culture - Preliminary No growth to date. 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 possible PSC 2. Stent exchange RECOMMENDATIONS: 1.? Clears as tolerated, can advance diet tomorrow if feels well 2. If still has ongoing abn LFt then CT with IV contrast and possible liver biopsy. consider hold morning dose of lovenox if need liver biopsy in case lft's continue to worsen. incentive spirometry and chest physiotherapy ,oob continue trending lft's,ammonia added consider start back lasix/spironolactone/lactulose in am. 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 Colitis, I doubt this is dthe source of his pain, d/w Gi -antibiotics chnages to zosyn -advance diet slowly liver cirrosis hx ,hyperbilirubinemia and elevated LFTs, worsening has ercp 03/20 with stent placement further somewhat worseing of bilirubin no significant abd pain/fever . has possible mild ascitis mental status at baseline also eating better Gi recomendation-moniter for any signs of cholangitis if develops -we will call Gi and patient may need transfer for emergent ercp, otherwise will repeat ercp on sunday continue zosyn ascitis /liver cirrosis : s/p 4.4 liter abd fluid removal on 03/22 , fluid analysis-no SBP, fluid cultures negative preliminaries. received albumin,added lasix, small dose lactulose, potassium due to boderline postassium ?jzf-ucbolkz-gvevevpfd type 2 diabetes-hold metformin and Actos,fs sliding scale coverage . HLD--hold statin d/t high lfts hypontaremia : when corrected for hyperglycemia ,sodium improved. mild low due to low po intake DVT prophylaxis-hold Lovenox DNR/DNI Need for inpatient: pain control from pancreatitic cancer, Abx for colitis, elevated Lft's worsenin -if lft's continue to worse -need liver biopsy. Time Spent With Patient Time: Total time managing care of this patient today ____ minutes. Quality Stroke Does the patient have a stroke diagnosis?: No VTE Prior VTE?: Yes VTE Risk Level:: Medical - moderate - high VTE Device Contraindication: Treatment Not Indicated VTE Drug Contraindication: N/A - Med Ordered
--- NOTE | 2023-03-26 12:44 | MHC.SHP ---
Pre-Procedural Eval Section A Date of Service: 03/26/23 The patient is an INPATIENT: Yes The History & Physical has been completed within 30 days and I have reviewed it.: Yes Section B Chief Complaint: abdominal pain, colitis Allergies: Allergies Allergy/AdvReac Type Severity Reaction Status Date / Time morphine [MORPHINE] Allergy Intermediate SEVERE Verified 03/13/23 05:16 VOMITING, vomiting, vomiting Plan I have reviewed the history and physical and performed a pertinent physical examination on my patient. No changes have occurred unless specified. Worsening jaundice, ERCP to r/o occluded stent. Time Spent With Patient Time: Total time managing care of this patient today ____ minutes.
--- NOTE | 2023-03-26 13:00 | HO.ANESPROP2 ---
HPI - Anesthesia Eval Consult details Narrative: Ercp PMFSH Active Problems Active Problems: All Active Problems (Updated 03/23/23 @ 14:12 by Jose J Kulkarni MD) Pneumonia (Acute) Ascitic fluid (Acute) Obstructive jaundice due to cancer (Acute) Colitis (Acute) Portal vein thrombosis (Acute) Superior mesenteric vein thrombosis (Acute) Tubular adenoma of colon (Acute) Elevated ferritin (Acute) Cervical neck pain with evidence of disc disease (Acute) Elevated bilirubin (Acute) Low hemoglobin (Acute) Screening PSA (prostate specific antigen) (Acute) Systolic murmur (Acute) Screening for colon cancer (Acute) Liver lesion (Acute) Mass of head of pancreas (Acute) Pancreatic adenocarcinoma (Acute) Overgrown toenails (Acute) Diabetes 1.5, managed as type 2 (Acute) Cirrhosis of liver (Acute) Past Medical History Medical History Alcoholism Anemia Cerebellar ataxia Cirrhosis of liver Compression fracture Diabetes 1.5, managed as type 2 Diabetic retinopathy Elevated ferritin Lung nodule Overgrown toenails Pancreatic adenocarcinoma Pancytopenia Peripheral polyneuropathy Venous insufficiency Family History Family History Father No problems noted. 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 If so, by whom?: No Do you feel safe in your current relationship?: Yes Is there a partner from a previous relationship who is making you feel unsafe now?: No Are you made to feel afraid or neglected: No Are you DNR?: Yes Advance Directives: Yes Advance Directives on File: Yes Advance Directives Date on File: 03/13/23 Do you have thoughts of harming others: None Do you have a plan to hurt others: No Plan Recently lost weight without trying: No Eating poorly because of decreased appetite: No Nutrition Risks: No Nutritional Risk Poor oral hygiene: No service: No Current occupational status: retired Cognitive needs: No Hearing needs: No Vision needs: No Meds Allergies Allergy/AdvReac Type Severity Reaction Status Date / Time morphine [MORPHINE] Allergy Intermediate SEVERE Verified 03/13/23 05:16 VOMITING, vomiting, vomiting Active Medications: Current Medications Albuterol/Ipratropium (Albuterol/Iprat 2.5/0.5mg 3 Ml Ampul.Neb) 3 ml INHALE RQ4H WHILE AWAKE [facility] Last Admin: 03/26/23 11:31 Dose: Not Given Docusate Sodium (Docusate Sodium 100 Mg Capsule) 100 mg PO BID [facility] Last Admin: 03/26/23 08:20 Dose: 100 mg Enoxaparin Sodium (Enoxaparin Sodium 100 Mg/Ml Syringe) 100 mg SUBCUT DAILY [facility] Last Admin: 03/25/23 07:43 Dose: 100 mg Furosemide (Furosemide 20 Mg Tablet) 20 mg PO DAILY [facility]; Protocol Last Admin: 03/25/23 07:43 Dose: 20 mg Glucose (Glucose Gel 15 Gm Gel..Gram.) 15 gm PO Q15M PRN; Protocol PRN Reason: per Hypoglycemia Standing Ord. Dextrose (D10) 250 mls @ 750 mls/hr IV Q15M PRN; Protocol PRN Reason: per Hypoglycemia Standing Ord. Piperacillin Sod/Tazobactam (Sod 3.375 gm/ Sodium Chloride) 50 mls @ 100 mls/hr IV Q6H [facility] Last Infusion: 03/26/23 11:34 Dose: Infused Lactated Ringer's (Lr) 1,000 mls @ 80 mls/hr IVCONT .[id number] [facility] Last Infusion: 03/26/23 11:51 Dose: 0 mls/hr Insulin Human Lispro (Insulin Lispro 100 Unit/Ml 3 Ml Vial) 0 unit SUBCUT QIDACHS [facility]; Protocol Last Admin: 03/26/23 11:51 Dose: Not Given Lactulose (Lactulose 20 Gm/30 Ml Solution) 20 gm PO DAILY [facility] Last Admin: 03/25/23 07:43 Dose: 20 gm Lidocaine (Lidocaine 4 % Patch Adh..Patch) 1 patch TRANSDERMA DAILY [facility]; Protocol Last Admin: 03/26/23 08:19 Dose: 1 patch Magnesium Hydroxide (Milk Of Magnesia 30 Ml Oral.Susp) 30 ml PO DAILY PRN PRN Reason: Constipation Last Admin: 03/18/23 09:01 Dose: 30 ml Magnesium Oxide (Magnesium Oxide 400 Mg Tablet) 400 mg PO BID [facility] Last Admin: 03/26/23 08:20 Dose: 400 mg Melatonin (Melatonin 3 Mg Tablet) 6 mg PO BEDTIME PRN PRN Reason: Insomnia Last Admin: 03/24/23 20:56 Dose: 6 mg Multivitamins/Vitamin C (Multivitamin Tablet) 1 tab PO DAILY [facility] Last Admin: 03/26/23 08:20 Dose: 1 tab Ondansetron HCl (Ondansetron Hcl 4 Mg/2 Ml Vial) 4 mg IVPUSH Q8H PRN PRN Reason: Nausea and Vomiting Last Admin: 03/23/23 18:32 Dose: 4 mg Oxycodone HCl (Oxycodone Hcl Immed Release 5 Mg Tablet) 5 mg PO Q4H PRN PRN Reason: Pain, Severe (Pain Scale 7-10) Last Admin: 03/26/23 11:45 Dose: 5 mg Pharmacy Consult (Consult Rx Perform Med Rec) 1 each MISCELLANE ONCE PRN PRN Reason: Consult order Polyethylene Glycol (Polyethylene Glycol 3350 17 Gm Powd.Pack) 17 gm PO DAILY [facility] Last Admin: 03/26/23 08:13 Dose: Not Given Sodium Chloride (0.9 % Sodium Chloride Flush 3 Ml Syringe) [facility] Last Admin: 03/26/23 08:17 Dose: 3 ml Spironolactone (Spironolactone 25 Mg Tablet) 12.5 mg PO BID@0900,1800 [facility]; Protocol Last Admin: 03/25/23 16:57 Dose: 12.5 mg Sucralfate (Sucralfate Oral Suspension 1 Gm/10 Ml Oral.Susp) 1 gm PO BID [facility] Last Admin: 03/26/23 08:19 Dose: 1 gm Vitamin D (Cholecalciferol (Vitamin D3) 10 Mcg Tablet) 10 mcg PO DAILY [facility] Last Admin: 03/26/23 08:20 Dose: 10 mcg Home Medications Medication Instructions Recorded Confirmed Last Taken Type cholecalciferol (vitamin D3) 10 10 mcg PO DAILY 09/15/20 03/17/23 03/17/23 History mcg (400 unit) capsule sucralfate 100 mg/mL oral 10 ml PO BID 03/17/23 03/17/23 03/17/23 History suspension Exam Exam Date and Time: March 26, 2023 1300 Height,Weight and Vital Signs: Height 5 ft 8 in Weight 75 kg Last Vital Signs Temp 98.6 F 03/26/23 12:07 Pulse 111 H 03/26/23 12:07 Resp 16 03/26/23 12:07 BP 133/71 03/26/23 12:07 Pulse Ox 95 03/26/23 12:07 O2 Del Method Room Air 03/26/23 12:07 O2 Flow Rate 2 03/20/23 17:07 Pertinent Lab Results Pertinent Lab Results: Laboratory Tests 03/17/23 03/17/23 03/17/23 12:29 12:29 12:29 WBC 11.3 H RBC 3.31 L Hgb 11.6 L Hct 33.9 L MCV 102.4 H MCH 35.0 H MCHC 34.2 RDW 14.6 Plt Count 81 L MPV 10.1 Immature Gran % (Auto) 0.5 H Neut % (Auto) 83.5 H Lymph % (Auto) 4.6 L [place] % (Auto) 9.2 Eos % (Auto) 1.9 Baso % (Auto) 0.3 Lymph # (Auto) 0.5 L [place] # (Auto) 1.0 Eos # (Auto) 0.2 Baso # (Auto) 0.0 Abs Immat Gran (auto) 0.06 H Absolute Neuts (auto) 9.5 H Absolute Nucleated RBC 0.000 Nucleated RBC % (auto) 0.0 PT 13.9 H INR 1.2 H APTT 32.0 Sodium 140 Potassium 3.7 Chloride 102 Carbon Dioxide 20 L Anion Gap 22 H BUN 11 Creatinine 0.77 Estim Creat Clear Calc 92.5 Estimated GFR > 60 POC Glucose Random Glucose 233 H Calcium 9.4 Magnesium 2.0 Total Bilirubin 6.7 H Direct Bilirubin AST 63 H ALT 87 H Alkaline Phosphatase 213 H Ammonia Lactate Dehydrogenase Total Protein 5.9 L Albumin 2.7 L Lipase 100 H Peritoneal WBC Peritoneal RBC Periton Neutrophils Periton Lymphocytes Peritoneal Monocytes Peritoneal Other Cells Peritoneal Tot Protein Peritoneal Albumin Peritoneal Glucose Hepatitis A IgM Ab Hep Bs Antigen Hep Bs Antibody Hep B Core Total Ab Hepatitis C Ab (EIA) HCV RNA Genotype LiPA HCV RNA (PCR) IUs/ml HCV RNA PCR log IUs/ml Hepatitis C RNA Comment Blood Type Antibody Screen MASON, Polyspecific Positive MASON Work-up 03/17/23 03/18/23 03/18/23 18:35 05:53 07:31 WBC RBC Hgb Hct MCV MCH MCHC RDW Plt Count MPV Immature Gran % (Auto) Neut % (Auto) Lymph % (Auto) [place] % (Auto) Eos % (Auto) Baso % (Auto) Lymph # (Auto) [place] # (Auto) Eos # (Auto) Baso # (Auto) Abs Immat Gran (auto) Absolute Neuts (auto) Absolute Nucleated RBC Nucleated RBC % (auto) PT INR APTT Sodium 136 Potassium 3.4 Chloride 99 Carbon Dioxide 24 Anion Gap 16 BUN 8 L Creatinine 0.63 Estim Creat Clear Calc 113.0 Estimated GFR > 60 POC Glucose 216 H 191 H Random Glucose 176 H Calcium 8.8 D Magnesium Total Bilirubin Direct Bilirubin 4.3 H AST ALT Alkaline Phosphatase Ammonia Lactate Dehydrogenase Total Protein Albumin Lipase Peritoneal WBC Peritoneal RBC Periton Neutrophils Periton Lymphocytes Peritoneal Monocytes Peritoneal Other Cells Peritoneal Tot Protein Peritoneal Albumin Peritoneal Glucose Hepatitis A IgM Ab Hep Bs Antigen Hep Bs Antibody Hep B Core Total Ab Hepatitis C Ab (EIA) HCV RNA Genotype LiPA HCV RNA (PCR) IUs/ml HCV RNA PCR log IUs/ml Hepatitis C RNA Comment Blood Type Antibody Screen MASON, Polyspecific Positive MASON Work-up 03/18/23 03/18/23 03/18/23 11:29 16:16 20:19 WBC RBC Hgb Hct MCV MCH MCHC RDW Plt Count MPV Immature Gran % (Auto) Neut % (Auto) Lymph % (Auto) [place] % (Auto) Eos % (Auto) Baso % (Auto) Lymph # (Auto) [place] # (Auto) Eos # (Auto) Baso # (Auto) Abs Immat Gran (auto) Absolute Neuts (auto) Absolute Nucleated RBC Nucleated RBC % (auto) PT INR APTT Sodium Potassium Chloride Carbon Dioxide Anion Gap BUN Creatinine Estim Creat Clear Calc Estimated GFR POC Glucose 177 H 217 H 237 H Random Glucose Calcium Magnesium Total Bilirubin Direct Bilirubin AST ALT Alkaline Phosphatase Ammonia Lactate Dehydrogenase Total Protein Albumin Lipase Peritoneal WBC Peritoneal RBC Periton Neutrophils Periton Lymphocytes Peritoneal Monocytes Peritoneal Other Cells Peritoneal Tot Protein Peritoneal Albumin Peritoneal Glucose Hepatitis A IgM Ab Hep Bs Antigen Hep Bs Antibody Hep B Core Total Ab Hepatitis C Ab (EIA) HCV RNA Genotype LiPA HCV RNA (PCR) IUs/ml HCV RNA PCR log IUs/ml Hepatitis C RNA Comment Blood Type Antibody Screen MASON, Polyspecific Positive MASON Work-up 03/19/23 03/19/23 03/19/23 05:52 07:47 11:03 WBC RBC Hgb Hct MCV MCH MCHC RDW Plt Count MPV Immature Gran % (Auto) Neut % (Auto) Lymph % (Auto) [place] % (Auto) Eos % (Auto) Baso % (Auto) Lymph # (Auto) [place] # (Auto) Eos # (Auto) Baso # (Auto) Abs Immat Gran (auto) Absolute Neuts (auto) Absolute Nucleated RBC Nucleated RBC % (auto) PT INR APTT Sodium 132 L Potassium 3.3 Chloride 98 Carbon Dioxide 27 Anion Gap 10 L BUN 6 L Creatinine 0.57 Estim Creat Clear Calc 125.0 Estimated GFR > 60 POC Glucose 251 H 202 H Random Glucose 225 H Calcium 8.4 Magnesium Total Bilirubin 7.1 H Direct Bilirubin AST 100 H ALT 95 H Alkaline Phosphatase 208 H Ammonia Lactate Dehydrogenase Total Protein 5.4 L Albumin 2.4 L Lipase Peritoneal WBC Peritoneal RBC Periton Neutrophils Periton Lymphocytes Peritoneal Monocytes Peritoneal Other Cells Peritoneal Tot Protein Peritoneal Albumin Peritoneal Glucose Hepatitis A IgM Ab Hep Bs Antigen Hep Bs Antibody Hep B Core Total Ab Hepatitis C Ab (EIA) HCV RNA Genotype LiPA HCV RNA (PCR) IUs/ml HCV RNA PCR log IUs/ml Hepatitis C RNA Comment Blood Type Antibody Screen MASON, Polyspecific Positive MASON Work-up 03/19/23 03/19/23 03/20/23 16:02 20:32 06:20 WBC 11.7 H RBC 3.35 L Hgb 11.8 L Hct 32.7 L MCV 97.6 MCH 35.2 H MCHC 36.1 H RDW 14.9 Plt Count 94 L MPV 10.2 Immature Gran % (Auto) Neut % (Auto) Lymph % (Auto) [place] % (Auto) Eos % (Auto) Baso % (Auto) Lymph # (Auto) [place] # (Auto) Eos # (Auto) Baso # (Auto) Abs Immat Gran (auto) Absolute Neuts (auto) Absolute Nucleated RBC 0.000 Nucleated RBC % (auto) 0.0 PT INR APTT Sodium Potassium Chloride Carbon Dioxide Anion Gap BUN Creatinine Estim Creat Clear Calc Estimated GFR POC Glucose 237 H 239 H Random Glucose Calcium Magnesium Total Bilirubin Direct Bilirubin AST ALT Alkaline Phosphatase Ammonia Lactate Dehydrogenase Total Protein Albumin Lipase Peritoneal WBC Peritoneal RBC Periton Neutrophils Periton Lymphocytes Peritoneal Monocytes Peritoneal Other Cells Peritoneal Tot Protein Peritoneal Albumin Peritoneal Glucose Hepatitis A IgM Ab Hep Bs Antigen Hep Bs Antibody Hep B Core Total Ab Hepatitis C Ab (EIA) HCV RNA Genotype LiPA HCV RNA (PCR) IUs/ml HCV RNA PCR log IUs/ml Hepatitis C RNA Comment Blood Type Antibody Screen MASON, Polyspecific Positive MASON Work-up 03/20/23 03/20/23 03/20/23 06:20 06:20 06:20 WBC RBC Hgb Hct MCV MCH MCHC RDW Plt Count MPV Immature Gran % (Auto) Neut % (Auto) Lymph % (Auto) [place] % (Auto) Eos % (Auto) Baso % (Auto) Lymph # (Auto) [place] # (Auto) Eos # (Auto) Baso # (Auto) Abs Immat Gran (auto) Absolute Neuts (auto) Absolute Nucleated RBC Nucleated RBC % (auto) PT 15.7 H INR 1.4 H APTT Sodium 131 L Potassium 3.5 Chloride 98 Carbon Dioxide 24 Anion Gap 13 BUN 8 L Creatinine 0.59 Estim Creat Clear Calc 120.7 Estimated GFR > 60 POC Glucose Random Glucose 253 H Calcium 8.3 L Magnesium Total Bilirubin 9.0 H Direct Bilirubin AST 119 H ALT 105 H Alkaline Phosphatase 213 H Ammonia Lactate Dehydrogenase Total Protein 5.5 L Albumin 2.4 L Lipase Peritoneal WBC Peritoneal RBC Periton Neutrophils Periton Lymphocytes Peritoneal Monocytes Peritoneal Other Cells Peritoneal Tot Protein Peritoneal Albumin Peritoneal Glucose Hepatitis A IgM Ab Hep Bs Antigen Hep Bs Antibody Hep B Core Total Ab Hepatitis C Ab (EIA) HCV RNA Genotype LiPA HCV RNA (PCR) IUs/ml HCV RNA PCR log IUs/ml Hepatitis C RNA Comment Blood Type AB Positive Antibody Screen NEGATIVE MASON, Polyspecific NEGATIVE Positive MASON Work-up TNP 03/20/23 03/20/23 03/20/23 07:24 11:16 14:08 WBC RBC Hgb Hct MCV MCH MCHC RDW Plt Count MPV Immature Gran % (Auto) Neut % (Auto) Lymph % (Auto) [place] % (Auto) Eos % (Auto) Baso % (Auto) Lymph # (Auto) [place] # (Auto) Eos # (Auto) Baso # (Auto) Abs Immat Gran (auto) Absolute Neuts (auto) Absolute Nucleated RBC Nucleated RBC % (auto) PT INR APTT Sodium Potassium Chloride Carbon Dioxide Anion Gap BUN Creatinine Estim Creat Clear Calc Estimated GFR POC Glucose 243 H 239 H 258 H Random Glucose Calcium Magnesium Total Bilirubin Direct Bilirubin AST ALT Alkaline Phosphatase Ammonia Lactate Dehydrogenase Total Protein Albumin Lipase Peritoneal WBC Peritoneal RBC Periton Neutrophils Periton Lymphocytes Peritoneal Monocytes Peritoneal Other Cells Peritoneal Tot Protein Peritoneal Albumin Peritoneal Glucose Hepatitis A IgM Ab Hep Bs Antigen Hep Bs Antibody Hep B Core Total Ab Hepatitis C Ab (EIA) HCV RNA Genotype LiPA HCV RNA (PCR) IUs/ml HCV RNA PCR log IUs/ml Hepatitis C RNA Comment Blood Type Antibody Screen MASON, Polyspecific Positive MASON Work-up 03/20/23 03/20/23 03/20/23 16:39 17:24 20:40 WBC RBC Hgb Hct MCV MCH MCHC RDW Plt Count MPV Immature Gran % (Auto) Neut % (Auto) Lymph % (Auto) [place] % (Auto) Eos % (Auto) Baso % (Auto) Lymph # (Auto) [place] # (Auto) Eos # (Auto) Baso # (Auto) Abs Immat Gran (auto) Absolute Neuts (auto) Absolute Nucleated RBC Nucleated RBC % (auto) PT INR APTT Sodium Potassium Chloride Carbon Dioxide Anion Gap BUN Creatinine Estim Creat Clear Calc Estimated GFR POC Glucose 235 H 238 H 227 H Random Glucose Calcium Magnesium Total Bilirubin Direct Bilirubin AST ALT Alkaline Phosphatase Ammonia Lactate Dehydrogenase Total Protein Albumin Lipase Peritoneal WBC Peritoneal RBC Periton Neutrophils Periton Lymphocytes Peritoneal Monocytes Peritoneal Other Cells Peritoneal Tot Protein Peritoneal Albumin Peritoneal Glucose Hepatitis A IgM Ab Hep Bs Antigen Hep Bs Antibody Hep B Core Total Ab Hepatitis C Ab (EIA) HCV RNA Genotype LiPA HCV RNA (PCR) IUs/ml HCV RNA PCR log IUs/ml Hepatitis C RNA Comment Blood Type Antibody Screen MASON, Polyspecific Positive MASON Work-up 03/21/23 03/21/23 03/21/23 06:59 06:59 07:12 WBC 12.8 H RBC 3.47 L Hgb 12.1 L Hct 34.0 L MCV 98.0 MCH 34.9 H MCHC 35.6 RDW 15.3 Plt Count 100 L MPV 10.2 Immature Gran % (Auto) Neut % (Auto) Lymph % (Auto) [place] % (Auto) Eos % (Auto) Baso % (Auto) Lymph # (Auto) [place] # (Auto) Eos # (Auto) Baso # (Auto) Abs Immat Gran (auto) Absolute Neuts (auto) Absolute Nucleated RBC 0.000 Nucleated RBC % (auto) 0.0 PT INR APTT Sodium 134 L Potassium 3.8 Chloride 100 Carbon Dioxide 24 Anion Gap 14 BUN 8 L Creatinine 0.57 Estim Creat Clear Calc 125.0 Estimated GFR > 60 POC Glucose 239 H Random Glucose 244 H Calcium 8.4 Magnesium Total Bilirubin 11.0 H Direct Bilirubin AST 98 H ALT 99 H Alkaline Phosphatase 221 H Ammonia Lactate Dehydrogenase Total Protein 5.4 L Albumin 2.3 L Lipase Peritoneal WBC Peritoneal RBC Periton Neutrophils Periton Lymphocytes Peritoneal Monocytes Peritoneal Other Cells Peritoneal Tot Protein Peritoneal Albumin Peritoneal Glucose Hepatitis A IgM Ab Hep Bs Antigen Hep Bs Antibody Hep B Core Total Ab Hepatitis C Ab (EIA) HCV RNA Genotype LiPA HCV RNA (PCR) IUs/ml HCV RNA PCR log IUs/ml Hepatitis C RNA Comment Blood Type Antibody Screen MASON, Polyspecific Positive MASON Work-up 03/21/23 03/21/23 03/21/23 11:23 16:06 20:22 WBC RBC Hgb Hct MCV MCH MCHC RDW Plt Count MPV Immature Gran % (Auto) Neut % (Auto) Lymph % (Auto) [place] % (Auto) Eos % (Auto) Baso % (Auto) Lymph # (Auto) [place] # (Auto) Eos # (Auto) Baso # (Auto) Abs Immat Gran (auto) Absolute Neuts (auto) Absolute Nucleated RBC Nucleated RBC % (auto) PT INR APTT Sodium Potassium Chloride Carbon Dioxide Anion Gap BUN Creatinine Estim Creat Clear Calc Estimated GFR POC Glucose 240 H 242 H 257 H Random Glucose Calcium Magnesium Total Bilirubin Direct Bilirubin AST ALT Alkaline Phosphatase Ammonia Lactate Dehydrogenase Total Protein Albumin Lipase Peritoneal WBC Peritoneal RBC Periton Neutrophils Periton Lymphocytes Peritoneal Monocytes Peritoneal Other Cells Peritoneal Tot Protein Peritoneal Albumin Peritoneal Glucose Hepatitis A IgM Ab Hep Bs Antigen Hep Bs Antibody Hep B Core Total Ab Hepatitis C Ab (EIA) HCV RNA Genotype LiPA HCV RNA (PCR) IUs/ml HCV RNA PCR log IUs/ml Hepatitis C RNA Comment Blood Type Antibody Screen MASON, Polyspecific Positive MASON Work-up 03/22/23 03/22/23 03/22/23 06:10 06:10 06:10 WBC 15.4 H RBC 3.53 L Hgb 12.4 L Hct 34.1 L MCV 96.6 MCH 35.1 H MCHC 36.4 H RDW 15.8 Plt Count 110 L MPV 10.3 Immature Gran % (Auto) Neut % (Auto) Lymph % (Auto) [place] % (Auto) Eos % (Auto) Baso % (Auto) Lymph # (Auto) [place] # (Auto) Eos # (Auto) Baso # (Auto) Abs Immat Gran (auto) Absolute Neuts (auto) Absolute Nucleated RBC 0.000 Nucleated RBC % (auto) 0.0 PT 16.5 H INR 1.4 H APTT Sodium 134 L Potassium 3.6 Chloride 100 Carbon Dioxide 26 Anion Gap 12 BUN 9 Creatinine 0.64 Estim Creat Clear Calc 111.3 Estimated GFR > 60 POC Glucose Random Glucose 277 H Calcium 9.1 D Magnesium Total Bilirubin 12.8 H Direct Bilirubin 8.9 H AST 84 H ALT 94 H Alkaline Phosphatase 230 H Ammonia Lactate Dehydrogenase Total Protein 5.6 L Albumin 2.3 L Lipase Peritoneal WBC Peritoneal RBC Periton Neutrophils Periton Lymphocytes Peritoneal Monocytes Peritoneal Other Cells Peritoneal Tot Protein Peritoneal Albumin Peritoneal Glucose Hepatitis A IgM Ab Hep Bs Antigen Hep Bs Antibody Hep B Core Total Ab Hepatitis C Ab (EIA) HCV RNA Genotype LiPA HCV RNA (PCR) IUs/ml HCV RNA PCR log IUs/ml Hepatitis C RNA Comment Blood Type Antibody Screen MASON, Polyspecific Positive MASON Work-up 03/22/23 03/22/23 03/22/23 07:26 10:48 10:48 WBC RBC Hgb Hct MCV MCH MCHC RDW Plt Count MPV Immature Gran % (Auto) Neut % (Auto) Lymph % (Auto) [place] % (Auto) Eos % (Auto) Baso % (Auto) Lymph # (Auto) [place] # (Auto) Eos # (Auto) Baso # (Auto) Abs Immat Gran (auto) Absolute Neuts (auto) Absolute Nucleated RBC Nucleated RBC % (auto) PT INR APTT Sodium Potassium Chloride Carbon Dioxide Anion Gap BUN Creatinine Estim Creat Clear Calc Estimated GFR POC Glucose 275 H Random Glucose Calcium Magnesium Total Bilirubin 13.3 H Direct Bilirubin 9.3 H AST 84 H ALT 94 H Alkaline Phosphatase 237 H Ammonia Lactate Dehydrogenase 208 Total Protein 5.8 L Albumin 2.4 L Lipase Peritoneal WBC Peritoneal RBC Periton Neutrophils Periton Lymphocytes Peritoneal Monocytes Peritoneal Other Cells Peritoneal Tot Protein Peritoneal Albumin Peritoneal Glucose Hepatitis A IgM Ab Hep Bs Antigen Hep Bs Antibody Hep B Core Total Ab Hepatitis C Ab (EIA) HCV RNA Genotype LiPA HCV RNA (PCR) IUs/ml HCV RNA PCR log IUs/ml Hepatitis C RNA Comment Blood Type Antibody Screen MASON, Polyspecific Positive MASON Work-up 03/22/23 03/22/23 03/22/23 11:27 12:51 12:51 WBC RBC Hgb Hct MCV MCH MCHC RDW Plt Count MPV Immature Gran % (Auto) Neut % (Auto) Lymph % (Auto) [place] % (Auto) Eos % (Auto) Baso % (Auto) Lymph # (Auto) [place] # (Auto) Eos # (Auto) Baso # (Auto) Abs Immat Gran (auto) Absolute Neuts (auto) Absolute Nucleated RBC Nucleated RBC % (auto) PT INR APTT Sodium Potassium Chloride Carbon Dioxide Anion Gap BUN Creatinine Estim Creat Clear Calc Estimated GFR POC Glucose 288 H Random Glucose Calcium Magnesium Total Bilirubin Direct Bilirubin AST ALT Alkaline Phosphatase Ammonia Lactate Dehydrogenase Total Protein Albumin Lipase Peritoneal WBC Peritoneal RBC Periton Neutrophils Periton Lymphocytes Peritoneal Monocytes Peritoneal Other Cells Peritoneal Tot Protein Peritoneal Albumin Peritoneal Glucose Hepatitis A IgM Ab Nonreactive Hep Bs Antigen Not Reportable Hep Bs Antibody REACTIVE Hep B Core Total Ab Nonreactive Hepatitis C Ab (EIA) Nonreactive HCV RNA Genotype LiPA Cancelled HCV RNA (PCR) IUs/ml Cancelled HCV RNA PCR log IUs/ml Cancelled Hepatitis C RNA Comment Cancelled Blood Type Antibody Screen MASON, Polyspecific Positive MASON Work-up 03/22/23 03/22/23 03/22/23 15:58 15:58 17:04 WBC RBC Hgb Hct MCV MCH MCHC RDW Plt Count MPV Immature Gran % (Auto) Neut % (Auto) Lymph % (Auto) [place] % (Auto) Eos % (Auto) Baso % (Auto) Lymph # (Auto) [place] # (Auto) Eos # (Auto) Baso # (Auto) Abs Immat Gran (auto) Absolute Neuts (auto) Absolute Nucleated RBC Nucleated RBC % (auto) PT INR APTT Sodium Potassium Chloride Carbon Dioxide Anion Gap BUN Creatinine Estim Creat Clear Calc Estimated GFR POC Glucose 359 H* Random Glucose Calcium Magnesium Total Bilirubin Direct Bilirubin AST ALT Alkaline Phosphatase Ammonia Lactate Dehydrogenase Total Protein Albumin Lipase Peritoneal WBC 0.234 Peritoneal RBC 0.002 Periton Neutrophils 25 Periton Lymphocytes 32 Peritoneal Monocytes 31 Peritoneal Other Cells 12 Peritoneal Tot Protein 0.7 Peritoneal Albumin 0.3 Peritoneal Glucose 342 Hepatitis A IgM Ab Hep Bs Antigen Hep Bs Antibody Hep B Core Total Ab Hepatitis C Ab (EIA) HCV RNA Genotype LiPA HCV RNA (PCR) IUs/ml HCV RNA PCR log IUs/ml Hepatitis C RNA Comment Blood Type Antibody Screen MASON, Polyspecific Positive MASON Work-up 03/22/23 03/23/23 03/23/23 20:11 07:17 07:55 WBC RBC Hgb Hct MCV MCH MCHC RDW Plt Count MPV Immature Gran % (Auto) Neut % (Auto) Lymph % (Auto) [place] % (Auto) Eos % (Auto) Baso % (Auto) Lymph # (Auto) [place] # (Auto) Eos # (Auto) Baso # (Auto) Abs Immat Gran (auto) Absolute Neuts (auto) Absolute Nucleated RBC Nucleated RBC % (auto) PT INR APTT Sodium Potassium Chloride Carbon Dioxide Anion Gap BUN Creatinine Estim Creat Clear Calc Estimated GFR POC Glucose 289 H 276 H Random Glucose Calcium Magnesium Total Bilirubin 14.3 H Direct Bilirubin 9.1 H AST 137 H ALT 89 H Alkaline Phosphatase 194 H Ammonia Lactate Dehydrogenase Total Protein 5.3 L Albumin 2.6 L Lipase Peritoneal WBC Peritoneal RBC Periton Neutrophils Periton Lymphocytes Peritoneal Monocytes Peritoneal Other Cells Peritoneal Tot Protein Peritoneal Albumin Peritoneal Glucose Hepatitis A IgM Ab Hep Bs Antigen Hep Bs Antibody Hep B Core Total Ab Hepatitis C Ab (EIA) HCV RNA Genotype LiPA HCV RNA (PCR) IUs/ml HCV RNA PCR log IUs/ml Hepatitis C RNA Comment Blood Type Antibody Screen MASON, Polyspecific Positive MASON Work-up 03/23/23 03/23/23 03/23/23 11:28 16:06 19:42 WBC RBC Hgb Hct MCV MCH MCHC RDW Plt Count MPV Immature Gran % (Auto) Neut % (Auto) Lymph % (Auto) [place] % (Auto) Eos % (Auto) Baso % (Auto) Lymph # (Auto) [place] # (Auto) Eos # (Auto) Baso # (Auto) Abs Immat Gran (auto) Absolute Neuts (auto) Absolute Nucleated RBC Nucleated RBC % (auto) PT INR APTT Sodium Potassium Chloride Carbon Dioxide Anion Gap BUN Creatinine Estim Creat Clear Calc Estimated GFR POC Glucose 298 H 285 H 259 H Random Glucose Calcium Magnesium Total Bilirubin Direct Bilirubin AST ALT Alkaline Phosphatase Ammonia Lactate Dehydrogenase Total Protein Albumin Lipase Peritoneal WBC Peritoneal RBC Periton Neutrophils Periton Lymphocytes Peritoneal Monocytes Peritoneal Other Cells Peritoneal Tot Protein Peritoneal Albumin Peritoneal Glucose Hepatitis A IgM Ab Hep Bs Antigen Hep Bs Antibody Hep B Core Total Ab Hepatitis C Ab (EIA) HCV RNA Genotype LiPA HCV RNA (PCR) IUs/ml HCV RNA PCR log IUs/ml Hepatitis C RNA Comment Blood Type Antibody Screen MASON, Polyspecific Positive MASON Work-up 03/24/23 03/24/23 03/24/23 07:50 10:34 11:05 WBC RBC Hgb Hct MCV MCH MCHC RDW Plt Count MPV Immature Gran % (Auto) Neut % (Auto) Lymph % (Auto) [place] % (Auto) Eos % (Auto) Baso % (Auto) Lymph # (Auto) [place] # (Auto) Eos # (Auto) Baso # (Auto) Abs Immat Gran (auto) Absolute Neuts (auto) Absolute Nucleated RBC Nucleated RBC % (auto) PT INR APTT Sodium 136 Potassium 3.5 Chloride 102 Carbon Dioxide 25 Anion Gap 13 BUN 12 Creatinine 0.72 Estim Creat Clear Calc 98.9 Estimated GFR > 60 POC Glucose 257 H 284 H Random Glucose 308 H Calcium 9.1 Magnesium Total Bilirubin 18.6 H Direct Bilirubin 11.4 H AST 117 H ALT 95 H Alkaline Phosphatase 214 H Ammonia Lactate Dehydrogenase Total Protein 5.6 L Albumin 2.6 L Lipase Peritoneal WBC Peritoneal RBC Periton Neutrophils Periton Lymphocytes Peritoneal Monocytes Peritoneal Other Cells Peritoneal Tot Protein Peritoneal Albumin Peritoneal Glucose Hepatitis A IgM Ab Hep Bs Antigen Hep Bs Antibody Hep B Core Total Ab Hepatitis C Ab (EIA) HCV RNA Genotype LiPA HCV RNA (PCR) IUs/ml HCV RNA PCR log IUs/ml Hepatitis C RNA Comment Blood Type Antibody Screen MASON, Polyspecific Positive MASON Work-up 03/24/23 03/24/23 03/25/23 15:58 19:39 05:11 WBC RBC Hgb Hct MCV MCH MCHC RDW Plt Count MPV Immature Gran % (Auto) Neut % (Auto) Lymph % (Auto) [place] % (Auto) Eos % (Auto) Baso % (Auto) Lymph # (Auto) [place] # (Auto) Eos # (Auto) Baso # (Auto) Abs Immat Gran (auto) Absolute Neuts (auto) Absolute Nucleated RBC Nucleated RBC % (auto) PT INR APTT Sodium 136 Potassium 3.3 Chloride 100 Carbon Dioxide 29 Anion Gap 10 L BUN 11 Creatinine 0.63 Estim Creat Clear Calc 113.0 Estimated GFR > 60 POC Glucose 339 H 300 H Random Glucose 287 H Calcium 9.2 Magnesium 2.1 Total Bilirubin 19.6 H Direct Bilirubin AST 74 H ALT 78 H Alkaline Phosphatase 191 H Ammonia Lactate Dehydrogenase Total Protein 5.6 L Albumin 2.8 L Lipase Peritoneal WBC Peritoneal RBC Periton Neutrophils Periton Lymphocytes Peritoneal Monocytes Peritoneal Other Cells Peritoneal Tot Protein Peritoneal Albumin Peritoneal Glucose Hepatitis A IgM Ab Hep Bs Antigen Hep Bs Antibody Hep B Core Total Ab Hepatitis C Ab (EIA) HCV RNA Genotype LiPA HCV RNA (PCR) IUs/ml HCV RNA PCR log IUs/ml Hepatitis C RNA Comment Blood Type Antibody Screen MASON, Polyspecific Positive MASON Work-up 03/25/23 03/25/23 03/25/23 07:22 10:58 16:28 WBC RBC Hgb Hct MCV MCH MCHC RDW Plt Count MPV Immature Gran % (Auto) Neut % (Auto) Lymph % (Auto) [place] % (Auto) Eos % (Auto) Baso % (Auto) Lymph # (Auto) [place] # (Auto) Eos # (Auto) Baso # (Auto) Abs Immat Gran (auto) Absolute Neuts (auto) Absolute Nucleated RBC Nucleated RBC % (auto) PT INR APTT Sodium Potassium Chloride Carbon Dioxide Anion Gap BUN Creatinine Estim Creat Clear Calc Estimated GFR POC Glucose 288 H 278 H 250 H Random Glucose Calcium Magnesium Total Bilirubin Direct Bilirubin AST ALT Alkaline Phosphatase Ammonia Lactate Dehydrogenase Total Protein Albumin Lipase Peritoneal WBC Peritoneal RBC Periton Neutrophils Periton Lymphocytes Peritoneal Monocytes Peritoneal Other Cells Peritoneal Tot Protein Peritoneal Albumin Peritoneal Glucose Hepatitis A IgM Ab Hep Bs Antigen Hep Bs Antibody Hep B Core Total Ab Hepatitis C Ab (EIA) HCV RNA Genotype LiPA HCV RNA (PCR) IUs/ml HCV RNA PCR log IUs/ml Hepatitis C RNA Comment Blood Type Antibody Screen MASON, Polyspecific Positive MASON Work-up 03/25/23 03/26/23 03/26/23 20:18 05:12 07:06 WBC RBC Hgb Hct MCV MCH MCHC RDW Plt Count MPV Immature Gran % (Auto) Neut % (Auto) Lymph % (Auto) [place] % (Auto) Eos % (Auto) Baso % (Auto) Lymph # (Auto) [place] # (Auto) Eos # (Auto) Baso # (Auto) Abs Immat Gran (auto) Absolute Neuts (auto) Absolute Nucleated RBC Nucleated RBC % (auto) PT INR APTT Sodium 136 Potassium 3.6 Chloride 100 Carbon Dioxide 25 Anion Gap 15 BUN 17 H Creatinine 0.71 Estim Creat Clear Calc 100.3 Estimated GFR > 60 POC Glucose 268 H 285 H Random Glucose 268 H Calcium 9.1 Magnesium Total Bilirubin 22.0 H Direct Bilirubin AST 84 H ALT 78 H Alkaline Phosphatase 189 H Ammonia Lactate Dehydrogenase Total Protein 5.6 L Albumin 2.7 L Lipase Peritoneal WBC Peritoneal RBC Periton Neutrophils Periton Lymphocytes Peritoneal Monocytes Peritoneal Other Cells Peritoneal Tot Protein Peritoneal Albumin Peritoneal Glucose Hepatitis A IgM Ab Hep Bs Antigen Hep Bs Antibody Hep B Core Total Ab Hepatitis C Ab (EIA) HCV RNA Genotype LiPA HCV RNA (PCR) IUs/ml HCV RNA PCR log IUs/ml Hepatitis C RNA Comment Blood Type Antibody Screen MASON, Polyspecific Positive MASON Work-up 03/26/23 03/26/23 03/26/23 11:06 11:11 12:15 WBC RBC Hgb Hct MCV MCH MCHC RDW Plt Count MPV Immature Gran % (Auto) Neut % (Auto) Lymph % (Auto) [place] % (Auto) Eos % (Auto) Baso % (Auto) Lymph # (Auto) [place] # (Auto) Eos # (Auto) Baso # (Auto) Abs Immat Gran (auto) Absolute Neuts (auto) Absolute Nucleated RBC Nucleated RBC % (auto) PT INR APTT Sodium Potassium Chloride Carbon Dioxide Anion Gap BUN Creatinine Estim Creat Clear Calc Estimated GFR POC Glucose 315 H 337 H Random Glucose Calcium Magnesium Total Bilirubin Direct Bilirubin AST ALT Alkaline Phosphatase Ammonia 47 Lactate Dehydrogenase Total Protein Albumin Lipase Peritoneal WBC Peritoneal RBC Periton Neutrophils Periton Lymphocytes Peritoneal Monocytes Peritoneal Other Cells Peritoneal Tot Protein Peritoneal Albumin Peritoneal Glucose Hepatitis A IgM Ab Hep Bs Antigen Hep Bs Antibody Hep B Core Total Ab Hepatitis C Ab (EIA) HCV RNA Genotype LiPA HCV RNA (PCR) IUs/ml HCV RNA PCR log IUs/ml Hepatitis C RNA Comment Blood Type Antibody Screen MASON, Polyspecific Positive MASON Work-up Airway Mallampati Class: II TM Dist: >3cm Neck ROM: Limited Heart: rrr Lungs: cct Assessment and Plan Assessment Anesthesia Assessment: Anesthesia Plan Discussed and Chart Reviewed Final Anesthetic Review Family History of Problems with Anesthesia: No History of Problems with Anesthesia: No NPO: Yes ASA Class: IV Final Preanesthetic Review: No Changes in Pt Med Stat, Meds/Allgs Chart Reviewed, Consent Obtained/Reviewed and Anes Risks/Benef Reviewed Patient Risk: High Procedure Risk: Intermediate Anesthetic Plan Anesthetic Plan: GA Disposition: Standard PACU
--- NOTE | 2023-03-26 13:40 | MHC.CM.PN ---
per rounds pt to have an ercp tomorrow no ready for dc
--- NOTE | 2023-03-26 14:01 | PC.NURSE ---
Dr. An and Dr. Otero made aware of patients blood sugar of 337 in preop. No new orders at this time. May proceed with procedure.
--- NOTE | 2023-03-26 15:08 | W.PM.OPN ---
Operative Note Operative Note Date of Service: 03/26/23 Narrative: Description: Endoscopic retrograde cholangiopancreatography (ERCP) PROCEDURE: Endoscopic retrograde cholangiopancreatography with stent exchange and cholangiogram INDICATION FOR THE PROCEDURE: Patient with a history of prior stent placement and rising LFT, concern for stent occlusion MEDICATIONS: General anesthesia, The risks of the procedure were made aware to the patient and consisted of medication reaction, bleeding, perforation, aspiration, and post ERCP pancreatitis. DESCRIPTION OF PROCEDURE: After informed consent and appropriate sedation, the duodenoscope was inserted into the oropharynx, down the esophagus, and into the stomach. The scope was then advanced through the pylorus to the ampulla. The prior placed stent was noted. It was removed with a snare with a small amount of purulent material noted thereafter. The duct was irrigated with no clots or stones coming out and then sweeped with occlusion cholangiogram performed. there was a suspicion of a filling defect and a basket was used but no material was seen. Upon flushing again with saline and repeat cholangiogram no filling defect was seen. No focal stricture was seen but there did appear to be some beading of the intrahepatic ducts. A 10Fr by 9 cm stent was then placed with radiographic and endoscopic guidance in good position. There was some minor oozing which had ceased by the end of the procedure. The stomach was then decompressed and the endoscope was withdrawn. FINDINGS: 1. possible PSC 2. Stent exchange RECOMMENDATIONS: 1. Clears as tolerated, can advance diet tomorrow if feels well 2. If still has ongoing abn LFt then CT with IV contrast and possible liver biopsy.
[2023-03-26 16:28] LABS: Glucose, Whole Blood 334 mg/dL (60-115)
[2023-03-26] MEDS: Insulin Lispro 100 UNIT/ML 3 ML VIAL SUBCUT ×2 (16:40→22:11)
[2023-03-26] MEDS: Spironolactone 25 MG TABLET 12.5 MG PO (18:28)
[2023-03-26] MEDS: Potassium Chloride/H20 10 MEQ/100 ML PIGGYBACK 100 MEQ IV ×2 (18:28→20:05)
[2023-03-26] MEDS: Albuterol/Iprat 2.5/0.5MG 3 ML AMPUL.NEB INHALE (19:20)
[2023-03-26 20:52] LABS: Glucose, Whole Blood 284 mg/dL (60-115)
[2023-03-26 21:28] LABS: Myeloperoxidase Antibody <1.0 AI; Proteinase 3 PR3 Antibodies <1.0 AI
[2023-03-26] MEDS: Albumin Human 25 % 50 ML 100 ML IV ×2 (22:03→23:34)
[2023-03-26] MEDS: Enoxaparin Sodium 100 MG/ML SYRINGE SUBCUT (22:09)
[2023-03-27 04:00] VITALS: BP 120/62; PULSE 65; RESP 17; TEMP 36.4; O2SAT 93
[2023-03-27] MEDS: Piperacillin Sodium/Tazobactam 3.375 GM in 0.9 % Sodium Chloride 50 ML IV ×4 (04:34→21:37)
[2023-03-27 06:29] LABS: Hematocrit 29.3 % (42.0-52.0); Hemoglobin 10.7 g/dl (14.0-18.0); Mean Corpuscular HGB Conc 36.5 g/dl (31.0-36.0); Mean Corpuscular Hemoglobin 35.1 pg (27.0-33.0); Mean Corpuscular Volume 96.1 fL (80.0-98.0); Mean Platelet Volume 10.8 fL (9.4-12.4); NRBC Pct Auto 0.1 /100WBC (0.0-0.2); Red Blood Count 3.05 X10*6/uL (4.60-5.80); Red Cell Distribution Width 19.2 % (11.0-16.0); White Blood Count 17.3 X10*3/uL (4.8-10.8)
[2023-03-27 06:31] LABS: Platelet Count 91 X10*3/uL (160-400)
[2023-03-27 06:35] LABS: INTERNATIONAL NORM RATIO 1.8 (0.9-1.1); Prothrombin Time 20.9 SEC (10.0-13.1)
[2023-03-27 06:40] LABS: Alanine Aminotransferase 71 U/L (0-40); Albumin Level 2.8 g/dL (3.5-5.0); Alkaline Phosphatase 178 U/L (39-117); Anion Gap 17 (12-20); Aspartate Amino Transferase 71 U/L (5-37); Bilirubin Total 24.3 mg/dL (0.0-1.0); Blood Urea Nitrogen 24 mg/dL (9-16); Calcium 9.5 mg/dL (8.4-10.2); Carbon Dioxide 24 mmol/L (22-29); Chloride 98 mmol/L (96-108); Creatinine Clr Calc Pharmacy 72.7; Estimated Glomerular Filt Rate > 60; Glucose Random 322 mg/dL (60-115); Potassium 3.7 mmol/L (3.3-5.1); Sodium 135 mmol/L (135-145); Total Protein 5.6 g/dL (6.5-8.0)
[2023-03-27 07:20] LABS: Glucose, Whole Blood 338 mg/dL (60-115)
[2023-03-27 07:39] VITALS: BP 127/61; PULSE 100; RESP 18; TEMP 36.7; O2SAT 99
[2023-03-27] MEDS: Multivitamin TABLET 1 TAB PO (08:27)
[2023-03-27] MEDS: Magnesium Oxide 400 MG TABLET PO ×2 (08:27→21:36)
[2023-03-27] MEDS: Docusate Sodium 100 MG CAPSULE PO (08:27)
[2023-03-27] MEDS: Spironolactone 25 MG TABLET 12.5 MG PO ×2 (08:27→16:52)
[2023-03-27] MEDS: Sucralfate Oral Suspension 1 GM/10 ML ORAL.SUSP PO ×2 (08:28→21:42)
[2023-03-27] MEDS: 0.9 % Sodium Chloride Flush 3 ML SYRINGE IVFLUSH ×3 (08:28→21:37)
[2023-03-27] MEDS: Lactulose 20 GM/30 ML SOLUTION PO (08:28)
[2023-03-27] MEDS: Insulin Lispro 100 UNIT/ML 3 ML VIAL SUBCUT ×4 (08:28→21:36)
[2023-03-27] MEDS: Cholecalciferol (Vitamin D3) 10 MCG TABLET PO (08:28)
[2023-03-27] MEDS: polyethylene glycoL 3350 17 GM POWD.PACK PO (08:28)
[2023-03-27] MEDS: Lidocaine 4 % Patch ADH..PATCH 1 PATCH TRANSDERMA (08:29)
--- NOTE | 2023-03-27 09:29 | P.PNIM_ITS ---
Subjective Subjective Date of Service: 03/27/23 Interval History: f/u on abdominal pain, pancreatitic, cancer, biliary obstruction, s/p ercp with stent exchange 03/26 pain level ok, not ecephalopathy, no sings of symptoms of cholangitis Physical Exam Vital Signs: Vital Signs: Last Vital Signs Temp 98.1 F 03/27/23 07:39 Pulse 100 03/27/23 07:39 Resp 18 03/27/23 07:39 BP 127/61 03/27/23 07:39 Pulse Ox 99 03/27/23 07:39 O2 Del Method Nasal Cannula 03/27/23 07:39 O2 Flow Rate 1 03/27/23 07:39 BMI result Body Mass Index 25.1 Const: Other: General: AO X 3, no acute distress heent: scleara icteris Resp: CTA bilateral CVS: S1,S2,RRR GI: +BS, mild tenderness, distended d/t ascietes Skin: No rash, yellow Neuro: motor grossly intact Psych: appropriate affect Objective Data Active Medications Albuterol/Ipratropium (Albuterol/Iprat 2.5/0.5mg 3 Ml Ampul.Neb) 3 ml INHALE RQ4H WHILE AWAKE [facility] Last Admin: 03/27/23 07:33 Dose: Not Given Documented By: NAT Non-Admin Reason: Patient Asleep Docusate Sodium (Docusate Sodium 100 Mg Capsule) 100 mg PO BID [facility] Last Admin: 03/27/23 08:27 Dose: 100 mg Documented By: CYN Enoxaparin Sodium (Enoxaparin Sodium 100 Mg/Ml Syringe) 100 mg SUBCUT DAILY [facility] Last Admin: 03/25/23 07:43 Dose: 100 mg Documented By: MODESTO Fentanyl (Fentanyl Citrate/Pf 100 Mcg/2 Ml Vial) 25 mcg IVPUSH Q5M PRN; Pr otocol PRN Reason: Pain, Moderate(Pain Scale 4-6) Furosemide (Furosemide 20 Mg Tablet) 20 mg PO DAILY [facility]; Protocol Last Admin: 03/25/23 07:43 Dose: 20 mg Documented By: MODESTO Glucose (Glucose Gel 15 Gm Gel..Gram.) 15 gm PO Q15M PRN; Protocol PRN Reason: per Hypoglycemia Standing Ord. Dextrose (D10) 250 mls @ 750 mls/hr IV Q15M PRN; Protocol PRN Reason: per Hypoglycemia Standing Ord. Piperacillin Sod/Tazobactam (Sod 3.375 gm/ Sodium Chloride) 50 mls @ 100 mls/hr IV Q6H [facility] Last Infusion: 03/27/23 05:06 Dose: 0 mls/hr Documented By: CHRISTELLE Insulin Human Lispro (Insulin Lispro 100 Unit/Ml 3 Ml Vial) 0 unit SUBCUT QID ACHS [facility]; Protocol Last Admin: 03/27/23 08:28 Dose: 8 unit Documented By: CYN Lactulose (Lactulose 20 Gm/30 Ml Solution) 20 gm PO DAILY [facility] Last Admin: 03/27/23 08:28 Dose: 20 gm Documented By: CYN Lidocaine (Lidocaine 4 % Patch Adh..Patch) 1 patch TRANSDERMA DAILY [facility]; Protocol Last Admin: 03/27/23 08:29 Dose: 1 patch Documented By: CYN Magnesium Hydroxide (Milk Of Magnesia 30 Ml Oral.Susp) 30 ml PO DAILY PRN PRN Reason: Constipation Last Admin: 03/18/23 09:01 Dose: 30 ml Documented By: CELESTE Magnesium Oxide (Magnesium Oxide 400 Mg Tablet) 400 mg PO BID [facility] Last Admin: 03/27/23 08:27 Dose: 400 mg Documented By: CYN Melatonin (Melatonin 3 Mg Tablet) 6 mg PO BEDTIME PRN PRN Reason: Insomnia Last Admin: 03/24/23 20:56 Dose: 6 mg Documented By: ZHOU Multivitamins/Vitamin C (Multivitamin Tablet) 1 tab PO DAILY [facility] Last Admin: 03/27/23 08:27 Dose: 1 tab Documented By: CYN Ondansetron HCl (Ondansetron Hcl 4 Mg/2 Ml Vial) 4 mg IVPUSH Q8H PRN PRN Reason: Nausea and Vomiting Last Admin: 03/23/23 18:32 Dose: 4 mg Documented By: ANGELES Oxycodone HCl (Oxycodone Hcl Immed Release 5 Mg Tablet) 5 mg PO Q4H PRN PRN Reason: Pain, Severe (Pain Scale 7-10) Last Admin: 03/26/23 11:45 Dose: 5 mg Documented By: MODESTO Pharmacy Consult (Consult Rx Perform Med Rec) 1 each MISCELLANE ONCE PRN PRN Reason: Consult order Polyethylene Glycol (Polyethylene Glycol 3350 17 Gm Powd.Pack) 17 gm PO DAILY [facility] Last Admin: 03/27/23 08:28 Dose: 17 gm Documented By: CYN Sodium Chloride (0.9 % Sodium Chloride Flush 3 Ml Syringe) 3 ml IVFLUSH QSHIFT [facility] Last Admin: 03/27/23 08:28 Dose: 3 ml Documented By: CYN Spironolactone (Spironolactone 25 Mg Tablet) 12.5 mg PO BID@0900,1800 [facility]; Protocol Last Admin: 03/27/23 08:27 Dose: 12.5 mg Documented By: CYN Sucralfate (Sucralfate Oral Suspension 1 Gm/10 Ml Oral.Susp) 1 gm PO BID [facility] Last Admin: 03/27/23 08:28 Dose: 1 gm Documented By: CYN Vitamin D (Cholecalciferol (Vitamin D3) 10 Mcg Tablet) 10 mcg PO DAILY [facility] Last Admin: 03/27/23 08:28 Dose: 10 mcg Documented By: CYN Labs 03/27/23 05:18 03/27/23 05:17 Labs: Laboratory Results - last 24 hr 03/22/23 03/26/23 03/26/23 12:51 11:06 11:11 MCV MCH MCHC RDW Plt Count MPV Absolute Nucleated RBC Nucleated RBC % (auto) PT INR Anion Gap Estim Creat Clear Calc Estimated GFR POC Glucose 315 H Random Glucose Calcium Total Bilirubin AST ALT Alkaline Phosphatase Ammonia 47 Total Protein Albumin Proteinase 3 (PR3) Ab <1.0 Myeloperoxidase Ab <1.0 03/26/23 03/26/23 03/26/23 12:15 16:03 20:41 MCV MCH MCHC RDW Plt Count MPV Absolute Nucleated RBC Nucleated RBC % (auto) PT INR Anion Gap Estim Creat Clear Calc Estimated GFR POC Glucose 337 H 334 H 284 H Random Glucose Calcium Total Bilirubin AST ALT Alkaline Phosphatase Ammonia Total Protein Albumin Proteinase 3 (PR3) Ab Myeloperoxidase Ab 03/27/23 03/27/23 03/27/23 05:17 05:18 05:18 MCV 96.1 MCH 35.1 H MCHC 36.5 H RDW 19.2 H Plt Count 91 L MPV 10.8 Absolute Nucleated RBC 0.020 H Nucleated RBC % (auto) 0.1 PT 20.9 H INR 1.8 H Anion Gap 17 Estim Creat Clear Calc 72.7 Estimated GFR > 60 POC Glucose Random Glucose 322 H Calcium 9.5 Total Bilirubin 24.3 H AST 71 H ALT 71 H Alkaline Phosphatase 178 H Ammonia Total Protein 5.6 L Albumin 2.8 L Proteinase 3 (PR3) Ab Myeloperoxidase Ab 03/27/23 07:15 MCV MCH MCHC RDW Plt Count MPV Absolute Nucleated RBC Nucleated RBC % (auto) PT INR Anion Gap Estim Creat Clear Calc Estimated GFR POC Glucose 338 H Random Glucose Calcium Total Bilirubin AST ALT Alkaline Phosphatase Ammonia Total Protein Albumin Proteinase 3 (PR3) Ab Myeloperoxidase Ab Microbiology Microbiology Results: Microbiology 03/22/23 15:58 Gram Stain - Final Abdominal Fluid Routine Culture - Final No growth after 2 days Anaerobic Culture - Preliminary No growth to date. 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 possible PSC 2. Stent exchange -Bili rising -? need for liver biopsy -advance diet - will discuss with dr. 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 Pancreatic cancer--outpatient management with Dr. Butt DVT prophylaxis-hold Lovenox DNR/DNI Need for inpatient: pain control from pancreatitic cancer, Abx for colitis, elevated Lft's worsenin -if lft's continue to worse -need liver biopsy. Time Spent With Patient Time: Total time managing care of this patient today ____ minutes. Quality Stroke Does the patient have a stroke diagnosis?: No VTE Prior VTE?: Yes VTE Risk Level:: Medical - moderate - high VTE Device Contraindication: Treatment Not Indicated VTE Drug Contraindication: N/A - Med Ordered
[2023-03-27 11:21] LABS: Glucose, Whole Blood 264 mg/dL (60-115)
[2023-03-27 14:18] VITALS: BP 136/72; PULSE 78; RESP 18; TEMP 36.9; O2SAT 96; O2SAT 97
[2023-03-27 16:00] VITALS: BP 150/72; PULSE 105; RESP 17; TEMP 36.6; O2SAT 97
[2023-03-27] MEDS: iohexoL 350 MG/ML 100 ML INFUS..BTL IV (16:02)
--- NOTE | 2023-03-27 16:34 | HO.POSTANES ---
Post Anesthesia Evaluation Post Anesthesia Evaluation Date of Service: 03/27/23 Vital Signs: Vital Signs Temp Pulse Resp BP Pulse Ox O2 Del Method O2 Flow Rate 03/27/23 16:00 97.9 F 105 H 17 150/72 H 97 Nasal Cannula 1 03/27/23 14:18 98.4 F 78 18 136/72 97 Room Air 03/27/23 14:18 96 Room Air 03/27/23 07:39 98.1 F 100 18 127/61 99 Nasal Cannula 1 Anesthesia: Monitored Mental Status: Awake Pain Control: Satisfactory Nausea/Vomiting: None Hydration: Adequate Anesthesia-Related Issues: No Anes. Related Issues
--- NOTE | 2023-03-27 16:36 | HO.POSTANES ---
Post Anesthesia Evaluation Post Anesthesia Evaluation Date of Service: 03/27/23 Vital Signs: Vital Signs Temp Pulse Resp BP Pulse Ox O2 Del Method O2 Flow Rate 03/27/23 16:00 97.9 F 105 H 17 150/72 H 97 Nasal Cannula 1 03/27/23 14:18 98.4 F 78 18 136/72 97 Room Air 03/27/23 14:18 96 Room Air 03/27/23 07:39 98.1 F 100 18 127/61 99 Nasal Cannula 1 Anesthesia: General Endotracheal-GETA Mental Status: Awake Pain Control: Satisfactory Nausea/Vomiting: None Hydration: Adequate Anesthesia-Related Issues: No Anes. Related Issues
[2023-03-27 16:37] LABS: Glucose, Whole Blood 269 mg/dL (60-115)
--- NOTE | 2023-03-27 18:19 | PM.GIPN ---
Subjective Subjective Date of Service: 03/27/23 Interval History: LFT specifically Bili conts to worsen, inspite of ERCP with clean out of cbd and stent placement He has abdo distention and discomfort from ascites appetite is fair no fever no melena Critical Care Time (minutes): 0 Physical Exam Vital Signs: Vital Signs: Last Vital Signs Temp 97.9 F 03/27/23 16:00 Pulse 105 H 03/27/23 16:00 Resp 17 03/27/23 16:00 BP 150/72 H 03/27/23 16:00 Pulse Ox 97 03/27/23 16:00 O2 Del Method Nasal Cannula 03/27/23 16:00 O2 Flow Rate 1 03/27/23 16:00 BMI result Body Mass Index 25.1 EXAM: GENERAL: The patient is frail, jaundiced VITAL SIGNS:see workflow HEENT: icteric sclerae, PERRLA, EOMI. Oropharynx clear. Moist mucous membranes. Conjunctivae appear well perfused. No thyroid mass. CHEST: Chest wall is nontender. HEART: Regular rate and rhythm without murmurs. LUNGS: Clear to auscultation bilaterally. ABDOMEN: Soft, positive bowel sounds, nontender, no organomegaly.no flank tenderness--distended with pos fluid thrill SKIN: No rash, no excessive bruising, petechiae, or purpura. NEUROLOGIC: Cranial nerves II-XII intact without motor/sensory deficit. Objective Data Labs 03/27/23 05:18 03/27/23 05:17 Labs: Laboratory Results - last 24 hr 03/22/23 03/26/23 03/27/23 12:51 20:41 05:17 WBC RBC Hgb Hct MCV MCH MCHC RDW Plt Count MPV Absolute Nucleated RBC Nucleated RBC % (auto) PT INR Sodium 135 Potassium 3.7 Chloride 98 Carbon Dioxide 24 Anion Gap 17 BUN 24 H Creatinine 0.98 Estim Creat Clear Calc 72.7 Estimated GFR > 60 POC Glucose 284 H Random Glucose 322 H Calcium 9.5 Total Bilirubin 24.3 H AST 71 H ALT 71 H Alkaline Phosphatase 178 H Total Protein 5.6 L Albumin 2.8 L Proteinase 3 (PR3) Ab <1.0 Myeloperoxidase Ab <1.0 03/27/23 03/27/23 03/27/23 05:18 05:18 07:15 WBC 17.3 H RBC 3.05 L Hgb 10.7 L Hct 29.3 L MCV 96.1 MCH 35.1 H MCHC 36.5 H RDW 19.2 H Plt Count 91 L MPV 10.8 Absolute Nucleated RBC 0.020 H Nucleated RBC % (auto) 0.1 PT 20.9 H INR 1.8 H Sodium Potassium Chloride Carbon Dioxide Anion Gap BUN Creatinine Estim Creat Clear Calc Estimated GFR POC Glucose 338 H Random Glucose Calcium Total Bilirubin AST ALT Alkaline Phosphatase Total Protein Albumin Proteinase 3 (PR3) Ab Myeloperoxidase Ab 03/27/23 03/27/23 11:08 16:34 WBC RBC Hgb Hct MCV MCH MCHC RDW Plt Count MPV Absolute Nucleated RBC Nucleated RBC % (auto) PT INR Sodium Potassium Chloride Carbon Dioxide Anion Gap BUN Creatinine Estim Creat Clear Calc Estimated GFR POC Glucose 264 H 269 H Random Glucose Calcium Total Bilirubin AST ALT Alkaline Phosphatase Total Protein Albumin Proteinase 3 (PR3) Ab Myeloperoxidase Ab Microbiology Microbiology Results: Microbiology 03/22/23 15:58 Abdominal Fluid Gram Stain - Final 03/22/23 15:58 Abdominal Fluid Routine Culture - Final No growth after 2 days 03/22/23 15:58 Abdominal Fluid Anaerobic Culture - Preliminary No growth to date. Procedures Date of Service Date of Service: 03/27/23 Progress Note: A&P Assessment and plan (1) Obstructive jaundice due to cancer: Status: Acute (2) Elevated bilirubin: Status: Acute (3) Pancreatic adenocarcinoma: Status: Acute Plan 1/ Worsening LFT mostly bili, other numbers have been stable, could be due to interstitial biliary disease possible DILI, paraneoplastic effect or mets/carcinomatosis,AIH PLAN: 1/ Ct A/P with IV contrast 2/ if neg then liver bx 3/ prognosis guarded consider d/w family abt goals of care 4/ tap ascites and send for cytology Time Spent With Patient Time: Total time managing care of this patient today ____ minutes. Quality Stroke Does the patient have a stroke diagnosis?: No VTE Prior VTE?: Yes VTE Risk Level:: Medical - moderate - high VTE Device Contraindication: Treatment Not Indicated VTE Drug Contraindication: N/A - Med Ordered
[2023-03-27 19:37] VITALS: BP 125/60; PULSE 100; RESP 17; TEMP 36.9; O2SAT 96
[2023-03-27 21:10] LABS: Glucose, Whole Blood 204 mg/dL (60-115)
[2023-03-27] MEDS: Melatonin 3 MG TABLET 6 MG PO (21:36)
[2023-03-28] VITALS (8 sets, daily range): BP systolic 119–142; BP diastolic 55–67; PULSE 94–110; RESP 18–20; TEMP 36.4–36.9; O2SAT 91–98
[2023-03-28] MEDS: Piperacillin Sodium/Tazobactam 3.375 GM in 0.9 % Sodium Chloride 50 ML IV ×4 (03:38→22:45)
[2023-03-28 07:26] LABS: Alanine Aminotransferase 79 U/L (0-40); Albumin Level 2.7 g/dL (3.5-5.0); Alkaline Phosphatase 183 U/L (39-117); Aspartate Amino Transferase 122 U/L (5-37); Bilirubin Direct 16.9 mg/dL (0.0-0.5); Total Protein 5.5 g/dL (6.5-8.0)
[2023-03-28 08:00] LABS: Glucose, Whole Blood 260 mg/dL (60-115)
[2023-03-28] MEDS: Insulin Lispro 100 UNIT/ML 3 ML VIAL SUBCUT ×4 (08:50→20:28)
[2023-03-28] MEDS: Sucralfate Oral Suspension 1 GM/10 ML ORAL.SUSP PO ×2 (08:51→20:28)
[2023-03-28] MEDS: Lactulose 20 GM/30 ML SOLUTION PO (08:51)
[2023-03-28] MEDS: Lidocaine 4 % Patch ADH..PATCH 1 PATCH TRANSDERMA (08:52)
[2023-03-28] MEDS: Multivitamin TABLET 1 TAB PO (08:54)
[2023-03-28] MEDS: Magnesium Oxide 400 MG TABLET PO ×2 (08:54→20:29)
[2023-03-28] MEDS: Spironolactone 25 MG TABLET 12.5 MG PO ×2 (08:54→17:45)
[2023-03-28] MEDS: Cholecalciferol (Vitamin D3) 10 MCG TABLET PO (08:55)
[2023-03-28] MEDS: 0.9 % Sodium Chloride Flush 3 ML SYRINGE IVFLUSH ×3 (08:59→22:46)
--- NOTE | 2023-03-28 09:57 | HO.PM.IMPN ---
Subjective Subjective Date of Service: 03/28/23 Interval History: f/u on abdominal pain, pancreatitic, cancer, biliary obstruction, s/p ercp with stent exchange 03/26 Pain is controlled, abdominal distention and worsening jaundice Review of Systems Gen: no fever Resp: no sob, no cough CV: no chest, no ABDALAL, no leg edema GI: No n/v, +abd pain, constipation Neuro: No confusion Physical Exam Vital Signs: Vital Signs: Last Vital Signs Temp 97.8 F 03/28/23 07:28 Pulse 106 H 03/28/23 07:28 Resp 18 03/28/23 07:28 BP 119/55 L 03/28/23 07:28 Pulse Ox 96 03/28/23 07:28 O2 Del Method Room Air 03/28/23 07:28 O2 Flow Rate 1 03/27/23 19:37 BMI result Body Mass Index 25.1 Const: Other: General: AO X 3, no acute distress heent: scleara icteris Resp: CTA bilateral CVS: S1,S2,RRR GI: +BS, mild tenderness, distended d/t ascietes Skin: No rash, yellow Neuro: motor grossly intact Psych: appropriate affect Objective Data Active Medications Albuterol/Ipratropium (Albuterol/Iprat 2.5/0.5mg 3 Ml Ampul.Neb) 3 ml INHALE RQ4H WHILE AWAKE [facility] Last Admin: 03/28/23 07:21 Dose: Not Given Documented By: QUINTEN Non-Admin Reason: Patient Refused Docusate Sodium (Docusate Sodium 100 Mg Capsule) 100 mg PO BID [facility] Last Admin: 03/28/23 08:59 Dose: Not Given Documented By: SNEHAL Non-Admin Reason: loose stool Enoxaparin Sodium (Enoxaparin Sodium 100 Mg/Ml Syringe) 100 mg SUBCUT DAILY [facility] Last Admin: 03/25/23 07:43 Dose: 100 mg Documented By: MODESTO Fentanyl (Fentanyl Citrate/Pf 100 Mcg/2 Ml Vial) 25 mcg IVPUSH Q5M PRN; Protocol PRN Reason: Pain, Moderate(Pain Scale 4-6) Furosemide (Furosemide 20 Mg Tablet) 20 mg PO DAILY [facility]; Protocol Last Admin: 03/25/23 07:43 Dose: 20 mg Documented By: HO.PARROWA Glucose (Glucose Gel 15 Gm Gel..Gram.) 15 gm PO Q15M PRN; Protocol PRN Reason: per Hypoglycemia Standing Ord. Dextrose (D10) 250 mls @ 750 mls/hr IV Q15M PRN; Protocol PRN Reason: per Hypoglycemia Standing Ord. Piperacillin Sod/Tazobactam (Sod 3.375 gm/ Sodium Chloride) 50 mls @ 100 mls/hr IV Q6H [facility] Last Infusion: 03/28/23 04:16 Dose: 0 mls/hr Documented By: OSCAR Insulin Human Lispro (Insulin Lispro 100 Unit/Ml 3 Ml Vial) 0 unit SUBCUT QIDACHS [facility]; Protocol Last Admin: 03/28/23 08:50 Dose: 6 unit Documented By: SNEHAL Lactulose (Lactulose 20 Gm/30 Ml Solution) 20 gm PO DAILY [facility] Last Admin: 03/28/23 08:51 Dose: 20 gm Documented By: SNEHAL Lidocaine (Lidocaine 4 % Patch Adh..Patch) 1 patch TRANSDERMA DAILY [facility]; Protocol Last Admin: 03/28/23 08:52 Dose: 1 patch Documented By: SNEHAL Magnesium Hydroxide (Milk Of Magnesia 30 Ml Oral.Susp) 30 ml PO DAILY PRN PRN Reason: Constipation Last Admin: 03/18/23 09:01 Dose: 30 ml Documented By: CELESTE Magnesium Oxide (Magnesium Oxide 400 Mg Tablet) 400 mg PO BID [facility] Last Admin: 03/28/23 08:54 Dose: 400 mg Documented By: SNEHAL Melatonin (Melatonin 3 Mg Tablet) 6 mg PO BEDTIME PRN PRN Reason: Insomnia Last Admin: 03/27/23 21:36 Dose: 6 mg Documented By: OSCAR Multivitamins/Vitamin C (Multivitamin Tablet) 1 tab PO DAILY [facility] Last Admin: 03/28/23 08:54 Dose: 1 tab Documented By: SNEHAL Ondansetron HCl (Ondansetron Hcl 4 Mg/2 Ml Vial) 4 mg IVPUSH Q8H PRN PRN Reason: Nausea and Vomiting Last Admin: 03/23/23 18:32 Dose: 4 mg Documented By: ANGELES Pharmacy Consult (Consult Rx Perform Med Rec) 1 each MISCELLANE ONCE PRN PRN Reason: Consult order Polyethylene Glycol (Polyethylene Glycol 3350 17 Gm Powd.Pack) 17 gm PO DAILY [facility] Last Admin: 03/28/23 09:00 Dose: Not Given Documented By: SNEHAL Non-Admin Reason: loose stool Sodium Chloride (0.9 % Sodium Chloride Flush 3 Ml Syringe) 3 ml IVFLUSH QSHIFT [facility] Last Admin: 03/28/23 08:59 Dose: 3 ml Documented By: SNEHAL Spironolactone (Spironolactone 25 Mg Tablet) 12.5 mg PO BID@0900,1800 [facility]; Protocol Last Admin: 03/28/23 08:54 Dose: 12.5 mg Documented By: SNEHAL Sucralfate (Sucralfate Oral Suspension 1 Gm/10 Ml Oral.Susp) 1 gm PO BID [facility] Last Admin: 03/28/23 08:51 Dose: 1 gm Documented By: SNEHAL Vitamin D (Cholecalciferol (Vitamin D3) 10 Mcg Tablet) 10 mcg PO DAILY [facility] Last Admin: 03/28/23 08:55 Dose: 10 mcg Documented By: SNEHAL Labs 03/27/23 05:18 03/27/23 05:17 Labs: Laboratory Results - last 24 hr 03/27/23 03/27/23 03/27/23 11:08 16:34 21:07 POC Glucose 264 H 269 H 204 H Total Bilirubin Direct Bilirubin AST ALT Alkaline Phosphatase Total Protein Albumin 03/28/23 03/28/23 05:07 07:41 POC Glucose 260 H Total Bilirubin 28.0 H Direct Bilirubin 16.9 H AST 122 H ALT 79 H Alkaline Phosphatase 183 H Total Protein 5.5 L Albumin 2.7 L Microbiology Microbiology Results: Microbiology 03/22/23 15:58 Gram Stain - Final Abdominal Fluid Routine Culture - Final No growth after 2 days Anaerobic Culture - Final NO GROWTH AFTER 5 DAYS Assessment and Plan (1) Obstructive jaundice due to cancer: Status: Acute (2) Ascitic fluid: Status: Acute (3) Colitis: Status: Acute Plan 63 year old male with history noninsulin dependent type 2 diabetes, alcoholic cirrhosis of the liver, hx alcoholism, diabetic polyneuropathy, venous insuffiency, and 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 possible PSC 2. Stent exchange -Bili rising -? need for liver biopsy -advance diet - will discuss with dr. Tucker Superior mesenteric vein thombosarmando- 2/ pancreatic cancer Lovenox Colitis, I doubt this is dthe source of his pain--consider stopping Abx Leukocytosis, likely reactive Cirrhosis, ascietes, medical management with aldactone, Lasix, not encephalopathic ?akw-hijcpre-hhraisfgp type 2 diabetes-hold metformin and Actos, SSI HLD--hold statin d/t high lfts hypontaremia : d/t cirrhosis, ascietes, resolved. Pancreatic cancer--outpatient management with Dr. Filomena Grover--therapeutic paracentesis today Overall doing poorly with poor prognosis and would like to go home with hospice, discussed with patient and his HCP DVT prophylaxis--resume Lovenox after paracentesisi DNR/DNI Need for inpatient: pain control from pancreatitic cancer, Abx for colitis, elevated Lft's worsenin -if lft's continue to worse -need liver biopsy. Time Spent With Patient Time: Total time managing care of this patient today ____ minutes. Quality Stroke Does the patient have a stroke diagnosis?: No VTE Prior VTE?: Yes VTE Risk Level:: Medical - moderate - high VTE Device Contraindication: Treatment Not Indicated VTE Drug Contraindication: N/A - Med Ordered
[2023-03-28 11:11] LABS: Glucose, Whole Blood 256 mg/dL (60-115)
--- NOTE | 2023-03-28 12:42 | MHC.CM.PN ---
per rounds pt to have imformational from hospice
--- NOTE | 2023-03-28 13:14 | MHC.CLN ---
F/U DIET=CLEAR LIQUIDS. INTAKE REPORTED TO BE FAIR. CONSULT FOR REDNESS TO SHOULDERS. NO NEW NUTRITION INTERVENTIONS AT THIS TIME. FOLLOW FOR DIET TOLERANCE AND DIET ADVANCEMENT.
--- NOTE | 2023-03-28 16:09 | HO.RADPN ---
RADIOLOGY Narrative Narrative: RLQ large volume paracentesis. Serosanguinous fluid. No specimen sent
[2023-03-28] MEDS: Lidocaine HCl 1 % MPF 5 ML VIAL SUBCUT (16:39)
[2023-03-28 17:07] LABS: Glucose, Whole Blood 247 mg/dL (60-115)
[2023-03-28 17:27] LABS: RBC Peritoneal Fluid 0.012 X10*6/uL; WBC Peritoneal Fluid 0.333 X10*3/uL
[2023-03-28] MEDS: ondansetron HCL 4 MG/2 ML VIAL IVPUSH (17:45)
[2023-03-28 18:24] LABS: BF Shift QC OK YES; Man Diluent Bkgrd OK YES
[2023-03-28] MEDS: oxyCODONE HCl Immed Release 5 MG TABLET PO (19:40)
[2023-03-28] MEDS: Albuterol/Iprat 2.5/0.5MG 3 ML AMPUL.NEB INHALE (19:48)
[2023-03-28 20:14] LABS: Glucose, Whole Blood 245 mg/dL (60-115)
[2023-03-28] MEDS: Melatonin 3 MG TABLET 6 MG PO (20:29)
[2023-03-28 23:54] LABS: Smooth Muscle Antibody <20 U (<20)
[2023-03-29 04:00] VITALS: BP 112/67; PULSE 53; RESP 16; TEMP 36.6; O2SAT 94
[2023-03-29] MEDS: Piperacillin Sodium/Tazobactam 3.375 GM in 0.9 % Sodium Chloride 50 ML IV (04:00)
[2023-03-29 06:35] LABS: Alanine Aminotransferase 77 U/L (0-40); Albumin Level 2.6 g/dL (3.5-5.0); Alkaline Phosphatase 193 U/L (39-117); Aspartate Amino Transferase 86 U/L (5-37); Total Protein 5.6 g/dL (6.5-8.0)
[2023-03-29 07:00] VITALS: BP 123/59; PULSE 97; RESP 16; TEMP 36; O2SAT 97
[2023-03-29 07:10] LABS: Bilirubin Direct 19.5 mg/dL (0.0-0.5); Bilirubin Total 33.8 mg/dL (0.0-1.0)
[2023-03-29 07:38] LABS: Glucose, Whole Blood 286 mg/dL (60-115)
--- NOTE | 2023-03-29 08:44 | P.PNIM_ITS ---
Subjective Subjective Date of Service: 03/29/23 Interval History: He's condition is worsening, more confused, increasing bili, some agitation overnight, appear calm this morning. Discussed with HCP at bed side, Physical Exam Vital Signs: Vital Signs: Last Vital Signs Temp 96.8 F 03/29/23 07:00 Pulse 97 03/29/23 07:00 Resp 16 03/29/23 07:00 BP 123/59 L 03/29/23 07:00 Pulse Ox 97 03/29/23 07:00 O2 Del Method Room Air 03/29/23 07:00 O2 Flow Rate 1 03/27/23 19:37 BMI result Body Mass Index 25.1 Const: Other: General: confused heent: scleara icteris worse Resp: CTA bilateral CVS: S1,S2,RRR GI: +BS, mild tenderness, distended d/t ascietes but better Skin: No rash, yellow Neuro: motor grossly intact Psych: appropriate affect Objective Data Active Medications Albuterol/Ipratropium (Albuterol/Iprat 2.5/0.5mg 3 Ml Ampul.Neb) 3 ml INHALE RQ4H WHILE AWAKE [facility] Last Admin: 03/29/23 07:57 Dose: Not Given Documented By: QUINTEN Non-Admin Reason: Patient Refused Docusate Sodium (Docusate Sodium 100 Mg Capsule) 100 mg PO BID [facility] Last Admin: 03/29/23 08:25 Dose: Not Given Documented By: COTEMA Non-Admin Reason: loose stools Enoxaparin Sodium (Enoxaparin Sodium 100 Mg/Ml Syringe) 100 mg SUBCUT DAILY [facility] Last Admin: 03/25/23 07:43 Dose: 100 mg Documented By: MODESTO Fentanyl (Fentanyl Citrate/Pf 100 Mcg/2 Ml Vial) 25 mcg IVPUSH Q5M PRN; Protocol PRN Reason: Pain, Moderate(Pain Scale 4-6) Furosemide (Furosemide 20 Mg Tablet) 20 mg PO DAILY [facility]; Protocol Last Admin: 03/25/23 07:43 Dose: 20 mg Documented By: MODESTO Glucose (Glucose Gel 15 Gm Gel..Gram.) 15 gm PO Q15M PRN; Protocol PRN Reason: per Hypoglycemia Standing Ord. Dextrose (D10) 250 mls @ 750 mls/hr IV Q15M PRN; Protocol PRN Reason: per Hypoglycemia Standing Ord. Piperacillin Sod/Tazobactam (Sod 3.375 gm/ Sodium Chloride) 50 mls @ 100 mls/hr IV Q6H [facility] Last Infusion: 03/29/23 04:30 Dose: 0 mls/hr Documented By: OSCAR Insulin Human Lispro (Insulin Lispro 100 Unit/Ml 3 Ml Vial) 0 unit SUBCUT QIDACHS [facility]; Protocol Last Admin: 03/28/23 20:28 Dose: 4 unit Documented By: OSCAR Lactulose (Lactulose 20 Gm/30 Ml Solution) 20 gm PO DAILY [facility] Last Admin: 03/28/23 08:51 Dose: 20 gm Documented By: SNEHAL Lidocaine (Lidocaine 4 % Patch Adh..Patch) 1 patch TRANSDERMA DAILY [facility]; Protocol Last Admin: 03/28/23 08:52 Dose: 1 patch Documented By: SNEHAL Magnesium Hydroxide (Milk Of Magnesia 30 Ml Oral.Susp) 30 ml PO DAILY PRN PRN Reason: Constipation Last Admin: 03/18/23 09:01 Dose: 30 ml Documented By: CELESTE Magnesium Oxide (Magnesium Oxide 400 Mg Tablet) 400 mg PO BID [facility] Last Admin: 03/28/23 20:29 Dose: 400 mg Documented By: OSCAR Melatonin (Melatonin 3 Mg Tablet) 6 mg PO BEDTIME PRN PRN Reason: Insomnia Last Admin: 03/28/23 20:29 Dose: 6 mg Documented By: OSCAR Multivitamins/Vitamin C (Multivitamin Tablet) 1 tab PO DAILY [facility] Last Admin: 03/28/23 08:54 Dose: 1 tab Documented By: SNEHAL Ondansetron HCl (Ondansetron Hcl 4 Mg/2 Ml Vial) 4 mg IVPUSH Q8H PRN PRN Reason: Nausea and Vomiting Last Admin: 03/28/23 17:45 Dose: 4 mg Documented By: SNEHAL Oxycodone HCl (Oxycodone Hcl Immed Release 5 Mg Tablet) 5 mg PO Q4H PRN PRN Reason: Pain, Moderate(Pain Scale 4-6) Last Admin: 03/28/23 19:40 Dose: 5 mg Documented By: OSCAR Pharmacy Consult (Consult Rx Perform Med Rec) 1 each MISCELLANE ONCE PRN PRN Reason: Consult order Polyethylene Glycol (Polyethylene Glycol 3350 17 Gm Powd.Pack) 17 gm PO DAILY [facility] Last Admin: 03/29/23 08:25 Dose: Not Given Documented By: COTEMA Non-Admin Reason: loose stools Sodium Chloride (0.9 % Sodium Chloride Flush 3 Ml Syringe) 3 ml IVFLUSH QSHIFT [facility] Last Admin: 03/28/23 22:46 Dose: 3 ml Documented By: OSCAR Spironolactone (Spironolactone 25 Mg Tablet) 12.5 mg PO BID@0900,1800 [facility]; Protocol Last Admin: 03/28/23 17:45 Dose: 12.5 mg Documented By: SNEHAL Sucralfate (Sucralfate Oral Suspension 1 Gm/10 Ml Oral.Susp) 1 gm PO BID [facility] Last Admin: 03/28/23 20:28 Dose: 1 gm Documented By: OSCAR Vitamin D (Cholecalciferol (Vitamin D3) 10 Mcg Tablet) 10 mcg PO DAILY [facility] Last Admin: 03/28/23 08:55 Dose: 10 mcg Documented By: SNEHAL Labs 03/27/23 05:18 03/27/23 05:17 Labs: Laboratory Results - last 24 hr 03/22/23 03/28/23 03/28/23 12:51 11:02 16:15 POC Glucose 256 H Total Bilirubin Direct Bilirubin AST ALT Alkaline Phosphatase Total Protein Albumin Peritoneal WBC 0.333 Peritoneal RBC 0.012 Anti-Smooth Muscle Ab <20 03/28/23 03/28/23 03/29/23 16:57 20:10 05:12 POC Glucose 247 H 245 H Total Bilirubin 33.8 H Direct Bilirubin 19.5 H AST 86 H ALT 77 H Alkaline Phosphatase 193 H Total Protein 5.6 L Albumin 2.6 L Peritoneal WBC Peritoneal RBC Anti-Smooth Muscle Ab 03/29/23 07:15 POC Glucose 286 H Total Bilirubin Direct Bilirubin AST ALT Alkaline Phosphatase Total Protein Albumin Peritoneal WBC Peritoneal RBC Anti-Smooth Muscle Ab Microbiology Microbiology Results: Microbiology 03/22/23 15:58 Gram Stain - Final Abdominal Fluid Routine Culture - Final No growth after 2 days Anaerobic Culture - Final NO GROWTH AFTER 5 DAYS Assessment and Plan (1) Obstructive jaundice due to cancer: Status: Acute (2) Ascitic fluid: Status: Acute (3) Colitis: Status: Acute Plan 63 year old male with history noninsulin dependent type 2 diabetes, alcoholic cirrhosis of the liver, hx alcoholism, diabetic polyneuropathy, venous insuffiency, and 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 possible PSC 2. Stent exchange -Bili rising up to 33 now -doesn't want liver bx sy advance diet - Superior mesenteric vein thombosis- 2/2 pancreatic cancer Lovenox Colitis, I doubt this is dthe source of his pain--consider stopping Abx Leukocytosis, likely reactive Cirrhosis, ascietes, medical management with aldactone, Lasix, not encephalopathic ?zuw-ncobsaj-espdgugyp type 2 diabetes-hold metformin and Actos, SSI HLD--hold statin d/t high lfts hypontaremia : d/t cirrhosis, ascietes, resolved. Pancreatic cancer--outpatient management with Dr. Filomena Grover--therapeutic paracentesis with > 3 liters removal Overall doing poorly with poor prognosis and worsening condition, discussed with HCP and they are preparing to take him home, we also discussed transitioning to comfort measures and stopping meds other med for comfort and no more testing DVT prophylaxis--resume Lovenox after paracentesisi DNR/DNI Need for inpatient: pain control from pancreatitic cancer, Abx for colitis, e levated Lft's worsenin -if lft's continue to worse -need liver biopsy. Time Spent With Patient Time: Total time managing care of this patient today ____ minutes. Quality Stroke Does the patient have a stroke diagnosis?: No VTE Prior VTE?: Yes VTE Risk Level:: Medical - moderate - high VTE Device Contraindication: Treatment Not Indicated VTE Drug Contraindication: N/A - Med Ordered
[2023-03-29] MEDS: 0.9 % Sodium Chloride Flush 3 ML SYRINGE IVFLUSH ×2 (08:51→16:01)
--- NOTE | 2023-03-29 10:30 | MHC.CM.PN ---
Addendum entered by Lilibeth Lundberg 03/29/23 12:27: CM MET WITH PTS HCP AGENTS AND BROTHER AT BEDSIDE PTS BROTHER REPORTS HIS MOTHER WILL BE ARRIVING EARLY TOMORROW MORNING AND THEY MAY WANT TO BRING THE PT TO THEIR HOME HE REPORTS HIS IS A NURSE AND HE AND HER WILL BE HOME MUCH OF THE TIME BUT HIS MOTHER WILL BE THERE THE REST OF THE TIME PTS HCP AGENTS REPORT THEY ARE ALSO CLOSE BY AND COULD COME HELP IF CALLED PT AND FAMILY/HCP AGENTS WOULD LIKE TO WAIT UNTIL PTS MOTHER IS PRESENT TOMORROW TO MAKE THE FINAL PLAN PTS BROTHERS HOME IS ALSO IN SELLS Original Note: CM MET WITH PTS PRIMARY AND ALTERNATE HCP AGENTS, ROLAN, AT BEDSIDE PT AWAKE BUT MINIMALLY INVOLVED THEY REPORT THEY WERE HOPING PT COULD GO TO [facility] ON HOSPICE BUT THEY ARE UNSURE BECAUSE SHE NEEDS TO GET THE SPACE READY AND WAS HOPING THEY COULD POSTPONE DC UNTIL SUNDAY CM EXPLAINED PT SHOULD DC SOON THEY ARE ABLE TO GET A COMFORTABLE SPACE READY HE DOES NOT NEED TO BE IN AN ACUTE SETTING AND WILL BE MORE COMFORTABLE THERE PER HIS STATED WISH. ROLAN REPORT THEY WILL WORK TO PREPARE THE ROOM FOR TOMORROW AFTERNOON THEY ALSO EXPRESS CONCERN THAT THE PTS FAMILY, WHO ARE EXPECTED BEDSIDE BY MORNING, MAY NOT AGREE WITH THE PLAN CM EXPLAINED SINCE THEY ARE THE HCP AGENTS, AND PT HAS INDICATED THIS IS WHAT HE WOULD PREFER, THE FAMILY WILL NOT BE ABLE TO DISPUTE THE PLAN. CM ALSO OFFERED TO REVIEW THE PLAN WITH FAMILY WHEN THEY ARRIVE, WHICH [facility] REPORTED WOULD BE THEIR PREFERENCE. PER DISCUSSION WITH HCP AGENTS, [facility] WAS CONTACTED AND ASKED TO ARRANGE EQUIPMENT DELIVERY FOR TOMORROW THEY WERE ALSO INFORMED A 1500 HOUR DC ON 03/30/23 WAS THE GOAL BLS TRANSPORT BOOKED VIA [facility] AT THAT TIME
[2023-03-29 10:33] VITALS: RESP 15
[2023-03-29] MEDS: Scopolamine 1.5 MG PATCH.TD.3 TRANSDERMA (10:33)
[2023-03-29] MEDS: HYDROmorphone HCl 0.5 MG/0.5 ML SYRINGE IV ×5 (10:33→20:51)
[2023-03-29 16:38] VITALS: RESP 11
[2023-03-29 18:37] VITALS: RESP 11
[2023-03-29 20:51] VITALS: RESP 10
[2023-03-30] MEDS: 0.9 % Sodium Chloride Flush 3 ML SYRINGE IVFLUSH ×2 (00:19→08:31)
[2023-03-30] MEDS: HYDROmorphone HCl 0.5 MG/0.5 ML SYRINGE IV ×5 (01:14→15:50)
[2023-03-30 03:42] VITALS: RESP 16
[2023-03-30 03:54] VITALS: RESP 12
--- NOTE | 2023-03-30 07:07 | P.DS_ITS ---
DS: Providers Provider Date of Service: 03/30/23 Date of admission: 03/17/23 15:23 Primary care physician: YUSEF aLrson Consults: 03/19/23 07:24 Consult to Gastroenterology Routine Consulting Provider: Jenna Tucker Reason for consultation: worsening lfts DS: Diagnosis Discharge Diagnosis (1) Obstructive jaundice due to cancer: Status: Acute (2) Ascitic fluid: Status: Acute (3) Colitis: Status: Acute DS: Summary Hospital Course Hospital Course: Chief Complaint: Abdominal pain 63 year old male with history noninsulin dependent type 2 diabetes, alcoholic cirrhosis of the liver with hx alcoholism (quit 2+ years ago), diabetic polyneuropathy, venous insuffiency, and metastatic adenocarcinoma pancreas presents with abdominal pain. He was recently admitted with similar from 03/12 to 03/15 and was found to have portal vein thrombosis and superior mesenteric vein thrombosis. He anticoagulated with lovenox. He comes back today with persistent pain abdominal and feels constipated. No nausea.? Another CT of abdomen is done ? and shows??Mild wall thickening of the right colon and hepatic flexure questionable for colitis and is being admitted for pain control. WBC is 11, Hospital course: A patient previously diagnosed with pancreatic cancer that had spread to other parts of the body, along with liver cirrhosis and recently discovered blood clots in the superior mesenteric and portal veins, presented with escalating abdominal pain. During the examination, the patient displayed signs suggesting possible inflammation of the colon and a deterioration in liver function tests, indicated by obstructive pattern jaundice. Intravenous antibiotics were administered to address the colon inflammation. However, the patient's liver function worsened, significantly increasing total bilirubin levels from 5 to 33. To alleviate the situation, an endoscopic retrograde cholangiopancreatography (ERCP) procedure was performed, which involved the placement of a stent. Despite the intervention, bilirubin levels continued to rise, leading to a second ERCP to confirm the correct positioning of the stent. Unfortunately, the patient's overall condition continued to deteriorate, marked by worsening liver function, confusion, jaundice, and fluid accumulation in the abdomen, requiring paracentesis. Considering the patient's declining health and unfavorable prognosis and acknowledging that cancer treatment was not viable, the patient and the healthcare proxy decided against further testing. Instead, they chose to transition to hospice care focused on providing comfort. #Abdominal pain--likely related to pancreatic cancer, superior mesenteric veint thrombosism, colitis--Teated with pain medication and addressing underling issues as above #Superior mesenteric vein thombosis, portal vein thrombosis--treated with Lovenox #Colitis--treated with antibiotics # hyperbilirubinemia--due to liver failure, cirrhosis, biliary obstructive. see above for details # Diabetes--treated with insulin #Ascietes--underwent therapeutic paracentesis and if needed to have repeat for comfort Final diagnoses: Pancreatic cancer obstructive jaundice Colitis Ascietes Cirhosis with liver failure Metabolic encephalopathy d.t hepatic encephalopathy diabetes Time Spent with Patient Time attestation: Total time managing care of this patient today ____ minutes. Discharge coordination time: Greater than 30 minutes Quality: Safe Use of Opioids Does Pt have an Active Cancer Diagnosis on the Problem List?: No Quality: Stroke Does the patient have a stroke diagnosis?: No Physical Exam Vital Signs: Vital Signs: Last Vital Signs Temp 96.8 F 03/29/23 07:00 Pulse 97 03/29/23 07:00 Resp 12 03/30/23 03:54 BP 123/59 L 03/29/23 07:00 Pulse Ox 97 03/29/23 07:00 O2 Del Method Room Air 03/29/23 07:00 O2 Flow Rate 1 03/27/23 19:37 BMI result Body Mass Index 25.1 DS: Data Data Completed and Pending Pending studies at discharge: Pending at discharge 03/22/23 15:58 Cytology [PTH] Urgent 03/28/23 16:13 Cytology [PTH] Routine Labs on day of discharge: Laboratory Results - last 24 hr 03/29/23 03/29/23 05:12 07:15 POC Glucose 286 H Total Bilirubin 33.8 H Direct Bilirubin 19.5 H Preliminary micro results at discharge 03/28/23 16:15 Routine Culture - Preliminary Ascites Fluid No growth to date. Anaerobic Culture - Preliminary No growth to date. Discharge Plan Discharge Anticipated Discharge Date/Time: 03/30/23 07:08 Patient Disposition: Hospice - Home Discharge Diagnosis: Pancreatitic cancer, liver failure, obstructive jaundice, colitis, mesenteric thrmobosis Referrals: Mario Prince, [employer] [Primary Care Provider] - 1 Week Discharge Medications: New scopolamine base 1 mg over 3 days patch 3 day 1 patch transdermal Q72H 12 Days Qty: 4 0RF Rx Instructions: 1 patch behind ear Q72H for secretions lorazepam [Lorazepam Intensol] 2 mg/mL concentrate 0.5 mg PO Q4H PRN (Reason: anxiety/restlessness) Qty: 30 0RF hydromorphone [Dilaudid] 2 mg tablet 2 mg PO Q2H Qty: 20 0RF Rx Instructions: Partial Fill upon patient request. Discontinued vitamin B complex Tablet 1 tab PO DAILY Qty: 90 0RF (DME) blood-glucose meter [DataNitroTouch Ultra2 Meter] Misc See Rx Instructions .Route Qty: 1 0RF Rx Instructions: Use to check blood sugar once daily or for symptoms of hypo/hyperglycemia (DME) lancets [OneTouch Delica Lancets] 30 gauge misc See Rx Instructions .Route Qty: 100 0RF Rx Instructions: Use to check blood sugar once daily or for symptoms of hypo/hyperglycemia (DME) OneTouch Ultra Test Strip See Rx Instructions .Route Qty: 100 0RF Rx Instructions: Use to check blood sugar once daily or for symptoms of hypo/hyperglycemia metformin 1,000 mg tablet 1,000 mg PO BID Qty: 180 11RF pioglitazone [Actos] 30 mg tablet 30 mg PO DAILY 90 Days Qty: 90 1RF atorvastatin 10 mg tablet 10 mg PO BEDTIME 90 Days Qty: 90 1RF oxycodone 5 mg Tablet 5 mg PO Q6H PRN (Reason: Pain, Severe (Pain Scale 7-10)) Qty: 20 0RF Rx Instructions: Partial Fill upon patient request. enoxaparin [Lovenox] 100 mg/mL syringe 90 mg subcut DAILY Qty: 90 0RF Rx Instructions: only inject 90 sucralfate 100 mg/mL suspension 10 ml PO BID cholecalciferol (vitamin D3) 10 mcg (400 unit) capsule 10 mcg PO DAILY magnesium oxide 400 mg (241.3 mg magnesium) tablet 400 mg PO BID Qty: 180 2RF Discharge Orders: Discharge Order (Routine); Ordered 03/30/23 Ordered By: Jorge De La Fuente Diet: Advance to usual diet Activity on Discharge: As tolerated Stand Alone Forms: Patient Portal Discharge page Care Plan Goals: Comfort care/Hospice care Health Concerns: Pancreatic cancer Obstructive jaundice Plan of Treatment: Home with hospice Assessment: as above
[2023-03-30 08:24] VITALS: RESP 20
[2023-03-30] MEDS: Lidocaine 4 % Patch ADH..PATCH 1 PATCH TRANSDERMA (08:31)
[2023-03-30] MEDS: LORazepam 2 MG/ML VIAL 1 MG IVPUSH (10:52)
[2023-03-30 13:05] VITALS: RESP 24
[2023-03-30 15:37] LABS: Anti Nuclear Antibody Screen NEGATIVE (NEGATIVE)
[2023-03-30 15:50] VITALS: RESP 14
--- NOTE | 2023-03-30 16:25 | MHC.CM.PN ---
PT DISCHARGING TO [facility]/HCP HOME TODAY WITH [facility] BLS TRANSPORT VIA [facility]
== END 2023-03-30 16:35 | disposition hospice, home (50) | DRG 444 ==
LOC: HO.ED 14:59 → HO.EDOVER 15:36 → HO.S3 17:11
PROVIDERS: Internal Medicine; Internal Medicine Gastroenterology; Physician Assistant; Radiology Diagnostic Radiology; Admitting Provider Internal Medicine; Emergency Provider Emergency Medicine; PCP Nurse Practitioner Family; Visit Provider Internal Medicine
PROC: 0F7C8ZZ Dilation of Ampulla of Vater, Via Natural or Artificial Opening Endoscopic (ICD-10-PCS; CPT 43260; principal; 2023-03-20 15:30)
PROC: 0W9G3ZZ Drainage of Peritoneal Cavity, Percutaneous Approach (ICD-10-PCS; principal; 2023-03-22 16:00)
PROC: 0FPB8DZ Removal of Intraluminal Device from Hepatobiliary Duct, Via Natural or Artificial Opening Endoscopic (ICD-10-PCS; CPT 43260; principal; 2023-03-26 12:20)
DX: K83.1 Obstruction of bile duct (principal); I81 Portal vein thrombosis; J18.9 Pneumonia, unspecified organism; K55.059 Acute (reversible) ischemia of intestine, part and extent unspecified; C25.0 Malignant neoplasm of head of pancreas; E87.1 Hypo-osmolality and hyponatremia; K83.01 Primary sclerosing cholangitis; E11.42 Type 2 diabetes mellitus with diabetic polyneuropathy; Z66 Do not resuscitate; Z51.5 Encounter for palliative care; E78.5 Hyperlipidemia, unspecified; G89.3 Neoplasm related pain (acute) (chronic); K52.9 Noninfective gastroenteritis and colitis, unspecified; K70.31 Alcoholic cirrhosis of liver with ascites; F10.21 Alcohol dependence, in remission; Z88.5 Allergy status to narcotic agent; Z79.899 Other long term (current) drug therapy
CPT/HCPCS: 36415; 49083; 71046; 74018; 74176; 74177; 74181; 80048; 80053; 80076; 82042; 82248; 82945; 82947; 83615; 83690; 83735; 84157; 85025; 85027; 85610; 85730; 86015; 86021; 86038; 86704; 86706; 86709; 86803; 86850; 86880; 86900; 86901; 87070; 87073; 87205; 87340; 88112; 88305; 88341; 88342; 89051; 94640; 99284; C1726; C1769; C2617; J0690; J0696; J1100; J1170; J1610; J1650; J2060; J2250; J2405; J2543; J3010; J3430; P9047; Q9967